=== PATIENT | female | born 1945 | race Caucasian/White ===

== ENCOUNTER 2020-08-30 12:27 | Emergency (ER) | payer MEDICARE, OTHER, SELFPAY ==
[2020-08-30] VITALS (41 sets, daily range): BP systolic 180–226; BP diastolic 71–179; PULSE 58–74; RESP 12–26; TEMP 36.3; O2SAT 93–100
--- NOTE | ~2020-08-30 | XR_ITS ---
EXAMINATION: XR shoulder RT min 2V DATE: 08/30/2020 13:04 INDICATION: Right shoulder pain. Fall. TECHNIQUE: 3 views of right shoulder were obtained. COMPARISON: Right shoulder radiographs 10/22/2018 FINDINGS: There is anterior dislocation of humeral head with suspected glenoid. There is a fracture o f anteroinferior glenoid (Bankart fracture). There are osteophytes at the glenohumeral joint. There i s moderate acromioclavicular joint osteoarthritis. IMPRESSION: 1. Recurrent anterior right shoulder dislocation. 2. Bankart fracture, which may be acute or chronic. Reviewed, dictated and finalized at location A.
--- NOTE | ~2020-08-30 | XR_ITS ---
EXAMINATION: XR shoulder RT min 2V DATE: 08/30/2020 16:55 INDICATION: Postreduction right glenohumeral dislocation TECHNIQUE: AP internally rotated, AP oblique externally rotated and transscapular Y views of the righ t shoulder were obtained. COMPARISON: 08/30/2020 at 12:53 PM FINDINGS: Successful reduction of dislocated right glenohumeral joint is now in normal alignment. No fracture. Mild acromioclavicular osteoarthritis. IMPRESSION: Successful reduction of previously dislocated right glenohumeral joint now in normal alignment with n o fracture. Reviewed, dictated and finalized at location B. IMPRESSION: Successful reduction of previously dislocated right glenohumeral joint now in n ormal alignment with no fracture.
--- NOTE | ~2020-08-30 | XR_ITS ---
EXAMINATION: XR humerus RT DATE: 08/30/2020 13:04 INDICATION: Right upper arm pain post fall TECHNIQUE: Internal and axillary rotated views of the right humerus were obtained. COMPARISON: 10/22/2018 FINDINGS: Recurrent anterior right glenoid humeral dislocation. Normal alignment and mild osteoarthritis at the right acromioclavicular and elbow joints. No fracture. Chronic lobular dystrophic soft tissue calcif ication at the proximal right forearm also seen on CT dated 05/17/2018. Visualized portion of the righ t lung is clear. IMPRESSION: 1. Anterior right glenohumeral dislocation. No fracture. Reviewed, dictated and finalized at location B.
--- NOTE | 2020-08-30 12:47 | ED.UPPEXIN ---
HPI - Extremity Injury (Upper) General Chief Complaint: Fall Stated Complaint: fall - right arm deformity Time Seen by Provider: 08/30/20 12:34 Source: patient Mode of arrival: EMS Limitations: no limitations History of Present Illness HPI narrative: Patient is a 74-year-old female complaining of right shoulder right arm pain, 10, aching type pain, after she fell at home. Patient states that she tripped and fell over a stool and landed on her right side. Patient denies any head, neck, chest, back, abdomen, pelvis or any other extremity pain/injury. Related Data Home Medications Medication Instructions Recorded Confirmed Lactobacillus acidophilus 10 cell PO DAILY cap 04/07/20 04/29/20 billion cell capsule carvedilol 6.25 mg tablet 6.25 mg PO Q12H 04/07/20 04/29/20 cyanocobalamin (vitamin B-12) 5,000 mcg PO DAILY 04/07/20 04/29/20 5,000 mcg capsule ketoconazole 2 % topical cream 1 applic TOPICAL DAILY 04/07/20 04/29/20 mirabegron 50 mg tablet,extended 50 mg PO DAILY 04/07/20 04/29/20 release 24 hr Allergies Allergy/AdvReac Type Severity Reaction Status Date / Time No Known Allergies Allergy Verified 08/30/20 12:47 Review of Systems Review of Systems: All systems reviewed & are unremarkable except as noted in HPI and below Constitutional: Constitutional: Denies body ache(s), Denies chills, Denies excessive sweating, Denies fatigue, Denies fever(s), Denies headache(s), Denies lethargy, Denies malaise, Denies weakness and Denies weight loss Eyes: Eyes: Denies blurry vision, Denies change in vision and Denies loss of vision ENT: Denies dizziness, Denies ear discharge, Denies headache(s), Denies lip swelling, Denies epistaxis, Denies nasal congestion, Denies neck pain, Denies throat swelling and Denies tongue swelling Cardiovascular: Cardiovascular: Denies chest pain, Denies chest pain at rest, Denies chest pain with activity, Denies diaphoresis, Denies rapid heart rate, Denies edema, Denies irregular heart rhythm, Denies lightheadedness, Denies palpitations, Denies dyspnea and Denies dyspnea on exertion Respiratory: Respiratory: Denies chest congestion, Denies cough, Denies hemoptysis, Denies dyspnea and Denies dyspnea on exertion Gastrointestinal: Gastrointestinal: Denies abdominal pain, Denies melena, Denies hematochezia, Denies diarrhea, Denies nausea, Denies vomiting and Denies hematemesis Musculoskeletal: Musculoskeletal: Denies abnormal gait, Denies limited range of motion, Denies neck pain and Denies numbness Neurologic: Denies Abnormal speech present, Denies abnormal gait, Denies confusion, Denies dizziness, Denies headache(s), Denies focal weakness, Denies loss of vision, Denies numbness, Denies Other visual disturbances, Denies Sensory deficit (Neuro) and Denies weakness Psychiatric: Psychiatric: Denies confusion, Denies depression, Denies auditory hallucinations, Denies homicidal ideation and Denies suicidal ideation Endocrine: Endocrine: Denies cold intolerance, Denies excessive sweating, Denies fatigue, Denies heat intolerance and Denies palpitations Hematologic/Lymphatic: Hematologic/Lymphatic: Denies easy bleeding and Denies easy bruising Allergic/Immunologic: Allergic/Immunologic: Denies lip swelling, Denies throat swelling and Denies tongue swelling [facility] Past Medical History Medical History (Updated 08/20/20 @ 15:01 by Lucille Negron NP) Abdominal hernia with gangrene and obstruction Anemia CKD (chronic kidney disease) stage 3, GFR 30-59 ml/min Dyslipidemia Elevated lipids Essential (primary) hypertension GERD without esophagitis History of kidney stones Idiopathic pericarditis Iron deficiency Mass of right forearm OAB (overactive bladder) Pulmonary nodule Right radial head fracture 04/2008 Rosacea Type 2 diabetes mellitus without complication, without long-term current use of insulin Vitamin B12 deficiency Surgical History Surgical History (Reviewed 04/29/20 @ 09:04 by Yani Faria
[2020-08-30] MEDS: diazePAM INJ (*CRX) 10 MG/2 ML SYRINGE 2.5 MG IV PUSH (14:26)
[2020-08-30] MEDS: HYDROmorphone HCL INJ (*CRX) 1 MG/ML SYR IV PUSH (14:27)
--- NOTE | 2020-08-30 14:58 | PC.NURSE ---
Pt now sitting up in bed, states pain is somewhat better. Note with position change pt has obvious deformity to right shoulder area. Right radial pulse remains strong. Consent obtained for moderate sedation to reduce right shoulder.
--- NOTE | 2020-08-30 16:10 | PC.NURSE ---
Dr. Coffey at bedside to reduce dislocation.
[2020-08-30] MEDS: SODIUM CHLORIDE 0.9% IV 1,000 ML 30 ML (16:23)
--- NOTE | 2020-08-30 16:24 | PC.NURSE ---
Addendum entered by Pradeep Sue RN 08/30/20 16:30: Pt actually had desired decrease in responsiveness with 20mg proprofol IVP per Dr. Coffey. Original Note: Dr. Coffey at bedside and administers 100mg proprofol IVP.
--- NOTE | 2020-08-30 16:32 | PC.NURSE ---
Additional 20mg propofol IVP per Dr. Coffey.
--- NOTE | 2020-08-30 16:33 | PC.NURSE ---
Additional 30mg propofol given IVP per Dr. Coffey.
--- NOTE | 2020-08-30 16:37 | PC.NURSE ---
Audible click and ease of movement to pt's right shoulder when reduced per Dr. Coffey. Arm sling placed to right arm immediately. Pt not arousable to voice at present time. Will continue to monitor.
--- NOTE | 2020-08-30 17:00 | PC.NURSE ---
Pt now awakens to name. States her arm feels better at present.
--- NOTE | 2020-08-30 18:00 | PC.NURSE ---
Pt up to bedside commode to urinate. Denies dizziness, lightheadedness with standing. States continues to feel better.
== END 2020-08-30 19:20 | disposition home or self-care (01) ==
PROVIDERS: Emergency Provider Emergency Medicine; PCP Family Medicine
DX: S43.014A Anterior dislocation of right humerus, initial encounter (principal); I12.9 Hypertensive chronic kidney disease with stage 1 through stage 4 chronic kidney disease, or unspecified chronic kidney disease; E11.22 Type 2 diabetes mellitus with diabetic chronic kidney disease; N18.30 Chronic kidney disease, stage 3 unspecified; Z86.2 Personal history of diseases of the blood and blood-forming organs and certain disorders involving the immune mechanism; E78.5 Hyperlipidemia, unspecified; K21.9 Gastro-esophageal reflux disease without esophagitis; I30.0 Acute nonspecific idiopathic pericarditis; N32.81 Overactive bladder; E53.8 Deficiency of other specified B group vitamins; W18.09XA Striking against other object with subsequent fall, initial encounter
CPT/HCPCS: 23650; 73030; 73060; 96374; 96375; 99285; A4565; J1170; J2704; J3360; J7030

== ENCOUNTER 2020-09-07 00:54 | Outpatient (CLI) | payer MEDICARE, OTHER, SELFPAY ==
[2020-09-07 20:51] LABS: SARS-CoV-2 RNA PCR Negative
== END 2020-09-07 00:55 | disposition home or self-care (01) ==
LOC: ANHCOVIDDT 00:54
PROVIDERS: PCP Family Medicine; Visit Provider Internal Medicine Cardiovascular Disease
DX: Z01.812 Encounter for preprocedural laboratory examination (principal); Z20.828 Contact with and (suspected) exposure to other viral communicable diseases
CPT/HCPCS: 87635; C9803; U0003

== ENCOUNTER 2020-09-14 01:10 | Outpatient (CLI) | payer MEDICARE, OTHER, SELFPAY ==
[2020-09-14 19:47] LABS: SARS-CoV-2 RNA PCR Negative
== END 2020-09-14 01:11 | disposition home or self-care (01) ==
LOC: ANHCOVIDDT 01:10
PROVIDERS: PCP Family Medicine; Visit Provider Specialist
DX: Z01.818 Encounter for other preprocedural examination (principal); Z20.828 Contact with and (suspected) exposure to other viral communicable diseases
CPT/HCPCS: 87635; C9803; U0003

== ENCOUNTER 2020-09-17 08:53 | Day surgery (SDC) | payer MEDICARE, OTHER, SELFPAY ==
[2020-09-16 10:41] VITALS: BMI 37.5
[2020-09-17] VITALS (22 sets, daily range): BP systolic 82–207; BP diastolic 48–93; PULSE 68–96; RESP 14–25; TEMP 36.2–36.5; O2SAT 95–99
[2020-09-17 09:28] LABS: Basophils Absolute Auto 0.1 K/mm3 (0.0-0.1); Basophils Percent Auto 0.5 % (0.2-1.2); Eosinophils Absolute Auto 0.2 K/mm3 (0-0.3); Eosinophils Percent Auto 1.6 % (0-4.4); Hematocrit 40.5 % (37.0-47.0); Hemoglobin 12.6 g/dL (12.0-15.0); Immature Granulocyte Absolute 0.05 K/mm3 (0.00-0.031); Immature Granulocyte Percent A 0.4 % (0-0.5); Lymphocytes Absolute Auto 1.78 K/mm3 (0.9-3.2); Lymphocytes Percent Auto 14.6 % (18.3-44.2); Mean Corpuscular HGB Conc 31.1 g/dl (32-36); Mean Corpuscular Hemoglobin 26.6 pg (26-34); Mean Corpuscular Volume 85.6 fl (80-100); Mean Platelet Volume 12.5 fl (7.4-10.4); Monocytes Percent Auto 7.8 % (2.6-8.5); Neutrophils Absolute Auto 9.1 K/mm3 (1.3-6.7); Neutrophils Percent Auto 75.1 % (45.5-73.1); Platelet Count Result 191 k/mm3 (150-375); Red Blood Count 4.73 M/mm3 (4.2-5.4); Red Cell Distribution Width 15.5 % (11.5-14.5); White Blood Count 12.2 K/mm3 (4.5-10.0)
[2020-09-17 09:40] LABS: Prothrombin Time 13.9 Seconds (11.1-14.7)
[2020-09-17 09:49] LABS: Anion Gap 8 mmol/L (8-16); Blood Urea Nitrogen 45 mg/dL (7-17); Calcium 9.7 mg/dL (8.4-10.2); Carbon Dioxide 26 mmol/L (22-30); Chloride 109 mmol/L (98-107); Estimated CRCL calculation 30 ml/min; Estimated Glomerular Filt Rate 32; Glucose 123 mg/dL (65-105); Potassium 4.6 mmol/L (3.4-5.0); Sodium 143 mmol/L (137-145)
--- NOTE | 2020-09-17 09:59 | WPDMODSED ---
Moderate Sedation Note-Pt Data Patient Data Diagnosis: Idiopathic pericardial effusion exertional dyspnea aortic stenosis mitral stenosis Present Complaint: 74-year-old lady reporting symptoms of some exertional shortness of breath and fatigue. She is been found to have a large pericardial effusion which is recurrent despite pericardiocentesis and despite creating a pericardial window. She also has echocardiographic and physical exam evidence of aortic and mitral valve disease. Right and left heart catheterization has been recommended by my partner saw this patient in the office. Procedure to be performed/Plan: Right and left heart catheterization Allergies Allergy/AdvReac Type Severity Reaction Status Date / Time No Known Allergies Allergy Verified 09/01/20 15:03 Home Medications Medication Instructions Recorded Confirmed Type blood sugar diagnostic #100 each 09/10/19 09/03/20 Rx lancets 28 gauge #100 each 09/10/19 09/03/20 Rx lisinopril 40 mg tablet 40 mg PO DAILY #90 tablet 01/26/20 09/16/20 Rx Lactobacillus acidophilus 10 cell PO DAILY cap 04/07/20 09/03/20 History billion cell capsule carvedilol 6.25 mg tablet 6.25 mg PO Q12H 04/07/20 09/16/20 History cyanocobalamin (vitamin B-12) 5,000 mcg PO DAILY 04/07/20 09/16/20 History 5,000 mcg capsule ketoconazole 2 % topical cream 1 applic TOPICAL DAILY 04/07/20 09/16/20 History mirabegron 50 mg tablet,extended 50 mg PO DAILY 04/07/20 09/16/20 History release 24 hr atorvastatin 10 mg PO DAILY 09/16/20 09/16/20 History fenofibrate 160 mg PO DAILY 09/16/20 09/16/20 History Current Medications: Active Medications Sodium Chloride (Normal Saline Iv) 500 mls @ 100 mls/hr IV CONT .Q5H SHAKA Sedation/Anesthesia: No previous sedation/anesthesia problems (including family history). [facility] Past Medical History Medical History Abdominal hernia with gangrene and obstruction Anemia CKD (chronic kidney disease) stage 3, GFR 30-59 ml/min Diabetes Dizziness Dyslipidemia Elevated lipids Essential (primary) hypertension GERD without esophagitis High cholesterol History of kidney stones Idiopathic pericarditis Iron deficiency Mass of right forearm OAB (overactive bladder) Osteoporosis Pulmonary nodule Right radial head fracture 04/2008 Rosacea Seasonal allergies Shoulder dislocation (~08/30/20) Skin cancer Sleep disorder Type 2 diabetes mellitus without complication, without long-term current use of insulin Vertigo Vision changes Vitamin B12 deficiency Surgical History Surgical History History of cardiac catheterization History of cholecystectomy 01/24/2010 History of tonsillectomy History of total abdominal hysterectomy and bilateral salpingo-oophorectomy 01/24/2010 History of tubal ligation Family History Family History Mother Hypertension Diabetes mellitus Cerebrovascular accident Heart disease Social History Social History Smoking status: Never smoker Second hand tobacco smoke exposure: No Alcohol intake: never Substance use: never Substance use type: does not use Gender identity (if verbalized by the patient): Female Mod Sed Physical Exam Physical Exam Pre Procedural Exam: Normal: Throat, Airway, Lungs, Heart Rate, Heart Rhythm, Neuro Exam and Extremities and Variation: Appearance ( obese white female no distress) and Heart Size ( PMI difficult to palpate) Hours since solid foods: 12 Hours since liquid intake: 12 Internal Medicine - PN: Obj Da Vital Signs Vital Signs: Vital Signs - 24 hr 09/17/20 09:36 Temperature 36.2 C L Pulse Rate 76 Respiratory Rate 15 Blood Pressure 178/93 H Pulse Oximetry 98 Meds/Results Medications: Active Medications Generic Name Dose Route Start Last Admin Trade Name
--- NOTE | 2020-09-17 10:57 | WPDCARDPROC ---
Cardiac Cath Procedure Note Date of procedure:: 09/17/20 Performing physician:: Andi Silva MD Indication:: idiopathic pericardial effusion aortic valve stenosis exertional shortness of breath Brief clinical history:: this is a 74-year-old woman who is been followed in our practice because of the recurrent idiopathic pericardial effusion. Despite creation of a pericardial window she continues to have a significant effusion by echo. Patient also by echo appears to have aortic valve stenosis. For further evaluation of this right and left heart catheterization was recommended and scheduled for today. Procedure Procedure performed:: Right and left heart catheterization Sedation/Medication given:: fentanyl 50 mg Versed 2 mg case start time 10 20 a.m. case end time 10:53 a.m. sedation provided by Sarah Melendez RN, trained observer Access site:: right femoral artery, right femoral vein Estimated blood loss:: 15-20 cc Procedure note:: patient brought to the cardiac catheterization lab in the postabsorptive state where the right femoral triangle was prepared in the usual fashion. Tape was used to retain the pannus cephalad. The patient received 1% lidocaine infiltrated locally following this I used the modified Seldinger technique to puncture the right femoral vein and artery. A 7 [place] sheath was placed into the vein and a 6 [place] long 45 cm sheath was placed into the artery. Following this a balloon tip Sheridan-Kaiser catheter was used to document right-sided hemodynamics and thermodilution cardiac outputs were measured as well as AV O2 difference. Following this the Sheridan-Kaiser catheter was removed. I then used a 5 [place] angled pigtail catheter to measure pressure in the aortic root. A straight wire was used to probe the calcified aortic valve and enter the left ventricle. Simultaneous pressures were measured in the left ventricle and from the side arm of the 45 cm sheath to measure aortic valve gradient. Aortic valve area was then calculated. A left ventriculogram was then done in the 30 degree WHIPPLE projection. The pigtail catheter was then removed. A 5 [place] FL4 catheter was used to engage inject the left coronary artery in multiple projections a 5 [place] JR4 catheter was used to engage inject the right coronary artery. Following this the procedure was terminated the patient was taken to the holding area for manual sheath removal. I did change the 45 cm sheath for a standard sheath over long guidewire at the end of the case. Procedure was well tolerated there were no apparent complications and there were no signs of any groin hematoma upon leaving the clinical laboratory assistant. Findings:: Hemodynamics: Right atrial pressure 3. Right ventricle 33/5. Pulmonary artery 45/13. Pulmonary capillary wedge pressure 14. Central aorta was 184 over 74 left ventricle 200 over 3 end-diastolic 18. Thermodilution cardiac output is 4.83 liters/minute giving an index of 2.51. Beth cardiac output is 4.59 giving an index of 2.38. Aortic valve mean gradient is 17.3 mmHg aortic valve area calculates to be 1.3 cm2. Left ventricle is of normal size there is impressive concentric left ventricular hypertrophy present. Contractility is hyperdynamic the ejection fraction is in the vicinity of 80% with the near obliteration of the LV cavity in end systole. Left main coronary artery is widely patent the left anterior descending is a medium caliber artery extending down to the apex the LAD and its branches are angiographically normal the circumflex is a moderate caliber artery giving rise to the marginal branches the circumflex and its branches are angiographically normal the right coronary artery is to posterior circulation and large in caliber. It is angiographically normal. Conclusion:: 1. Right coronary dominant circulation with no evidence of coronary disease 2. left ventricular hypertrophy with hyperdynamic systolic function 3. very mild
== END 2020-09-17 20:00 | disposition home or self-care (01) ==
PROVIDERS: Specialist; PCP Family Medicine; Visit Provider Internal Medicine Cardiovascular Disease
PROC: 4A023N8 Measurement of Cardiac Sampling and Pressure, Bilateral, Percutaneous Approach (ICD-10-PCS; CPT 93453; principal; 2020-09-17 10:00)
DX: Z01.810 Encounter for preprocedural cardiovascular examination (principal); I31.3 Pericardial effusion (noninflammatory); I35.0 Nonrheumatic aortic (valve) stenosis; R06.02 Shortness of breath; I12.9 Hypertensive chronic kidney disease with stage 1 through stage 4 chronic kidney disease, or unspecified chronic kidney disease; E11.22 Type 2 diabetes mellitus with diabetic chronic kidney disease; N18.30 Chronic kidney disease, stage 3 unspecified; D64.9 Anemia, unspecified; E78.5 Hyperlipidemia, unspecified; K21.9 Gastro-esophageal reflux disease without esophagitis; M81.0 Age-related osteoporosis without current pathological fracture; N32.81 Overactive bladder; E53.8 Deficiency of other specified B group vitamins
CPT/HCPCS: 36415; 80048; 85025; 85610; 93460; A9270; C1887; C1894; J0360; J0461; J1644; J2250; J3010; J7040

== ENCOUNTER 2020-09-20 13:24 | Outpatient (CLI) | payer MEDICARE, OTHER, SELFPAY ==
--- NOTE | ~2020-09-20 | MR_ITS ---
EXAMINATION: MR shoulder RT wo con DATE: 09/20/2020 14:51 INDICATION: Right shoulder pain with persistent numbness and tingling to the fingers post fall 3 week s prior with right shoulder dislocation TECHNIQUE: Magnetic resonance imaging (MRI) of the right shoulder was performed without intravenous c ontrast. Sequences included axial PD-weighted FS FSE, coronal oblique PD-weighted FS FSE, coronal obl ique T2-weighted FS FSE, sagittal PD-weighted FS FSE, and sagittal T1-weighted SE. COMPARISON: Radiographs dated 08/30/2020 FINDINGS: There is motion artifact or blurring to some extent on all sequences which mildly limits evaluation p articularly if the articular cartilage. Coracoacromial arch: The acromion undersurface is minimally curved in morphology (type I-II). Thickening of the acromial s gopal of the coracoacromial ligament. Moderate acromioclavicular osteoarthritis. Rotator cuff: Moderate supraspinatus and infraspinatus tendinopathy. There is partial thickness bursal sided tearin g along the distal insertion of the supraspinatus and conjoined portion of the supraspinatus and infr aspinatus tendons. There is significant attenuation of the medial supraspinatus tendon with full-thic kness supraspinatus tendon tear located 2 cm from the greater tuberosity footplate. The tear measures 8 mm medial collateral and 1.2 cm anteroposteriorly. The teres minor tendon is normal. Moderate subs capularis tendinopathy without discrete tear. There is medial retraction and mild fatty atrophy of th e supraspinatus muscle belly. There is a small amount of fluid surrounding the supraspinatus myotendi nous junction. Biceps tendon, glenoid labrum and glenohumeral cartilage: The long head biceps tendon is torn with the tear margin retracted below the level of the intertuberc ular groove. Deep chondral ulceration along the anterior glenoid with mild subarticular along the cep halad aspect of the humeral head. There is a tear of the anterior to anteroinferior glenoid labrum. T here is associated partial tear at the right side of the anterior labral ligamentous complex includin g stripping of the periosteum extending a short distance medially along the anterior neck of the elder oid. There are couple very small ossicles within the small recess formed by the periosteal stripping which could represent either degenerative loose bodies, heterotopic ossicles related to the injury or small avulsion fracture fragments. Fluid: Small to moderate-sized glenohumeral joint effusion which extends to the full-thickness rotator cuff tear defect to communicate with a small amount of fluid in the subacromial/subdeltoid and deep subcor tical bursae. Mild synovitis at the axillary and posterior recesses. Bones: There is bone marrow edema consistent with either bone contusion or very shallow Hill-Sachs fracture trough along the posterolateral aspect of the right femoral head. No pathologic marrow replacing proc ess. IMPRESSION: 1. Bone marrow edema at the posterolateral aspect of the humeral head consistent with bone contusion or shallow Hill-Sachs fracture trough. 2. Likely tear at the anterior to anteroinferior glenoid labrum with periosteal stripping and partial tear of the associated anteroinferior labroligamentous complex consistent with a Bankart lesion. A c ouple small ossicles along the anterior rim of the glenoid without significant marrow edema at the gl enoid to suggest acute Bankart fracture. These could represent either degenerative loose bodies, hete rotopic ossification related to chronic soft tissue injury or chronic small avulsion fracture fragmen t. 3. Moderate acromioclavicular and mild glenohumeral osteoarthritis. 4. Complete tear and distal retraction of the long head biceps tendon. 5. Moderate rotator cuff tendinopathy involving the subscapularis, supraspinatus and infraspinatus te ndons with partial-thickne
== END 2020-09-20 13:25 | disposition home or self-care (01) ==
PROVIDERS: PCP Family Medicine; Visit Provider Orthopaedic Surgery
DX: S46.011A Strain of muscle(s) and tendon(s) of the rotator cuff of right shoulder, initial encounter (principal); S46.111A Strain of muscle, fascia and tendon of long head of biceps, right arm, initial encounter; M19.011 Primary osteoarthritis, right shoulder; M25.411 Effusion, right shoulder
CPT/HCPCS: 73221

== ENCOUNTER 2020-09-23 14:36 | Outpatient (CLI) | payer MEDICARE, OTHER, SELFPAY ==
[2020-09-23 15:23] LABS: Anion Gap 7 mmol/L (8-16); Blood Urea Nitrogen 36 mg/dL (7-17); Calcium 9.3 mg/dL (8.4-10.2); Carbon Dioxide 28 mmol/L (22-30); Chloride 108 mmol/L (98-107); Estimated Glomerular Filt Rate 32; Glucose 89 mg/dL (65-105); Potassium 4.2 mmol/L (3.4-5.0); Sodium 143 mmol/L (137-145)
== END 2020-09-23 14:37 | disposition home or self-care (01) ==
LOC: ANHLAB 14:39
PROVIDERS: PCP Family Medicine; Visit Provider Nurse Practitioner Adult Health
DX: N18.30 Chronic kidney disease, stage 3 unspecified (principal)
CPT/HCPCS: 36415; 80048

== ENCOUNTER 2020-11-03 13:43 | Outpatient (CLI) | payer MEDICARE, OTHER, SELFPAY ==
--- NOTE | 2020-11-03 13:46 | ECG_ITS ---
Measurements Intervals [place] Rate: 79 P: 47 MO: 168 QRS: -30 QRSD: 90 T: 102 QT: 370 QTc: 425 Interpretive Statements SINUS RHYTHM ANTEROSEPTAL INFARCT, AGE INDETERMINATE BORDERLINE ST-T WAVE ABNORMALITY- HIGH LATERAL LEADS ABNORMAL ECG Electronically Signed On 11-03-2020 14:34:42 [employer] by Jaiden Diamond D.O.
[2020-11-03 14:16] LABS: Partial Thromboplastin Time 24.6 SECONDS (22.3-36.8)
== END 2020-11-03 13:44 | disposition home or self-care (01) ==
LOC: ANHSURGERY 13:46
PROVIDERS: Anesthesiology; PCP Family Medicine; Visit Provider Orthopaedic Surgery
DX: Z01.818 Encounter for other preprocedural examination (principal); I10 Essential (primary) hypertension; N18.30 Chronic kidney disease, stage 3 unspecified; R94.31 Abnormal electrocardiogram [ECG] [EKG]
CPT/HCPCS: 36415; 85730; 93005

== ENCOUNTER 2020-11-06 01:14 | Outpatient (CLI) | payer MEDICARE, OTHER, SELFPAY ==
[2020-11-06 20:08] LABS: SARS-CoV-2 RNA PCR Negative
== END 2020-11-06 01:15 | disposition home or self-care (01) ==
LOC: ANHCOVIDDT 01:15
PROVIDERS: PCP Family Medicine; Visit Provider Orthopaedic Surgery
DX: Z01.812 Encounter for preprocedural laboratory examination (principal); Z20.822 Contact with and (suspected) exposure to COVID-19
CPT/HCPCS: C9803; U0003

== ENCOUNTER 2020-11-10 01:31 | Day surgery (SDC) | payer MEDICARE, OTHER, SELFPAY ==
[2020-10-27 12:25] VITALS: BMI 36.6
--- NOTE | 2020-11-09 10:10 | WPDANESEPPF ---
Anes - Initial Pre Proc Eval Procedure: Operation Date: 11/10/20 07:30 Proposed Procedures p Right Rotator Cuff Repair - Jerry Correa MD Date/Time: 11/09/20 10:10 Surgeon: Jerry Correa MD Pre Op Diagnosis: right rotator cuff tear Patient Data Age: 74 Gender: F Height: 1.57 m Weight: 90.9 kg Allergies Allergy/AdvReac Type Severity Reaction Status Date / Time No Known Allergies Allergy Verified 11/10/20 06:44 Home Medications Medication Instructions Recorded Confirmed Type blood sugar diagnostic #100 each 09/10/19 10/17/20 Rx lancets 28 gauge #100 each 09/10/19 10/17/20 Rx lisinopril 40 mg tablet 40 mg PO DAILY #90 tablet 01/26/20 11/10/20 Rx Lactobacillus acidophilus 10 10 cell PO DAILY cap 04/07/20 11/10/20 History billion cell capsule carvedilol 6.25 mg tablet 6.25 mg PO Q12H 04/07/20 11/10/20 History cyanocobalamin (vitamin B-12) 5,000 mcg PO DAILY 04/07/20 11/10/20 History 5,000 mcg capsule ketoconazole 2 % topical cream 1 applic TOPICAL DAILY 04/07/20 11/10/20 History mirabegron 50 mg tablet,extended 50 mg PO DAILY 04/07/20 11/10/20 History release 24 hr atorvastatin 10 mg PO DAILY 09/16/20 11/10/20 History fenofibrate 160 mg PO DAILY 09/16/20 11/10/20 History chlorhexidine gluconate 4 % 1 applic TOPICAL ONCE #237 ml 10/04/20 10/27/20 Rx topical liquid cetirizine 10 mg tablet 10 mg PO DAILY PRN tablet 10/13/20 11/10/20 History Patient hx anesthesia problems: none Family hx anesthesia problems: none PMFSH Past Medical History Medical History (Updated 10/17/20 @ 19:07 by Lucille Negron NP) Abdominal hernia with gangrene and obstruction Anemia CKD (chronic kidney disease) stage 3, GFR 30-59 ml/min Diabetes Dizziness Dyslipidemia Elevated lipids Essential (primary) hypertension GERD without esophagitis High cholesterol History of kidney stones Idiopathic pericarditis Iron deficiency Mass of right forearm OAB (overactive bladder) Osteoporosis Pulmonary nodule Right radial head fracture 04/2008 Rosacea Seasonal allergies Shoulder dislocation (~08/30/20) Skin cancer Sleep disorder Type 2 diabetes mellitus without complication, without long-term current use of insulin Vertigo Vision changes Vitamin B12 deficiency Surgical History Surgical History History of cardiac catheterization History of cholecystectomy 01/24/2010 History of tonsillectomy History of total abdominal hysterectomy and bilateral salpingo-oophorectomy 01/24/2010 History of tubal ligation Family History Family History Mother Hypertension Diabetes mellitus Cerebrovascular accident Heart disease Social History Social History Smoking status: Never smoker Second hand tobacco smoke exposure: No Alcohol intake: never Substance use: never Substance use type: does not use Living arrangements: with family Gender identity (if verbalized by the patient): Female Spiritual care concerns: No Anes - Eval Final PreProcedure Day of Procedure 11/09/20 10:10 Patient weight: obese Heart: regular rate and rhythm Lungs: clear to auscultation and normal air movement Airway: Mallampati scale class III Neurological: alert and oriented Last oral intake: >/= 8 hours ASA classification: III Emergent: no Anesthetic plan: proceed Anesthesia type and monitoring: general ETT and standard monitoring Informed Consent: The patient's anesthetic plan and its attendant risks and benefits were discussed with the patient/family/POA. Questions were solicited and answers provided to the satisfaction of the patient/family/POA.
--- NOTE | 2020-11-09 10:11 | WPDANESPNB ---
Anes - Peripheral Nerve Block Date/Time: 11/09/20 10:11 I have discussed with the patient/family/POA the placement of a peripheral nerve block for post-operative pain management, including associated risks, benefits, complications, and side effects. Alternative methods of post-operative analgesia were detailed. Questions were solicited and answers provided to the satisfaction of the patient/family/POA. Time-Out: A pre-procedural Time-Out was completed immediately before starting the procedure and confirmed: Patient Identification, Site, Procedure, Patient Position and the Availability of Requisite Equipment. Clinical Indications: Acute post-operative pain management requested by the operative surgeon. Nerve Block Insertion Note Anes-nerve block: interscalene right Patient position: supine Skin prep: chlorhexidine Needle: 22 gauge, stimulating, insulated echogenic needle. Needle length: 50 mm Technique: ultrasound Injectate: bupivacaine 0.5% with epi 5 mcg/ml (30cc) Observations: tolerated well Complications: none Procedure start time:: 729 Procedure end time:: 732
[2020-11-10] VITALS (17 sets, daily range): BP systolic 130–200; BP diastolic 64–87; PULSE 73–87; RESP 14–22; TEMP 36.1–36.6; O2SAT 89–100
[2020-11-10] MEDS: ACETAMINOPHEN 500 MG TABLET 1000 MG PO (06:52)
[2020-11-10] MEDS: CELECOXIB 200 MG CAPSULE PO (06:52)
[2020-11-10] MEDS: LACTATED RINGERS 1,000 ML 30 ML IV CONT ×2 (07:01→10:25)
[2020-11-10 07:11] LABS: Glucose Point of Care 108 (65-105)
--- NOTE | 2020-11-10 07:22 | WPDHPUPDATE1 ---
History and Physical Update Update Date/Time: 11/10/20 07:22 History and Physical has been reviewed, including an updated exam of the patient. There are NO changes in the patient's condition. Risks, benefits, and alternatives have been discussed and questions answered. Patient agrees to proceed with procedure.
[2020-11-10] MEDS: ceFAZolin 2 GM/D5W 50 ML 2 GM/50 ML BAG IVPB (07:35)
--- NOTE | 2020-11-10 10:11 | PM.PROC ---
Procedure Note - Detailed Date of procedure: 11/10/20 Pre-op diagnosis: right rotator cuff tear Post-op diagnosis: same Procedure performed: RIGHT ROTATOR CUFF REPAIR Description of procedure: THE PATIENT WAS TAKEN TO THE OPERATING ROOM AND THEN INTUBATED AND PLACED IN THE BEACH CHAIR POSITION. THE RIGHT UPPER EXTREMITY WAS PREPPED AND DRAPED IN THE NORMAL STERILE FASHION. AN INCISION WAS MADE IN BETWEEN THE NOMAN-LATERAL ACROMION AND THE AC JOINT. THE FASCIA WAS IDENTIFIED. NEXT A MINI OPEN INCISION WAS MADE THROUGH THE DELTOID MUSCLE EXPOSING THE SUBACROMIAL SPACE. A LIMITED ACROMIOPLASTY WAS PREFORMED. THE ROTATOR CUFF WAS IDENTIFIED. THERE WAS A LARGE TEAR TO THE ENTIRE CUFF. THERE WAS ALSO A VERTICAL TEAR THROUGH THE SUPRASPINATUS TENDON. THE GREATER TUBEROSITY WAS DEBRIDED TO BLEEDING BONE. A #2 ETHIBOND WAS USED TO APPROXIMATE THE VERTICAL RENT THROUGH THE CUFF. ONCE THAT WAS PREFORMED 3 ATHREX 5.5 SUTURE ANCHORS WERE PLACED IN TO GOOD BONE AND HAD VERY GOOD BITES. EMILEE-RAJINDER TYPE REPAIRS WERE DONE TO THE ROTATOR CUFF AND THERE WAS GOOD APPROXIMATION TO THE GREATER TUBEROSITY. THE VERTICAL COMPONENT WAS ALSO REINFORCED WITH #2 FIBER WIRE. THE REPAIR WAS EXCELLENT. THERE WAS NO IMPINGEMENT ON THE REPAIR FROM THE ACROMION WITH RANGE OF MOTION. THE WOUND WAS IRRIGATED WITH COPIOUS AMOUNTS OF ANTIBIOTIC SOLUTION. THE DELTOID MUSCLE WAS REPAIRED WITH #2 FIBER WIRE AND 0 VICRYL SUTURE. THE SUBCUTANEOUS LAYER WAS APPROXIMATED WITH 2-0 VICRYL. THE SKIN WAS APPROXIMATED WITH 3-0 QUIL AND DERMABOND. STERILE DRESSING WAS APPLIED. PATIENT WAS EXTUBATED. Anesthesia: GLMA and GETA Surgeon: Jerry Correa MD Estimated blood loss (mL): 20 Complications: No immediate complications Condition: stable Disposition: PACU
[2020-11-10 10:36] LABS: Glucose Point of Care 174 (65-105)
[2020-11-10] MEDS: ONDANSETRON INJ 4 MG/2 ML VIAL IV PUSH (10:48)
--- NOTE | 2020-11-10 12:08 | SUR.PHASEI ---
[id number] REMOVED, ROOM AIR TRIAL-WITHIN 2-3 MINUTES SATURATION DECREASED TO 88%-NC REAPPLIED AT 1L/MIN.
--- NOTE | 2020-11-10 14:23 | SUR.PHASEII ---
1345 - pt to bathroom with assistance. pt urinated without difficulty 1415 - Dr. Correa in OP Recovery. Dr. Correa updated on pt's status. Pt's o2 sats drop to 73% on RA. maintains o2 at 88%-91% on 1l/ nc. pt encouraged to use incentive spirometer. poor effort with performance. Dr. Correa in room talking with pt.
--- NOTE | 2020-11-10 15:55 | SUR.PHASEII ---
1555 - pt has been maintaining o2 sat at 93% on RA for [address] Correa and Dr. Arnold called and okayed for patient to go home
== END 2020-11-10 16:40 | disposition home or self-care (01) ==
PROVIDERS: PCP Family Medicine; Visit Provider Orthopaedic Surgery
PROC: (CPT 23420; principal; 2020-11-10 07:30)
DX: S46.011A Strain of muscle(s) and tendon(s) of the rotator cuff of right shoulder, initial encounter (principal); W19.XXXA Unspecified fall, initial encounter; G89.18 Other acute postprocedural pain; I12.9 Hypertensive chronic kidney disease with stage 1 through stage 4 chronic kidney disease, or unspecified chronic kidney disease; N18.30 Chronic kidney disease, stage 3 unspecified; E11.22 Type 2 diabetes mellitus with diabetic chronic kidney disease; E78.5 Hyperlipidemia, unspecified; K21.9 Gastro-esophageal reflux disease without esophagitis; I30.0 Acute nonspecific idiopathic pericarditis; D50.9 Iron deficiency anemia, unspecified; N32.81 Overactive bladder; M81.0 Age-related osteoporosis without current pathological fracture; E53.8 Deficiency of other specified B group vitamins; E66.9 Obesity, unspecified; Z68.36 Body mass index [BMI] 36.0-36.9, adult
CPT/HCPCS: 23410; 64415; A9270; C1713; J0690; J1100; J2370; J2405; J2704; J2710; J3010; J7120

== ENCOUNTER 2021-07-26 13:23 | Outpatient (CLI) | payer MEDICARE, OTHER, SELFPAY ==
--- NOTE | ~2021-07-26 | US_ITS ---
US renal BI 07/26/2021 14:16 Procedure: Realtime transabdominal ultrasound of the kidneys and bladder. Indication: Chronic kidney disease Comparison: Ultrasound dated 12/11/2013 Findings: There is diffuse right renal atrophy with increased echogenicity. There are multiple left r enal cysts, largest measuring 1.5 cm. There is increased left renal cortical echogenicity. The right kidney measures 7.2 cm and left kidney measures 9.7 cm. Bladder is not distended for evaluation. Impression: 1: Diffuse renal atrophy bilaterally with increased echogenicity. 2: Left renal cysts. Reviewed, dictated and finalized at location A. Impression: 1: Diffuse renal atrophy bilaterally with increased echogenicity. 2: Left renal cysts.
== END 2021-07-26 13:24 | disposition home or self-care (01) ==
LOC: ANHIMG 13:28
PROVIDERS: PCP Family Medicine; Visit Provider Internal Medicine Nephrology
DX: N18.31 Chronic kidney disease, stage 3a (principal); N28.1 Cyst of kidney, acquired
CPT/HCPCS: 76775

== ENCOUNTER 2021-08-11 07:26 | Outpatient (CLI) | payer MEDICARE, OTHER, SELFPAY ==
[2021-08-05 12:45] VITALS: BMI 36.6
[2021-08-11] VITALS (12 sets, daily range): BP systolic 140–192; BP diastolic 63–86; PULSE 62–77; RESP 18–24; O2SAT 96–98
--- NOTE | ~2021-08-11 | US_ITS ---
EXAMINATION: US biopsy renal DATE: 08/11/2021 10:46 INDICATION: Chronic kidney disease. TECHNIQUE: The procedure including the risks, benefits, and alternatives was discussed with the patie nt. Risks discussed included bleeding and infection. The patient understood the risks and agreed to p roceed. A timeout was performed to verify the patient's name, date of , and procedure to be p erformed. The skin overlying the left kidney was prepped and draped in usual sterile fashion. Anest hetic was administered with 1% lidocaine subcutaneously. An 18 gauge core biopsy needle was then use d to obtain 11 core biopsy specimens under continuous sonographic guidance. The entry site was cleane d and dressed. There were no immediate complications. FINDINGS: Ultrasound images demonstrate the needle in the kidney. IMPRESSION: 1. Ultrasound-guided random left kidney core needle biopsy. Reviewed, dictated and finalized at location A.
[2021-08-11 07:56] LABS: Immature Platelet Fraction Pct 11.7 % (0.9-11.2); Mean Platelet Volume 11.8 fl (7.4-10.4); Platelet Count Result 150 k/mm3 (150-375)
[2021-08-11 08:10] LABS: INR 1.1; Prothrombin Time 13.8 Seconds (11.1-14.7)
--- NOTE | 2021-08-11 11:01 | SUR.PHASEII ---
Patient said she doesn't take any oral meds or insulin for Diabetes so RN didn't check blood sugar upon arrival. Patient came from Radiology to Outpatient without IV access.
--- NOTE | 2021-08-11 14:58 | SUR.PHASEII ---
1438: RN called Dr. Alexandra and made him aware of patient's BP rising again. He said it was okay for patient to discharge home and take her oral BP medications when she got home.
== END 2021-08-11 14:49 | disposition home or self-care (01) ==
PROVIDERS: Radiology Diagnostic Radiology; PCP Family Medicine; Visit Provider Internal Medicine Nephrology
DX: D47.2 Monoclonal gammopathy (principal); I10 Essential (primary) hypertension
CPT/HCPCS: 36415; 50200; 76942; 85049; 85055; 85610; 88300; 88305; 88313; 88329; 88346; 88348; 88350

== ENCOUNTER 2021-09-08 13:47 | Outpatient (CLI) | payer MEDICARE, OTHER, SELFPAY ==
[2021-09-08 14:04] LABS: Basophils Percent Auto 0.4 % (0.2-1.2); Eosinophils Absolute Auto 0.1 K/mm3 (0-0.3); Hematocrit 30.4 % (37.0-47.0); Hemoglobin 9.1 g/dL (12.0-15.0); Immature Granulocyte Absolute 0.06 K/mm3 (0.00-0.031); Immature Granulocyte Percent A 0.6 % (0-0.5); Lymphocytes Absolute Auto 1.14 K/mm3 (0.9-3.2); Lymphocytes Percent Auto 11.9 % (18.3-44.2); Mean Corpuscular HGB Conc 29.9 g/dl (32-36); Mean Corpuscular Hemoglobin 25.6 pg (26-34); Mean Corpuscular Volume 85.4 fl (80-100); Mean Platelet Volume 11.3 fl (7.4-10.4); Monocytes Absolute Auto 0.6 K/mm3 (0.1-0.6); Monocytes Percent Auto 6.2 % (2.6-8.5); Neutrophils Absolute Auto 7.6 K/mm3 (1.3-6.7); Neutrophils Percent Auto 79.9 % (45.5-73.1); Platelet Count Result 145 k/mm3 (150-375); Red Blood Count 3.56 M/mm3 (4.2-5.4); Red Cell Distribution Width 16.6 % (11.5-14.5); White Blood Count 9.6 K/mm3 (4.5-10.0)
[2021-09-08 14:12] LABS: Hypochromasia 1+ (NORMAL)
[2021-09-08 16:54] LABS: Alanine Aminotransferase 13 U/L (4-35); Albumin Level 4.1 g/dL (3.5-5.1); Alkaline Phosphatase 39 U/L (38-126); Anion Gap 10 mmol/L (8-16); Aspartate Amino Transferase 27 U/L (14-36); Bilirubin,Total 0.6 mg/dL (0.2-1.3); Blood Urea Nitrogen 61 mg/dL (7-17); Calcium 9.4 mg/dL (8.4-10.2); Carbon Dioxide 23 mmol/L (22-30); Chloride 109 mmol/L (98-107); Estimated Glomerular Filt Rate 26; Glucose 111 mg/dL (65-110); Immunoglobulin A 235 mg/dL (70-400); Immunoglobulin G 721 mg/dL (700-1600); Immunoglobulin M 87 mg/dL (40-230); Potassium 4.6 mmol/L (3.4-5.0); Sodium 142 mmol/L (137-145)
[2021-09-11 19:36] LABS: Albumin 3.9 g/dL (3.8-4.8); Alpha 1 Globulin 0.4 g/dL (0.2-0.3); Alpha 2 Globulin 0.7 g/dL (0.5-0.9); Beta 1 Globulin 0.4 g/dL (0.4-0.6); Gamma Globulin 0.8 g/dL (0.8-1.7); Protein, Total 6.5 g/dL (6.1-8.1)
[2021-09-13 09:13] LABS: Kappa\\Lambda Light Chains 1.72 (0.26-1.65); Lambda Light Chain 33.1 mg/L (5.7-26.3)
== END 2021-09-08 13:48 | disposition home or self-care (01) ==
PROVIDERS: PCP Family Medicine; Visit Provider Internal Medicine Hematology & Oncology
DX: D72.9 Disorder of white blood cells, unspecified (principal)
CPT/HCPCS: 36415; 80053; 82784; 83883; 84155; 84165; 85025

== ENCOUNTER 2021-09-22 15:37 | Outpatient (RCR) | payer MEDICARE, OTHER, SELFPAY ==
[2021-09-22 16:02] LABS: Basophils Percent Auto 0.3 % (0.2-1.2); Eosinophils Absolute Auto 0.1 K/mm3 (0-0.3); Hematocrit 29.8 % (37.0-47.0); Hemoglobin 8.8 g/dL (12.0-15.0); Immature Granulocyte Absolute 0.06 K/mm3 (0.00-0.031); Immature Granulocyte Percent A 0.6 % (0-0.5); Lymphocytes Absolute Auto 0.98 K/mm3 (0.9-3.2); Lymphocytes Percent Auto 9.5 % (18.3-44.2); Mean Corpuscular HGB Conc 29.5 g/dl (32-36); Mean Corpuscular Hemoglobin 25.6 pg (26-34); Mean Corpuscular Volume 86.6 fl (80-100); Mean Platelet Volume 12.2 fl (7.4-10.4); Monocytes Absolute Auto 0.7 K/mm3 (0.1-0.6); Monocytes Percent Auto 6.7 % (2.6-8.5); Neutrophils Absolute Auto 8.5 K/mm3 (1.3-6.7); Neutrophils Percent Auto 81.9 % (45.5-73.1); Platelet Count Result 170 k/mm3 (150-375); Red Blood Count 3.44 M/mm3 (4.2-5.4); Red Cell Distribution Width 16.8 % (11.5-14.5); White Blood Count 10.4 K/mm3 (4.5-10.0)
[2021-09-22 16:08] LABS: Atypical Lymphocytes Present; Hypochromasia 1+ (NORMAL); Platelet Estimate Adequate (Adequate)
[2021-09-22 16:41] LABS: Alanine Aminotransferase 12 U/L (4-35); Albumin Level 4.1 g/dL (3.5-5.1); Alkaline Phosphatase 49 U/L (38-126); Anion Gap 9 mmol/L (8-16); Aspartate Amino Transferase 23 U/L (14-36); Bilirubin,Total 0.5 mg/dL (0.2-1.3); Blood Urea Nitrogen 43 mg/dL (7-17); Calcium 8.9 mg/dL (8.4-10.2); Carbon Dioxide 24 mmol/L (22-30); Chloride 104 mmol/L (98-107); Estimated Glomerular Filt Rate 26; Glucose 134 mg/dL (65-110); Potassium 4.4 mmol/L (3.4-5.0); Sodium 137 mmol/L (137-145)
[2021-09-22 17:33] LABS: Vitamin B12 > 1000.0 pg/mL (239-931)
[2021-09-22 17:57] LABS: Iron 46 ug/dL (37-170)
[2021-09-22 18:07] LABS: Percent Iron Saturation 12 % (20-50)
== END 2021-12-21 23:59 | disposition home or self-care (01) ==
LOC: ANHLAB 15:37
PROVIDERS: PCP Family Medicine; Visit Provider Internal Medicine Hematology & Oncology
DX: D64.9 Anemia, unspecified (principal); D72.9 Disorder of white blood cells, unspecified
CPT/HCPCS: 36415; 80053; 82607; 82728; 83540; 83550; 85025

== ENCOUNTER → 2021-11-01 08:36 | Outpatient (CLI) | payer MEDICARE, OTHER, SELFPAY ==
[2021-11-02 03:58] LABS: SARS-CoV-2 RNA PCR Positive
== END ==
PROVIDERS: PCP Family Medicine; Visit Provider Family Medicine
DX: U07.1 COVID-19 (principal)
CPT/HCPCS: C9803; U0003; U0005

== ENCOUNTER 2022-05-02 11:32 | Outpatient (CLI) | payer MEDICARE, OTHER, SELFPAY ==
[2022-05-02 14:18] LABS: Alanine Aminotransferase 12 U/L (6-35); Alkaline Phosphatase 39 U/L (38-126); Anion Gap 9 mmol/L (8-16); Aspartate Amino Transferase 23 U/L (14-36); Bilirubin,Total 0.5 mg/dL (0.2-1.3); Blood Urea Nitrogen 49 mg/dL (7-17); Calcium 8.6 mg/dL (8.4-10.2); Carbon Dioxide 24 mmol/L (22-30); Chloride 108 mmol/L (98-107); Estimated Glomerular Filt Rate 24; Glucose 98 mg/dL (65-110); Potassium 4.3 mmol/L (3.4-5.0); Sodium 141 mmol/L (137-145)
[2022-05-02 14:52] LABS: Vitamin D 25 Hydroxy 61.8 ng/mL
== END 2022-05-02 11:33 | disposition home or self-care (01) ==
LOC: ANHLAB 11:51
PROVIDERS: PCP Family Medicine; Visit Provider Family Medicine
DX: E55.9 Vitamin D deficiency, unspecified (principal); I10 Essential (primary) hypertension
CPT/HCPCS: 36415; 80053; 82306

== ENCOUNTER 2023-09-14 11:22 | Outpatient (CLI) | payer MEDICARE, OTHER, SELFPAY ==
[2023-09-14 12:19] LABS: Anion Gap 10 mmol/L (8-16); Blood Urea Nitrogen 46 mg/dL (7-17); Calcium 10.2 mg/dL (8.4-10.2); Carbon Dioxide 25 mmol/L (22-30); Chloride 108 mmol/L (98-107); Estimated Glomerular Filt Rate 26; Glucose 92 mg/dL (65-110); Potassium 4.7 mmol/L (3.4-5.0); Sodium 143 mmol/L (137-145)
== END 2023-09-14 11:23 | disposition home or self-care (01) ==
LOC: ANHLAB 11:25
PROVIDERS: PCP Family Medicine; Visit Provider Internal Medicine Cardiovascular Disease
DX: I10 Essential (primary) hypertension (principal); R79.89 Other specified abnormal findings of blood chemistry
CPT/HCPCS: 36415; 80048

== ENCOUNTER 2023-10-10 10:38 | Outpatient (CLI) | payer MEDICARE, OTHER, SELFPAY ==
[2023-10-10 16:51] LABS: Albumin Level 3.1 g/dL (3.5-5.1); Anion Gap 9 mmol/L (8-16); Blood Urea Nitrogen 46 mg/dL (7-17); Calcium 9.2 mg/dL (8.4-10.2); Carbon Dioxide 23 mmol/L (22-30); Chloride 106 mmol/L (98-107); Estimated Glomerular Filt Rate 24; Glucose 87 mg/dL (65-110); Phosphorus 3.6 mg/dL (2.5-4.5); Potassium 3.7 mmol/L (3.4-5.0); Sodium 138 mmol/L (137-145)
[2023-10-10 17:04] LABS: Parathyroid Intact 98.2 pg/mL (7.5-53.5)
[2023-10-10 17:19] LABS: Creatinine Urine 113.8 mg/dL; Total Protein Urine Random 51 mg/dL; Ur Ttl Prot Creatinine Ratio 0.45 mg/mg (0-0.20)
== END 2023-10-10 10:39 | disposition home or self-care (01) ==
PROVIDERS: Internal Medicine Nephrology; PCP Family Medicine; Visit Provider Internal Medicine Hematology & Oncology
DX: E21.1 Secondary hyperparathyroidism, not elsewhere classified (principal); N18.32 Chronic kidney disease, stage 3b
CPT/HCPCS: 36415; 80069; 82570; 83970; 84156

== ENCOUNTER 2023-11-08 09:09 | Outpatient (CLI) | payer MEDICARE, OTHER, SELFPAY ==
--- NOTE | ~2023-11-08 | PE_ITS ---
EXAMINATION: PET skull to mid thigh DATE: 11/08/2023 11:57 INDICATION: Right kidney cancer except renal pelvis. TECHNIQUE: Blood glucose level was 80 mg/dL. 10.330 mCi of 18-fluorodeoxyglucose (18-FDG) was adminis tered i.v. Low dose computed tomography (CT) images were acquired from the base of the brain to the p roximal thighs for attenuation correction and anatomic localization. Automated exposure control was e mployed. Dose-length product (DLP) was 1033 mGy-cm. Positron emission tomography (PET) images were ac quired in the same distribution. COMPARISON: CT abdomen and pelvis 06/01/2019 FINDINGS: Head/neck: There are likely changes of ocular lens replacement surgeries. There are no pathologically enlarged lymph nodes. Chest: There is a stable 6 mm nodule in right middle lobe, likely benign. There are small pleural eff usions. Cardiomegaly is noted. There are changes of aortic valve replacement. There are coronary pedro pablo ry calcifications. There is a large pericardial effusion. Abdomen/pelvis/proximal thighs: The liver is normal. There is a dropped gallstone posterior to the li carol ann. There are changes of cholecystectomy. The spleen, pancreas, and adrenal glands are normal. There are cysts in the kidneys measuring up to 2.0 cm on the right. There are multiple stones in left kidn ey measuring up to 8 mm. There is a large ventral hernia containing small and large bowel and ascites . The appendix is not visualized. There is calcified atherosclerosis of the aorta and many of the oth er arteries. There are no pathologically enlarged lymph nodes. There is mild thoracic spondylosis. IMPRESSION: 1. No evidence of malignancy. 2. Small pleural effusions. 3. Chronic large pericardial effusion. 4. Large ventral hernia containing small bowel and large bowel and small volume of ascites. Reviewed, dictated and finalized at location E. IN TUTOR
[2023-11-08 09:31] LABS: Glucose Point of Care 80 mg/dl (65-105)
== END 2023-11-08 09:10 | disposition home or self-care (01) ==
LOC: ANHIMG 09:11
PROVIDERS: PCP Family Medicine; Visit Provider Internal Medicine Hematology & Oncology
DX: C64.1 Malignant neoplasm of right kidney, except renal pelvis (principal); J90 Pleural effusion, not elsewhere classified; I31.39 Other pericardial effusion (noninflammatory); K43.9 Ventral hernia without obstruction or gangrene
CPT/HCPCS: 78815; A9552

== ENCOUNTER 2023-12-11 10:45 | Outpatient (CLI) | payer MEDICARE, OTHER, SELFPAY ==
[2023-12-11 11:37] LABS: Cholesterol 85 mg/dL (0-200); HDL Direct 44 mg/dL; Triglycerides 90 mg/dL (<150)
[2023-12-11 11:48] LABS: LDL Cholesterol Direct 40 mg/dL
[2023-12-11 11:51] LABS: Hemoglobin A1C 4.2 % (<5.7)
[2023-12-11 15:00] LABS: Free T4 Free Thyroxine Reflex 1.42 ng/dL (0.78-2.19)
[2023-12-11 17:32] LABS: Total Triiodothyronine (T3) 0.65 NG/ML (0.97-1.69)
== END 2023-12-11 10:46 | disposition home or self-care (01) ==
LOC: ANHLAB 10:47
PROVIDERS: PCP Family Medicine; Visit Provider Internal Medicine Hematology & Oncology
DX: E78.5 Hyperlipidemia, unspecified (principal); E11.9 Type 2 diabetes mellitus without complications; I10 Essential (primary) hypertension
CPT/HCPCS: 36415; 80061; 83036; 84439; 84443; 84480

== ENCOUNTER 2023-12-29 10:06 | Emergency (ER) | payer MEDICARE, OTHER, SELFPAY ==
[2023-12-29] VITALS (14 sets, daily range): BP systolic 92–208; BP diastolic 44–92; PULSE 68–85; RESP 16–20; TEMP 36.4–36.6; O2SAT 94–100
--- NOTE | ~2023-12-29 | CT_ITS ---
EXAMINATION: CT brain wo con DATE: 12/29/2023 11:12 INDICATION: Syncope. Head injury. TECHNIQUE: Computed tomography (CT) of the head was performed without intravenous contrast. The dose- length product was 605.33 mGy-cm. Automated exposure control and iterative reconstruction technique w ere employed. COMPARISON: None FINDINGS: Generalized atrophy. There are scattered mild periventricular and subcortical white matter changes, most likely related to small vessel ischemic disease (microangiopathy). There is intracrania l atherosclerosis. No acute infarction, hemorrhage, mass or mass effect. IMPRESSION: 1. No acute intracranial abnormality. Reviewed, dictated and finalized at location A. TRICAL ASSISTANT
--- NOTE | ~2023-12-29 | XR_ITS ---
XR chest 2V 12/29/2023 11:17 Indication: Syncope. Dark stools. Procedure: 2 view chest Comparison: 03/06/2019 Findings: Moderate cardiomegaly. There is a vascular stent overlying the heart. Small left effusion. Left basilar atelectasis. Right lung clear. There is atherosclerosis. Impression: 1: Left basilar atelectasis. 2: Small left pleural effusion. 3: Cardiomegaly. Reviewed, dictated and finalized at location A. NURSE Impression: 1: Left basilar atelectasis. 2: Small left pleural effusion. 3: Cardiomegaly.
--- NOTE | 2023-12-29 10:55 | ED.GIBLEED ---
HPI - GI Bleed General Chief complaint: GI Bleed <Lynn Lorenzo PA-C - Last Filed: 12/30/23 09:16> Stated complaint: weakness after using br, black stools <LEFTY Petty Last Filed: 12/30/23 09:16> Time Seen by Provider: 12/29/23 10:38 <Lynn Lorenzo PA-C - Last Filed: 12/30/23 09:16> Source: patient <LEFTY Petty Last Filed: 12/30/23 09:16> Mode of arrival: wheelchair <LEFTY Petty Last Filed: 12/30/23 09:16> Limitations: no limitations <Lynn Lorenzo PA-C - Last Filed: 12/30/23 09:16> History of Present Illness HPI Narrative: This is a 78-year-old female that presents to the emergency department for GI bleed. Reports she has had dark stools over the last 3 days. She takes Plavix and a baby aspirin daily. Today she was feeling very weak and had a presyncopal episode. Reports she had to lower herself to the floor. She is unsure if she hit her head. She did not lose consciousness. She does have history of anemia and follows with Dr. Schaffer for this. Has been receiving iron infusions. No previous history of GI bleeding. Denies fever, chest pain, shortness of breath, vomiting. <Lynn Lorenzo PA-C - Last Filed: 12/30/23 09:16> Related Data Home medications: Home Medications Medication Instructions Recorded Confirmed Lactobacillus acidophilus 10 10 cell PO DAILY 04/07/20 12/25/23 billion cell capsule cetirizine 10 mg tablet 10 mg PO DAILY PRN SEASONAL 10/13/20 12/25/23 ALLERGIES ferrous sulfate 325 mg (65 mg 325 mg PO DAILY 10/11/21 12/25/23 iron) tablet (Feosol) mecobalamin (vitamin B12) 5,000 5,000 mcg PO 3XW 04/19/23 12/25/23 mcg disintegrating tablet aspirin 81 mg tablet,delayed 81 mg PO DAILY 11/07/23 12/25/23 release (Adult Aspirin Regimen) clindamycin HCl 75 mg capsule 60 mg PO BID 11/07/23 12/25/23 clopidogrel 75 mg tablet 75 mg PO DAILY 11/07/23 12/25/23 <Lynn Lorenzo PA-C - Last Filed: 12/30/23 09:16> Allergies/Adverse reactions: Allergies Allergy/AdvReac Type Severity Reaction Status Date / Time No Known Allergies Allergy Verified 12/29/23 10:29 <Lynn Lorenzo PA-C - Last Filed: 12/30/23 09:16> Review of Systems Review of Systems: CONSTITUTIONAL: Denies fever CARDIOVASCULAR: Denies chest pain RESPIRATORY: Denies dyspnea. GASTROINTESTINAL: Reports diarrhea. Denies nausea and vomiting. <LEFTY Petty Last Filed: 12/30/23 09:16> All systems reviewed & are unremarkable except as noted in HPI and below <LEFTY Petty Last Filed: 12/30/23 09:16> [facility] Past Medical History Medical History: Medical History Abdominal hernia without obstruction and without gangrene Anemia Chronic low back pain CKD (chronic kidney disease) stage 3, GFR 30-59 ml/min Dizziness Dyslipidemia Essential (primary) hypertension GERD without esophagitis History of kidney stones Idiopathic pericarditis Iron deficiency Mass of right forearm MGUS (monoclonal gammopathy of unknown significance) OAB (overactive bladder) Osteoporosis Pulmonary nodule Right radial head fracture 04/2008 Rosacea Rotator cuff tear, right Seasonal allergies Shoulder dislocation (~08/30/20) Skin cancer Tinnitus of both ears Type 2 diabetes mellitus without complication, without long-term current use of insulin hemoglobin A1c: 5.4(10/26) << 5.2(10/25) << 5.7(05/25) << 5.7(10/24) << 5.9(04/24) << 6.3(08/23) << 6.0(02/21) << 6.2(05/22) << 6.6(10/21) << 6.8(11/21) << 7.9(04/20). Vertigo Vision changes Vitamin B12 deficiency Vitamin D deficiency <LEFTY Petty Last Filed: 12/30/23 09:16> Surgical History Surgical History: Surgical History H/O repair of rotator cuff (~11/2020) Right History of cardiac catheterization History of cataract surgery (~2020) History of cholecyst
--- NOTE | 2023-12-29 10:56 | ECG_ITS ---
Measurements Intervals [place] Rate: 65 P: 32 ID: [id number] QRS: -35 QRSD: 95 T: 34 QT: 371 QTc: 386 Interpretive Statements SINUS RHYTHM WITH SINUS ARRHYTHMIA LEFT AXIS DEVIATION [QRS AXIS < -30] POSSIBLE ANTERIOR MYOCARDIAL INFARCTION , OF INDETERMINATE AGE [30 ms Q WAVE IN V3/V4, OR R < 0.2 mV IN V4] ABNORMAL ECG COMPARED TO ECG 11/03/2020 14:21:30 SINUS ARRHYTHMIA NOW PRESENT LEFT-AXIS DEVIATION NOW PRESENT Electronically Signed On 12-29-2023 14:45:29 BOOM MAN by Morro Ramos M.D.
[2023-12-29 11:00] LABS: Basophils Percent Auto 0.4 % (0.2-1.2); Eosinophils Percent Auto 0.4 % (0-4.4); Hematocrit 22.8 % (37.0-47.0); Immature Granulocyte Absolute 0.07 K/mm3 (0.00-0.031); Immature Granulocyte Percent A 0.8 % (0-0.5); Lymphocytes Absolute Auto 1.03 K/mm3 (0.9-3.2); Lymphocytes Percent Auto 11.2 % (18.3-44.2); Mean Corpuscular HGB Conc 29.4 g/dl (32-36); Mean Corpuscular Hemoglobin 29.1 pg (26-34); Mean Corpuscular Volume 99.1 fl (80-100); Mean Platelet Volume 12.7 fl (7.4-10.4); Monocytes Absolute Auto 0.7 K/mm3 (0.1-0.6); Monocytes Percent Auto 7.3 % (2.6-8.5); Neutrophils Absolute Auto 7.3 K/mm3 (1.3-6.7); Neutrophils Percent Auto 79.9 % (45.5-73.1); Platelet Count Result 147 k/mm3 (150-375); Red Cell Distribution Width 19.5 % (11.5-14.5); White Blood Count 9.2 K/mm3 (4.5-10.0)
[2023-12-29 11:10] LABS: Hemoglobin 6.7 g/dL (12.0-15.0)
[2023-12-29 11:14] LABS: Alanine Aminotransferase 12 U/L (6-35); Albumin Level 2.3 g/dL (3.5-5.1); Alkaline Phosphatase 34 U/L (38-126); Anion Gap 3 mmol/L (8-16); Aspartate Amino Transferase 26 U/L (14-36); Bilirubin,Total 0.8 mg/dL (0.2-1.3); Blood Urea Nitrogen 50 mg/dL (7-17); Calcium 8.9 mg/dL (8.4-10.2); Carbon Dioxide 24 mmol/L (22-30); Chloride 111 mmol/L (98-107); Estimated CRCL calculation 24 ml/min; Estimated Glomerular Filt Rate 29; Glucose 114 mg/dL (65-110); Hypochromasia 1+ (NORMAL); Potassium 4.7 mmol/L (3.4-5.0); Schistocytes None Seen (NORMAL); Sodium 138 mmol/L (137-145)
[2023-12-29 11:41] LABS: Troponin I 0.055 ng/mL (0.000-0.034)
[2023-12-29 12:12] LABS: INR 1.3; Prothrombin Time 17.2 Seconds (11.1-14.7)
[2023-12-29 12:13] LABS: Partial Thromboplastin Time 24.8 SECONDS (22.3-36.8)
[2023-12-29] MEDS: SODIUM CHLORIDE 0.9% IV 250 ML 30 ML IV CONT (12:15)
[2023-12-29] MEDS: PANTOPRAZOLE SODIUM IV 40 MG VIAL 80 MG IV PUSH (12:15)
--- NOTE | 2023-12-29 12:19 | PC.NURSE ---
Signed blood transfusion consent on pts chart.
--- NOTE | 2023-12-29 14:02 | ECG_ITS ---
Measurements Intervals [place] Rate: 64 P: 65 WA: 156 QRS: -43 QRSD: 94 T: 89 QT: 378 QTc: 392 Interpretive Statements SINUS RHYTHM WITH MARKED SINUS ARRHYTHMIA BASELINE ARTIFACT LOW-VOLTAGE QRS IN LIMB LEADS MARKED LEFT AXIS DEVIATION [QRS AXIS < -30] ANTEROSEPTAL MYOCARDIAL INFARCTION , OF INDETERMINATE AGE [40+ ms Q WAVE IN V1-V4] ABNORMAL ECG COMPARED TO ECG 12/29/2023 11:35:11 NO SIGNIFICANT CHANGES Electronically Signed On 12-29-2023 14:48:31 [employer]ACHER [employer] by Morro Ramos M.D.
--- NOTE | 2023-12-29 14:12 | PC.NURSE ---
Fili Spoke with Ariana from the transfer center for transfer triage.
[2023-12-29] MEDS: carvediloL 6.25 MG TABLET PO (15:52)
--- NOTE | 2023-12-29 16:22 | PC.NURSE ---
Manual bp taken by this RN in pt R arm supine position at 204/92. Provider made aware.
[2023-12-29] MEDS: lisinopriL 20 MG TABLET 40 MG PO (16:26)
--- NOTE | 2023-12-29 17:58 | PC.NURSE ---
Michelle with [facility] transfer center called to update on bed status. Pt received bed #627-2 at 1756. Nurse report to be called at [phone]
--- NOTE | 2023-12-29 18:09 | PC.NURSE ---
Report given to HERNÁN Vu at [facility]
[2023-12-29 18:33] LABS: Troponin I 0.055 ng/mL (0.000-0.034)
[2023-12-29 19:02] LABS: Hematocrit 29.2 % (37.0-47.0); Hemoglobin 9.2 g/dL (12.0-15.0)
== END 2023-12-29 19:05 | disposition short-term general hospital (02) ==
PROVIDERS: Emergency Provider Physician Assistant; PCP Family Medicine
DX: K92.1 Melena (principal); D64.9 Anemia, unspecified; I12.9 Hypertensive chronic kidney disease with stage 1 through stage 4 chronic kidney disease, or unspecified chronic kidney disease; R79.89 Other specified abnormal findings of blood chemistry; E11.22 Type 2 diabetes mellitus with diabetic chronic kidney disease; E78.5 Hyperlipidemia, unspecified; N18.30 Chronic kidney disease, stage 3 unspecified; I30.0 Acute nonspecific idiopathic pericarditis; E53.8 Deficiency of other specified B group vitamins; E55.9 Vitamin D deficiency, unspecified; N32.81 Overactive bladder; K21.9 Gastro-esophageal reflux disease without esophagitis; M81.0 Age-related osteoporosis without current pathological fracture; Z85.828 Personal history of other malignant neoplasm of skin; Z87.442 Personal history of urinary calculi; Z98.49 Cataract extraction status, unspecified eye; Z90.49 Acquired absence of other specified parts of digestive tract; Z90.710 Acquired absence of both cervix and uterus; Z90.722 Acquired absence of ovaries, bilateral; Z90.79 Acquired absence of other genital organ(s); Z79.02 Long term (current) use of antithrombotics/antiplatelets; Z79.82 Long term (current) use of aspirin; Z79.84 Long term (current) use of oral hypoglycemic drugs; I51.7 Cardiomegaly; R94.31 Abnormal electrocardiogram [ECG] [EKG]
CPT/HCPCS: 36415; 36430; 70450; 71046; 80053; 84484; 85014; 85018; 85025; 85610; 85730; 86850; 86900; 86901; 86920; 93005; 96361; 96374; 99285; A9270; C9113; J7050; P9016

== ENCOUNTER 2024-04-29 00:16 | Day surgery (SDC) | payer MEDICARE, OTHER, SELFPAY ==
[2024-04-28 13:41] VITALS: BMI 29.2
--- NOTE | ~2024-04-29 | BM_ITS ---
EXAMINATION: CCL bone marrow asp w bx diag DATE: 04/29/2024 10:00 INDICATION: Monoclonal gammopathy of undetermined significance. TECHNIQUE: A time-out was performed to verify the patient's name, date of , and procedure to b e performed. The procedure including the risks, benefits, and alternatives was discussed with the pat ient. Risks discussed included bleeding and infection. The patient understood the risks and agreed to proceed. The skin overlying the left ilium was prepped and draped in usual sterile fashion. Anesth etic was administered with 1% lidocaine subcutaneously. 50 mcg fentanyl IV was given for pain control . An 11 gauge needle was inserted into the ilium with fluoroscopic guidance. Bone marrow was aspirat ed. An 8 gauge needle was then inserted into the ilium with fluoroscopic guidance. A core bone marrow biopsy was obtained. There were no immediate complications. Fluoroscopy exposure time was 0.0 minute s. The total number of images was 8. FINDINGS: Real-time fluoroscopy demonstrates a marker overlying the left posterior superior iliac spi ne. IMPRESSION: 1. Fluoro-guided bone marrow aspiration. 2. Fluoro-guided bone marrow core biopsy. Reviewed, dictated and finalized at location A.
--- NOTE | 2024-04-29 08:02 | SUR.PREOP ---
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 Registration states to patient we don't want to end up back on the floor when getting patient to wheelchair. RN asked patient what happened in registration and patient stated that she slid from the chair to the floor when trying to get up. Patient denies hitting head or any other injuries and refuses to be seen in the emergency department. welding production supervisor made aware. Will speak with Dr. Alexandra before moving forward with procedure.
--- NOTE | 2024-04-29 08:20 | SUR.PREOP ---
Spoke w/ Dr. Alexandra regarding pt incident in the lobby this morning with details. MD stated ok to proceed with labs and IV and MD will come to see pt prior to procedure to evaluate.
[2024-04-29 08:27] VITALS: BP 160/77; PULSE 68; RESP 23; TEMP 36.3; O2SAT 90
[2024-04-29 08:28] LABS: Basophils Percent Auto 0.6 % (0.2-1.2); Eosinophils Absolute Auto 0.1 K/mm3 (0-0.3); Eosinophils Percent Auto 1.1 % (0-4.4); Hematocrit 26.8 % (37.0-47.0); Hemoglobin 8.1 g/dL (12.0-15.0); Immature Granulocyte Absolute 0.02 K/mm3 (0.00-0.031); Immature Granulocyte Percent A 0.4 % (0-0.5); Lymphocytes Absolute Auto 0.83 K/mm3 (0.9-3.2); Lymphocytes Percent Auto 15.9 % (18.3-44.2); Mean Corpuscular HGB Conc 30.2 g/dl (32-36); Mean Corpuscular Hemoglobin 29.7 pg (26-34); Mean Corpuscular Volume 98.2 fl (80-100); Mean Platelet Volume 11.9 fl (7.4-10.4); Monocytes Absolute Auto 0.6 K/mm3 (0.1-0.6); Monocytes Percent Auto 10.7 % (2.6-8.5); Neutrophils Absolute Auto 3.7 K/mm3 (1.3-6.7); Neutrophils Percent Auto 71.3 % (45.5-73.1); Platelet Count Result 119 k/mm3 (150-375); Red Blood Count 2.73 M/mm3 (4.2-5.4); Red Cell Distribution Width 18.6 % (11.5-14.5); White Blood Count 5.2 K/mm3 (4.5-10.0)
[2024-04-29 08:31] VITALS: BMI 29.2
[2024-04-29 08:38] LABS: INR 1.4
--- NOTE | 2024-04-29 08:57 | WPDMODSED ---
Moderate Sedation Note-Pt Data Patient Data Diagnosis: MGUS. Present Complaint: MGUS. Procedure to be performed/Plan: Fluoro-guided bone marrow biopsy of ilium. Allergies Allergy/AdvReac Type Severity Reaction Status Date / Time No Known Allergies Allergy Verified 04/29/24 08:20 Home Medications Medication Instructions Recorded Confirmed Type Lactobacillus acidophilus 10 10 cell PO DAILY 04/07/20 04/28/24 History billion cell capsule cetirizine 10 mg tablet 10 mg PO DAILY PRN SEASONAL 10/13/20 04/28/24 History ALLERGIES ferrous sulfate 325 mg (65 mg 325 mg PO DAILY 10/11/21 04/28/24 History iron) tablet (Feosol) cholecalciferol (vitamin D3) 50 50 mcg PO DAILY #90 tabs 05/02/22 04/28/24 Rx mcg (2,000 unit) tablet carvedilol 6.25 mg tablet 6.25 mg PO Q12H #60 tabs 10/31/22 04/28/24 Rx mecobalamin (vitamin B12) 5,000 5,000 mcg PO 3XW 04/19/23 04/28/24 History mcg disintegrating tablet fenofibrate 160 mg tablet 160 mg PO DAILY #90 tabs 11/01/23 04/28/24 Rx aspirin 81 mg tablet,delayed 81 mg PO DAILY 11/07/23 04/28/24 History release (Adult Aspirin Regimen) lisinopril 40 mg tablet 40 mg PO DAILY #90 tabs 11/07/23 04/28/24 Rx atorvastatin 10 mg tablet 10 mg PO QHS #90 tabs 01/15/24 04/28/24 Rx famotidine 40 mg tablet (Pepcid) 40 mg PO DAILY #90 tabs 02/21/24 04/28/24 Rx calcitriol 0.25 mcg capsule 0.25 mcg PO 3XW #45 caps 04/10/24 04/28/24 Rx empagliflozin 10 mg tablet 10 mg PO DAILY #30 tabs 04/10/24 04/28/24 Rx (Jardiance) Sedation/Anesthesia: No previous sedation/anesthesia problems (including family history). [facility] Past Medical History Medical History Abdominal hernia without obstruction and without gangrene Anemia Chronic low back pain CKD (chronic kidney disease) stage 3, GFR 30-59 ml/min Dizziness Dyslipidemia Essential (primary) hypertension GERD without esophagitis History of kidney stones Idiopathic pericarditis Iron deficiency Mass of right forearm MGUS (monoclonal gammopathy of unknown significance) OAB (overactive bladder) Osteoporosis Pulmonary nodule Right radial head fracture 04/2008 Rosacea Rotator cuff tear, right Seasonal allergies Shoulder dislocation (~08/30/20) Skin cancer Tinnitus of both ears Type 2 diabetes mellitus without complication, without long-term current use of insulin hemoglobin A1c: 5.4(10/26) << 5.2(10/25) << 5.7(05/25) << 5.7(10/24) << 5.9(04/24) << 6.3(08/23) << 6.0(02/21) << 6.2(05/22) << 6.6(10/21) << 6.8(11/21) << 7.9(04/20). Vertigo Vision changes Vitamin B12 deficiency Vitamin D deficiency Surgical History Surgical History H/O repair of rotator cuff (~11/2020) Right History of cardiac catheterization History of cataract surgery (~2020) History of cholecystectomy 01/24/2010 History of tonsillectomy History of total abdominal hysterectomy and bilateral salpingo-oophorectomy 01/24/2010 History of tubal ligation S/P TAVR (transcatheter aortic valve replacement) (~10/2023) Status post creation of pericardial window 04/2019 Family History Family History Mother Hypertension Diabetes mellitus Cerebrovascular accident Heart disease Social History Social History Smoking status: Never smoker Second hand tobacco smoke exposure: No Alcohol intake: never Substance use: never Substance use type: does not use Lack of Transportation: No Lack of Food: Never True Current Housing: I Have Housing Concerned About Future Housing: No Difficulty Paying Gas/Electric Bills: No Difficulty Paying for Meds: No Currently Unemployed: No Education: High School Diploma/GED Difficulty w/ Childcare or Family Care: No Living arrangements: with family Additional living arrangements comments: Occup
[2024-04-29 09:45] VITALS: BP 173/63; PULSE 66; RESP 16; O2SAT 95
[2024-04-29 10:00] VITALS: BP 160/61; PULSE 67; RESP 14; O2SAT 91
[2024-04-29 10:15] VITALS: BP 166/64; PULSE 65; RESP 14; O2SAT 99
[2024-04-29 10:30] VITALS: BP 157/63; PULSE 63; RESP 12; O2SAT 99
[2024-04-29 10:45] VITALS: BP 171/59; PULSE 67; RESP 20; O2SAT 94
== END 2024-04-29 11:10 | disposition home or self-care (01) ==
PROVIDERS: PCP Family Medicine; Referring Provider Internal Medicine Hematology & Oncology; Visit Provider Radiology Diagnostic Radiology
DX: D47.2 Monoclonal gammopathy (principal); M81.0 Age-related osteoporosis without current pathological fracture; N18.30 Chronic kidney disease, stage 3 unspecified; E78.49 Other hyperlipidemia; K21.9 Gastro-esophageal reflux disease without esophagitis; E11.9 Type 2 diabetes mellitus without complications; E53.8 Deficiency of other specified B group vitamins; E55.9 Vitamin D deficiency, unspecified
CPT/HCPCS: 36415; 38222; 85025; 85610; 88305; 88311; 88313; 88342; 88364; 88365; J1642; J3010; J7040

== ENCOUNTER 2024-06-07 04:55 | Emergency (ER) | payer MEDICARE, OTHER, SELFPAY ==
[2024-06-07] VITALS (106 sets, daily range): BP systolic 102–151; BP diastolic 31–64; PULSE 60–82; RESP 12–25; TEMP 36.2–36.7; O2SAT 89–100
--- NOTE | ~2024-06-07 | CT_ITS ---
EXAMINATION: CT abdomen pelvis wo con DATE: 06/07/2024 06:07 INDICATION: Blood in stool. Nausea. TECHNIQUE: Computed tomography (CT) of the abdomen and pelvis was performed without intravenous contr ast. Automated exposure control and iterative reconstruction technique were employed. The dose-length product was 1681.40 mGy-cm. COMPARISON: CT abdomen and pelvis 06/01/2019 FINDINGS: The visualized portions of the lung bases demonstrate mild atelectasis. There are a few sta ble nodules in the lungs measuring up to 10 mm in right lower lobe, likely benign. There are small bi lateral pleural effusions. Cardiomegaly is noted. There are changes of aortic valve replacement. Ther e are coronary artery calcifications. There is a large pericardial effusion. The liver is normal. The re are changes of cholecystectomy. There are dropped gallstones posterior to the liver. The spleen, p ancreas, and adrenal glands are normal. There is cortical thinning of the kidneys. There is a 2.0 cm cyst in right kidney. There are cysts in left kidney measuring up to 14 mm. There are 4 stones in lef t kidney measuring up to 10 mm. There is a large ventral hernia containing nonobstructed small and la rge bowel and the stomach. There is a small volume of ascites. Body wall edema is noted. There are no pathologically enlarged lymph nodes. There is an old healed left rib fracture. There is moderate tho racic spondylosis and mild lumbar spondylosis. IMPRESSION: 1. Large ventral hernia containing nonobstructed small bowel and large bowel and stomach. 2. Small volume of ascites. 3. Small pleural effusions. 4. Large pericardial effusion again seen. Reviewed, dictated and finalized at location A. IMPRESSION: 1. Large ventral hernia containing nonobstructed small bowel and large bowel an d stomach. 2. Small volume of ascites. 3. Small pleural effusions. 4. Large pericardial effusion again seen.
[2024-06-07 05:17] LABS: Basophils Percent Auto 0.4 % (0.2-1.2); Eosinophils Percent Auto 0.5 % (0-4.4); Immature Granulocyte Absolute 0.03 K/mm3 (0.00-0.031); Immature Granulocyte Percent A 0.5 % (0-0.5); Lymphocytes Absolute Auto 0.75 K/mm3 (0.9-3.2); Lymphocytes Percent Auto 13.2 % (18.3-44.2); Mean Corpuscular HGB Conc 29.1 g/dl (32-36); Mean Corpuscular Hemoglobin 29.3 pg (26-34); Mean Corpuscular Volume 100.7 fl (80-100); Mean Platelet Volume 12.5 fl (7.4-10.4); Monocytes Absolute Auto 0.5 K/mm3 (0.1-0.6); Neutrophils Absolute Auto 4.4 K/mm3 (1.3-6.7); Neutrophils Percent Auto 76.4 % (45.5-73.1); Platelet Count Result 119 k/mm3 (150-375); Red Cell Distribution Width 20.2 % (11.5-14.5); White Blood Count 5.7 K/mm3 (4.5-10.0)
[2024-06-07 05:30] LABS: Alanine Aminotransferase 11 U/L (6-35); Albumin Level 2.4 g/dL (3.5-5.1); Alkaline Phosphatase 30 U/L (38-126); Anion Gap 5 mmol/L (4-12); Aspartate Amino Transferase 24 U/L (14-36); Bilirubin,Total 0.9 mg/dL (0.2-1.3); Blood Urea Nitrogen 70 mg/dL (7-17); Calcium 8.8 mg/dL (8.4-10.2); Carbon Dioxide 27 mmol/L (22-30); Chloride 107 mmol/L (98-107); Estimated CRCL calculation 23 ml/min; Estimated Glomerular Filt Rate 29; Glucose 127 mg/dL (65-110); Hematocrit 15.1 % (37.0-47.0); Hemoglobin 4.4 g/dL (12.0-15.0); INR 1.5; Potassium 4.7 mmol/L (3.4-5.0); Sodium 139 mmol/L (137-145)
[2024-06-07 05:31] LABS: Partial Thromboplastin Time 31.3 Seconds (22.3-36.8)
[2024-06-07 05:39] LABS: Anisocytosis 1+; Hypochromasia 2+; Platelet Estimate Adequate (Adequate); Schistocytes None Seen; Stomatocytes 1+
--- NOTE | 2024-06-07 05:44 | ED.GENADULT ---
HPI - General Adult General Chief complaint: GI Bleed <Rush Mendieta MD - Last Filed: 06/07/24 06:37> Stated complaint: rectal bleeding <Rush Mendieta MD - Last Filed: 06/07/24 06:37> Time Seen by Provider: 06/07/24 05:44 <Rush Mendieta MD - Last Filed: 06/07/24 06:37> History of Present Illness HPI narrative: the patient is a 78-year-old female who presents emergency department with chief complaint of dizziness and weakness. The patient reports she had 3 dark bloody stools at home reports she has had a prior GI bleed before in the past and previously required transfer to [facility] for admission. Patient reports she has had endoscopies done before reports she is not on any blood thinners but does take a baby aspirin. <Rush Mendieta MD - Last Filed: 06/07/24 06:37> Related Data Home medications: Home Medications Medication Instructions Recorded Confirmed Lactobacillus acidophilus 10 10 cell PO DAILY 04/07/20 05/28/24 billion cell capsule cetirizine 10 mg tablet 10 mg PO DAILY PRN SEASONAL 10/13/20 05/28/24 ALLERGIES ferrous sulfate 325 mg (65 mg 325 mg PO DAILY 10/11/21 05/28/24 iron) tablet (Feosol) mecobalamin (vitamin B12) 5,000 5,000 mcg PO 3XW 04/19/23 05/28/24 mcg disintegrating tablet aspirin 81 mg tablet,delayed 81 mg PO DAILY 11/07/23 05/28/24 release (Adult Aspirin Regimen) <Rush Mendieta MD - Last Filed: 06/07/24 06:37> Allergies/adverse reactions: Allergies Allergy/AdvReac Type Severity Reaction Status Date / Time No Known Allergies Allergy Verified 06/07/24 05:06 <Rush Mendieta MD - Last Filed: 06/07/24 06:37> Review of Systems Review of Systems: A 10 system review of systems was completed on the patient and is negative except for what is stated in the HPI. Nursing and ancillary documentation was reviewed. <Rush Mendieta MD - Last Filed: 06/07/24 06:37> PMFSH Past Medical History Medical History: Medical History Abdominal hernia without obstruction and without gangrene Anemia Chronic low back pain CKD (chronic kidney disease) stage 3, GFR 30-59 ml/min Dizziness Dyslipidemia Essential (primary) hypertension GERD without esophagitis History of kidney stones Idiopathic pericarditis Iron deficiency Mass of right forearm MGUS (monoclonal gammopathy of unknown significance) OAB (overactive bladder) Osteoporosis Pulmonary nodule Right radial head fracture 04/2008 Rosacea Rotator cuff tear, right Seasonal allergies Shoulder dislocation (~08/30/20) Skin cancer Tinnitus of both ears Type 2 diabetes mellitus without complication, without long-term current use of insulin hemoglobin A1c: 5.4(10/26) << 5.2(10/25) << 5.7(05/25) << 5.7(10/24) << 5.9(04/24) << 6.3(08/23) << 6.0(02/21) << 6.2(05/22) << 6.6(10/21) << 6.8(11/21) << 7.9(04/20). Vertigo Vision changes Vitamin B12 deficiency Vitamin D deficiency <Rush Mendieta MD - Last Filed: 06/07/24 06:37> Surgical History Surgical History: Surgical History H/O repair of rotator cuff (~11/2020) Right History of cardiac catheterization History of cataract surgery (~2020) History of cholecystectomy 01/24/2010 History of tonsillectomy History of total abdominal hysterectomy and bilateral salpingo-oophorectomy 01/24/2010 History of tubal ligation S/P TAVR (transcatheter aortic valve replacement) (~10/2023) Status post creation of pericardial window 04/2019 <Rush Mendieta MD - Last Filed: 06/07/24 06:37> Family History Family History: Family History Mother Hypertension Diabetes mellitus Cerebrovascular accident Heart disease <Rush Mendieta MD - Last Filed: 06/07/
[2024-06-07] MEDS: ONDANSETRON INJ 4 MG/2 ML VIAL IV PUSH (05:50)
[2024-06-07 05:59] LABS: Hematocrit 14.9 % (37.0-47.0); Hemoglobin 4.4 g/dL (12.0-15.0)
[2024-06-07] MEDS: PANTOPRAZOLE SODIUM IV 40 MG VIAL IV PUSH ×2 (06:30→11:01)
[2024-06-07] MEDS: TUBING, BLOOD SET 1 EACH XX (06:57)
[2024-06-07] MEDS: SODIUM CHLORIDE 0.9% IV 250 ML 30 ML IV CONT (06:57)
--- NOTE | 2024-06-07 10:49 | PC.NURSE ---
Received a call from [facility] transfer center, pt is being accepted at [facility] and is on the waiting list.
[2024-06-07 12:45] LABS: Hematocrit 26.2 % (37.0-47.0); Hemoglobin 8.4 g/dL (12.0-15.0)
--- NOTE | 2024-06-07 16:22 | PC.NURSE ---
Pt assisted to the bedside commode, has a small black tarry stool. Pt assisted back in bed, laying on her left side.
[2024-06-07 18:08] LABS: Hematocrit 26.8 % (37.0-47.0); Hemoglobin 8.4 g/dL (12.0-15.0)
== END 2024-06-07 18:24 | disposition short-term general hospital (02) ==
PROVIDERS: Emergency Medicine; Emergency Provider Emergency Medicine; PCP Family Medicine
DX: K92.2 Gastrointestinal hemorrhage, unspecified (principal); D64.9 Anemia, unspecified; E11.22 Type 2 diabetes mellitus with diabetic chronic kidney disease; I12.9 Hypertensive chronic kidney disease with stage 1 through stage 4 chronic kidney disease, or unspecified chronic kidney disease; N18.30 Chronic kidney disease, stage 3 unspecified; E78.5 Hyperlipidemia, unspecified; E61.1 Iron deficiency; E53.8 Deficiency of other specified B group vitamins; E55.9 Vitamin D deficiency, unspecified; N32.81 Overactive bladder; K21.9 Gastro-esophageal reflux disease without esophagitis; M81.0 Age-related osteoporosis without current pathological fracture; Z95.2 Presence of prosthetic heart valve; Z85.828 Personal history of other malignant neoplasm of skin; Z87.442 Personal history of urinary calculi; Z98.49 Cataract extraction status, unspecified eye; Z90.49 Acquired absence of other specified parts of digestive tract; Z90.710 Acquired absence of both cervix and uterus; Z90.722 Acquired absence of ovaries, bilateral; Z90.79 Acquired absence of other genital organ(s); Z79.82 Long term (current) use of aspirin; Z79.84 Long term (current) use of oral hypoglycemic drugs; Z79.899 Other long term (current) drug therapy; K43.9 Ventral hernia without obstruction or gangrene; I31.39 Other pericardial effusion (noninflammatory)
CPT/HCPCS: 36415; 36430; 74176; 80053; 85014; 85018; 85025; 85610; 85730; 86850; 86900; 86901; 86923; 96361; 96374; 96375; 96376; 99285; J2405; J2470; J7050; P9016

== ENCOUNTER 2024-08-13 16:53 | Inpatient (IN) | payer MEDICARE, OTHER, SELFPAY ==
[2024-08-13] VITALS (46 sets, daily range): BP systolic 93–132; BP diastolic 54–93; PULSE 79–144; RESP 15–25; TEMP 36.3–37.1; O2SAT 89–98; BMI 28.1; BMI 27.8
--- NOTE | ~2024-08-13 | XR_ITS ---
CHEST RADIOGRAPH, PA AND LATERAL CLINICAL HISTORY: ARRYTHMIA . COMPARISON: 12/29/2023 TECHNIQUE: PA and lateral views of the chest. FINDINGS The cardiomediastinal silhouette is enlarged, unchanged. Prosthetic aortic valve is redemonstrated. A moderate left-sided pleural effusion persists. Persistent elevation of the left hemidiaphragm. The right hemithorax is clear. IMPRESSION: Persistent cardiomegaly with a moderate left-sided pleural effusion, as detailed above. Reviewed, dictated and finalized at location A. IMPRESSION: Persistent cardiomegaly with a moderate left-sided pleural effusion, as detaile d above.
--- NOTE | 2024-08-13 17:07 | ECG_ITS ---
Test Date: 2024-08-13 17:08:18 Measurements Intervals [place] Rate: 117 P: 0 TN: 0 QRS: -52 QRSD: 100 T: 142 QT: 317 QTc: 443 Interpretive Statements ATRIAL FIBRILLATION WITH RAPID VENTRICULAR RESPONSE LOW QRS VOLTAGE IN EXTREMITY LEADS [QRS DEFLECTION < 0.5 mV IN LIMB LEADS] INFERIOR MYOCARDIAL INFARCTION , PROBABLY OLD [40+ ms Q WAVE AND/OR ST/T ABNORMALITY IN II/aVF] PREVIOUS ANTERIOR INFARCTION ABNORMAL ECG No previous ECG available for comparison Electronically Signed On 08-14-2024 07:52:55 CDT by Andi Silva M.D.
--- NOTE | 2024-08-13 17:37 | ED.ARRPALP ---
HPI - Arrhythmia/Palpitations General Chief Complaint: Arrhythmia/Palpitations <Tanner Blount PA-C - Last Filed: 08/14/24 00:55> Stated Complaint: dehydrated <LEFTY Tsang Last Filed: 08/14/24 00:55> Time Seen by Provider: 08/13/24 17:23 <LEFTY Tsang Last Filed: 08/14/24 00:55> Source: patient <LEFTY Tsang Last Filed: 08/14/24 00:55> Mode of arrival: ambulatory <LEFTY Tsang Last Filed: 08/14/24 00:55> Limitations: no limitations <LEFTY Tsang Last Filed: 08/14/24 00:55> History of Present Illness HPI narrative: This is a 78-year-old female with PMH of DM type 2, MGUS, CKD, HTN, GI bleed with blood transfusion, s/p TAVR who presents to the ED after being evaluated PCP office with AFib RVR an EKG. Patient states that since she was admitted to the hospital couple months ago for GI bleed requiring transfusion that she has not felt back to her normal self ever since. States that she has felt very weak. She reports having a daily diarrheal episodes since the hospital admission. She states that before going to the outside hospital she had black tarry stools but has not had any dark stools or GI bleeding since admission 2 months ago. Patient also reports that she has had increasing lower leg swelling and shortness of breath over the past month. Denies nausea, vomiting, chest pain, back pain, abdominal pain, cough, fevers, chills. According to chart review, patient is due for repeat myeloma testing in October 28 due to an MGUS, had bone marrow aspiration biopsy done April 29, 2024 that showed 9% with plasma cell neoplasm. <LEFTY Tsang Last Filed: 08/14/24 00:55> Related Data Home Medications: Home Medications Medication Instructions Recorded Confirmed Lactobacillus acidophilus 10 10 cell PO DAILY 04/07/20 08/13/24 billion cell capsule cetirizine 10 mg tablet 10 mg PO DAILY PRN SEASONAL 10/13/20 08/13/24 ALLERGIES ferrous sulfate 325 mg (65 mg 325 mg PO BID 10/11/21 08/13/24 iron) tablet (Feosol) mecobalamin (vitamin B12) 5,000 5,000 mcg PO 3XW 04/19/23 08/13/24 mcg disintegrating tablet amlodipine 5 mg tablet 10 mg PO DAILY 08/06/24 08/13/24 cholecalciferol (vitamin D3) 50 50 mcg PO DAILY 08/06/24 08/13/24 mcg (2,000 unit) capsule potassium chloride 20 mEq 20 meq PO DAILY 08/13/24 08/13/24 tablet,extended release(part/cryst) <Tanner Blount PA-C - Last Filed: 08/14/24 00:55> Allergies/Adverse Reactions: Allergies Allergy/AdvReac Type Severity Reaction Status Date / Time No Known Allergies Allergy Verified 08/13/24 15:51 <Tanner Blount PA-C - Last Filed: 08/14/24 00:55> Review of Systems Review of Systems: All systems as dictated in HPI <Tanner Blount PA-C - Last Filed: 08/14/24 00:55> [facility] Past Medical History Medical History: Medical History Abdominal hernia without obstruction and without gangrene Anemia Chronic low back pain CKD (chronic kidney disease) stage 3, GFR 30-59 ml/min Dizziness Dyslipidemia Essential (primary) hypertension GERD without esophagitis History of kidney stones Idiopathic pericarditis Iron deficiency Mass of right forearm MGUS (monoclonal gammopathy of unknown significance) OAB (overactive bladder) Osteoporosis Pulmonary nodule Right radial head fracture 04/2008 Rosacea Rotator cuff tear, right Seasonal allergies Shoulder dislocation (~08/30/20) Skin cancer Tinnitus of both ears Type 2 diabetes mellitus without complication, without long-term current use of insulin hemoglobin A1c: 5.4(10/26) << 5.2(10/25) << 5.7(05/25) << 5.7(10/24) << 5.9(04/24) << 6.3(08/23) << 6.0(02/21) << 6.2(05/22) << 6.6(10/21) << 6.8(11/21) << 7.9(04/20). Vertigo Vision changes Vitamin B12 deficiency Vitamin D deficiency <Tanner Blount PA-C - Last Filed: 08/14/24 00:55> Surgical History Surgical History:
[2024-08-13] MEDS: dilTIAZem HCl INJ 25 MG/5 ML VIAL 10 MG IV PUSH (18:20)
[2024-08-13 18:28] LABS: Basophils Percent Auto 0.5 % (0.2-1.2); Eosinophils Absolute Auto 0.1 K/mm3 (0-0.3); Eosinophils Percent Auto 0.6 % (0-4.4); Hematocrit 31.6 % (37.0-47.0); Hemoglobin 9.8 g/dL (12.0-15.0); Immature Granulocyte Absolute 0.05 K/mm3 (0.00-0.031); Immature Granulocyte Percent A 0.6 % (0-0.5); Lymphocytes Absolute Auto 0.77 K/mm3 (0.9-3.2); Lymphocytes Percent Auto 9.3 % (18.3-44.2); Mean Platelet Volume 12.4 fl (7.4-10.4); Monocytes Absolute Auto 0.5 K/mm3 (0.1-0.6); Monocytes Percent Auto 5.4 % (2.6-8.5); Neutrophils Absolute Auto 6.9 K/mm3 (1.3-6.7); Neutrophils Percent Auto 83.6 % (45.5-73.1); Nucleated Red Blood Cells Perc 0.5 % (0.0-0.2); Platelet Count Result 140 k/mm3 (150-375); Red Blood Count 3.16 M/mm3 (4.2-5.4); White Blood Count 8.3 K/mm3 (4.5-10.0)
[2024-08-13 18:39] LABS: INR 1.3; Prothrombin Time 17.2 Seconds (11.1-14.7)
[2024-08-13 18:40] LABS: Alanine Aminotransferase 13 U/L (6-35); Albumin Level 3.5 g/dL (3.5-5.1); Alkaline Phosphatase 44 U/L (38-126); Anion Gap 10 mmol/L (4-12); Aspartate Amino Transferase 31 U/L (14-36); Bilirubin,Total 1.2 mg/dL (0.2-1.3); Blood Urea Nitrogen 32 mg/dL (7-17); Calcium 8.1 mg/dL (8.4-10.2); Carbon Dioxide 17 mmol/L (22-30); Chloride 114 mmol/L (98-107); Estimated CRCL calculation 16 ml/min; Estimated Glomerular Filt Rate 20; Glucose 91 mg/dL (65-110); Lipase 464 U/L (23-300); Partial Thromboplastin Time 28.3 Seconds (22.3-36.8); Potassium 4.6 mmol/L (3.4-5.0); Sodium 141 mmol/L (137-145)
[2024-08-13 18:54] LABS: NT Pro B Type Natriuretic Pept 21400 pg/mL (19.9-100); Troponin I 0.064 ng/mL (0.000-0.034)
[2024-08-13] MEDS: FUROSEMIDE INJ 40 MG/4 ML VIAL IV PUSH (19:39)
--- NOTE | 2024-08-13 20:19 | PM.IMHP ---
H&P: HPI History of Present Illness Date/Time: 08/13/24 20:19 Chief Complaint: palpitations Narrative: This is a 78-year-old female with past medical history significant for MGUS, hypertension, atrial fibrillation, chronic kidney disease, GERD, recent GI bleed, type 2 diabetes mellitus. patient presents to the emergency room due to palpitations, shortness of breath, leg swelling. Preliminary workup was significant for atrial fibrillation with RVR patient received diltiazem IV push initially 10 mg which controlled the heart rate patient initially wanting to go home but patient is debilitated. Has been admitted for further evaluation management and treatment. CHEST RADIOGRAPH, PA AND LATERAL CLINICAL HISTORY: ARRYTHMIA . COMPARISON: 12/29/2023 TECHNIQUE: PA and lateral views of the chest. FINDINGS The cardiomediastinal silhouette is enlarged, unchanged. Prosthetic aortic valve is redemonstrated. A moderate left-sided pleural effusion persists. Persistent elevation of the left hemidiaphragm. The right hemithorax is clear. IMPRESSION: Persistent cardiomegaly with a moderate left-sided pleural effusion, as detailed above. Review of Systems Review of Systems: Palpitations, leg swelling, shortness of breath, generalized weakness. [facility] Past Medical History Medical History Abdominal hernia without obstruction and without gangrene Anemia Chronic low back pain CKD (chronic kidney disease) stage 3, GFR 30-59 ml/min Dizziness Dyslipidemia Essential (primary) hypertension GERD without esophagitis History of kidney stones Idiopathic pericarditis Iron deficiency Mass of right forearm MGUS (monoclonal gammopathy of unknown significance) OAB (overactive bladder) Osteoporosis Pulmonary nodule Right radial head fracture 04/2008 Rosacea Rotator cuff tear, right Seasonal allergies Shoulder dislocation (~08/30/20) Skin cancer Tinnitus of both ears Type 2 diabetes mellitus without complication, without long-term current use of insulin hemoglobin A1c: 5.4(10/26) << 5.2(10/25) << 5.7(05/25) << 5.7(10/24) << 5.9(04/24) << 6.3(08/23) << 6.0(02/21) << 6.2(05/22) << 6.6(10/21) << 6.8(11/21) << 7.9(04/20). Vertigo Vision changes Vitamin B12 deficiency Vitamin D deficiency Surgical History Surgical History H/O repair of rotator cuff (~11/2020) Right History of cardiac catheterization History of cataract surgery (~2020) History of cholecystectomy 01/24/2010 History of tonsillectomy History of total abdominal hysterectomy and bilateral salpingo-oophorectomy 01/24/2010 History of tubal ligation S/P TAVR (transcatheter aortic valve replacement) (~10/2023) Status post creation of pericardial window 04/2019 Family History Family History Mother Hypertension Diabetes mellitus Cerebrovascular accident Heart disease Social History Social History Smoking status: Never smoker Second hand tobacco smoke exposure: No Alcohol intake: never Substance use: never Substance use type: does not use Do You Feel Safe in your Home?: Yes Lack of Transportation: No Lack of Food: Never True Current Housing: I Have Housing Concerned About Future Housing: No Difficulty Paying Gas/Electric Bills: No Difficulty Paying for Meds: No Currently Unemployed: No Education: Decline to Answer Difficulty w/ Childcare or Family Care: No Living arrangements: with family Additional living arrangements comments: Occupation/Education: retired Gender identity (if verbalized by the patient): Female Sexual Orientation (if Verbalized by the Patient): Straight or Heterosexual Spiritual care concerns: No Agree to blood products: Yes Meds Home Medications a
--- NOTE | 2024-08-13 20:28 | ECG_ITS ---
Test Date: 2024-08-13 20:49:53 Measurements Intervals [place] Rate: 97 P: 0 UT: 0 QRS: -67 QRSD: 100 T: 112 QT: 340 QTc: 433 Interpretive Statements ATRIAL FIBRILLATION LEFT AXIS DEVIATION [QRS AXIS < -30] PREVIOUS ANTERIOR AND PREVIOUS INFERIOR INFARCTIONS ABNORMAL ECG Compared to ECG 08/13/2024 17:08:18 NO SIGNIFICANT CHANGE Electronically Signed On 08-14-2024 07:55:27 CDT by Andi Silva M.D.
--- NOTE | 2024-08-13 21:01 | PC.NURSE ---
Tanner ALEXANDER, verbally ordered to holding the cardizem drip unless patient has sustained hr in the 130s.
[2024-08-13 21:02] LABS: Troponin I 0.062 ng/mL (0.000-0.034)
--- NOTE | 2024-08-13 22:17 | PC.NURSE ---
received report from HERNÁN Herrera in ED at approximately [id number]. Rockm not started per RN in ED & stated that the doctor has not discontinued the order.
--- NOTE | 2024-08-13 22:19 | ADMGEN ---
This patient, Shannan Seals, was admitted to IMU Room 214-01 at 2220. Patient/family oriented to hospital policies and general routines including ID bracelet, bed and alarms, visiting hours, pain management, procedures, bathroom and other care routines, personal items, smoking policy, room service/diet, and visiting hours. Information on how to activate the Rapid Response Team has been discussed. Patient/Family are encouraged to report perceived risks to care and to ask questions if they do not understand what they are told or what they should do.
[2024-08-13 23:37] LABS: Troponin I 0.063 ng/mL (0.000-0.034)
[2024-08-14] VITALS (20 sets, daily range): BP systolic 94–116; BP diastolic 48–73; PULSE 62–115; RESP 16–20; TEMP 36.5–36.8; O2SAT 91–98
--- NOTE | 2024-08-14 | ECHO_ITS ---
Patient Info Name: Shannan Seals Age: 78 years : 1945 Gender: Female Ht: 62 in Wt: 152 lbs BSA: 1.76 m2 HR: 115 bpm BP: 116 / 61 mmHg Heart Rhythm: Atrial Fibrillation Technical Quality: Fair Exam Date: 08/14/2024 11:27 AM Exam Location: Echo Lab Patient Status: Outpatient Admit Date: 08/13/2024 Staff Ordering Physician: Carlos Robert MD Rn Gyn: Elly Villafuerte [facility] Attending Provider: Carlos Robert MD Referring Physician: Jakob SALAZAR; Exam Type: CA echo doppler color flow Study Info Indications I50.20 - Unspecified systolic (congestive) heart failure Complete two-dimensional, color flow and Doppler transthoracic echocardiogram is performed. Summary 1. Complete two-dimensional, color flow and Doppler transthoracic echocardiogram is performed. 2. Marked concentric left ventricular hypertrophy with normal chamber size and vigorous, hyperdynamic appearing systolic function. 3. Severe biatrial dilation. 4. Normally functioning prosthetic TAVR valve. 5. Atrial fibrillation. Left Ventricle Left ventricular chamber dimension is normal. Left ventricular systolic function is hyperdynamic, estimated at >70%. There is severe concentric increased left ventricular wall thickness. The left ventricular diastolic function is indeterminate. Right Ventricle Right ventricular chamber dimension is normal. Left Atria Left atrial chamber dimension is severely enlarged. Right Atria Right atrial chamber dimension is severely enlarged. Pulmonic Valve The pulmonic valve is not well visualized. Mitral Valve The mitral valve has normal leaflets. The mitral valve annulus is moderately calcified. Tricuspid Valve The tricuspid valve leaflets are normal. There is mild tricuspid valve regurgitation. Pericardium/Pleural There is moderate circumferential pericardial effusion. Aorta The aortic root size at the sinus of Valsalva is normal. Left Ventricular Outflow Tract Name Value Normal LVOT 2D LVOT Diameter 1.9 cm LVOT Doppler LVOT Peak Gradient 8 mmHg LVOT Mean Gradient 3 mmHg LVOT VTI 23 cm LVOT VTI/AV VTI Ratio 0.6 LVOT Stroke Volume 64 ml LVOT CO 5.8 l/min LVOT CI 3.3 l/min/m2 Pulmonic Valve Name Value Normal PV Doppler PV Peak Gradient 3 mmHg PV Regurgitation Doppler [place] Peak End Diastolic Velocity 95 cm/s Mitral Valve Name Value Normal MV Doppler
[2024-08-14] MEDS: FERROUS SULFATE 325 MG TABLET DR PO ×2 (08:45→17:11)
[2024-08-14] MEDS: FUROSEMIDE INJ 40 MG/4 ML VIAL IV PUSH ×2 (08:45→20:26)
[2024-08-14] MEDS: FENOFIBRATE 160 MG TABLET PO (08:45)
[2024-08-14] MEDS: amLODIPine BESYLATE 10 MG TABLET PO (08:45)
--- NOTE | 2024-08-14 10:37 | PM.IMPN ---
Progress Note: A&P Assessment and Plan (1) Atrial fibrillation with rapid ventricular response: Code(s): I48.91 - Unspecified atrial fibrillation Status: Acute Assessment and Plan: admit to IMU DC diltiazem drip Started Metoprolol 100mg PO QD echocardiogram in a.m. (2) Acute exacerbation of CHF (congestive heart failure): Code(s): I50.9 - Heart failure, unspecified Status: Acute Assessment and Plan: monitor I's and O's gentle diuresis (3) CKD (chronic kidney disease) stage 3, GFR 30-59 ml/min: Qualifiers: Chronic kidney disease stage 3 subtype: stage 3b (GFR 30-44) Qualified Code(s): N18.32 - Chronic kidney disease, stage 3b Code(s): N18.3 - Chronic kidney disease, stage 3 (moderate) Status: Acute Assessment and Plan: continue to monitor BUN and creatinine (4) GERD without esophagitis: Code(s): K21.9 - Gastro-esophageal reflux disease without esophagitis Status: Acute Assessment and Plan: PPI (5) MGUS (monoclonal gammopathy of unknown significance): Code(s): D47.2 - Monoclonal gammopathy Status: Acute Assessment and Plan: follow-up in outpatient setting (6) Chronic low back pain: Qualifiers: Back pain laterality: unspecified Sciatica presence: without sciatica Qualified Code(s): M54.50 - Low back pain, unspecified; G89.29 - Other chronic pain Code(s): M54.50 - Low back pain, unspecified; G89.29 - Other chronic pain Status: Acute Assessment and Plan: Tylenol as needed Subjective Date/time seen: 08/14/24 10:37 Interval history: Patient was evaluated at the bedside. Patient has a past medical history of MGUS, GI bleed, S/P TAVR done on October 2023. Patient reports December 2023 patient reports having GI issues and was admitted at [facility] and later transferred to [facility] for EGD. No significant findings were found during that time. February 2024 she reports of having OP colonoscopy and reports of no significant finding. Unfortunately she had GI sx in June 2024 and was admitted to [facility] and later transferred to [facility] where she underwent endoscopy and had cauterization of ulcer/bleed?. Recently she went to her PCP due to diarrhea and mucus in her stool and found to be A.fib and her PCP advised to go to ED. Patient confirms she never been diagnosed with A.Fib. In ED she received Diltiazem 10 mg IV. Currently her HR in 130-140s Cardizem drip is restarted.Cardiology is consulted and following recs.Cardiology stopped Cardizem drip and amlodipine and start metoprolol for rate control. Review of Systems Review of Systems: Palpitations, leg swelling, shortness of breath, generalized weakness. Exam Narrative: lying in stretcher Const: General: cooperative, comfortable, no acute distress, well developed, alert, awake, ill appearing chronically, average body habitus and other ( debilitated) Nutritional Appearance: average body habitus Orientation/consciousness: patient oriented x3 Other: Chronically ill a female appearing older than her stated age supine in bed in good spirits despite all of the above-mentioned problems HENMT: Head: normal to inspection, normocephalic and atraumatic Ears: hearing grossly normal bilaterally Face/Nose/Sinus: normal facial exam Face and sinus: normal facial exam Mouth: Yes moist mucous membranes Eyes: General: appearance normal, both eyes and all related structures Sclera: sclerae normal Pupils: Equal, round and reactive pupils present EOM: EOMs intact bilaterally Neck: Neck: full ROM, no lymphadenopathy and no JVD Thyroid: thyroid normal Lymphatic: no lymphadenopathy noted Resp: Effort & Inspection: normal respiratory effort and able to speak in complete sentences Auscultation: clear to auscultation bilaterally Cardio: Jugular venous distension: no JVD Rate: regular rate and tachycardic Rhythm: regular
[2024-08-14] MEDS: dilTIAZem 100 MG/100 ML 100 MG/100 ML BAG IV CONT (12:58)
--- NOTE | 2024-08-14 13:37 | PM.CNCAR ---
Assessment and Plan Assessment and plan (1) Atrial fibrillation with RVR: Code(s): I48.91 - Unspecified atrial fibrillation Status: Acute Plan This is a 78-year-old lady with aortic valve disease who underwent transcatheter aortic valve replacement in October of last year at [facility]. 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 Unfortunately she now has developed atrial fibrillation and with respect to the arrhythmia she was asymptomatic the date of onset of the arrhythmia is therefore unknown. I have not reviewed the records from [facility] as I dictate this note but a suffice it to say that if AFib was going on we would of identified that problem while she was in the hospital. At this point we need to devise a rate control strategy since conversion to sinus rhythm is not going to be an option since she cannot be safely anticoagulated. I am going to stop the amlodipine as well as the diltiazem and start metoprolol for rate control. We will observe her heart rate and telemetry with you while she is in the hospital. Given her multitude of comorbidities it is unlikely that she will be a acceptable candidate for cardioversion. Thank you for consulting us to see this pleasant lady and participate in this challenging situation Andi Silva MD [facility] History of Present Illness History of Present Illness Consult date/time: 08/14/24 13:37 Reason For Visit: New Onset A Fib/CHF Exacerbation Narrative: This is a very pleasant but unfortunate and complex 78-year-old lady with history of valvular heart disease and a chronic pericardial effusion who is seeing me today at the request of the hospitalist because of atrial fibrillation. The patient normally follows in our practice with Dr. Villareal. She was initially referred back in 2019 because of a pleural effusion of unknown etiology. Because the effusion was relatively large she underwent diagnostic pericardiocentesis back in 2018 removing 1500 cc of fluid which was sent for cytology which was ultimately found to be negative for malignancy. Despite treating this the effusion has recurred and become chronic and is not been hemodynamically embarrassing. She was followed in our office and then was found to have significant/severe aortic valve stenosis back in 2019. She underwent catheterization which demonstrated no evidence of coronary disease and then she underwent transcatheter aortic valve replacement October of 2023 at [facility] receiving a 23 Jenny Marie valve with a good result. In addition to all of this the patient has chronic anemia and has followed by oncology with monoclonal can opt gammopathy of unknown significance and is chronically anemic because of this. She states she was hospitalized in June of this year at [facility] with significant anemia and was GI bleeding she underwent fulguration/cauterization of a bleeding vessel and was seen in follow-up after this. She did have to receive several units of packed red cells at that time. She went to see her primary care provider at the time of this admission and was found in the office to be in atrial fibrillation with moderately rapid ventricular response with respect to the she was unaware of her arrhythmia and asymptomatic. She has no previous history of atrial fibrillation that she can recall nor that I see in reviewing her record. She has been placed on intravenous diltiazem for heart rate control she is also taking him amlodipine for hypertension that has also been continued. In this setting I am seeing her in consultation. Review of Systems Constitutional: Constitutional: Reports lethargy and Reports weakness Eyes: Eyes: Reports no additional eye complaints ENT: Reports system reviewed and no additional complaints, except as documented Cardiovascular: Cardiovascular: Reports as per HPI Respiratory: Respiratory: Reports dyspnea on e
[2024-08-14] MEDS: METOPROLOL SUCCINATE EXT REL 100 MG TABCR PO (14:50)
[2024-08-14] MEDS: ATORVASTATIN 10 MG TABLET PO (20:26)
[2024-08-15] VITALS (12 sets, daily range): BP systolic 103–122; BP diastolic 56–73; PULSE 66–88; RESP 16–22; TEMP 36.4–36.6; O2SAT 91–100
[2024-08-15 07:11] LABS: Hematocrit 31.9 % (37.0-47.0); Hemoglobin 9.7 g/dL (12.0-15.0); Mean Corpuscular HGB Conc 30.4 g/dl (32-36); Mean Corpuscular Hemoglobin 30.7 pg (26-34); Mean Corpuscular Volume 100.9 fl (80-100); Mean Platelet Volume 12.7 fl (7.4-10.4); Platelet Count Result 102 k/mm3 (150-375); Red Blood Count 3.16 M/mm3 (4.2-5.4); Red Cell Distribution Width 19.3 % (11.5-14.5); White Blood Count 6.6 K/mm3 (4.5-10.0)
[2024-08-15 08:10] LABS: Alanine Aminotransferase 11 U/L (6-35); Alkaline Phosphatase 41 U/L (38-126); Anion Gap 14 mmol/L (4-12); Aspartate Amino Transferase 33 U/L (14-36); Bilirubin,Total 1.2 mg/dL (0.2-1.3); Blood Urea Nitrogen 37 mg/dL (7-17); Calcium 8.1 mg/dL (8.4-10.2); Carbon Dioxide 16 mmol/L (22-30); Chloride 112 mmol/L (98-107); Estimated CRCL calculation 17 ml/min; Estimated Glomerular Filt Rate 20; Glucose 60 mg/dL (65-110); Sodium 142 mmol/L (137-145)
[2024-08-15 08:17] LABS: Glucose Point of Care 95 mg/dl (65-105)
[2024-08-15] MEDS: METOPROLOL SUCCINATE EXT REL 100 MG TABCR PO (08:24)
[2024-08-15] MEDS: FUROSEMIDE INJ 40 MG/4 ML VIAL IV PUSH (08:24)
[2024-08-15] MEDS: FERROUS SULFATE 325 MG TABLET DR PO (08:25)
[2024-08-15] MEDS: FENOFIBRATE 160 MG TABLET PO (08:25)
--- NOTE | 2024-08-15 08:28 | PM.IMPN ---
Subjective Date/time seen: 08/15/24 08:28 Interval history: Patient was evaluated at the bedside. Patient has a past medical history of MGUS, GI bleed, S/P TAVR done on October 2023. Patient reports December 2023 patient reports having GI issues and was admitted at [facility] and later transferred to [facility] E[facility]. No significant findings were found during that time. February 2024 she reports of having OP colonoscopy and reports of no significant finding. Unfortunately she had GI sx in June 2024 and was admitted to [facility] and later transferred to [facility] where she underwent endoscopy and had cauterization of ulcer/bleed?. Recently she went to her PCP due to diarrhea and mucus in her stool and found to be A.fib and her PCP advised to go to ED. Patient confirms she never been diagnosed with A.Fib. In ED she received Diltiazem 10 mg IV. Currently her HR in 130-140s Cardizem drip is restarted.Cardiology is consulted and following recs.Cardiology stopped Cardizem drip and amlodipine and start metoprolol for rate control. 08/15: Patient had episode of hypoglycemia but after eating the sugar was normalized. Patient is not on any hypoglycemic agents. Patient is currently on metoprolol 100 mg p.o. q.d. her heart rate has been in 70s. Patient has a recurrent issues of GI and not a candidate for anticoagulation. Objective Data Vital Signs Vital Signs: Vital Signs - 24 hr 08/14/24 08:30 08/14/24 12:00 08/14/24 12:58 Temperature 97.9 F Pulse Rate 96 112 H 112 H Respiratory Rate 16 Blood Pressure 116/68 114/56 L Pulse Oximetry 91 Oxygen Delivery 08/14/24 14:04 08/14/24 14:45 08/14/24 14:50 Temperature 97.8 F Pulse Rate 96 87 88 Respiratory Rate 20 Blood Pressure 94/50 L 109/50 L Pulse Oximetry 92 Oxygen Delivery 08/14/24 16:00 08/14/24 10:00 08/14/24 14:00 Temperature 98.2 F Pulse Rate 85 108 H 87 Respiratory Rate 16 Blood Pressure 101/48 L Pulse Oximetry 94 Oxygen Delivery 08/14/24 18:13 08/14/24 20:17 08/14/24 20:00 Temperature 98.1 F Pulse Rate 79 72 71 Respiratory Rate 16 Blood Pressure 107/53 L Pulse Oximetry 94 Oxygen Delivery 08/14/24 20:00 08/14/24 22:00 08/14/24 23:26 Temperature 97.7 F Pulse Rate 71 78 77 Respiratory Rate 16 16 Blood Pressure 108/59 L Pulse Oximetry 94 98 Oxygen Delivery Room Air 08/15/24 00:00 08/15/24 00:00 08/15/24 01:45 Temperature Pulse Rate 67 67 82 Respiratory Rate 16 Blood Pressure Pulse Oximetry 98 Oxygen Delivery Room Air 08/15/24 03:20 08/15/24 03:24 08/15/24 03:24 Temperature 97.7 F Pulse Rate 70 88 88 Respiratory Rate 16 16 Blood Pressure 108/62 Pulse Oximetry 91 91 Oxygen Delivery Room Air 08/15/24 05:36 08/15/24 08:24 Temperature Pulse Rate 84 76 Respiratory Rate Blood Pressure Pulse Oximetry Oxygen Delivery Intake/Output Intake/Output: Intake & Output 08/12/24 08/13/24 08/14/24 08/15/24 23:59 23:59 23:59 23:59 Intake Total 858.5 350 Output Total 2100 1400 Balance -1241.5 -1050 Meds/Results Medications: Active Medications Generic Name Dose Route Start Last Admin Trade Name Freq PRN Reason Stop Dose Admin Al Hydrox/Mg Hydrox/Simethicone 30 ml 08/14/24 00:36 Mag Hydrox/Al Hydrox/Simeth 30 Ml Udc PO Q6H PRN Indigestion Atorvastatin Calcium 10 mg 08/14/24 21:00 08/14/24 20:26 Atorvastatin 10 Mg Tablet PO 10 mg QHS SHAKA Administration Fenofibrate 160 mg 08/14/24 09:00 08/15/24 08:25 Fenofibrate 160 Mg Tablet PO 160 mg DAILY SHAKA Administration Ferrous Sulfate 325 mg 08/14/24 09:00 08/15/24 08:25 Ferrous Sulfate [address] PO 09/13/24 08:59 325 mg BID SHAKA Administration Furosemide 40 mg 08/14/24 09:00 08/15/24 08:24 Furosemide Inj 40 Mg/4 Ml Vial IV PUSH 40 mg Q12HR SHAKA Administration Loratadine 10 mg 08/14/24 00:34 Loratadine 10 Mg Tablet PO DAILY OH
--- NOTE | 2024-08-15 11:48 | PM.PNCARD ---
Progress Note: A&P Assessment and Plan (1) Atrial fibrillation with RVR: Code(s): I48.91 - Unspecified atrial fibrillation Status: Acute Plan This is a 78-year-old lady with aortic valve disease who underwent transcatheter aortic valve replacement in October of last year at [facility]. 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 Unfortunately she now has developed atrial fibrillation and with respect to the arrhythmia she was asymptomatic the date of onset of the arrhythmia is therefore unknown. We will continue with a rate control strategy since conversion to sinus rhythm is not going to be an option since she cannot be safely anticoagulated. Continue metoprolol for rate control. As above, she is not a candidate for anticoagulation Can consider outpatient referral for LAAO OK for discharge from a cardiac standpoint Subjective Date/time seen: 08/15/24 11:48 Interval history: Cardiology follow up for atrial fibrillation She is feeling well this morning and has no active complaints. Telemetry is stable. Review of Systems Constitutional: Constitutional: Reports lethargy and Reports weakness Eyes: Eyes: Reports no additional eye complaints ENT: Reports system reviewed and no additional complaints, except as documented Cardiovascular: Cardiovascular: Reports as per HPI and Reports dyspnea on exertion Respiratory: Respiratory: Reports dyspnea on exertion Gastrointestinal: Gastrointestinal: Reports no additional gastrointestinal complaints Genitourinary: Genitourinary: Reports no additional female genitourinary complaints Musculoskeletal: Musculoskeletal: Reports no additional musculoskeletal complaints Integumentary/Breasts: Skin/Breast: Reports system reviewed and no additional complaints, except as docu Neurologic: Reports system reviewed and no additional complaints, except as documented and Reports weakness Endocrine: Endocrine: Reports no additional endocrine complaints Hematologic/Lymphatic: Hematologic/Lymphatic: Reports no additional hematologic/lymphatic complaints Allergic/Immunologic: Allergic/Immunologic: Reports no additional allergic/immunologic complaints Exam Const: General: comfortable and no acute distress Other: Chronically ill a female appearing older than her stated age lying comfortably in bed HENMT: Mouth: Yes moist mucous membranes Eyes: Sclera: sclerae normal Neck: Neck: supple and no JVD Resp: Effort & Inspection: normal respiratory effort Auscultation: clear to auscultation bilaterally Cardio: Rate: regular rate Rhythm: abnormal rhythm irregularly irregular GI: Auscultation: normal bowel sounds Skin: General skin exam: normal color Neuro: Other: Alert and oriented x3 Extrem: Other: Adequate perfusion, no edema Objective Data Vital Signs Vital Signs: Vital Signs - 24 hr 08/14/24 12:00 08/14/24 12:58 08/14/24 14:04 Temperature 36.6 C 36.6 C Pulse Rate 112 H 112 H 96 Respiratory Rate 16 20 Blood Pressure 116/68 114/56 L 94/50 L Pulse Oximetry 91 92 Oxygen Delivery 08/14/24 14:45 08/14/24 14:50 08/14/24 16:00 Temperature 36.8 C Pulse Rate 87 88 85 Respiratory Rate 16 Blood Pressure 109/50 L 101/48 L Pulse Oximetry 94 Oxygen Delivery 08/14/24 14:00 08/14/24 18:13 08/14/24 20:17 Temperature 36.7 C Pulse Rate 87 79 72 Respiratory Rate 16 Blood Pressure 107/53 L Pulse Oximetry 94 Oxygen Delivery 08/14/24 20:00 08/14/24 20:00 08/14/24 22:00 Temperature Pulse Rate 71 71 78 Respiratory Rate 16 Blood Pressure Pulse Oximetry 94 Oxygen Delivery Room Air 08/14/24 23:26 08/15/24 00:00 08/15/24 00:00 Temperature 36.5 C Pulse Rate 77 67 67 Respiratory Rate 16 16 Blood Pressure 108/59 L Pulse Oximetry 98 98 Oxygen Delivery Room Air 08/15/24 01:45 08/15/24 03:20 08/15/24 03:24 [facility]
--- NOTE | 2024-08-15 16:18 | PM.DS ---
DS: Admitting Diagnosis Discharge Date 08/15/2024 Admitting Diagnosis New onset A.Fibrillation DS: Discharge Diagnosis Discharge Diagnosis (1) Atrial fibrillation with rapid ventricular response: Code(s): I48.91 - Unspecified atrial fibrillation Status: Acute Assessment and Plan: admit to IMU DC diltiazem drip Started Metoprolol 100mg PO QD echocardiogram in a.m. (2) Acute exacerbation of CHF (congestive heart failure): Code(s): I50.9 - Heart failure, unspecified Status: Acute Assessment and Plan: monitor I's and O's gentle diuresis (3) CKD (chronic kidney disease) stage 3, GFR 30-59 ml/min: Qualifiers: Chronic kidney disease stage 3 subtype: stage 3b (GFR 30-44) Qualified Code(s): N18.32 - Chronic kidney disease, stage 3b Code(s): N18.3 - Chronic kidney disease, stage 3 (moderate) Status: Acute Assessment and Plan: continue to monitor BUN and creatinine (4) GERD without esophagitis: Code(s): K21.9 - Gastro-esophageal reflux disease without esophagitis Status: Acute Assessment and Plan: PPI (5) MGUS (monoclonal gammopathy of unknown significance): Code(s): D47.2 - Monoclonal gammopathy Status: Acute Assessment and Plan: follow-up in outpatient setting (6) Chronic low back pain: Qualifiers: Back pain laterality: unspecified Sciatica presence: without sciatica Qualified Code(s): M54.50 - Low back pain, unspecified; G89.29 - Other chronic pain Code(s): M54.50 - Low back pain, unspecified; G89.29 - Other chronic pain Status: Acute Assessment and Plan: Tylenol as needed DS: Summary Hospital Course Hospital Course: Patient was evaluated at the bedside. Patient has a past medical history of MGUS, GI bleed, S/P TAVR done on October 2023. Patient reports December 2023 patient reports having GI issues and was admitted at [place] [facility] and later transferred to [facility] for E[facility]. No significant findings were found during that time. February 2024 she reports of having OP colonoscopy and reports of no significant finding. Unfortunately she had GI sx in June 2024 and was admitted to [place] and later transferred to [facility] where she underwent endoscopy and had cauterization of ulcer/bleed?. Recently she went to her PCP due to diarrhea and mucus in her stool and found to be A.fib and her PCP advised to go to ED. Patient confirms she never been diagnosed with A.Fib. In ED she received Diltiazem 10 mg IV. Currently her HR in 130-140s Cardizem drip is restarted.Cardiology is consulted and following recs.Cardiology stopped Cardizem drip and amlodipine and start metoprolol for rate control. Due to her ongoing GI issues patient is not a candidate for anticoagulation. We explained the risk versus benefits of not doing the anticoagulants. Patient agrees with no anticoagulants.Can consider outpatient referral for [facility]AAO Status at Discharge Cognitive/behavioral status at discharge: Stable Time Spent with Patient Time attestation: Total time spent providing and/or coordinating discharge services: 45 minute Exam Narrative: lying in stretcher Const: General: cooperative, comfortable, no acute distress, well developed, alert, awake, ill appearing chronically, average body habitus and other ( debilitated) Nutritional Appearance: average body habitus Orientation/consciousness: patient oriented x3 Other: Chronically ill a female appearing older than her stated age supine in bed in good spirits despite all of the above-mentioned problems HENMT: Head: normal to inspection, normocephalic and atraumatic Ears: hearing grossly normal bilaterally Face/Nose/Sinus: normal facial exam Face and sinus: normal facial exam Mouth: Yes moist mucous membranes Eyes: General: appearance normal, both eyes and all related structures Sclera: sclerae normal Pupils: Equal, round and reactive pupils
== END 2024-08-15 16:56 | disposition home or self-care (01) | DRG 308 ==
LOC: ANHED 20:17 → ANHIMU 20:37
PROVIDERS: Emergency Medicine; Admitting Provider Internal Medicine; Emergency Provider Physician Assistant; PCP Family Medicine; Visit Provider General Practice
DX: I48.91 Unspecified atrial fibrillation (principal); I50.23 Acute on chronic systolic (congestive) heart failure; I31.39 Other pericardial effusion (noninflammatory); I12.9 Hypertensive chronic kidney disease with stage 1 through stage 4 chronic kidney disease, or unspecified chronic kidney disease; D47.2 Monoclonal gammopathy; N18.30 Chronic kidney disease, stage 3 unspecified; E11.22 Type 2 diabetes mellitus with diabetic chronic kidney disease; E78.5 Hyperlipidemia, unspecified; E53.8 Deficiency of other specified B group vitamins; E55.9 Vitamin D deficiency, unspecified; R91.1 Solitary pulmonary nodule; L71.9 Rosacea, unspecified; K21.9 Gastro-esophageal reflux disease without esophagitis; N32.81 Overactive bladder; M81.0 Age-related osteoporosis without current pathological fracture; M54.50 Low back pain, unspecified; G89.29 Other chronic pain; H93.13 Tinnitus, bilateral; Z95.2 Presence of prosthetic heart valve; Z87.442 Personal history of urinary calculi
CPT/HCPCS: 36415; 71046; 80053; 82948; 83690; 83880; 84484; 85025; 85027; 85610; 85730; 93005; 93306; 96365; 96366; 96374; 96375; 96376; 99285; A9270; G0378; J1940

== ENCOUNTER 2024-10-28 15:07 | Inpatient (IN) | payer MEDICARE, OTHER, SELFPAY ==
--- NOTE | ~2024-10-28 | MR_ITS ---
EXAMINATION: MR abdomen wo con DATE: 11/04/2024 15:03 INDICATION: Renal mass. Ventral hernia. TECHNIQUE: Magnetic resonance imaging (MRI) of the abdomen was performed without intravenous contrast . Sequences included coronal T2-weighted SS-FSE, coronal and axial FS 2D-FIESTA, axial STIR FSE, axi al T2-weighted SS-FSE, axial T2-weighted FS SS-FSE, axial diffusion-weighted SE, axial dual-echo T1-w eighted FSPGR, and axial and coronal T1-weighted LAVA. COMPARISON: CT dated 10/28/2024 and ultrasound dated 11/03/2024 FINDINGS: Cardiomegaly. Large pericardial effusion. Ectatic artifact associated with a prior aortic valve repai r.. Low signal intensity dense mitral annular calcification. Small bilateral pleural effusions. Statu s post cholecystectomy. Liver, spleen, pancreas and bilateral adrenal glands are normal. There are a few T2 hyperintense bilateral renal cysts, the largest an exophytic cyst at at the anterolateral uppe r pole of the left kidney which appears to correspond to the lesion of concern on the prior ultrasoun d. There is mild left hydroureteronephrosis. Large left-sided ventral hernia containing ascites and m ultiple loops of bowel. No dilated bowel identified to suggest obstruction. There is extensive mesent rodolfo, retroperitoneal and body wall edema. S-shaped thoracolumbar scoliosis with thoracic dextrocurva ture with moderate spondylosis and lumbar levoscoliosis with mild spondylosis. Indeterminate 1.4 cm T 2 hyperintense lesion at the right iliac crest with subtle corresponding sclerotic bone lesion on CT which is not evident on CT dated 06/01/2019 which raises concern for metastatic disease. IMPRESSION: 1. Multiple bilateral renal cysts the largest 1.5 cm hepatic cyst at the upper pole the left kidney w hich appears to correspond to the lesion of concern on prior CT. 2. New mild left hydroureteronephrosis which could be related to obstruction from one of the stones p reviously seen at the left kidney. 3. Anasarca with large pericardial effusion, small bilateral pleural effusions, small amount of ascit es and diffuse body wall, mesenteric and retroperitoneal edema. 4. Cardiomegaly. 5. Large left ventral hernia containing ascites and nonobstructed small bowel. 6. Indeterminate 1.4 cm T2 hyperintense and sclerotic lesion at the medial right iliac crest which ra ises concern for metastatic disease. Reviewed, dictated and finalized at location A. PARK ATTENDANT IMPRESSION: 1. Multiple bilateral renal cysts the largest 1.5 cm hepatic cyst at the upper pole the left kidney which appears to correspond to the lesion of concern on pr ior CT. 2. New mild left hydroureteronephrosis which could be related to obstruction fr om one of the stones previously seen at the left kidney. 3. Anasarca with large pericardial effusion, small bilateral pleural effusions, small amount of ascites and diffuse body wall, mesenteric and retroperitoneal edema. 4. Cardiomegaly. 5. Large left ventral hernia containing ascites and nonobstructed small bowel. 6. Indeterminate 1.4 cm T2 hyperintense and sclerotic lesion at the medial righ t iliac crest which raises concern for metastatic disease.
--- NOTE | ~2024-10-28 | US_ITS ---
ULTRASOUND ANKLE BRACHIAL INDEX Ordering provider: Bibiana Cobb PA-C History: . poor BLE perfusions with non healing wounds . Comparison: None. FINDINGS: Right brachial systolic blood pressure: 115 mmHg Left brachial systolic blood pressure: 132 mmHg Right ankle systolic blood pressure: CNO. Left ankle systolic blood pressure: CNO. Note regarding MATTHEW: --Normal= 1.0 or slightly greater. --Claudication (moderate stenosis or occlusive state)= 0.6 to 0.9. --Rest pain (severe occlusive states)= 0.5 or less. IMPRESSION: Highly suggestive severe occlusive disease. Clinical correlation and further evaluation advised. Reviewed, dictated and finalized at location A. TER HELP IMPRESSION: Highly suggestive severe occlusive disease. Clinical correlation and further ev aluation advised.
--- NOTE | ~2024-10-28 | CT_ITS ---
CLINICAL INDICATION: GI hemorrhage COMPARISON: 06/07/2024. TECHNIQUE: Multiple contiguous axial images of the abdomen and pelvis were performed without the admi nistration of intravenous contrast The dose-length product (DLP) was 1413.96 mGy-cm. Automated exposure control and iterative reconstruction technique were employed. FINDINGS/OBSERVATIONS: Visualized lower thorax: Bilateral pleural effusions, left greater than right. The heart is enlarged with a small pericardial effusion. Prosthetic aortic valve is evident. Liver: The liver demonstrates homogeneous attenuation and is not enlarged. Bulky calcification persists exophytic from segment 6. Gallbladder and biliary system: The gallbladder is surgically absent. Pancreas: Limited evaluation of the pancreas secondary to the lack of intravenous contrast. Spleen: The spleen demonstrates homogeneous attenuation and is not enlarged. Kidneys: The bilateral kidneys are atrophic with dense calcifications. Adrenal glands: Unremarkable. Gastrointestinal tract: Colonic diverticulosis without surrounding inflammatory change. Detection of active GI hemorrhage is limited without intravenous contrast. Trace fecal stasis within the colon. Appendix: The appendix is not definitively visualized. However, no pericecal inflammatory change is identified suggest the presence of acute appendicitis. Vasculature: Densely calcified atherosclerotic disease. Lymph nodes: Limited evaluation without intravenous contrast. Pelvic structures: The bladder is only minimally distended, and otherwise unremarkable. The uterus is either surgically absent or significantly atrophic. Body wall and musculoskeletal: Significant anasarca is present. Large ventral hernia extending to the left of midline containing the majority of patient's large and small bowel. Levoscoliotic curvature of the lower lumbar spine is identified. Diffuse bony demineralization is noted. IMPRESSION: Diffuse anasarca. Detection of active GI hemorrhage is limited without intravenous contrast. Large nonobstructing ventral hernia Large left-sided pleural effusion. Small right-sided pleural effusion. Reviewed, dictated and finalized at location A. USEL OPERATOR
--- NOTE | ~2024-10-28 | US_ITS ---
EXAMINATION: US renal BI DATE: 11/03/2024 14:45 INDICATION: Acute on chronic kidney disease. TECHNIQUE: Multiple ultrasound grayscale images of the kidneys were obtained. COMPARISON: CT 10/28/2024 FINDINGS: There is a right pleural effusion. The right kidney is not visualized. The left kidney measures 10.1 x 3.6 x 5.2 cm. The left kidney demonstrates normal parenchymal echogenicity. There is a 1.7 cm isoec hoic mass in the left kidney. There is no hydronephrosis. The bladder is normal. IMPRESSION: 1. Right kidney not visualized due to the patient's body habitus. Note that the right kidney demonst rated normal size without hydronephrosis on the recent CT. 2. 1.7 cm mass in the left kidney. The differential diagnosis includes normal renal parenchyma, renal cell carcinoma, and hemorrhagic cyst. Abdomen MRI without and with contrast is recommended. 3. Right pleural effusion. Reviewed, dictated and finalized at location A. NO FLOOR PERSON IMPRESSION: 1. Right kidney not visualized due to the patient's body habitus. Note that th e right kidney demonstrated normal size without hydronephrosis on the recent CT . 2. 1.7 cm mass in the left kidney. The differential diagnosis includes normal r enal parenchyma, renal cell carcinoma, and hemorrhagic cyst. Abdomen MRI withou t and with contrast is recommended. 3. Right pleural effusion.
--- NOTE | ~2024-10-28 | XR_ITS ---
EXAMINATION: XR chest 1V portable Exam Date/Time: 11/05/2024 19:32 SAMPLE DRILLER HISTORY: DECLINE IN STATUS Comparison: 10/31/2024. RESULT: Lines, tubes, and devices: Cardiac valve replacement. Cholecystectomy clips. Lungs and pleura: Study limited by leftward rotation. Chronic segmental left basilar airspace diseas e. Moderate left costophrenic angle blunting. Cardiomediastinal silhouette: Stable. Mitral annulus calcification Other: No acute osseous or upper abdominal finding. IMPRESSION: Segmental left basilar atelectasis/consolidation. Possible moderate left pleural effusion. Reviewed, dictated and finalized at location K. LE DRILLER IMPRESSION: Segmental left basilar atelectasis/consolidation. Possible moderate left pleura l effusion.
--- NOTE | ~2024-10-28 | XR_ITS ---
CHEST RADIOGRAPH CLINICAL HISTORY: post thora . COMPARISON: 08/13/2024 TECHNIQUE: Single portable view of the chest. FINDINGS Decreased left-sided pleural effusion when compared with previous examination. The left lung is fully inflated. The right hemithorax is clear. Prosthetic valve in the aortic position. Calcifications of the mitral annulus. The cardiomediastinal silhouette is enlarged, unchanged. IMPRESSION: No pneumothorax following left-sided thoracentesis, as detailed above. Reviewed, dictated and finalized at location A. PACKER
--- NOTE | ~2024-10-28 | US_ITS ---
EXAMINATION: US thoracentesis DATE: 10/31/2024 14:28 INDICATION: pleural effusion TECHNIQUE: The procedure and its risks, benefits, and alternatives were discussed with the patient. P otential risks discussed included bleeding, infection, and pneumothorax. The patient understood the r isks and agreed to proceed. The skin was prepped and draped in sterile fashion. 1% lidocaine was used for local anesthesia. Under ultrasound guidance, a 5 Fr catheter with trochar was advanced into the left pleural effusion. Fluid was aspirated. The catheter was removed, and a dressing was applied. The re were no immediate complications. FINDINGS: Ultrasound images demonstrate a left pleural effusion and the catheter within the fluid. IMPRESSION: 1. Successful ultrasound-guided thoracentesis yielding 450 mL of yellow fluid. Reviewed, dictated and finalized at location A. GHT SORTER
--- NOTE | ~2024-10-28 | XR_ITS ---
EXAMINATION: XR bone survey comp/metastic DATE: 11/05/2024 16:45 INDICATION: Bone lesion of right ilium. TECHNIQUE: 32 views of a skeletal survey were obtained. COMPARISON: Abdomen MRI 11/04/2024, PET/CT 11/08/2023, abdomen and pelvis 06/01/19 FINDINGS: There is small right and moderate-sized left pleural effusions. There are airspace opacitie s of the lung bases. Cardiomegaly is noted. There are changes of aortic valve replacement. Surgical c lips in the right upper quadrant are likely from cholecystectomy. There are old healed left rib fract ures. There are surgical clips in the abdomen. There is a 9 mm nonaggressive lytic lesion in the clay ex of left tibial diaphysis. There is soft tissue gas in left forearm. There are dystrophic calcifica tions versus foreign bodies in right forearm. IMPRESSION: 1. Bone lesion of right ilium not visualized. 2. 9 mm nonaggressive lytic lesion in the cortex of left tibial diaphysis, probably benign. 3. Soft tissue gas in left forearm. 4. Dystrophic calcifications versus foreign bodies in right forearm. 5. Small right and moderate-sized left pleural effusions. 6. Airspace opacities at the lung bases, consistent with atelectasis versus pneumonia. Reviewed, dictated and finalized at location [] RIALS HANDLING COORDINATOR IMPRESSION: 1. Bone lesion of right ilium not visualized. 2. 9 mm nonaggressive lytic lesion in the cortex of left tibial diaphysis, prob ably benign. 3. Soft tissue gas in left forearm. 4. Dystrophic calcifications versus foreign bodies in right forearm. 5. Small right and moderate-sized left pleural effusions. 6. Airspace opacities at the lung bases, consistent with atelectasis versus pne umonia.
--- NOTE | ~2024-10-28 | XR_ITS ---
EXAMINATION: XR chest port-a-cath/central Exam Date/Time: 11/05/2024 20:40 COMMERCIAL ESCROW OFFICER HISTORY: Central line placement Comparison: Same date at 11/05/2024. FINDINGS/IMPRESSION: New right IJ central line terminating in the right atrium. Stable segmental left basilar atelectasis/consolidation and moderate left pleural effusion. Likely small right pleural effusion. Reviewed, dictated and finalized at location K. ERCIAL ESCROW OFFICER
--- NOTE | ~2024-10-28 | XR_ITS ---
EXAMINATION: XR abdomen/kub 1V DATE: 11/02/2024 11:53 INDICATION: Loss of appetite TECHNIQUE: A supine view of the abdomen on 3 radiographs was obtained. COMPARISON: CT dated 10/28/2024 FINDINGS: There are multiple gas-filled but not frankly dilated loops of small bowel project over the left side of the abdomen further lateral than typical which corresponds to a large left-sided ventral hernia s een on prior CT. Dense mitral annular calcification and partially visualized aortic valve repair. [place] in the visualized left lower lung zone suggesting a persistent left pleural effusion with associ ated atelectasis or pneumonia. Cholecystectomy clips and rim calcified likely dropped gallstones at t he right upper quadrant. Multiple surgical clips in the pelvis. Mild lumbar levorotoscoliosis with mo derate spondylosis and severe facet osteoarthritis. IMPRESSION: 1. Multiple loops of gas-filled but not frankly dilated small bowel likely within the large left-side d ventral hernia similar as seen on prior CT. 2. Opacities at the left lower lung zone consistent with persistent small left pleural effusion and a ssociated atelectasis or pneumonia. Reviewed, dictated and finalized at location A. S ENABLEMENT LEAD IMPRESSION: 1. Multiple loops of gas-filled but not frankly dilated small bowel likely with in the large left-sided ventral hernia similar as seen on prior CT. 2. Opacities at the left lower lung zone consistent with persistent small left pleural effusion and associated atelectasis or pneumonia.
--- NOTE | ~2024-10-28 | XR_ITS ---
XR abdomen/kub 1V Ordering provider: Yulisa Pretty APRN History: . Nausea and vomiting . Comparison: None. FINDINGS: BOWEL: Slightly dilated small bowel loops. Early or partial obstruction cannot be excluded. Follow-up advised. ORGANOMEGALY: None. SIGNIFICANT PATHOLOGIC CALCIFICATIONS: None. OTHER: No free air is seen under the diaphragm. Levoscoliosis with degenerative changes. IMPRESSION: Slightly dilated small bowel loops. Follow-up advised. Reviewed, dictated and finalized at location A. FRAME TENDER
[2024-10-28 15:07] VITALS: BP 114/73; PULSE 97; RESP 17; O2SAT 100
[2024-10-28 15:15] VITALS: BP 113/62; PULSE 84; RESP 17; O2SAT 100
[2024-10-28 15:50] LABS: Basophils Percent Auto 0.2 % (0.2-1.2); Eosinophils Percent Auto 0.3 % (0-4.4); Hemoglobin 8.3 g/dL (12.0-15.0); Immature Granulocyte Absolute 0.05 K/mm3 (0.00-0.031); Immature Granulocyte Percent A 0.4 % (0-0.5); Lymphocytes Absolute Auto 0.85 K/mm3 (0.9-3.2); Lymphocytes Percent Auto 7.2 % (18.3-44.2); Mean Corpuscular HGB Conc 30.7 g/dl (32-36); Mean Corpuscular Hemoglobin 31.9 pg (26-34); Mean Corpuscular Volume 103.8 fl (80-100); Mean Platelet Volume 12.2 fl (7.4-10.4); Monocytes Absolute Auto 0.6 K/mm3 (0.1-0.6); Monocytes Percent Auto 5.2 % (2.6-8.5); Neutrophils Absolute Auto 10.3 K/mm3 (1.3-6.7); Neutrophils Percent Auto 86.7 % (45.5-73.1); Nucleated Red Blood Cells Perc 0.6 % (0.0-0.2); Platelet Count Result 77 k/mm3 (150-375); White Blood Count 11.9 K/mm3 (4.5-10.0)
[2024-10-28 15:58] LABS: Alanine Aminotransferase 14 U/L (6-35); Albumin Level 2.5 g/dL (3.5-5.1); Alkaline Phosphatase 57 U/L (38-126); Anion Gap 6 mmol/L (4-12); Aspartate Amino Transferase 27 U/L (14-36); Bilirubin,Total 1.7 mg/dL (0.2-1.3); Blood Urea Nitrogen 55 mg/dL (7-17); Calcium 8.2 mg/dL (8.4-10.2); Carbon Dioxide 17 mmol/L (22-30); Chloride 115 mmol/L (98-107); Estimated CRCL calculation 15 ml/min; Estimated Glomerular Filt Rate 18; Glucose 80 mg/dL (65-110); Magnesium 1.1 mg/dL (1.6-2.3); Potassium 3.2 mmol/L (3.4-5.0); Sodium 138 mmol/L (137-145)
[2024-10-28 15:59] LABS: Lactic Acid Reflex 0.9 mmol/L (0.7-2.0)
[2024-10-28] MEDS: PANTOPRAZOLE SODIUM IV 40 MG VIAL IV PUSH (16:00)
[2024-10-28] MEDS: SODIUM CHLORIDE 0.9% IV 1,000 ML 999 ML IV CONT (16:00)
[2024-10-28 16:02] LABS: INR 1.4; Partial Thromboplastin Time 37.1 Seconds (22.3-36.8); Prothrombin Time 17.1 Seconds (11.1-14.7)
[2024-10-28 16:03] LABS: Anisocytosis 1+; Hypochromasia 1+; Macrocytosis 1+ (NORMAL); Platelet Estimate Decreased (Adequate); Target Cells 1+
[2024-10-28 16:04] LABS: Schistocytes None Seen
--- NOTE | 2024-10-28 16:29 | ED.GIBLEED ---
HPI - GI Bleed General Chief complaint: GI Bleed Stated complaint: weakness, dark stools Time Seen by Provider: 10/28/24 15:18 History of Present Illness HPI Narrative: 78-year-old female with a past medical history including atrial fibrillation, previous GI bleeding, CHF, CKD. She presents to the emergency room for chief complaint of dark tarry stools for last 3 days and generalized weakness. She thinks she has a low hemoglobin. She gets transfusions every so often is scheduled for blood transfusion 2 days time. Patient tells me she has had previous endoscopies and capsule endoscopies but not able to have a with a found. She denies any chest pain, abdominal pain, nausea vomiting. No back pain or fever/chills. She states she was otherwise in her normal state of health but had chronic fatigue that is worsening over last 3 days as well as the developing of new dark tarry stools. She is on iron supplements but not new. Related Data Home Medications ?Medication ?Instructions ?Recorded ?Confirmed ?Last Taken ?Type Lactobacillus acidophilus 10 10 cell PO DAILY 04/07/20 10/01/24 04/28/24 History billion cell capsule cetirizine 10 mg tablet 10 mg PO DAILY PRN SEASONAL 10/13/20 10/01/24 04/29/24 History ALLERGIES ferrous sulfate 325 mg (65 mg 325 mg PO BID 10/11/21 10/01/24 04/28/24 History iron) tablet (Feosol) mecobalamin (vitamin B12) 5,000 5,000 mcg PO 3XW 04/19/23 10/01/24 04/28/24 History mcg disintegrating tablet cholecalciferol (vitamin D3) 50 50 mcg PO DAILY 08/06/24 10/01/24 Unknown History mcg (2,000 unit) capsule potassium chloride 20 mEq 20 meq PO DAILY 08/13/24 10/01/24 Unknown History tablet,extended release(part/cryst) Allergies Allergy/AdvReac Type Severity Reaction Status Date / Time No Known Allergies Allergy Verified 10/16/24 12:11 Review of Systems Review of Systems: As reviewed above in HPI ON LICENSE OF [facility] Past Medical History Medical History (Updated 10/28/24 @ 17:47 by Stuart Cao MD) Overactive bladder Kidney stone Chronic kidney disease, stage 3 Chronic anemia Monoclonal gammopathy of unknown significance Chronic low back pain Seasonal allergies Vitamin D deficiency Osteoporosis Skin cancer Idiopathic pericarditis GERD without esophagitis Type 2 diabetes mellitus without complication, without long-term current use of insulin hemoglobin A1c: 5.4(10/26) << 5.2(10/25) << 5.7(05/25) << 5.7(10/24) << 5.9(04/24) << 6.3(08/23) << 6.0(02/21) << 6.2(05/22) << 6.6(10/21) << 6.8(11/21) << 7.9(04/20). 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) History of transcatheter aortic valve replacement (TAVR) (10/2023) History of repair of right rotator cuff (11/2020) History of cataract surgery (2020) History of cardiac catheterization History of tubal ligation History of tonsillectomy History of cholecystectomy (01/2010) History of total abdominal hysterectomy and bilateral salpingo-oophorectomy (01/2010) Family History Family History Mother Hypertension Diabetes mellitus Cerebrovascular accident Heart disease Social History Social History Smoking status: Never smoker Second hand tobacco smoke exposure: No Alcohol intake: never Substance use: never Substance use type: does not use Do You Feel Safe in your Home?: Yes Lack of Transportation: No Lack of Food: Never True Current Housing: I Have Housing Concerned About Future Housing: No Difficulty Paying Gas/Electric Bills: No Difficulty Paying for Meds: No Currently Unemployed: No Education: Decline to Answer Difficulty w/ Childcare or Family Care: No Living arrangements: with family Additional living arrangements comments: Occupation/Education: retired Gender identity (if verbalized by the patient): Female Sexual Orientation (if Verbalized by the Patient): Straight or Heterosexual Spiritual care concerns: No Agree to blood products: Yes Exam Narrative: GENERAL: Chronically ill-appearing, not in any acute distress HEAD: [Normocephalic, atraumatic.] EYES: [PERRLA and EOMI.] ENT: Nares clear, no rhinorrhea or epistaxis. Mucous membranes moist. NECK: Supple. CHEST: [Clear to auscultation. No respiratory distress.] HEART: [Regular rate and rhythm]. No murmur heard. [Normal peripheral pulses.] ABDOMEN: [Soft, nondistended], [nontender], [No rigidity or guarding] EXTREMITIES: Normal range of motion. [No edema.] SKIN: Warm, dry, no rash. NEURO: [No focal deficits]. Alert and oriented [x3.] PSYCH: [Normal mood and affect.] Course Vital Signs Vital signs: Vital Signs Pulse Rate 97 10/28/24 15:07 Respiratory Rate 17 10/28/24 15:07 Blood Pressure 114/73 10/28/24 15:07 Pulse Oximetry 100 10/28/24 15:07 Oxygen Delivery Room Air 10/28/24 15:07 Pulse Rate 97 10/28/24 15:07 Respiratory Rate 17 10/28/24 15:07 Blood Pressure 114/73 10/28/24 15:07 Pulse Oximetry 100 10/28/24 15:07 Oxygen Delivery Room Air 10/28/24 15:07 MDM - GI Bleed MDM Narrative Medical decision making narrative: 78-year-old female with a past medical history including atrial fibrillation, previous GI bleed, CKD. She is not on any anticoagulation. Patient presents to the emergency room today with complaints of dark tarry stools for last 3 days and concerns of a GI bleed. She states she has been having increased weakness. Is scheduled to go through a transfusion that she gets on a biweekly basis on outpatient basis in 2 days time. She states that today she felt so weak she could not get out of bed in want to get help. Denies any abdominal pain, nausea, vomiting, chest pain, shortness a breath. She has a soft nontender nondistended abdomen. No tachycardia, fever, hypoxia. Concern presently with her reported history is that she is having a GI bleed from unknown source. Could be a slow venous bleed verses active extravasation. Will obtain CT scan imaging however we have to use no contrast given her CKD. CBC, CMP, lactic acid, Protonix administered. CBC came back with a slight leukocytosis of 11.9, hemoglobin is 8.3 which is lower than her previous levels. She has had stable hemoglobins around 10 chronically. Most recently 2 weeks prior. Coagulation studies with a slightly prolonged APTT is 37. Normal INR 1.4. Electrolytes with largely unremarkable electrolytes, BUN of 55 and creatinine 2.60 which is around her baseline kidney function for her previous levels. Magnesium 1.1 which is repleted with IV magnesium. CT scan without contrast shows fluid overload anasarca and left-sided pleural effusion, limited detection of any active GI bleed secondary to lack of contrast. Patient remains hemodynamically stable and on re-evaluation still had no pain or tenderness. I contacted Dr. Olguin from GI informed of patient's presentation, hemoglobin dropped my concern for a occult or slow GI bleed. He recommended making the patient NPO for potential endoscopy during admission and patient will be admitted to Medicine at this time. I spoke to the hospitalist currently being, by the midlevel provider history. Patient was accepted to a telemetry monitored bed at this time with serial H&H, Protonix and as needed medications. Patient was agreeable to hospital admission at this time. Medical Records Attestation: I reviewed the patient's medical records. Lab Data Attestation: I reviewed the patient's lab results. 10/28/24 15:42 10/28/24 15:42 Labs: Lab Results 10/28/24 Range/Units 15:42 WBC 11.9 H (4.5-10.0) K/mm3 RBC 2.60 L (4.2-5.4) M/mm3 Hgb 8.3 L (12.0-15.0) g/dL Hct 27.0 L (37.0-47.0) % MCV 103.8 H (80-100) fl MCH 31.9 (26-34) pg MCHC 30.7 L (32-36) g/dl RDW 22.0 H (11.5-14.5) % Plt Count 77 L (150-375) k/mm3 MPV 12.2 H (7.4-10.4) fl Immature Gran % (Auto) 0.4 (0-0.5) % Neut % (Auto) 86.7 H (45.5-73.1) % Lymph % (Auto) 7.2 L (18.3-44.2) % [place] % (Auto) 5.2 (2.6-8.5) % Eos % (Auto) 0.3 (0-4.4) % Baso % (Auto) 0.2 (0.2-1.2) % Lymph # (Auto) 0.85 L (0.9-3.2) K/mm3 [place] # (Auto) 0.6 (0.1-0.6) K/mm3 Eos # (Auto) 0.0 (0-0.3) K/mm3 Baso # (Auto) 0.0 (0.0-0.1) K/mm3 Abs Immat Gran (auto) 0.05 H (0.00-0.031) K/mm3 Absolute Neuts (auto) 10.3 H (1.3-6.7) K/mm3 Absolute Nucleated RBC 0.070 H (0.0-0.012) K/mm3 Nucleated RBC % 0.6 H (0.0-0.2) % Platelet Estimate Decreased (Adequate) % Immature Plt Fraction 10.0 (0.9-11.2) % Hypochromasia 1+ Anisocytosis 1+ Macrocytosis 1+ (NORMAL) Target Cells 1+ Schistocytes None seen PT 17.1 H (11.1-14.7) Seconds INR 1.4 APTT 37.1 H (22.3-36.8) Seconds Sodium 138 (137-145) mmol/L Potassium 3.2 L (3.4-5.0) mmol/L Chloride 115 H (98-107) mmol/L Carbon Dioxide 17 L (22-30) mmol/L Anion Gap 6 (4-12) mmol/L BUN 55 H D (7-17) mg/dL Creatinine 2.60 H (0.7-1.0) mg/dL Estim Creat Clear Calc 15 ml/min Estimated GFR 18 L (59 - ) Glucose 80 (65-110) mg/dL Lactic Acid 0.9 (0.7-2.0) mmol/L Calcium 8.2 L (8.4-10.2) mg/dL Magnesium 1.1 L (1.6-2.3) mg/dL Total Bilirubin 1.7 H (0.2-1.3) mg/dL AST 27 (14-36) U/L ALT 14 (6-35) U/L Alkaline Phosphatase 57 (38-126) U/L Total Protein 5.0 L (6.3-8.2) g/dL Albumin 2.5 L (3.5-5.1) g/dL Blood Type B Positive Antibody Screen Negative Imaging Data Attestation: I personally reviewed and interpreted this imaging study as follows: My impression: Impressions Abdomen/Pelvis CT 10/28/24 16:58 IMPRESSION: Diffuse anasarca. Detection of active GI hemorrhage is limited without intravenous contrast. Large nonobstructing ventral hernia Large left-sided pleural effusion. Small right-sided pleural effusion. Critical Care Time Critical Care Time Critical Care Time: Yes Total Critical Care Time: 35 Discharge Plan Discharge Clinical Impression: GIB (gastrointestinal bleeding), Hypomagnesemia, Melena Patient Disposition: Still a Patient Condition: Guarded Prognosis Patient Language: Thai Prescriptions: No Action cholecalciferol (vitamin D3) 50 mcg (2,000 unit) Capsule 50 mcg PO DAILY mecobalamin (vitamin B12) 5,000 mcg tablet,disintegrating 5,000 mcg PO 3XW Rx Instructions: m,w,f sodium bicarbonate 650 mg tablet 650 mg PO BID Qty: 60 8RF Rx Instructions: take on full stomach, on meals different from iron Lactobacillus acidophilus 10 billion cell capsule 10 cell PO DAILY cetirizine 10 mg tablet 10 mg PO DAILY PRN (Reason: SEASONAL ALLERGIES) ferrous sulfate [Feosol] 325 mg (65 mg iron) tablet 325 mg PO BID potassium chloride 20 mEq tablet,ER particles/crystals 20 meq PO DAILY metoprolol succinate [Toprol XL] 100 mg Tablet Extended Release 24 Hr 100 mg PO QAM Qty: 30 0RF calcitriol 0.25 mcg capsule 0.25 mcg PO 3XW Qty: 45 3RF Rx Instructions: administer after dialysis on dialysis days atorvastatin 10 mg tablet 10 mg PO QHS Qty: 90 1RF fenofibrate 160 mg tablet 160 mg PO DAILY Qty: 90 1RF Follow-up/Referrals: Joceline Vega MD [Primary Care Provider] - Time of Disposition: 17:47
[2024-10-28 17:00] VITALS: BP 120/66; PULSE 75; RESP 17; O2SAT 100
--- NOTE | 2024-10-28 17:30 | PM.IMHP ---
H&P: HPI History of Present Illness Date/Time: 10/28/24 17:30 Chief Complaint: Weakness. Narrative: This is a 78-year-old female with history of atrial fibrillation, congestive heart failure, chronic kidney disease, occult GI bleeding, anemia, hypertension, and other comorbidities who presented to the emergency department via EMS from [facility] for evaluation of weakness. The patient provides the following history. She has felt increasingly weak over the past 3 days and reports that she has no energy similar to when her hemoglobin was low in the past. She goes on to say that she receives blood transfusions every few weeks and is set to have a transfusion in 2 days time. She endorses dark stools but goes on to say that she is on iron supplementation and reports that they are always dark. She also reports an unintentional weight loss, early satiety, and frequent diarrhea which improves with antimotility agents.She has had an extensive outpatient evaluation for occult GI bleeding including upper and lower endoscopies and capsule endoscopy which she reports did not show any source of bleeding. She denies fever, chills, sweats, cold and flu symptoms, chest pain, shortness a breath, abdominal pain, vomiting, hematemesis, hematochezia, and dysuria. In the ED: Vital signs were stable on arrival. Labs are significant for WBC count of 11.9, hemoglobin 8.3, hematocrit 27.0%, MCV 103.8, platelets 77, potassium 3.2, chloride 115, carbon dioxide 17, anion gap 6, BUN 55, creatinine 2.60, magnesium 1.1, total bilirubin 1.7, total protein 5.0, albumin 2.5. CT of the abdomen and pelvis showed diffuse anasarca, large nonobstructing ventral hernia, large left-sided pleural effusion, small right-sided pleural effusion. She was given magnesium sulfate 2 g, pantoprazole 40 mg IV, and normal saline 1 L and she is being admitted in this setting. Review of Systems Review of Systems: 12 systems were reviewed and are negative except for as per HPI. [facility] Past Medical History Medical History (Updated 10/28/24 @ 21:48 by Princess Kay PA-C) Chronic kidney disease, stage 4 (severe) Overactive bladder Kidney stone Chronic anemia Monoclonal gammopathy of unknown significance Chronic low back pain Seasonal allergies Vitamin D deficiency Osteoporosis Skin cancer Idiopathic pericarditis GERD without esophagitis Type 2 diabetes mellitus without complication, without long-term current use of insulin hemoglobin A1c: 5.4(10/26) << 5.2(10/25) << 5.7(05/25) << 5.7(10/24) << 5.9(04/24) << 6.3(08/23) << 6.0(02/21) << 6.2(05/22) << 6.6(10/21) << 6.8(11/21) << 7.9(04/20). Essential (primary) hypertension Dyslipidemia Rosacea Pulmonary nodule Vitamin B12 deficiency Surgical History Surgical History Status post creation of pericardial window (04/2019) History of transcatheter aortic valve replacement (TAVR) (10/2023) History of repair of right rotator cuff (11/2020) History of cataract surgery (2020) History of cardiac catheterization History of tubal ligation History of tonsillectomy History of cholecystectomy (01/2010) History of total abdominal hysterectomy and bilateral salpingo-oophorectomy (01/2010) Family History Family History Mother Hypertension Diabetes mellitus Cerebrovascular accident Heart disease Social History Social History (Updated 10/28/24 @ 21:42 by Princess Kay PA-C) Social History: Surrogate medical decision maker: Samuel Seals, spouse. Code status: Full code. Smoking status: Never smoker Second hand tobacco smoke exposure: No Alcohol intake: never Substance use: never Substance use type: does not use Do You Feel Safe in your Home?: Yes Lack of Transportation: No Lack of Food: Never True Current Housing: I Have Housing Concerned About Future Housing: No Difficulty Paying Gas/Electric Bills: No Difficulty Paying for Meds: No Currently Unemployed: No Education: High School Diploma/GED Difficulty w/ Childcare or Family Care: No Living arrangements: with family Occupation/Education: retired Spiritual care concerns: No Agree to blood products: Yes Meds Home Medications and Allergies Home Medications ?Medication ?Instructions ?Recorded ?Confirmed ?Type Lactobacillus acidophilus 10 10 cell PO DAILY 04/07/20 10/28/24 History billion cell capsule cetirizine 10 mg tablet 10 mg PO DAILY PRN SEASONAL 10/13/20 10/28/24 History ALLERGIES ferrous sulfate 325 mg (65 mg 325 mg PO BID 10/11/21 10/28/24 History iron) tablet (Feosol) mecobalamin (vitamin B12) 5,000 5,000 mcg PO 3XW 04/19/23 10/28/24 History mcg disintegrating tablet calcitriol 0.25 mcg capsule 0.25 mcg PO 3XW #45 caps 04/10/24 10/28/24 Rx atorvastatin 10 mg tablet 10 mg PO QHS #90 tabs 08/04/24 10/28/24 Rx cholecalciferol (vitamin D3) 50 50 mcg PO DAILY 08/06/24 10/28/24 History mcg (2,000 unit) capsule potassium chloride 20 mEq 20 meq PO DAILY 08/13/24 10/28/24 History tablet,extended release(part/cryst) metoprolol succinate 100 mg 100 mg PO QAM #30 tabs 08/15/24 10/28/24 Rx tablet,extended release 24 hr (Toprol XL) sodium bicarbonate 650 mg tablet 650 mg PO BID #60 tabs 09/02/24 10/28/24 Rx fenofibrate 160 mg tablet 160 mg PO DAILY #90 tabs 10/20/24 10/28/24 Rx Allergies Allergy/AdvReac Type Severity Reaction Status Date / Time No Known Allergies Allergy Verified 10/16/24 12:11 Vital Signs Vital Signs - 24 hr 10/28/24 15:07 Pulse Rate 97 Respiratory Rate 17 Blood Pressure 114/73 Pulse Oximetry 100 Oxygen Delivery Room Air Exam Narrative: General: Chronically ill-appearing female lying on her left side in bed in no distress. Weight: 64.8 kg. BMI: 26.1. HEENT: PERRL, EOMI. Sclera anicteric. Tacky mucous membranes. Neck: Supple. No JVD. Respiratory: Respirations are nonlabored. Lung sounds are diminished at the bases, left greater than right. Cardiovascular: Regular rate and rhythm with S1-S2. Gastrointestinal: Abdomen is soft, obese, nontender, and nondistended with positive bowel sounds. Large ventral hernia without tenderness to palpation. Skin: Warm and dry. Generalized pallor. Feet are dry and scaly. Extremities: No cyanosis, clubbing, or edema. Normal capillary refill. Pedal pulses diminished but palpable. Neurological: Alert. Cranial nerves 2-12 are grossly intact. No gross focal deficits to casual conversation. Psychiatric: Cooperative with appropriate mood and affect. H&P: Results Labs Labs: Short CBC 10/28/24 Range/Units 15:42 WBC 11.9 H (4.5-10.0) K/mm3 Hgb 8.3 L (12.0-15.0) g/dL Hct 27.0 L (37.0-47.0) % Plt Count 77 L (150-375) k/mm3 BMP 10/28/24 15:42 Sodium 138 Potassium 3.2 L Chloride 115 H Carbon Dioxide 17 L BUN 55 H D Creatinine 2.60 H Glucose 80 Calcium 8.2 L Liver Function 10/28/24 Range/Units 15:42 Total Bilirubin 1.7 H (0.2-1.3) mg/dL AST 27 (14-36) U/L ALT 14 (6-35) U/L Alkaline Phosphatase 57 (38-126) U/L Albumin 2.5 L (3.5-5.1) g/dL Imaging Abdomen/Pelvis CT 10/28/24 16:58 IMPRESSION: Diffuse anasarca. Detection of active GI hemorrhage is limited without intravenous contrast. Large nonobstructing ventral hernia Large left-sided pleural effusion. Small right-sided pleural effusion. Assessment and Plan Assessment and plan (1) Heme positive stool: Code(s): R19.5 - Other fecal abnormalities Status: Acute (2) Chronic anemia: Code(s): D64.9 - Anemia, unspecified Status: Inactive (3) Hypomagnesemia: Code(s): E83.42 - Hypomagnesemia Status: Acute (4) Pleural effusion: Code(s): J90 - Pleural effusion, not elsewhere classified Status: Acute (5) Ventral hernia: Code(s): K43.9 - Ventral hernia without obstruction or gangrene Status: Acute (6) Chronic kidney disease, stage 4 (severe): Code(s): N18.4 - Chronic kidney disease, stage 4 (severe) Status: Acute (7) Hypokalemia: Code(s): E87.6 - Hypokalemia Status: Acute (8) Protein calorie malnutrition: Code(s): E46 - Unspecified protein-calorie malnutrition Status: Acute Plan The patient presented to the emergency department for evaluation of weakness as detailed in HPI. Labs, imaging, EKG, and all reports were personally reviewed. Her hemoglobin has once again drifted downwards which may be causing her weakness. WBC count is elevated however she does not give a history to suggest underlying infection however will obtain urinalysis for completeness sake. Stool was Hemoccult positive and her hemoglobin will be trended. Check iron studies, B12, and folate; it is possible that she may benefit from iron infusion. Thrombocytopenia is stable. She has had significant workup for ongoing occult GI blood loss though will consult GI again for their input. Renal function is relatively stable and will be monitored. Potassium and magnesium are a bit low and will be replaced and monitored. She has lost quite a bit of weight due to early satiety and has low total protein and albumin for which we will consult the dietitian. Her large ventral hernia could be playing a role in her generalized abdominal discomfort and early satiety though her exam is benign and CT scan shows nonobstructive bowel in the hernia. Left pleural effusion has been present for quite some time and she seems asymptomatic with that. Echocardiogram ordered as she has not had 1 done for at least 4 years. Vital signs were reviewed and they are stable. Her home medications will be reviewed and resumed as appropriate. Findings and treatment plan were discussed with the patient. Questions were solicited and answered to satisfaction. The patient's medical management will be taken over by the hospitalist team in a.m. Quality VTE Prophylaxis VTE prophylaxis: mechanical ordered If No VTE Prophylaxis Answer both mechanical and pharmacologic: Reason no pharmacologic proph: medical contraindication (heme positive stool) Hospitalist [facility] Advance Care Plan I have confirmed that the patient's Advanced Care Plan is present, code status is documented, or surrogate decision maker is listed in patient medical record.: Yes Medication Reconciliation I have utilized all available resources to obtain, update and review the patients current medications (includes all prescriptions, OTC, herbals, cannabis, and nutritional supplements).: Yes
[2024-10-28] MEDS: MAGNESIUM SULF 2 GM/WATER 50ML 2 GM/50 ML BAG IVPB (17:40)
[2024-10-28 19:14] VITALS: BMI 26.1
[2024-10-28 19:50] VITALS: BP 117/67; PULSE 78; RESP 18; TEMP 36.3; O2SAT 100
--- NOTE | 2024-10-28 19:51 | ADMGEN ---
This patient, Shannan Seals, was admitted to 2 Medical Room 244-. Patient/family oriented to hospital policies and general routines including ID bracelet, bed and alarms, visiting hours, pain management, procedures, bathroom and other care routines, personal items, smoking policy, room service/diet, and visiting hours. Information on how to activate the Rapid Response Team has been discussed. Patient/Family are encouraged to report perceived risks to care and to ask questions if they do not understand what they are told or what they should do.
[2024-10-28] MEDS: ACETAMINOPHEN 325 MG TABLET 650 MG PO (21:49)
[2024-10-28 22:20] LABS: Hematocrit 29.2 % (37.0-47.0); Hemoglobin 8.6 g/dL (12.0-15.0)
[2024-10-28 22:21] LABS: Immature Reticulocyte Fraction 17.1 % (3.0-15.9); Reticulocyte Hemoglobin Conten 30.9 pg (28.2-36.6); Reticulocyte Percent 2.99 % (0.7-4.3); Reticulocytes Absolute 0.08 10^6/uL (0.02-0.10)
[2024-10-28 22:37] LABS: Prealbumin 9.3 mg/dL (17.6-36.0)
[2024-10-28 22:59] LABS: Influenza A QL RT-PCR Negative (Negative); Influenza B QL RT-PCR Negative (Negative); SARS-CoV-2 RNA PCR Negative (Negative)
[2024-10-28 23:23] LABS: Iron 88 ug/dL (37-170)
[2024-10-28 23:26] LABS: Percent Iron Saturation 43 % (20-50); TOTAL IRON BINDING CAPACITY 203 ug/dL (261-462)
[2024-10-28 23:37] LABS: Folic Acid 7.2 ng/mL (2.76->20); Vitamin B12 > 1000.0 pg/mL (239-931)
[2024-10-28] MEDS: POTASSIUM CHLORIDE 20 MEQ ER TABLET PO (23:44)
[2024-10-29] VITALS (12 sets, daily range): BP systolic 92–124; BP diastolic 45–93; PULSE 48–78; RESP 13–20; TEMP 35.9–36.9; O2SAT 92–100
[2024-10-29 00:38] LABS: Add Urine Microscopic? YES; Appearance Urine Cloudy (Clear); Bacteria Urine None Seen /hpf; Bilirubin Urine Negative (Negative); Blood Urine Non-Hemolyzed Trace (Negative); Color Urine Yellow (Yellow); Glucose Urine UA Negative (Negative); Ketones Urine Negative (Negative); Leukocyte Esterase Ur Trace LEU/UL (Negative); Nitrate Urine Negative (Negative); Protein Urine 1+ mg/dL (Negative); Specific Grav Ur 1.015 (1.001-1.035); Squamous Epithelial Cell Urine Occasional /hpf (Few); WBC Urine 0-5 /hpf (0-3)
[2024-10-29 01:31] LABS: Free T4 Free Thyroxine Reflex 1.26 ng/dL (0.78-2.19)
[2024-10-29 03:36] LABS: Total Triiodothyronine (T3) 0.58 NG/ML (0.97-1.69)
[2024-10-29 05:23] LABS: Hematocrit 28.1 % (37.0-47.0); Hemoglobin 8.5 g/dL (12.0-15.0); Immature Platelet Fraction Pct 12.1 % (0.9-11.2); Mean Corpuscular HGB Conc 30.2 g/dl (32-36); Mean Corpuscular Hemoglobin 31.6 pg (26-34); Mean Corpuscular Volume 104.5 fl (80-100); Mean Platelet Volume 12.5 fl (7.4-10.4); Platelet Count Result 76 k/mm3 (150-375); Red Blood Count 2.69 M/mm3 (4.2-5.4); Red Cell Distribution Width 21.6 % (11.5-14.5); White Blood Count 10.6 K/mm3 (4.5-10.0)
[2024-10-29 05:32] LABS: Alanine Aminotransferase 15 U/L (6-35); Albumin Level 2.5 g/dL (3.5-5.1); Alkaline Phosphatase 58 U/L (38-126); Anion Gap 6 mmol/L (4-12); Aspartate Amino Transferase 29 U/L (14-36); Bilirubin,Total 2.1 mg/dL (0.2-1.3); Blood Urea Nitrogen 52 mg/dL (7-17); Carbon Dioxide 16 mmol/L (22-30); Chloride 118 mmol/L (98-107); Estimated CRCL calculation 14 ml/min; Estimated Glomerular Filt Rate 19; Glucose 62 mg/dL (65-110); Potassium 4.1 mmol/L (3.4-5.0); Sodium 140 mmol/L (137-145)
--- NOTE | 2024-10-29 07:24 | PM.IMPN ---
Progress Note: A&P Assessment and Plan (1) Weakness: Code(s): R53.1 - Weakness Status: Acute Assessment and Plan: [place] increasingly weak over the past few days and reports that she has no energy similar to when her hemoglobin was low in the past. Per chart review, patient receives blood transfusions every few weeks and has a transfusion in Oct 30. - WBC count is elevated however she does not give a history to suggest underlying infection - UA unremarkable - CT abdomen/pelvis: Diffuse anasarca. Detection of active GI hemorrhage is limited without intravenous contrast. Large nonobstructing ventral hernia Large left-sided pleural effusion. Small right-sided pleural effusion. - patient will need PT/OT evals following further workup of possibel GI bleed (2) Heme positive stool: Code(s): R19.5 - Other fecal abnormalities Status: Acute Assessment and Plan: [place] increasingly weak over the past few days and reports that she has no energy similar to when her hemoglobin was low in the past. Per chart review, patient receives blood transfusions every few weeks and has a transfusion in Oct 30. Endorses dark stools but is on iron supplementation. Extensive outpatient evaluation for occult GI bleeding including upper and lower endoscopies and capsule endoscopy which she reports did not show any source of bleeding. - H/H 8.5/28.1 on am labs, continue to trend - Heme occult positive - CT abdomen/pelvis: Diffuse anasarca. Detection of active GI hemorrhage is limited without intravenous contrast. Large nonobstructing ventral hernia Large left-sided pleural effusion. Small right-sided pleural effusion. - GI consulted Protonix BID EGD performed on 10/[address] Olguin No esophagitis or varices. Mod erosive gastrictis with erythematous, edematous, erosive, and petechiae changes, No mucosal bleeding. No duodenal ulcers or masses, no signs of recent bleeding. (3) Chronic anemia: Code(s): D64.9 - Anemia, unspecified Status: Inactive Assessment and Plan: Follows heme/onc at [facility], last seen 10/01/24. - H/H 8.5/28.1 on am labs, continue to trend - Iron panel: iron 88, TIBC 203, % sat 43, ferritin 239 - B12 >1000 and folate 7.2 - Heme occult positive - CT abdomen/pelvis: Diffuse anasarca. Detection of active GI hemorrhage is limited without intravenous contrast. Large nonobstructing ventral hernia Large left-sided pleural effusion. Small right-sided pleural effusion. - GI consulted see above (4) Ventral hernia: Code(s): K43.9 - Ventral hernia without obstruction or gangrene Status: Acute Assessment and Plan: Potentially playing a role in patients early satiety and abdominal discomfort. - CT abdomen/pelvis: Large nonobstructing ventral hernia - GI consulted (5) Pleural effusion: Code(s): J90 - Pleural effusion, not elsewhere classified Status: Acute Assessment and Plan: Left pleural effusion has been present for quite some time and she seems asymptomatic with that. 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 - Asymptomatic, remains on room air - CT abdomen/pelvis: Large left-sided pleural effusion. Small right-sided pleural effusion. - Echo 08/14/24: LVEF > 70% with severe concentric LV hypertrophy and bilateral dilation (6) Hypoglycemia: Code(s): E16.2 - Hypoglycemia, unspecified Status: Acute Assessment and Plan: Patient was noted to have asymptomatic hypoglycemia into the 30s. She was given D5 push and this resolved. Hypoglycemia likely secondary to patient being NPO since admission and had not had anything to eat since Sunday. - Hypoglycemia protocol - Monitor (7) Chronic kidney disease, stage 4 (severe): Code(s): N18.4 - Chronic kidney disease, stage 4 (severe) Status: Acute Assessment and Plan: BUN/Cr 55/2.6 on admission, appears to be around baseline. Last seen nephrology, Dr. Garay on 09/02/24. Etiology of CKD likely DM and HTN. - BUN/Cr 52/2.5 on am labs - Avoid nephrotoxic medications - Renally dose medications - Monitor I/O (8) Hypertension: Qualifiers: Hypertension type: unspecified Qualified Code(s): I10 - Essential (primary) hypertension Code(s): I10 - Essential (primary) hypertension Status: Inactive Assessment and Plan: Chronic, continue home medication - metoprolol 100 mg daily - monitor (9) Protein calorie malnutrition: Code(s): E46 - Unspecified protein-calorie malnutrition Status: Acute Assessment and Plan: Supplements per nutrition recommendations Time Spent With Patient Time with patient: 25 - 35 minutes Subjective Date/time seen: 10/29/24 07:24 Interval history: 78-year-old female with history of atrial fibrillation, congestive heart failure, chronic kidney disease, occult GI bleeding, anemia, hypertension, and other comorbidities who presented to the emergency department via EMS from [facility] for evaluation of weakness. Patient is pleasant lying in bed. She states that she has not had a bowel movement today, but was originally having dark muddy stools that looked very similar to her prior GI bleeds. She denies increased NSAID use. She underwent an EGD today that was negative for recent bleeding. Prior to EGD patient was noted to have asymptomatic hypoglycemia into the 30s. She was given D5 push and this resolved. Hypoglycemia likely secondary to patient being NPO since admission and had not had anything to eat since Sunday. Patient has no complaints denying chest pain, shortness of breath, palpitations, nausea/vomiting, abdominal pain, dizziness and lightheadedness. Review of Systems Review of Systems: All systems reviewed & are unremarkable except as noted in HPI and below Exam Narrative: AF HR 78 RR 14 SpO2 100 BP 123/70 General: female in no acute respiratory distress who is nontoxic appearing, lying semi recumbent in bed. HEENT: Normocephalic. Atraumatic. Extraocular movement intact. Sclera clear and anicteric. No facial asymmetry. Chest: Lungs are clear to auscultation bilaterally. No wheezes or crackles. CV: Heart was regular rate and rhythm. S1-S2. No murmurs, gallops, or rubs. Abd: Abdomen was soft. Nontender. Nondistended. Postive bowel sounds. No organomegaly or masses. Ext: No clubbing, cyanosis, or edema. 2+ DP pulses bilaterally. Neuro: Patient is alert. Cranial nerves 2-12 are intact. Speech is clear. Objective Data Vital Signs Vital Signs: Vital Signs - 24 hr 10/28/24 15:07 10/28/24 15:15 10/28/24 17:00 Temperature Pulse Rate 97 84 75 Respiratory Rate 17 17 17 Blood Pressure 114/73 113/62 120/66 Pulse Oximetry 100 100 100 Oxygen Delivery Room Air 10/28/24 19:50 10/28/24 20:00 10/29/24 05:39 Temperature 97.4 F L 98.4 F Pulse Rate 78 72 Respiratory Rate 18 20 Blood Pressure 117/67 115/57 L Pulse Oximetry 100 92 Oxygen Delivery Room Air Intake/Output Intake/Output: Intake & Output 10/26/24 10/27/24 10/28/24 10/29/24 23:59 23:59 23:59 23:59 Intake Total 1050 Balance 1050 Meds/Results Medications: Active Medications Generic Name Dose Route Start Last Admin Trade Name Freq PRN Reason Stop Dose Admin Acetaminophen 650 mg 10/28/24 17:41 10/28/24 21:49 Acetaminophen 325 Mg Tablet PO 650 mg Q4H PRN Administration Mild Pain (1-3) or Fever Atorvastatin Calcium 10 mg 10/29/24 21:00 Atorvastatin 10 Mg Tablet PO QHS [facility] Calcitriol 0.25 mcg 10/28/24 21:55 Calcitriol 0.25 Mcg Capsule PO MoWeFr PRN AFTER DIALYSIS Cyanocobalamin 5,000 mcg 10/29/24 09:00 Cyanocobalamin 1,000 Mcg Tablet PO MoWeFr [facility] Ferrous Sulfate 325 mg 10/29/24 09:00 Ferrous Sulfate [address] PO BID [facility] Lactobacillus Acidophilus 1 tablet 10/29/24 09:00 Acidophilus/Bulgaricus Chewable Tablet BY MOUTH DAILY [facility] Loratadine 10 mg 10/28/24 21:56 Loratadine 10 Mg Tablet PO DAILY PRN SEASONAL ALLERGIES Metoprolol Succinate 100 mg 10/29/24 09:00 Metoprolol Succinate Ext Rel 100 Mg Tabcr PO QAM [facility] Ondansetron HCl 4 mg 10/28/24 17:41 Ondansetron Inj 4 Mg/2 Ml Vial IV PUSH Q4H PRN Nausea Pantoprazole Sodium 40 mg 10/29/24 09:00 Pantoprazole Sodium Iv 40 Mg Vial IV PUSH QAM [facility] Perflutren Lipid Microsphere 0 ml 10/28/24 21:52 Perflutren Lipid Microspheres 1.5 Ml Vial Diluted To 10 Ml Total Volume IV PUSH 10/31/24 21:52 ONCE PRN adequate visualization Protocol Potassium Chloride 20 meq 10/29/24 09:00 Potassium Chloride 20 Meq Er Tablet PO DAILY [facility] Sodium Bicarbonate 650 mg 10/29/24 09:00 Sodium Bicarbonate Tab 650 Mg Tablet PO BID [facility] Vitamin D 2,000 units 10/29/24 09:00 Cholecalciferol 1,000 Units Tablet PO DAILY [facility] Radiology Results: ITS Impressions Abdomen/Pelvis CT 10/28/24 16:58 IMPRESSION: Diffuse anasarca. Detection of active GI hemorrhage is limited without intravenous contrast. Large nonobstructing ventral hernia Large left-sided pleural effusion. Small right-sided pleural effusion. Labs Labs: Laboratory Results - last 24 hr 10/28/24 10/28/24 10/28/24 15:42 22:16 22:19 WBC 11.9 H RBC 2.60 L Hgb 8.3 L 8.6 L Hct 27.0 L 29.2 L MCV 103.8 H MCH 31.9 MCHC 30.7 L RDW 22.0 H Plt Count 77 L MPV 12.2 H Immature Gran % (Auto) 0.4 Neut % (Auto) 86.7 H Lymph % (Auto) 7.2 L Cook % (Auto) 5.2 Eos % (Auto) 0.3 Baso % (Auto) 0.2 Lymph # (Auto) 0.85 L [place] # (Auto) 0.6 Eos # (Auto) 0.0 Baso # (Auto) 0.0 Abs Immat Gran (auto) 0.05 H Absolute Neuts (auto) 10.3 H Absolute Nucleated RBC 0.070 H Nucleated RBC % 0.6 H Platelet Estimate Decreased % Immature Plt Fraction 10.0 Hypochromasia 1+ Anisocytosis 1+ Macrocytosis 1+ Target Cells 1+ Schistocytes None seen Absolute Retic 0.08 Percent Retic 2.99 Immature Retic Fraction 17.1 H Retic Hgb Content 30.9 PT 17.1 H INR 1.4 APTT 37.1 H Sodium 138 Potassium 3.2 L Chloride 115 H Carbon Dioxide 17 L Anion Gap 6 BUN 55 H D Creatinine 2.60 H Estim Creat Clear Calc 15 Estimated GFR 18 L Glucose 80 Lactic Acid 0.9 Calcium 8.2 L Magnesium 1.1 L Iron 88 TIBC 203 L % Saturation 43 Ferritin 239.00 Total Bilirubin 1.7 H AST 27 ALT 14 Alkaline Phosphatase 57 Total Protein 5.0 L Albumin 2.5 L Prealbumin 9.3 L Vitamin B12 > 1000.0 H Folate 7.2 TSH (Reflex) 8.430 H Free T4 1.26 Total T3 0.58 L Urine Color Urine Appearance Urine pH Ur Specific [place] Urine Protein Urine Glucose (UA) Urine Ketones Ur Blood (Man) Urine Nitrate Urine Bilirubin Urine Urobilinogen Leukocyte Esterase Rfl Urine RBC Urine WBC Ur Squamous Epith Cells Urine Bacteria Urine Casts Influenza A (RT-PCR) Negative Influenza B (RT-PCR) Negative SARS-CoV-2 RNA (RT-PCR) Negative Blood Type B Positive Antibody Screen Negative 10/29/24 10/29/24 10/29/24 00:24 04:26 04:26 WBC 10.6 H RBC 2.69 L Hgb Cancelled 8.5 L Hct Cancelled MCV MCH MCHC RDW Plt Count MPV Immature Gran % (Auto) Neut % (Auto) Lymph % (Auto) [place] % (Auto) Eos % (Auto) Baso % (Auto) Lymph # (Auto) [place] # (Auto) Eos # (Auto) Baso # (Auto) Abs Immat Gran (auto) Absolute Neuts (auto) Absolute Nucleated RBC Nucleated RBC % Platelet Estimate % Immature Plt Fraction Hypochromasia Anisocytosis Macrocytosis Target Cells Schistocytes Absolute Retic Percent Retic Immature Retic Fraction Retic Hgb Content PT INR APTT Sodium Potassium Chloride Carbon Dioxide Anion Gap BUN Creatinine Estim Creat Clear Calc Estimated GFR Glucose Lactic Acid Calcium Magnesium Iron TIBC % Saturation Ferritin Total Bilirubin AST ALT Alkaline Phosphatase Total Protein Albumin Prealbumin Vitamin B12 Folate TSH (Reflex) Free T4 Total T3 Urine Color Yellow Urine Appearance Cloudy H Urine pH 5.0 Ur Specific [place] 1.015 Urine Protein 1+ H Urine Glucose (UA) Negative Urine Ketones Negative Ur Blood (Man) Non-hemolyzed trace H Urine Nitrate Negative Urine Bilirubin Negative Urine Urobilinogen 1.0 Leukocyte Esterase Rfl Trace H Urine RBC 3-5 H Urine WBC 0-5 Ur Squamous Epith Cells Occasional Urine Bacteria None seen Urine Casts 3-5 Influenza A (RT-PCR) Influenza B (RT-PCR) SARS-CoV-2 RNA (RT-PCR) Blood Type Antibody Screen 10/29/24 04:26 WBC RBC Hgb Hct 28.1 L MCV 104.5 H MCH 31.6 MCHC 30.2 L RDW 21.6 H Plt Count 76 L MPV 12.5 H Immature Gran % (Auto) Neut % (Auto) Lymph % (Auto) [place] % (Auto) Eos % (Auto) Baso % (Auto) Lymph # (Auto) [place] # (Auto) Eos # (Auto) Baso # (Auto) Abs Immat Gran (auto) Absolute Neuts (auto) Absolute Nucleated RBC Nucleated RBC % Platelet Estimate % Immature Plt Fraction 12.1 H Hypochromasia Anisocytosis Macrocytosis Target Cells Schistocytes Absolute Retic Percent Retic Immature Retic Fraction Retic Hgb Content PT INR APTT Sodium 140 Potassium 4.1 Chloride 118 H Carbon Dioxide 16 L Anion Gap 6 BUN 52 H Creatinine 2.50 H Estim Creat Clear Calc 14 Estimated GFR 19 L Glucose 62 L Lactic Acid Calcium 8.0 L Magnesium Iron TIBC % Saturation Ferritin Total Bilirubin 2.1 H AST 29 ALT 15 Alkaline Phosphatase 58 Total Protein 5.0 L Albumin 2.5 L Prealbumin Vitamin B12 Folate TSH (Reflex) Free T4 Total T3 Urine Color Urine Appearance Urine pH Ur Specific [place] Urine Protein Urine Glucose (UA) Urine Ketones Ur Blood (Man) Urine Nitrate Urine Bilirubin Urine Urobilinogen Leukocyte Esterase Rfl Urine RBC Urine WBC Ur Squamous Epith Cells Urine Bacteria Urine Casts Influenza A (RT-PCR) Influenza B (RT-PCR) SARS-CoV-2 RNA (RT-PCR) Blood Type Antibody Screen Quality VTE Prophylaxis VTE prophylaxis: mechanical ordered
[2024-10-29 10:21] LABS: Glucose Point of Care 31 mg/dl (65-105)
[2024-10-29] MEDS: DEXTROSE 50% 25 GM/50 ML SYRINGE IV PUSH (10:31)
--- NOTE | 2024-10-29 10:54 | P.PNAN_ITS ---
Anes - Initial Pre Proc Eval Procedure: Operation Date: 10/29/24 11:00 Proposed Procedures p Esophagogastroduodenoscopy - Lul Metz MD Date/Time: 10/29/24 10:54 Surgeon: Bibiana Cobb PA-C Pre Op Diagnosis: weakness, dark stools Patient Data Age: 78 Gender: F Height: 1.57 m Weight: 65 kg Last Vital Signs Temp 36.2 C L 10/29/24 10:28 Pulse 48 L 10/29/24 10:28 Resp 17 10/29/24 10:28 BP 111/67 10/29/24 10:28 Pulse Ox 96 10/29/24 10:28 O2 Del Method Room Air 10/28/24 20:00 Allergies Allergy/AdvReac Type Severity Reaction Status Date / Time No Known Allergies Allergy Verified 10/16/24 12:11 Home Medications ?Medication ?Instructions ?Recorded ?Confirmed ?Type Lactobacillus acidophilus 10 10 cell PO DAILY 04/07/20 10/28/24 History billion cell capsule cetirizine 10 mg tablet 10 mg PO DAILY PRN SEASONAL 10/13/20 10/28/24 History ALLERGIES ferrous sulfate 325 mg (65 mg 325 mg PO BID 10/11/21 10/28/24 History iron) tablet (Feosol) mecobalamin (vitamin B12) 5,000 5,000 mcg PO 3XW 04/19/23 10/28/24 History mcg disintegrating tablet calcitriol 0.25 mcg capsule 0.25 mcg PO 3XW #45 caps 04/10/24 10/28/24 Rx atorvastatin 10 mg tablet 10 mg PO QHS #90 tabs 08/04/24 10/28/24 Rx cholecalciferol (vitamin D3) 50 50 mcg PO DAILY 08/06/24 10/28/24 History mcg (2,000 unit) capsule potassium chloride 20 mEq 20 meq PO DAILY 08/13/24 10/28/24 History tablet,extended release(part/cryst) metoprolol succinate 100 mg 100 mg PO QAM #30 tabs 08/15/24 10/28/24 Rx tablet,extended release 24 hr (Toprol XL) sodium bicarbonate 650 mg tablet 650 mg PO BID #60 tabs 09/02/24 10/28/24 Rx fenofibrate 160 mg tablet 160 mg PO DAILY #90 tabs 10/20/24 10/28/24 Rx Laboratory Tests 10/28/24 10/28/24 10/28/24 15:42 22:16 22:19 WBC 11.9 H K/mm3 (4.5-10.0) RBC 2.60 L M/mm3 (4.2-5.4) Hgb 8.3 L g/dL 8.6 L g/dL (12.0-15.0) (12.0-15.0) Hct 27.0 L % 29.2 L % (37.0-47.0) (37.0-47.0) MCV 103.8 H fl (80-100) MCH 31.9 pg (26-34) MCHC 30.7 L g/dl (32-36) RDW 22.0 H % (11.5-14.5) Plt Count 77 L k/mm3 (150-375) MPV 12.2 H fl (7.4-10.4) Immature Gran % (Auto) 0.4 % (0-0.5) Neut % (Auto) 86.7 H % (45.5-73.1) Lymph % (Auto) 7.2 L % (18.3-44.2) [place] % (Auto) 5.2 % (2.6-8.5) Eos % (Auto) 0.3 % (0-4.4) Baso % (Auto) 0.2 % (0.2-1.2) Lymph # (Auto) 0.85 L K/mm3 (0.9-3.2) [place] # (Auto) 0.6 K/mm3 (0.1-0.6) Eos # (Auto) 0.0 K/mm3 (0-0.3) Baso # (Auto) 0.0 K/mm3 (0.0-0.1) Abs Immat Gran (auto) 0.05 H K/mm3 (0.00-0.031) Absolute Neuts (auto) 10.3 H K/mm3 (1.3-6.7) Absolute Nucleated RBC 0.070 H K/mm3 (0.0-0.012) Nucleated RBC % 0.6 H % (0.0-0.2) Platelet Estimate Decreased (Adequate) % Immature Plt Fraction 10.0 % (0.9-11.2) Hypochromasia 1+ Anisocytosis 1+ Macrocytosis 1+ (NORMAL) Target Cells 1+ Schistocytes None seen Absolute Retic 0.08 10^6/uL (0.02-0.10) Percent Retic 2.99 % (0.7-4.3) Immature Retic Fraction 17.1 H % (3.0-15.9) Retic Hgb Content 30.9 pg (28.2-36.6) PT 17.1 H Seconds (11.1-14.7) INR 1.4 APTT 37.1 H Seconds (22.3-36.8) Sodium 138 mmol/L (137-145) Potassium 3.2 L mmol/L (3.4-5.0) Chloride 115 H mmol/L (98-107) Carbon Dioxide 17 L mmol/L (22-30) Anion Gap 6 mmol/L (4-12) BUN 55 H D mg/dL (7-17) Creatinine 2.60 H mg/dL (0.7-1.0) Estim Creat Clear Calc 15 ml/min Estimated GFR 18 L (59 - ) Glucose 80 mg/dL (65-110) POC Capillary Glucose Lactic Acid 0.9 mmol/L (0.7-2.0) Calcium 8.2 L mg/dL (8.4-10.2) Magnesium 1.1 L mg/dL (1.6-2.3) Iron 88 ug/dL (37-170) TIBC 203 L ug/dL (261-462) % Saturation 43 % (20-50) Ferritin 239.00 ng/mL (11.1-264) Total Bilirubin 1.7 H mg/dL (0.2-1.3) AST 27 U/L (14-36) ALT 14 U/L (6-35) Alkaline Phosphatase 57 U/L (38-126) Total Protein 5.0 L g/dL (6.3-8.2) Albumin 2.5 L g/dL (3.5-5.1) Prealbumin 9.3 L mg/dL (17.6-36.0) Vitamin B12 > 1000.0 H pg/mL (239-931) Folate 7.2 ng/mL (2.76->20) TSH (Reflex) 8.430 H uIU/mL (0.465-4.68) Free T4 1.26 ng/dL (0.78-2.19) Total T3 0.58 L NG/ML (0.97-1.69) Urine Color Urine Appearance Urine pH Ur Specific [place] Urine Protein Urine Glucose (UA) Urine Ketones Ur Blood (Man) Urine Nitrate Urine Bilirubin Urine Urobilinogen Leukocyte Esterase Rfl Urine RBC Urine WBC Ur Squamous Epith Cells Urine Bacteria Urine Casts Influenza A (RT-PCR) Negative (Negative) Influenza B (RT-PCR) Negative (Negative) SARS-CoV-2 RNA (RT-PCR) Negative (Negative) Blood Type B Positive Antibody Screen Negative 10/29/24 10/29/24 10/29/24 00:24 04:26 04:26 WBC 10.6 H K/mm3 (4.5-10.0) RBC 2.69 L M/mm3 (4.2-5.4) Hgb Cancelled 8.5 L g/dL (12.0-15.0) Hct Cancelled MCV MCH MCHC RDW Plt Count MPV Immature Gran % (Auto) Neut % (Auto) Lymph % (Auto) [place] % (Auto) Eos % (Auto) Baso % (Auto) Lymph # (Auto) [place] # (Auto) Eos # (Auto) Baso # (Auto) Abs Immat Gran (auto) Absolute Neuts (auto) Absolute Nucleated RBC Nucleated RBC % Platelet Estimate % Immature Plt Fraction Hypochromasia Anisocytosis Macrocytosis Target Cells Schistocytes Absolute Retic Percent Retic Immature Retic Fraction Retic Hgb Content PT INR APTT Sodium Potassium Chloride Carbon Dioxide Anion Gap BUN Creatinine Estim Creat Clear Calc Estimated GFR Glucose POC Capillary Glucose Lactic Acid Calcium Magnesium Iron TIBC % Saturation Ferritin Total Bilirubin AST ALT Alkaline Phosphatase Total Protein Albumin Prealbumin Vitamin B12 Folate TSH (Reflex) Free T4 Total T3 Urine Color Yellow (Yellow) Urine Appearance Cloudy H (Clear) Urine pH 5.0 (5.0-9.0) Ur Specific [place] 1.015 (1.001-1.035) Urine Protein 1+ H mg/dL (Negative) Urine Glucose (UA) Negative mg/dL (Negative) Urine Ketones Negative mg/dL (Negative) Ur Blood (Man) Non-hemolyzed trace H (Negative) Urine Nitrate Negative (Negative) Urine Bilirubin Negative (Negative) Urine Urobilinogen 1.0 mg/dL (<2.0) Leukocyte Esterase Rfl Trace H DOC/UL (Negative) Urine RBC 3-5 H /hpf (0-2) Urine WBC 0-5 /hpf (0-3) Ur Squamous Epith Cells Occasional /hpf (Few) Urine Bacteria None seen /hpf Urine Casts 3-5 Influenza A (RT-PCR) Influenza B (RT-PCR) SARS-CoV-2 RNA (RT-PCR) Blood Type Antibody Screen 10/29/24 10/29/24 04:26 10:19 WBC RBC Hgb Hct 28.1 L % (37.0-47.0) MCV 104.5 H fl (80-100) MCH 31.6 pg (26-34) MCHC 30.2 L g/dl (32-36) RDW 21.6 H % (11.5-14.5) Plt Count 76 L k/mm3 (150-375) MPV 12.5 H fl (7.4-10.4) Immature Gran % (Auto) Neut % (Auto) Lymph % (Auto) [place] % (Auto) Eos % (Auto) Baso % (Auto) Lymph # (Auto) [place] # (Auto) Eos # (Auto) Baso # (Auto) Abs Immat Gran (auto) Absolute Neuts (auto) Absolute Nucleated RBC Nucleated RBC % Platelet Estimate % Immature Plt Fraction 12.1 H % (0.9-11.2) Hypochromasia Anisocytosis Macrocytosis Target Cells Schistocytes Absolute Retic Percent Retic Immature Retic Fraction Retic Hgb Content PT INR APTT Sodium 140 mmol/L (137-145) Potassium 4.1 mmol/L (3.4-5.0) Chloride 118 H mmol/L (98-107) Carbon Dioxide 16 L mmol/L (22-30) Anion Gap 6 mmol/L (4-12) BUN 52 H mg/dL (7-17) Creatinine 2.50 H mg/dL (0.7-1.0) Estim Creat Clear Calc 14 ml/min Estimated GFR 19 L (59 - ) Glucose 62 L mg/dL (65-110) POC Capillary Glucose 31 L* mg/dl (65-105) Lactic Acid Calcium 8.0 L mg/dL (8.4-10.2) Magnesium Iron TIBC % Saturation Ferritin Total Bilirubin 2.1 H mg/dL (0.2-1.3) AST 29 U/L (14-36) ALT 15 U/L (6-35) Alkaline Phosphatase 58 U/L (38-126) Total Protein 5.0 L g/dL (6.3-8.2) Albumin 2.5 L g/dL (3.5-5.1) Prealbumin Vitamin B12 Folate TSH (Reflex) Free T4 Total T3 Urine Color Urine Appearance Urine pH Ur Specific [place] Urine Protein Urine Glucose (UA) Urine Ketones Ur Blood (Man) Urine Nitrate Urine Bilirubin Urine Urobilinogen Leukocyte Esterase Rfl Urine RBC Urine WBC Ur Squamous Epith Cells Urine Bacteria Urine Casts Influenza A (RT-PCR) Influenza B (RT-PCR) SARS-CoV-2 RNA (RT-PCR) Blood Type Antibody Screen Patient hx anesthesia problems: none Family hx anesthesia problems: none Results Review: All pre-operative results and documents have been reviewed as part of the pre- operative evaluation. [facility] Past Medical History Medical History Chronic kidney disease, stage 4 (severe) Overactive bladder Kidney stone Chronic anemia Monoclonal gammopathy of unknown significance Chronic low back pain Seasonal allergies Vitamin D deficiency Osteoporosis Skin cancer Idiopathic pericarditis GERD without esophagitis Type 2 diabetes mellitus without complication, without long-term current use of insulin hemoglobin A1c: 5.4(10/26) << 5.2(10/25) << 5.7(05/25) << 5.7(10/24) << 5.9(04/24) << 6.3(08/23) << 6.0(02/21) << 6.2(05/22) << 6.6(10/21) << 6.8(11/21) << 7.9(04/20). 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 Code status: Full code. Smoking status: Never smoker Second hand tobacco smoke exposure: No Alcohol intake: never Substance use: never Substance use type: does not use Do You Feel Safe in your Home?: Yes Lack of Transportation: No Lack of Food: Never True Current Housing: I Have Housing Concerned About Future Housing: No Difficulty Paying Gas/Electric Bills: No Difficulty Paying for Meds: No Currently Unemployed: No Education: High School Diploma/GED Difficulty w/ Childcare or Family Care: No Living arrangements: with family Occupation/Education: retired Spiritual care concerns: No Agree to blood products: Yes Anes - Eval Final PreProcedure Day of Procedure 10/29/24 10:54 Patient weight: overweight Heart: irregular rhythm Lungs: decreased breath sounds Airway: Mallampati scale class II Neurological: alert and oriented Last oral intake: >/= 8 hours ASA classification: IV Emergent: no Anesthetic plan: proceed Anesthesia type and monitoring: general GIVS and standard monitoring Results Review: All pre-operative results and documents have been reviewed as part of the pre- operative evaluation. Informed Consent: The patient's anesthetic plan and its attendant risks and benefits were discussed with the patient/family/POA. Questions were solicited and answers provided to the satisfaction of the patient/family/POA.
--- NOTE | 2024-10-29 11:03 | WPDGICN ---
Assessment and Plan Assessment and plan (1) Melena: Code(s): K92.1 - Melena Status: Acute Assessment and Plan: patient described stools as dark as previous UGIB she normally takes iron, also known chronic anemia mostly from advanced renal disease will do EGD today to assess if amv, ulcer, etc then more recommendations after egd she already completed colonoscopy and even capsule endoscopy as outpatient will need to continue with iron and epogen by bail bonding agent (2) GIB (gastrointestinal bleeding): Code(s): K92.2 - Gastrointestinal hemorrhage, unspecified Status: Acute Assessment and Plan: egd now (3) Acute on chronic anemia: Code(s): D64.9 - Anemia, unspecified Status: Acute Assessment and Plan: chronic anemia egd to assess if upper source (4) Chronic kidney disease, stage 4 (severe): Code(s): N18.4 - Chronic kidney disease, stage 4 (severe) Status: Acute (5) Anasarca: Code(s): R60.1 - Generalized edema Status: Acute (6) Hypoglycemia: Code(s): E16.2 - Hypoglycemia, unspecified Status: Acute Assessment and Plan: glucose bedside 40's, treated now, she was asymptomatic otherwise GI Consult Note Consult date/time: 10/29/24 11:03 Reason for consult: Melena, acute on chronic anemia HPI: Shannan Seals is a 78 year old female with history of chronic anemia (hgb normally 8.5-9.5), h/o UGI 06/2024 when had hgb 4.5 for which underwent EGD at [facility] that noted bleeding AVM treated with cautery, CKD stage IV, she is seeing Dr Schaffer because of anemia, underwent BM biopsy without evidence of myeloma or leukemia. She is here with progressive weakness over the past 3 days with darker stool than usual (she takes iron though) and described as similar to previous presentation of GIB. She had an extensive outpatient evaluation for occult blood in stool (EGD with AVM), also had colonoscopy and capsule endoscopy at another facility which she reports did not show any source of bleeding. Labs reviewed- WBC count of 11.9, hemoglobin 8.3, hematocrit 27.0%, MCV 103.8, platelets 77, potassium 3.2, BUN 55, creatinine 2.60, magnesium 1.1, total bilirubin 1.7, total protein 5.0, albumin 2.5. CT of the abdomen and pelvis showed diffuse anasarca, large nonobstructing ventral hernia, large left-sided pleural effusion, small right-sided pleural effusion. Review of Systems Constitutional: Constitutional: Reports weakness Eyes: Eyes: Denies blurry vision ENT: Reports Normal hearing present Cardiovascular: Cardiovascular: Denies chest pain Respiratory: Respiratory: Reports dyspnea on exertion Gastrointestinal: Gastrointestinal: Reports melena Genitourinary: Genitourinary: Denies flank pain Musculoskeletal: Musculoskeletal: Denies neck pain Integumentary/Breasts: Skin/Breast: Denies rash Neurologic: Denies Abnormal speech present Psychiatric: Psychiatric: Denies behavioral changes [facility] Past Medical History Medical History (Updated 10/29/24 @ 11:12 by Lul Metz MD) Hypoglycemia Anasarca Acute on chronic anemia Chronic kidney disease, stage 4 (severe) Overactive bladder Kidney stone Chronic anemia Monoclonal gammopathy of unknown significance Chronic low back pain Seasonal allergies Vitamin D deficiency Osteoporosis Skin cancer Idiopathic pericarditis GERD without esophagitis Type 2 diabetes mellitus without complication, without long-term current use of insulin hemoglobin A1c: 5.4(10/26) << 5.2(10/25) << 5.7(05/25) << 5.7(10/24) << 5.9(04/24) << 6.3(08/23) << 6.0(02/21) << 6.2(05/22) << 6.6(10/21) << 6.8(11/21) << 7.9(04/20). 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 Code status: Full code. Smoking status: Never smoker Second hand tobacco smoke exposure: No Alcohol intake: never Substance use: never Substance use type: does not use Do You Feel Safe in your Home?: Yes Lack of Transportation: No Lack of Food: Never True Current Housing: I Have Housing Concerned About Future Housing: No Difficulty Paying Gas/Electric Bills: No Difficulty Paying for Meds: No Currently Unemployed: No Education: High School Diploma/GED Difficulty w/ Childcare or Family Care: No Living arrangements: with family Occupation/Education: retired Spiritual care concerns: No Agree to blood products: Yes Meds Home Medications and Allergies Home Medications ?Medication ?Instructions ?Recorded ?Confirmed ?Type Lactobacillus acidophilus 10 10 cell PO DAILY 04/07/20 10/28/24 History billion cell capsule cetirizine 10 mg tablet 10 mg PO DAILY PRN SEASONAL 10/13/20 10/28/24 History ALLERGIES ferrous sulfate 325 mg (65 mg 325 mg PO BID 10/11/21 10/28/24 History iron) tablet (Feosol) mecobalamin (vitamin B12) 5,000 5,000 mcg PO 3XW 04/19/23 10/28/24 History mcg disintegrating tablet calcitriol 0.25 mcg capsule 0.25 mcg PO 3XW #45 caps 04/10/24 10/28/24 Rx atorvastatin 10 mg tablet 10 mg PO QHS #90 tabs 08/04/24 10/28/24 Rx cholecalciferol (vitamin D3) 50 50 mcg PO DAILY 08/06/24 10/28/24 History mcg (2,000 unit) capsule potassium chloride 20 mEq 20 meq PO DAILY 08/13/24 10/28/24 History tablet,extended release(part/cryst) metoprolol succinate 100 mg 100 mg PO QAM #30 tabs 08/15/24 10/28/24 Rx tablet,extended release 24 hr (Toprol XL) sodium bicarbonate 650 mg tablet 650 mg PO BID #60 tabs 09/02/24 10/28/24 Rx fenofibrate 160 mg tablet 160 mg PO DAILY #90 tabs 10/20/24 10/28/24 Rx Allergies Allergy/AdvReac Type Severity Reaction Status Date / Time No Known Allergies Allergy Verified 10/16/24 12:11 Vital Signs Vital Signs - 24 hr 10/28/24 15:07 10/28/24 15:15 10/28/24 17:00 Temperature Pulse Rate 97 84 75 Respiratory Rate 17 17 17 Blood Pressure 114/73 113/62 120/66 Pulse Oximetry 100 100 100 Oxygen Delivery Room Air 10/28/24 19:50 10/28/24 20:00 10/29/24 05:39 Temperature 97.4 F L 98.4 F Pulse Rate 78 72 Respiratory Rate 18 20 Blood Pressure 117/67 115/57 L Pulse Oximetry 100 92 Oxygen Delivery Room Air 10/29/24 10:28 Temperature 97.2 F L Pulse Rate 48 L Respiratory Rate 17 Blood Pressure 111/67 Pulse Oximetry 96 Oxygen Delivery Exam Const: General: comfortable HENMT: Face/Nose/Sinus: Normal nares present Eyes: Sclera: sclerae normal Neck: Neck: supple Resp: Effort & Inspection: normal respiratory effort Cardio: Rate: regular rate GI: GI Palp: Yes Soft to palpation and No Tenderness to palpation present (GI) Auscultation: normal bowel sounds Other: ventral hernia Skin: General skin exam: normal color Neuro: Speech: normal speech Motor exam (neuro): 5/5 motor strength present throughout Extrem: General: pedal edema Psych: Mental Status: mental status grossly normal Results Labs 10/29/24 04:26 10/29/24 04:26 Labs: Short CBC 10/28/24 10/28/24 10/29/24 Range/Units 15:42 22:16 04:26 WBC 11.9 H 10.6 H (4.5-10.0) K/mm3 Hgb 8.3 L 8.6 L Cancelled (12.0-15.0) g/dL Hct 27.0 L 29.2 L (37.0-47.0) % Plt Count 77 L (150-375) k/mm3 10/29/24 10/29/24 Range/Units 04:26 04:26 WBC (4.5-10.0) K/mm3 Hgb 8.5 L (12.0-15.0) g/dL Hct Cancelled 28.1 L (37.0-47.0) % Plt Count 76 L (150-375) k/mm3 BMP 10/28/24 10/29/24 15:42 04:26 Sodium 138 140 Potassium 3.2 L 4.1 Chloride 115 H 118 H Carbon Dioxide 17 L 16 L BUN 55 H D 52 H Creatinine 2.60 H 2.50 H Glucose 80 62 L Calcium 8.2 L 8.0 L Liver Function 10/28/24 10/29/24 Range/Units 15:42 04:26 Total Bilirubin 1.7 H 2.1 H (0.2-1.3) mg/dL AST 27 29 (14-36) U/L ALT 14 15 (6-35) U/L Alkaline Phosphatase 57 58 (38-126) U/L Albumin 2.5 L 2.5 L (3.5-5.1) g/dL Urine 10/29/24 Range/Units 00:24 Urine Color Yellow (Yellow) Urine Appearance Cloudy H (Clear) Urine pH 5.0 (5.0-9.0) Ur Specific [place] 1.015 (1.001-1.035) Urine Protein 1+ H (Negative) mg/dL Urine Glucose (UA) Negative (Negative) mg/dL
[2024-10-29 11:06] LABS: Glucose Point of Care 27 mg/dl (65-105)
[2024-10-29 11:06] LABS: Glucose Point of Care 83 mg/dl (65-105)
[2024-10-29] MEDS: DEXTROSE 5%/0.45% SOD CHL 500 ML 30 ML IV CONT (11:29)
--- NOTE | 2024-10-29 11:52 | SUR.PHASEII ---
called for report and BG 62 at 0400. i asked for a recheck with bedside RN and BG 31. Bedside RN to give pt dextrose IV. At 1130 amilcar TAARNGO informed pt BG 31. orders given for D51/2NS at 30ml/hr.
[2024-10-29 12:10] LABS: Glucose Point of Care 154 mg/dl (65-105)
[2024-10-29] MEDS: METOPROLOL SUCCINATE EXT REL 100 MG TABCR PO (13:30)
[2024-10-29] MEDS: CHOLECALCIFEROL 1,000 UNITS TABLET 2000 UNITS PO (13:30)
[2024-10-29] MEDS: CYANOCOBALAMIN 1,000 MCG TABLET 5000 MCG PO (13:30)
[2024-10-29] MEDS: POTASSIUM CHLORIDE 20 MEQ ER TABLET PO (13:30)
[2024-10-29] MEDS: ACIDOPHILUS/BULGARICUS CHEWABLE TABLET 1 TABLET BY MOUTH (13:31)
[2024-10-29] MEDS: ACETAMINOPHEN 325 MG TABLET 650 MG PO (13:31)
[2024-10-29] MEDS: SODIUM BICARBONATE TAB 650 MG TABLET PO (17:44)
[2024-10-29 21:18] LABS: IFOB Positive Control Positive; Immunochemical Fecal Occult Bl Negative (N)
[2024-10-29] MEDS: ONDANSETRON INJ 4 MG/2 ML VIAL IV PUSH (21:40)
[2024-10-29 21:46] LABS: Glucose Point of Care 95 mg/dl (65-105)
[2024-10-29] MEDS: PANTOPRAZOLE 40 MG TABLET PO (22:32)
[2024-10-29] MEDS: ATORVASTATIN 10 MG TABLET PO (23:15)
[2024-10-29] MEDS: FERROUS SULFATE 325 MG TABLET DR PO (23:15)
[2024-10-30] VITALS (11 sets, daily range): BP systolic 90–112; BP diastolic 40–67; PULSE 70–84; RESP 16–18; TEMP 36.3–36.6; O2SAT 90–100; BMI 26.2
[2024-10-30 06:22] LABS: Basophils Percent Auto 0.2 % (0.2-1.2); Eosinophils Absolute Auto 0.1 K/mm3 (0-0.3); Eosinophils Percent Auto 0.6 % (0-4.4); Immature Granulocyte Absolute 0.03 K/mm3 (0.00-0.031); Immature Granulocyte Percent A 0.3 % (0-0.5); Lymphocytes Absolute Auto 0.84 K/mm3 (0.9-3.2); Lymphocytes Percent Auto 9.6 % (18.3-44.2); Mean Corpuscular HGB Conc 28.6 g/dl (32-36); Mean Corpuscular Hemoglobin 31.5 pg (26-34); Mean Corpuscular Volume 110.2 fl (80-100); Mean Platelet Volume 13.1 fl (7.4-10.4); Monocytes Absolute Auto 0.6 K/mm3 (0.1-0.6); Monocytes Percent Auto 7.2 % (2.6-8.5); Neutrophils Absolute Auto 7.2 K/mm3 (1.3-6.7); Neutrophils Percent Auto 82.1 % (45.5-73.1); Nucleated Red Blood Cells Perc 0.8 % (0.0-0.2); Platelet Count Result 76 k/mm3 (150-375); Red Blood Count 2.54 M/mm3 (4.2-5.4); Red Cell Distribution Width 22.2 % (11.5-14.5); White Blood Count 8.8 K/mm3 (4.5-10.0)
[2024-10-30 06:30] LABS: Alanine Aminotransferase 14 U/L (6-35); Albumin Level 2.2 g/dL (3.5-5.1); Alkaline Phosphatase 55 U/L (38-126); Anion Gap 6 mmol/L (4-12); Aspartate Amino Transferase 30 U/L (14-36); Bilirubin,Total 1.7 mg/dL (0.2-1.3); Blood Urea Nitrogen 53 mg/dL (7-17); Calcium 7.6 mg/dL (8.4-10.2); Carbon Dioxide 13 mmol/L (22-30); Chloride 118 mmol/L (98-107); Estimated CRCL calculation 14 ml/min; Estimated Glomerular Filt Rate 19; Glucose 69 mg/dL (65-110); Potassium 3.9 mmol/L (3.4-5.0); Sodium 137 mmol/L (137-145)
[2024-10-30 06:42] LABS: Anisocytosis 1+; Macrocytosis 1+ (NORMAL); Platelet Estimate Decreased (Adequate)
[2024-10-30 06:43] LABS: Hypochromasia 1+; Schistocytes None Seen; Target Cells 1+
[2024-10-30] MEDS: ACETAMINOPHEN 325 MG TABLET 650 MG PO ×2 (06:51→22:35)
[2024-10-30] MEDS: FERROUS SULFATE 325 MG TABLET DR PO ×2 (06:52→20:44)
--- NOTE | 2024-10-30 07:23 | P.PNAN_ITS ---
Anes - Prog Note Post-Op Date/Time: 10/30/24 07:23 Cardiovascular status: normal Respiratory status: normal Airway patency: baseline Mental status: baseline Post-Op hydration status: normal Vital Signs: Last Vital Signs Temp 36.5 C 10/30/24 05:05 Pulse 82 10/30/24 05:05 Resp 16 10/30/24 05:05 BP 109/61 10/30/24 05:05 Pulse Ox 100 10/30/24 05:05 O2 Del Method Room Air 10/29/24 11:53 Pain Score (VAS): Patient asleep, no nonverbal signs of pain present at this time. I/O: Intake & Output 10/29/24 10/29/24 10/30/24 15:59 23:59 07:59 Intake Total 640.0 120 50 Output Total 200 Balance 640.0 -80 50 Laboratory Tests 10/30/24 06:11 10/30/24 06:11 10/29/24 10/29/24 10/29/24 10:19 10:57 11:02 WBC RBC Hgb Hct MCV MCH MCHC RDW Plt Count MPV Immature Gran % (Auto) Neut % (Auto) Lymph % (Auto) [place] % (Auto) Eos % (Auto) Baso % (Auto) Lymph # (Auto) [place] # (Auto) Eos # (Auto) Baso # (Auto) Abs Immat Gran (auto) Absolute Neuts (auto) Absolute Nucleated RBC Nucleated RBC % Platelet Estimate Hypochromasia Anisocytosis Macrocytosis Target Cells Schistocytes Sodium Potassium Chloride Carbon Dioxide Anion Gap BUN Creatinine Estim Creat Clear Calc Estimated GFR Glucose POC Capillary Glucose 31 L* 27 L* 83 Calcium Total Bilirubin AST ALT Alkaline Phosphatase Total Protein Albumin Stl Occult Blood (IFOB) 10/29/24 10/29/24 10/29/24 12:09 21:01 21:04 WBC RBC Hgb Hct MCV MCH MCHC RDW Plt Count MPV Immature Gran % (Auto) Neut % (Auto) Lymph % (Auto) [place] % (Auto) Eos % (Auto) Baso % (Auto) Lymph # (Auto) [place] # (Auto) Eos # (Auto) Baso # (Auto) Abs Immat Gran (auto) Absolute Neuts (auto) Absolute Nucleated RBC Nucleated RBC % Platelet Estimate Hypochromasia Anisocytosis Macrocytosis Target Cells Schistocytes Sodium Potassium Chloride Carbon Dioxide Anion Gap BUN Creatinine Estim Creat Clear Calc Estimated GFR Glucose POC Capillary Glucose 154 H 95 Calcium Total Bilirubin AST ALT Alkaline Phosphatase Total Protein Albumin Stl Occult Blood (IFOB) Negative 10/30/24 06:11 WBC 8.8 RBC 2.54 L Hgb 8.0 L Hct 28.0 L MCV 110.2 H D MCH 31.5 MCHC 28.6 L RDW 22.2 H Plt Count 76 L MPV 13.1 H Immature Gran % (Auto) 0.3 Neut % (Auto) 82.1 H Lymph % (Auto) 9.6 L [place] % (Auto) 7.2 Eos % (Auto) 0.6 Baso % (Auto) 0.2 Lymph # (Auto) 0.84 L [place] # (Auto) 0.6 Eos # (Auto) 0.1 Baso # (Auto) 0.0 Abs Immat Gran (auto) 0.03 Absolute Neuts (auto) 7.2 H Absolute Nucleated RBC 0.070 H Nucleated RBC % 0.8 H Platelet Estimate Decreased Hypochromasia 1+ Anisocytosis 1+ Macrocytosis 1+ Target Cells 1+ Schistocytes None seen Sodium 137 Potassium 3.9 Chloride 118 H Carbon Dioxide 13 L Anion Gap 6 BUN 53 H Creatinine 2.50 H Estim Creat Clear Calc 14 Estimated GFR 19 L Glucose 69 POC Capillary Glucose Calcium 7.6 L Total Bilirubin 1.7 H AST 30 ALT 14 Alkaline Phosphatase 55 Total Protein 4.0 L Albumin 2.2 L Stl Occult Blood (IFOB) Post-procedural complaints: none Patient Feedback: Patient satisfied with anesthetic care.
--- NOTE | 2024-10-30 07:52 | P.PNIM_ITS ---
Progress Note: A&P Assessment and Plan (1) Weakness: Code(s): R53.1 - Weakness Status: Acute Assessment and Plan: [employer] increasingly weak over the past few days and reports that she has no energy similar to when her hemoglobin was low in the past. Per chart review, patient receives blood transfusions every few weeks and has a transfusion in Oct 30. - WBC count is elevated however she does not give a history to suggest underlying infection - UA unremarkable - CT abdomen/pelvis: Diffuse anasarca. Detection of active GI hemorrhage is limited without intravenous contrast. Large nonobstructing ventral hernia Large left-sided pleural effusion. Small right-sided pleural effusion. - patient will need PT/OT evals (2) Heme positive stool: Code(s): R19.5 - Other fecal abnormalities Status: Acute Assessment and Plan: [employer] increasingly weak over the past few days and reports that she has no energy similar to when her hemoglobin was low in the past. Per chart review, patient receives blood transfusions every few weeks and has a transfusion in Oct 30. Endorses dark stools but is on iron supplementation. Extensive outpatient evaluation for occult GI bleeding including upper and lower endoscopies and capsule endoscopy which she reports did not show any source of bleeding. - H/H 8.5/28.1 on am labs, continue to trend - Heme occult positive - CT abdomen/pelvis: Diffuse anasarca. Detection of active GI hemorrhage is limited without intravenous contrast. Large nonobstructing ventral hernia Large left-sided pleural effusion. Small right-sided pleural effusion. - GI consulted Protonix BID EGD performed on 10/[address] Olguin No esophagitis or varices. Mod erosive gastrictis with erythematous, edematous, erosive, and petechiae changes, No mucosal bleeding. No duodenal ulcers or masses, no signs of recent bleeding. (3) Chronic anemia: Code(s): D64.9 - Anemia, unspecified Status: Inactive Assessment and Plan: Follows heme/onc at [facility], last seen 10/01/24. - H/H 8.0/28.0 on am labs, continue to trend - Iron panel: iron 88, TIBC 203, % sat 43, ferritin 239 - B12 >1000 and folate 7.2 - Heme occult positive - CT abdomen/pelvis: Diffuse anasarca. Detection of active GI hemorrhage is limited without intravenous contrast. Large nonobstructing ventral hernia Large left-sided pleural effusion. Small right-sided pleural effusion. - GI consulted see above (4) Ventral hernia: Code(s): K43.9 - Ventral hernia without obstruction or gangrene Status: Acute Assessment and Plan: Potentially playing a role in patients early satiety and abdominal discomfort. - CT abdomen/pelvis: Large nonobstructing ventral hernia extending to the left of midline containing the majority of patient's large and small bowel. - GI consulted (5) Pleural effusion: Code(s): J90 - Pleural effusion, not elsewhere classified Status: Acute Assessment and Plan: Left pleural effusion has been present since at least December as seen on CXR 12/29/23 and she seems asymptomatic with that. 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 - Asymptomatic, remains on room air - CT abdomen/pelvis: Large left-sided pleural effusion. Small right-sided pleural effusion. - Echo 08/14/24: LVEF > 70% with severe concentric LV hypertrophy and bilateral dilation (6) Hypoglycemia: Code(s): E16.2 - Hypoglycemia, unspecified Status: Acute Assessment and Plan: Patient was noted to have asymptomatic hypoglycemia into the 30s. She was given D5 push and this resolved. Hypoglycemia likely secondary to patient being NPO since admission and had not had anything to eat since Sunday. - Hypoglycemia protocol - Monitor (7) Chronic kidney disease, stage 4 (severe): Code(s): N18.4 - Chronic kidney disease, stage 4 (severe) Status: Acute Assessment and Plan: BUN/Cr 55/2.6 on admission, appears to be around baseline. Last seen nephrology, Dr. Garay on 09/02/24. Etiology of CKD likely DM and HTN. - BUN/Cr 52/2.5 on am labs - Decreased urine output, bladder scan ordered - Avoid nephrotoxic medications - Renally dose medications - Monitor I/O (8) Hypertension: Qualifiers: Hypertension type: unspecified Qualified Code(s): I10 - Essential (primary) hypertension Code(s): I10 - Essential (primary) hypertension Status: Inactive Assessment and Plan: Chronic, continue home medication - metoprolol 100 mg daily - monitor (9) Protein calorie malnutrition: Qualifiers: Protein-calorie malnutrition severity: moderate Qualified Code(s): E44.0 - Moderate protein-calorie malnutrition Code(s): E46 - Unspecified protein-calorie malnutrition Status: Acute Assessment and Plan: Supplements per nutrition recommendations Time Spent With Patient Time with patient: 25 - 35 minutes Subjective Date/time seen: 10/30/24 07:52 Interval history: 78-year-old female with history of atrial fibrillation, congestive heart failure, chronic kidney disease, occult GI bleeding, anemia, hypertension, and other comorbidities who presented to the emergency department via EMS from [facility] for evaluation of weakness. Patient is pleasant lying in bed. She has a large ventral hernia but denies any related issues of pain or bowel problems. She saw a surgeon in [place] and said he was unable to perform surgery due to the extent of the hernia. She has not had this reevaluated. She continues to have decreased urine output. She states that this is around her baseline. Will obtain a bladder scan. She has no other complaints denying chest pain, shortness of breath, nausea/vomiting and abdominal pain. Review of Systems Review of Systems: All systems reviewed & are unremarkable except as noted in HPI and below Exam Narrative: AF HR 82 RR 16 SPO2 100 BP 109/61 General: female in no acute respiratory distress who is nontoxic appearing, lying semi recumbent in bed. HEENT: Normocephalic. Atraumatic. Extraocular movement intact. Sclera clear and anicteric. No facial asymmetry. Chest: Lungs are clear to auscultation bilaterally. No wheezes or crackles. CV: Heart was regular rate and rhythm. S1-S2. No murmurs, gallops, or rubs. Abd: Abdomen was soft. Nontender. Nondistended. Positive bowel sounds. Large ventral hernia hanging to the left. Ext: No clubbing, cyanosis, or edema. 2+ DP pulses bilaterally. Neuro: Patient is alert. Cranial nerves 2-12 are intact. Speech is clear. Objective Data Vital Signs Vital Signs: Vital Signs - 24 hr 10/29/24 09:30 10/29/24 10:28 10/29/24 11:10 Temperature 97.2 F L 97.0 F L Pulse Rate 48 L 77 Respiratory Rate 17 Blood Pressure 111/67 120/93 H Pulse Oximetry 96 100 Oxygen Delivery Room Air Room Air 10/29/24 11:33 10/29/24 11:43 10/29/24 11:53 Temperature Pulse Rate 71 73 68 Respiratory Rate 14 17 13 Blood Pressure 93/45 L 124/74 123/70 Pulse Oximetry 98 100 100 Oxygen Delivery Room Air Room Air Room Air 10/29/24 12:00 10/29/24 13:30 10/29/24 14:59 Temperature 96.6 F L Pulse Rate 67 78 64 Respiratory Rate 18 Blood Pressure 113/72 Pulse Oximetry 92 Oxygen Delivery 10/29/24 16:00 10/29/24 20:00 10/29/24 21:51 Temperature 98.1 F Pulse Rate 67 74 50 L Respiratory Rate 17 Blood Pressure 92/58 L Pulse Oximetry 95 Oxygen Delivery 10/30/24 00:00 10/30/24 04:00 10/30/24 05:05 Temperature 97.7 F Pulse Rate 70 79 82 Respiratory Rate 16 Blood Pressure 109/61 Pulse Oximetry 100 Oxygen Delivery Intake/Output Intake/Output: Intake & Output 10/27/24 10/28/24 10/29/24 10/30/24 23:59 23:59 23:59 23:59 Intake Total 1050 760.0 50 Output Total 200 Balance 1050 560.0 50 Meds/Results Medications: Active Medications Generic Name Dose Route Start Last Admin Trade Name Freq PRN Reason Stop Dose Admin Acetaminophen 650 mg 10/28/24 17:41 10/30/24 06:51 Acetaminophen 325 Mg Tablet PO 650 mg Q4H PRN Administration Mild Pain (1-3) or Fever Atorvastatin Calcium 10 mg 10/29/24 21:00 10/29/24 23:15 Atorvastatin 10 Mg Tablet PO 10 mg QHS SHAKA Administration Calcitriol 0.25 mcg 10/28/24 21:55 Calcitriol 0.25 Mcg Capsule PO MoWeFr PRN AFTER DIALYSIS Cyanocobalamin 5,000 mcg 10/29/24 09:00 10/29/24 13:30 Cyanocobalamin 1,000 Mcg Tablet PO 5,000 mcg MoWeFr SHAKA Administration Dextrose 12.5 gm 10/29/24 10:22 10/29/24 10:31 Dextrose 50% 25 Gm/50 Ml Syringe IV PUSH 12.5 gm PRN PRN Administration Hypoglycemia Protocol Ferrous Sulfate 325 mg 10/29/24 21:00 10/30/24 06:52 Ferrous Sulfate [address] PO 325 mg BID@0600,2100 SHAKA Administration Glucagon 1 mg 10/29/24 10:22 Glucagon For Inj 1 Mg Vial IM PRN PRN Hypoglycemia Protocol Glucose 15 gm 10/29/24 10:22 Glucose Oral Gel 15 Gm Of Glucse In 37.5 Gm Tube PO PRN PRN Hypoglycemia Protocol Dextrose 1,000 mls @ 100 mls/hr 10/29/24 10:22 Dextrose 5% 1,000 Ml IVPB PRN PRN Hypoglycemia Protocol Lactobacillus Acidophilus 1 tablet 10/29/24 09:00 10/29/24 13:31 Acidophilus/Bulgaricus Chewable Tablet BY MOUTH 1 tablet DAILY SHAKA Administration Loratadine 10 mg 10/28/24 21:56 Loratadine 10 Mg Tablet PO DAILY PRN SEASONAL ALLERGIES Metoprolol Succinate 100 mg 10/29/24 09:00 10/29/24 13:30 Metoprolol Succinate Ext Rel 100 Mg Tabcr PO 100 mg QAM SHAKA Administration Ondansetron HCl 4 mg 10/28/24 17:41 10/29/24 21:40 Ondansetron Inj 4 Mg/2 Ml Vial IV PUSH 4 mg Q4H PRN Administration Nausea Pantoprazole Sodium 40 mg 10/29/24 21:00 10/29/24 22:32 Pantoprazole 40 Mg Tablet PO 40 mg Q12HR SHAKA Administration Perflutren Lipid Microsphere 0 ml 10/28/24 21:52 Perflutren Lipid Microspheres 1.5 Ml Vial Diluted To 10 Ml Total Volume IV PUSH 10/31/24 21:52 ONCE PRN adequate visualization Protocol Potassium Chloride 20 meq 10/29/24 09:00 10/29/24 13:30 Potassium Chloride 20 Meq Er Tablet PO 20 meq DAILY SHAKA Administration Sodium Bicarbonate 650 mg 10/29/24 09:00 10/29/24 17:44 Sodium Bicarbonate Tab 650 Mg Tablet PO 650 mg BID SHAKA Administration Vitamin D 2,000 units 10/29/24 09:00 10/29/24 13:30 Cholecalciferol 1,000 Units Tablet PO 2,000 units DAILY SHAKA Administration Radiology Results: ITS Impressions Abdomen/Pelvis CT 10/28/24 16:58 IMPRESSION: Diffuse anasarca. Detection of active GI hemorrhage is limited without intravenous contrast. Large nonobstructing ventral hernia Large left-sided pleural effusion. Small right-sided pleural effusion. Labs Labs: Laboratory Results - last 24 hr 10/29/24 10/29/24 10/29/24 10:19 10:57 11:02 WBC RBC Hgb Hct MCV MCH MCHC RDW Plt Count MPV Immature Gran % (Auto) Neut % (Auto) Lymph % (Auto) [place] % (Auto) Eos % (Auto) Baso % (Auto) Lymph # (Auto) [place] # (Auto) Eos # (Auto) Baso # (Auto) Abs Immat Gran (auto) Absolute Neuts (auto) Absolute Nucleated RBC Nucleated RBC % Platelet Estimate Hypochromasia Anisocytosis Macrocytosis Target Cells Schistocytes Sodium Potassium Chloride Carbon Dioxide Anion Gap BUN Creatinine Estim Creat Clear Calc Estimated GFR Glucose POC Capillary Glucose 31 L* 27 L* 83 Calcium Total Bilirubin AST ALT Alkaline Phosphatase Total Protein Albumin Stl Occult Blood (IFOB) 10/29/24 10/29/24 10/29/24 12:09 21:01 21:04 WBC RBC Hgb Hct MCV MCH MCHC RDW Plt Count MPV Immature Gran % (Auto) Neut % (Auto) Lymph % (Auto) [place] % (Auto) Eos % (Auto) Baso % (Auto) Lymph # (Auto) [place] # (Auto) Eos # (Auto) Baso # (Auto) Abs Immat Gran (auto) Absolute Neuts (auto) Absolute Nucleated RBC Nucleated RBC % Platelet Estimate Hypochromasia Anisocytosis Macrocytosis Target Cells Schistocytes Sodium Potassium Chloride Carbon Dioxide Anion Gap BUN Creatinine Estim Creat Clear Calc Estimated GFR Glucose POC Capillary Glucose 154 H 95 Calcium Total Bilirubin AST ALT Alkaline Phosphatase Total Protein Albumin Stl Occult Blood (IFOB) Negative 10/30/24 06:11 WBC 8.8 RBC 2.54 L Hgb 8.0 L Hct 28.0 L MCV 110.2 H D MCH 31.5 MCHC 28.6 L RDW 22.2 H Plt Count 76 L MPV 13.1 H Immature Gran % (Auto) 0.3 Neut % (Auto) 82.1 H Lymph % (Auto) 9.6 L [place] % (Auto) 7.2 Eos % (Auto) 0.6 Baso % (Auto) 0.2 Lymph # (Auto) 0.84 L [place] # (Auto) 0.6 Eos # (Auto) 0.1 Baso # (Auto) 0.0 Abs Immat Gran (auto) 0.03 Absolute Neuts (auto) 7.2 H Absolute Nucleated RBC 0.070 H Nucleated RBC % 0.8 H Platelet Estimate Decreased Hypochromasia 1+ Anisocytosis 1+ Macrocytosis 1+ Target Cells 1+ Schistocytes None seen Sodium 137 Potassium 3.9 Chloride 118 H Carbon Dioxide 13 L Anion Gap 6 BUN 53 H Creatinine 2.50 H Estim Creat Clear Calc 14 Estimated GFR 19 L Glucose 69 POC Capillary Glucose Calcium 7.6 L Total Bilirubin 1.7 H AST 30 ALT 14 Alkaline Phosphatase 55 Total Protein 4.0 L Albumin 2.2 L Stl Occult Blood (IFOB) Quality VTE Prophylaxis VTE prophylaxis: mechanical ordered
[2024-10-30] MEDS: ACIDOPHILUS/BULGARICUS CHEWABLE TABLET 1 TABLET BY MOUTH (09:17)
[2024-10-30] MEDS: CHOLECALCIFEROL 1,000 UNITS TABLET 2000 UNITS PO (09:18)
[2024-10-30] MEDS: PANTOPRAZOLE 40 MG TABLET PO ×2 (09:18→20:44)
[2024-10-30] MEDS: POTASSIUM CHLORIDE 20 MEQ ER TABLET PO (09:18)
[2024-10-30] MEDS: METOPROLOL SUCCINATE EXT REL 100 MG TABCR PO (09:18)
--- NOTE | 2024-10-30 11:38 | PCOTNOTE ---
Attempted to see pt. for occupational therapy evaluation. Pt. declined to participated at this time stating that she was too exhausted from getting up to use the commode with her healthcare advisory services manager prior to attempt. Pt. educated on benefits of mobilization and OOB activity, encouraged to continue to get up with nursing despite refusal of OT services
[2024-10-30] MEDS: ATORVASTATIN 10 MG TABLET PO (20:44)
[2024-10-30] MEDS: ONDANSETRON INJ 4 MG/2 ML VIAL IV PUSH (23:40)
[2024-10-31] VITALS (11 sets, daily range): BP systolic 88–146; BP diastolic 44–87; PULSE 67–100; RESP 12–18; TEMP 36.2–36.5; O2SAT 90–97
[2024-10-31] MEDS: METOCLOPRAMIDE HCL INJ 10 MG/2 ML VIAL IV PUSH (02:20)
[2024-10-31] MEDS: FERROUS SULFATE 325 MG TABLET DR PO ×2 (05:58→20:40)
[2024-10-31 06:02] LABS: Basophils Percent Auto 0.1 % (0.2-1.2); Eosinophils Percent Auto 0.5 % (0-4.4); Hematocrit 29.3 % (37.0-47.0); Hemoglobin 8.4 g/dL (12.0-15.0); Immature Granulocyte Absolute 0.04 K/mm3 (0.00-0.031); Immature Granulocyte Percent A 0.5 % (0-0.5); Immature Platelet Fraction Pct 11.2 % (0.9-11.2); Lymphocytes Percent Auto 11.9 % (18.3-44.2); Mean Corpuscular HGB Conc 28.7 g/dl (32-36); Mean Corpuscular Hemoglobin 31.2 pg (26-34); Mean Corpuscular Volume 108.9 fl (80-100); Mean Platelet Volume 12.1 fl (7.4-10.4); Monocytes Absolute Auto 0.8 K/mm3 (0.1-0.6); Monocytes Percent Auto 8.9 % (2.6-8.5); Neutrophils Absolute Auto 6.6 K/mm3 (1.3-6.7); Neutrophils Percent Auto 78.1 % (45.5-73.1); Nucleated Red Blood Cells Perc 1.2 % (0.0-0.2); Platelet Count Result 68 k/mm3 (150-375); Red Blood Count 2.69 M/mm3 (4.2-5.4); Red Cell Distribution Width 22.2 % (11.5-14.5); White Blood Count 8.4 K/mm3 (4.5-10.0)
[2024-10-31 06:21] LABS: Alanine Aminotransferase 14 U/L (6-35); Albumin Level 2.2 g/dL (3.5-5.1); Alkaline Phosphatase 59 U/L (38-126); Anion Gap 6 mmol/L (4-12); Aspartate Amino Transferase 40 U/L (14-36); Bilirubin,Total 2.1 mg/dL (0.2-1.3); Blood Urea Nitrogen 54 mg/dL (7-17); Calcium 7.5 mg/dL (8.4-10.2); Carbon Dioxide 11 mmol/L (22-30); Chloride 120 mmol/L (98-107); Estimated CRCL calculation 16 ml/min; Estimated Glomerular Filt Rate 18; Glucose 55 mg/dL (65-110); Potassium 4.7 mmol/L (3.4-5.0); Sodium 137 mmol/L (137-145)
[2024-10-31] MEDS: DEXTROSE 50% 25 GM/50 ML SYRINGE IV PUSH (06:50)
[2024-10-31 06:59] LABS: Glucose Point of Care 95 mg/dl (65-105)
[2024-10-31 06:59] LABS: Glucose Point of Care 62 mg/dl (65-105)
[2024-10-31 07:06] LABS: Anisocytosis 2+; Hypochromasia 1+; Platelet Estimate Decreased (Adequate); Schistocytes None Seen; Target Cells 1+
--- NOTE | 2024-10-31 09:02 | PM.IMPN ---
Progress Note: A&P Assessment and Plan (1) Weakness: Code(s): R53.1 - Weakness Status: Acute (2) Heme positive stool: Code(s): R19.5 - Other fecal abnormalities Status: Acute (3) Acute exacerbation of CHF (congestive heart failure): Code(s): I50.9 - Heart failure, unspecified Status: Acute Plan This is a 78-year-old female with history of atrial fibrillation, congestive heart failure, chronic kidney disease, occult GI bleeding, anemia, hypertension, and other comorbidities who presented to the emergency department via EMS from [facility] for evaluation of weakness. The patient provides the following history. She has felt increasingly weak over the past 3 days and reports that she has no energy similar to when her hemoglobin was low in the past. She goes on to say that she receives blood transfusions every few weeks and is set to have a transfusion in 2 days time. Weakness: Code(s): R53.1 - Weakness Status: Acute Assessment and Plan: [place] increasingly weak over the past few days and reports that she has no energy similar to when her hemoglobin was low in the past. Per chart review, patient receives blood transfusions every few weeks and has a transfusion in Oct 30. - WBC count is elevated however she does not give a history to suggest underlying infection - UA unremarkable - CT abdomen/pelvis: Diffuse anasarca. Detection of active GI hemorrhage is limited without intravenous contrast. Large nonobstructing ventral hernia Large left-sided pleural effusion. Small right-sided pleural effusion. - patient will need PT/OT evals Heme positive stool: Code(s): R19.5 - Other fecal abnormalities Status: Acute Assessment and Plan: [place] increasingly weak over the past few days and reports that she has no energy similar to when her hemoglobin was low in the past. Per chart review, patient receives blood transfusions every few weeks and has a transfusion in Oct 30. Endorses dark stools but is on iron supplementation. Extensive outpatient evaluation for occult GI bleeding including upper and lower endoscopies and capsule endoscopy which she reports did not show any source of bleeding. - H/H 8.5/28.1 on am labs, continue to trend - Heme occult positive - CT abdomen/pelvis: Diffuse anasarca. Detection of active GI hemorrhage is limited without intravenous contrast. Large nonobstructing ventral hernia Large left-sided pleural effusion. Small right-sided pleural effusion. - GI consulted Protonix BID EGD performed on 10/[address] Olguin No esophagitis or varices. Mod erosive gastrictis with erythematous, edematous, erosive, and petechiae changes, No mucosal bleeding. No duodenal ulcers or masses, no signs of recent bleeding. Chronic anemia: Code(s): D64.9 - Anemia, unspecified Status: Inactive Assessment and Plan: Follows heme/onc at [facility], last seen 10/01/24. - H/H 8.0/28.0 on am labs, continue to trend - Iron panel: iron 88, TIBC 203, % sat 43, ferritin 239 - B12 >1000 and folate 7.2 - Heme occult positive - CT abdomen/pelvis: Diffuse anasarca. Detection of active GI hemorrhage is limited without intravenous contrast. Large nonobstructing ventral hernia Large left-sided pleural effusion. Small right-sided pleural effusion. - GI consulted see above Left-sided Pleural effusion: Code(s): J90 - Pleural effusion, not elsewhere classified Status: Acute Assessment and Plan: Left pleural effusion has been present since at least December as seen on CXR 12/29/23 and she seems asymptomatic with that. 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 - Asymptomatic, remains on room air - CT abdomen/pelvis: Large left-sided pleural effusion. Small right-sided pleural effusion. - Echo 08/14/24: LVEF > 70% with severe concentric LV hypertrophy and bilateral dilation Unclear etiology, order thoracentesis of the right chest, cytology, Gram the culture stay Consult applications analyst for evaluation Ventral hernia: Code(s): K43.9 - Ventral hernia without obstruction or gangrene Status: Acute Assessment and Plan: Potentially playing a role in patients early satiety and abdominal discomfort. - CT abdomen/pelvis: Large nonobstructing ventral hernia extending to the left of midline containing the majority of patient's large and small bowel. - GI consulted Hypoglycemia: Code(s): E16.2 - Hypoglycemia, unspecified Status: Acute Assessment and Plan: Patient was noted to have asymptomatic hypoglycemia into the 30s. She was given D5 push and this resolved. Hypoglycemia likely secondary to patient being NPO since admission and had not had anything to eat since Sunday. - Hypoglycemia protocol - Monitor (7) Chronic kidney disease, stage 4 (severe): Code(s): N18.4 - Chronic kidney disease, stage 4 (severe) Status: Acute Assessment and Plan: BUN/Cr 55/2.6 on admission, appears to be around baseline. Last seen nephrology, Dr. Garay on 09/02/24. Etiology of CKD likely DM and HTN. - BUN/Cr 52/2.5 on am labs - Decreased urine output, bladder scan ordered - Avoid nephrotoxic medications - Renally dose medications - Monitor I/O (8) Hypertension: Qualifiers: Hypertension type: unspecified Qualified Code(s): I10 - Essential (primary) hypertension Code(s): I10 - Essential (primary) hypertension Status: Inactive Assessment and Plan: Chronic, continue home medication - metoprolol 100 mg daily - monitor (9) Protein calorie malnutrition: Qualifiers: Protein-calorie malnutrition severity: moderate Qualified Code(s): E44.0 - Moderate protein-calorie malnutrition Code(s): E46 - Unspecified protein-calorie malnutrition Status: Acute Assessment and Plan: Supplements per nutrition recommendations Subjective Date/time seen: 10/31/24 09:02 Interval history: I saw examined patient today. Patient still has general weakness, poor intake, no obvious shortness breath and rest. Patient is afebrile, blood pressure soft 97/72, pulse ox 90% room air, labs reviewed, hemoglobin stable 8.4. Elevated BUN creatinine ratio creatinine 2.6 Exam Narrative: GENERAL: Ill-appearing, in no acute distress. Well-nourished. - EYES: EOMI. Anicteric. - HENT: Moist mucous membranes. - LUNGS: Left side dullness by precaution, no wheezing, rhonchi, or rales. - CARDIOVASCULAR: Regular rate and rhythm. No murmur. No JVD. - ABDOMEN: Soft, non-tender and non-distended. No palpable masses. Ventral hernia - EXTREMITIES: No edema. Peripheral pulses 2+. Non-tender. - NEUROLOGIC: No focal neurological deficits. CN II-XII grossly intact. General weakness - PSYCHIATRIC: Awake, Alert and oriented x 3. Appropriate mood and affect. - SKIN: No rashes or lesions. Warm. - LYMPH: No cervical lymphadenopathy. Objective Data Vital Signs Vital Signs: Vital Signs - 24 hr 10/30/24 09:15 10/30/24 09:18 10/30/24 12:00 Temperature Pulse Rate 84 82 Respiratory Rate Blood Pressure Pulse Oximetry Oxygen Delivery Room Air 10/30/24 14:47 10/30/24 16:00 10/30/24 20:00 Temperature 97.4 F L Pulse Rate 78 83 80 Respiratory Rate 16 Blood Pressure 112/59 L Pulse Oximetry 100 Oxygen Delivery 10/30/24 20:26 10/30/24 23:51 10/31/24 00:00 Temperature 97.8 F Pulse Rate 79 85 Respiratory Rate 18 Blood Pressure 90/40 L 106/67 Pulse Oximetry 90 Oxygen Delivery 10/31/24 04:00 10/31/24 04:48 Temperature 97.7 F Pulse Rate 84 71 Respiratory Rate 18 Blood Pressure 97/72 L Pulse Oximetry 90 Oxygen Delivery Intake/Output Intake/Output: Intake & Output 10/28/24 10/29/24 10/30/24 10/31/24 23:59 23:59 23:59 23:59 Intake Total 1050 760.0 410 390 Output Total 200 301 Balance 1050 560.0 109 390 Meds/Results Medications: Active Medications Generic Name Dose Route Start Last Admin Trade Name Freq PRN Reason Stop Dose Admin Acetaminophen 650 mg 10/28/24 17:41 10/30/24 22:35 Acetaminophen 325 Mg Tablet PO 650 mg Q4H PRN Administration Mild Pain (1-3) or Fever Atorvastatin Calcium 10 mg 10/29/24 21:00 10/30/24 20:44 Atorvastatin 10 Mg Tablet PO 10 mg QHS SHAKA Administration Calcitriol 0.25 mcg 10/28/24 21:55 Calcitriol 0.25 Mcg Capsule PO MoWeFr PRN AFTER DIALYSIS Cyanocobalamin 5,000 mcg 10/29/24 09:00 10/29/24 13:30 Cyanocobalamin 1,000 Mcg Tablet PO 5,000 mcg MoWeFr SHAKA Administration Dextrose 12.5 gm 10/29/24 10:22 10/29/24 10:31 Dextrose 50% 25 Gm/50 Ml Syringe IV PUSH 12.5 gm PRN PRN Administration Hypoglycemia Protocol Ferrous Sulfate 325 mg 10/29/24 21:00 10/31/24 05:58 Ferrous Sulfate [address] PO 325 mg BID@0600,2100 SHAKA Administration Glucagon 1 mg 10/29/24 10:22 Glucagon For Inj 1 Mg Vial IM PRN PRN Hypoglycemia Protocol Glucose 15 gm 10/29/24 10:22 Glucose Oral Gel 15 Gm Of Glucse In 37.5 Gm Tube PO PRN PRN Hypoglycemia Protocol Dextrose 1,000 mls @ 100 mls/hr 10/29/24 10:22 Dextrose 5% 1,000 Ml IVPB PRN PRN Hypoglycemia Protocol Lactobacillus Acidophilus 1 tablet 10/29/24 09:00 10/30/24 09:17 Acidophilus/Bulgaricus Chewable Tablet BY MOUTH 1 tablet DAILY SHAKA Administration Loratadine 10 mg 10/28/24 21:56 Loratadine 10 Mg Tablet PO DAILY PRN SEASONAL ALLERGIES Metoprolol Succinate 100 mg 10/29/24 09:00 10/30/24 09:18 Metoprolol Succinate Ext Rel 100 Mg Tabcr PO 100 mg QAM SHAKA Administration Ondansetron HCl 4 mg 10/28/24 17:41 10/30/24 23:40 Ondansetron Inj 4 Mg/2 Ml Vial IV PUSH 4 mg Q4H PRN Administration Nausea Pantoprazole Sodium 40 mg 10/29/24 21:00 10/30/24 20:44 Pantoprazole 40 Mg Tablet PO 40 mg Q12HR SHAKA Administration Perflutren Lipid Microsphere 0 ml 10/28/24 21:52 Perflutren Lipid Microspheres 1.5 Ml Vial Diluted To 10 Ml Total Volume IV PUSH 10/31/24 21:52 ONCE PRN adequate visualization Protocol Potassium Chloride 20 meq 10/29/24 09:00 10/30/24 09:18 Potassium Chloride 20 Meq Er Tablet PO 20 meq DAILY SHAKA Administration Sodium Bicarbonate 650 mg 10/29/24 09:00 10/30/24 17:29 Sodium Bicarbonate Tab 650 Mg Tablet PO Not Given BID SHAKA Vitamin D 2,000 units 10/29/24 09:00 10/30/24 09:18 Cholecalciferol 1,000 Units Tablet PO 2,000 units DAILY SHAKA Administration Radiology Results: ITS Impressions Abdomen/Pelvis CT 10/28/24 16:58 IMPRESSION: Diffuse anasarca. Detection of active GI hemorrhage is limited without intravenous contrast. Large nonobstructing ventral hernia Large left-sided pleural effusion. Small right-sided pleural effusion. Labs Labs: Laboratory Results - last 24 hr 10/31/24 10/31/24 10/31/24 05:30 06:34 06:57 WBC 8.4 RBC 2.69 L Hgb 8.4 L Hct 29.3 L MCV 108.9 H MCH 31.2 MCHC 28.7 L RDW 22.2 H Plt Count 68 L MPV 12.1 H Immature Gran % (Auto) 0.5 Neut % (Auto) 78.1 H Lymph % (Auto) 11.9 L Placer % (Auto) 8.9 H Eos % (Auto) 0.5 Baso % (Auto) 0.1 L Lymph # (Auto) 1.00 Placer # (Auto) 0.8 H Eos # (Auto) 0.0 Baso # (Auto) 0.0 Abs Immat Gran (auto) 0.04 H Absolute Neuts (auto) 6.6 Absolute Nucleated RBC 0.100 H Nucleated RBC % 1.2 H Platelet Estimate Decreased % Immature Plt Fraction 11.2 Hypochromasia 1+ Anisocytosis 2+ Target Cells 1+ Schistocytes None seen Sodium 137 Potassium 4.7 Chloride 120 H Carbon Dioxide 11 L Anion Gap 6 BUN 54 H Creatinine 2.60 H Estim Creat Clear Calc 16 Estimated GFR 18 L Glucose 55 L* POC Capillary Glucose 62 L 95 Calcium 7.5 L Total Bilirubin 2.1 H AST 40 H ALT 14 Alkaline Phosphatase 59 Total Protein 5.0 L Albumin 2.2 L
[2024-10-31] MEDS: ONDANSETRON INJ 4 MG/2 ML VIAL IV PUSH ×2 (09:08→20:03)
[2024-10-31] MEDS: SODIUM CHLORIDE 0.9% IV 500 ML 75 ML IV CONT (09:36)
--- NOTE | 2024-10-31 11:05 | PCOTNOTE ---
Attempted OT evaluation x2. Per RN hold for today due to low blood pressure. Will attempt again as able.
[2024-10-31 12:19] LABS: Glucose Point of Care 69 mg/dl (65-105)
--- NOTE | 2024-10-31 12:53 | PCPTNOTE ---
Attempted PT evaluation, Per RN pt having low blood pressure. Pt not safe to participate in skilled therapy today.
--- NOTE | 2024-10-31 12:56 | PM.CNPUL ---
Assessment and Plan Assessment and plan (1) Pleural effusion: Code(s): J90 - Pleural effusion, not elsewhere classified Status: Acute Assessment and Plan: She had more than 400 ml of yellow fluid removed by thoracentesis from left pleural space today, low wbc 167and non-specific differential. The additional labs are pending. I ordered a pH, but it appears that this was not completed. The report of the fluid being yellow and low number WBC is a benign finding. This does not appear to represent a pleural space infection. This appears to be a transudative pleural effusion. She tells me she is not short of breath, has not had any acute changes in her breathing, and definitely nothing that seemed to be pneumonia. She has no history of lung infections. She has a large heart, has had a transcutaneous aortic valve replacement a year ago, echo shows hyperdynamic LV and biatrial enlargement. Differential diagnosis of a transudative effusion includes 3 common conditions including CHF, cirrhosis and nephrosis, and some less common conditions, cancer, pneumonia and PE. The cytology is pending on the pleural fluid. She is not clinically had pneumonia, she has normal white count and no fever. She does not have any oxygen requirement and did not have any pleuritic chest discomfort so I think that is unlikely she had a pulmonary embolus leading to the pleural effusion. She may have diastolic dysfunction with acute worsening. CHF is a diagnosis in her list, although she says she has not been told that she has this. She is closely followed by her zinc plating machine operator, her blood pressure is controlled and her atrial fib rate is controlled. She is not on anticoagulation due to her chronic anemia and problems with GI bleeding. She does not have cirrhosis clinically, she does not have nephrosis. I believe this transudative left pleural effusion may be due to diastolic dysfunction. Her TSH was 8.43, elevated, Oct 28. This suggests that hypothyroidism may be a factor as this can cause transudative pleural effusion. (2) Skin ulcers of both feet: Code(s): L97.519 - Non-pressure chronic ulcer of other part of right foot with unspecified severity; L97.529 - Non-pressure chronic ulcer of other part of left foot with unspecified severity Status: Acute Assessment and Plan: She has small vasculitic appearing ulcers on some fingertips and both feet, the left much worse than the right. These are dry dark purple, and her fingers and toes are extremely cold. She has Raynaud syndrome clinically, and she said yes when I mentioned this term. She may have vasculitis, had a low (+) KIM in 2020. History of Present Illness History of Present Illness Consult date: 10/31/24 Requesting physician: Glenn Philippe MD Chief complaint: pleural effusion, left side Narrative: pt was seen Oct 21, 2024 at 17:00 Room 244, arrived during my visit NEW: Shannan Seals is a 78 year old female admitted by ambulance from [facility] Oct 26 due to progressive weakness for 3 days, black stools and she takes oral iron. She felt like her anemia was worse. 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 She is managed by Dr Schaffer, gets Procrit every few weeks if hemoglobin is < 10 g/dL. She had GI bleeding with angiodysplasia cauterized Jun 2024. Her H/H on admission was 8.3/27%, no transfusion this admission. She has a moderate sized left pleural effusion. Today Oct 31 she had a thoracentesis with 400 + ml yellow fluid removed, WBC on the pleural fluid was 167, normal is < 1000. Differential showed 34% neutrophils, 39% lymphocytes, normal. Gram stain showed WBC however no microorganisms. There is no pH; the chemistries are pending, and micro is pending. She has a history of a bloody pericardial effusion that was tapped 03/06/2019. Dr. Garay's nephrology note shows that she had a positive KIM 1:80, negative double-stranded DNA. I do not see any additional collagen vascular studies. 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 She does not have known lung disease. She says taht she did not have any pneumonia symptoms prior to this admission, no cough, sputum, wheezing, sinus congestion, diarrhea, and hse had no sick contacts. Swabs for viral pathogens were negative, influenza A/B, RSV and SARS-CoV2. PMH : atrial fibrillation diagnosed after she had TAVR October 2023 for severe aortic stenosis; Chart indicates CHF, patient does not tell me she has this. CKD stage IV, MGUS and anemia requiring transfusions and Procrit, DM, HTN. DATA * 10/31/24 WBC 8.4, hemoglobin 8.4, hematocrit 29.3%, platelets [id number] differential shows 78% neutrophils. Sodium 137, potassium 4.7, chloride 120, HC03 is 11, BUN 54, creatinine 2.6. * 10/31/24; CXR FINDINGS Decreased left-sided pleural effusion when compared with previous examination. The left lung is fully inflated. The right hemithorax is clear. Prosthetic valve in the aortic position. Calcifications of the mitral annulus. The cardiomediastinal silhouette is enlarged, unchanged. IMPRESSION: No pneumothorax following left-sided thoracentesis, as detailed above. * 11/08/23 PET Scan: No evidence of malignancy. 2. Small pleural effusions. 3. Chronic large pericardial effusion. 4. Large ventral hernia containing small bowel and large bowel and small volume of ascites. * 10/29/24 UA: pH 5.5, 1+ protein, non hemolyzed sample, 3-5 RBCs, trace leukocyte Esterace, * 04/09/24; bone marrow biopsy - * 07/25/2021 KIM (+), 1:80, negative double-stranded DNA, ESR 14, C3-1 35, C4 25, CH 50 greater than 6 Review of Systems Review of Systems: All systems reviewed & are unremarkable except as noted in HPI and below PMFSH Past Medical History Medical History (Updated 10/31/24 @ 21:58 by Muriel Tabor MD) Hypoglycemia Anasarca Acute on chronic anemia Chronic kidney disease, stage 4 (severe) Overactive bladder Kidney stone Chronic anemia Monoclonal gammopathy of unknown significance Chronic low back pain Seasonal allergies Vitamin D deficiency Osteoporosis Skin cancer Idiopathic pericarditis GERD without esophagitis Type 2 diabetes mellitus without complication, without long-term current use of insulin hemoglobin A1c: 5.4(10/26) << 5.2(10/25) << 5.7(05/25) << 5.7(10/24) << 5.9(04/24) << 6.3(08/23) << 6.0(02/21) << 6.2(05/22) << 6.6(10/21) << 6.8(11/21) << 7.9(04/20). 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 Code status: Full code. Smoking status: Never smoker Second hand tobacco smoke exposure: No Alcohol intake: never Substance use: never Substance use type: does not use Do You Feel Safe in your Home?: Yes Lack of Transportation: No Lack of Food: Never True Current Housing: I Have Housing Concerned About Future Housing: No Difficulty Paying Gas/Electric Bills: No Difficulty Paying for Meds: No Currently Unemployed: No Education: High School Diploma/GED Difficulty w/ Childcare or Family Care: No Living arrangements: with family Occupation/Education: retired Spiritual care concerns: No Agree to blood products: Yes Meds Home Medications and Allergies Home Medications ?Medication ?Instructions ?Recorded ?Confirmed ?Type Lactobacillus acidophilus 10 10 cell PO DAILY 04/07/20 10/28/24 History billion cell capsule cetirizine 10 mg tablet 10 mg PO DAILY PRN SEASONAL 10/13/20 10/28/24 History ALLERGIES ferrous sulfate 325 mg (65 mg 325 mg PO BID 10/11/21 10/28/24 History iron) tablet (Feosol) mecobalamin (vitamin B12) 5,000 5,000 mcg PO 3XW 04/19/23 10/28/24 History mcg disintegrating tablet calcitriol 0.25 mcg capsule 0.25 mcg PO 3XW #45 caps 04/10/24 10/28/24 Rx atorvastatin 10 mg tablet 10 mg PO QHS #90 tabs 08/04/24 10/28/24 Rx cholecalciferol (vitamin D3) 50 50 mcg PO DAILY 08/06/24 10/28/24 History mcg (2,000 unit) capsule potassium chloride 20 mEq 20 meq PO DAILY 08/13/24 10/28/24 History tablet,extended release(part/cryst) metoprolol succinate 100 mg 100 mg PO QAM #30 tabs 08/15/24 10/28/24 Rx tablet,extended release 24 hr (Toprol XL) sodium bicarbonate 650 mg tablet 650 mg PO BID #60 tabs 09/02/24 10/28/24 Rx fenofibrate 160 mg tablet 160 mg PO DAILY #90 tabs 10/20/24 10/28/24 Rx Allergies Allergy/AdvReac Type Severity Reaction Status Date / Time No Known Allergies Allergy Verified 10/16/24 12:11 Vital Signs Vital Signs - 24 hr 10/30/24 14:47 10/30/24 16:00 10/30/24 20:00 Temperature 36.3 C L Pulse Rate 78 83 80 Respiratory Rate 16 Blood Pressure 112/59 L Pulse Oximetry 100 Oxygen Delivery 10/30/24 20:26 10/30/24 23:51 10/31/24 00:00 Temperature 36.6 C Pulse Rate 79 85 Respiratory Rate 18 Blood Pressure 90/40 L 106/67 Pulse Oximetry 90 Oxygen Delivery 10/31/24 04:00 10/31/24 04:48 10/31/24 08:00 Temperature 36.5 C Pulse Rate 84 71 67 Respiratory Rate 18 Blood Pressure 97/72 L Pulse Oximetry 90 Oxygen Delivery 10/31/24 09:20 10/31/24 09:30 Temperature Pulse Rate 72 Respiratory Rate 12 Blood Pressure 88/44 L Pulse Oximetry 94 Oxygen Delivery Room Air Exam Narrative: GEN: Alert, oriented, not in distress. Pleasant, good historian. She is on room air, saturation is 97%. HEENT: pupils are equal, EOMI, symmetrical face; oral membranes moist, no redness or exudate NECK: Trachea is midline CHEST: Equal air entry, symmetric excursion, decreased breath sounds in left base, right side is clear CV: irregular S1S2 no m/g/r ABD : (+) bowel sounds Extremities : no clubbing, cyanosis, or edema. She has cool extremities. Fingers and toes have small scattered dried ulcers. All toes on the let foot are mottled, and the 5th toes on the right foot is cool and mottled.She tells me that her right foot has been tender and sore for about 5-6 weeks, and she was planning to see Dr. Ennis, correctional officer sergeant, about it. He did foot surgery on left foot to release curled toes in the last year. Left foot is better, but still toes are cold and mottled L>R. PSYCH: normal thought and speech, gait is not tested. Results Laboratory Findings 10/31/24 05:30 10/31/24 05:30 ABG, PT/INR, D-dimer: PT/INR, D-dimer PT 17.1 Seconds (11.1-14.7) H 10/28/24 15:42 INR 1.4 10/28/24 15:42 Abnormal lab findings: Abnormal Labs 10/28/24 10/28/24 10/29/24 15:42 22:16 00:24 WBC 11.9 H RBC 2.60 L Hgb 8.3 L 8.6 L Hct 27.0 L 29.2 L MCV 103.8 H MCHC 30.7 L RDW 22.0 H Plt Count 77 L MPV 12.2 H Neut % (Auto) 86.7 H Lymph % (Auto) 7.2 L [place] % (Auto) Baso % (Auto) Lymph # (Auto) 0.85 L [place] # (Auto) Abs Immat Gran (auto) 0.05 H Absolute Neuts (auto) 10.3 H Absolute Nucleated RBC 0.070 H Nucleated RBC % 0.6 H % Immature Plt Fraction Immature Retic Fraction 17.1 H PT 17.1 H APTT 37.1 H Potassium 3.2 L Chloride 115 H Carbon Dioxide 17 L BUN 55 H D Creatinine 2.60 H Estimated GFR 18 L Glucose POC Capillary Glucose Calcium 8.2 L Magnesium 1.1 L TIBC 203 L Total Bilirubin 1.7 H AST Total Protein 5.0 L Albumin 2.5 L Prealbumin 9.3 L Vitamin B12 > 1000.0 H TSH (Reflex) 8.430 H Total T3 0.58 L Urine Appearance Cloudy H Urine Protein 1+ H Ur Blood (Man) Non-hemolyzed trace H Leukocyte Esterase Rfl Trace H Urine RBC 3-5 H 10/29/24 10/29/24 10/29/24 04:26 10:19 10:57 WBC 10.6 H RBC 2.69 L Hgb 8.5 L Hct 28.1 L MCV 104.5 H MCHC 30.2 L RDW 21.6 H Plt Count 76 L MPV 12.5 H Neut % (Auto) Lymph % (Auto) [place] % (Auto) Baso % (Auto) Lymph # (Auto) [place] # (Auto) Abs Immat Gran (auto) Absolute Neuts (auto) Absolute Nucleated RBC Nucleated RBC % % Immature Plt Fraction 12.1 H Immature Retic Fraction PT APTT Potassium Chloride 118 H Carbon Dioxide 16 L BUN 52 H Creatinine 2.50 H Estimated GFR 19 L Glucose 62 L POC Capillary Glucose 31 L* 27 L* Calcium 8.0 L Magnesium TIBC Total Bilirubin 2.1 H AST Total Protein 5.0 L Albumin 2.5 L Prealbumin Vitamin B12 TSH (Reflex) Total T3 Urine Appearance Urine Protein Ur Blood (Man) Leukocyte Esterase Rfl Urine RBC 10/29/24 10/30/24 10/31/24 12:09 06:11 05:30 WBC RBC 2.54 L 2.69 L Hgb 8.0 L 8.4 L Hct 28.0 L 29.3 L MCV 110.2 H D 108.9 H MCHC 28.6 L 28.7 L RDW 22.2 H 22.2 H Plt Count 76 L 68 L MPV 13.1 H 12.1 H Neut % (Auto) 82.1 H 78.1 H Lymph % (Auto) 9.6 L 11.9 L [place] % (Auto) 8.9 H Baso % (Auto) 0.1 L Lymph # (Auto) 0.84 L [place] # (Auto) 0.8 H Abs Immat Gran (auto) 0.04 H Absolute Neuts (auto) 7.2 H Absolute Nucleated RBC 0.070 H 0.100 H Nucleated RBC % 0.8 H 1.2 H % Immature Plt Fraction Immature Retic Fraction PT APTT Potassium Chloride 118 H 120 H Carbon Dioxide 13 L 11 L BUN 53 H 54 H Creatinine 2.50 H 2.60 H Estimated GFR 19 L 18 L Glucose 55 L* POC Capillary Glucose 154 H Calcium 7.6 L 7.5 L Magnesium TIBC Total Bilirubin 1.7 H 2.1 H AST 40 H Total Protein 4.0 L 5.0 L Albumin 2.2 L 2.2 L Prealbumin Vitamin B12 TSH (Reflex) Total T3 Urine Appearance Urine Protein Ur Blood (Man) Leukocyte Esterase Rfl Urine RBC 10/31/24 06:34 WBC RBC Hgb Hct MCV MCHC RDW Plt Count MPV Neut % (Auto) Lymph % (Auto) [place] % (Auto) Baso % (Auto) Lymph # (Auto) [place] # (Auto) Abs Immat Gran (auto) Absolute Neuts (auto) Absolute Nucleated RBC Nucleated RBC % % Immature Plt Fraction Immature Retic Fraction PT APTT Potassium Chloride Carbon Dioxide BUN Creatinine Estimated GFR Glucose POC Capillary Glucose 62 L Calcium Magnesium TIBC Total Bilirubin AST Total Protein Albumin Prealbumin Vitamin B12 TSH (Reflex) Total T3 Urine Appearance Urine Protein Ur Blood (Man) Leukocyte Esterase Rfl Urine RBC
[2024-10-31 16:00] LABS: Lactate Dehydrogenase 317 U/L (120-246)
[2024-10-31 16:24] LABS: Pleural fluid source Pleural fluid
[2024-10-31 16:25] LABS: Appearance Pleural Fluid Clear (Clear); Color Pleural Fluid Yellow (Colorless); Neutrophils Pleural Fluid 34 % (0-25); Nucleated Cell Pleural Fluid 167 /uL (0-1000)
[2024-10-31 16:26] LABS: Lymphocytes Pleural Fluid 39 %; Macrophages Pleural Fluid 16 %; Mesothelial Cells Pleural Flui 4 %; Monocytes Pleural Fluid 7 %
[2024-10-31 18:16] LABS: Glucose Point of Care 96 mg/dl (65-105)
[2024-10-31] MEDS: PANTOPRAZOLE 40 MG TABLET PO (20:40)
[2024-10-31] MEDS: ATORVASTATIN 10 MG TABLET PO (20:40)
[2024-11-01] VITALS (11 sets, daily range): BP systolic 97–109; BP diastolic 45–61; PULSE 76–97; RESP 14–16; TEMP 36.4–36.6; O2SAT 91–99
[2024-11-01 00:27] LABS: Glucose Point of Care 91 mg/dl (65-105)
[2024-11-01 05:17] LABS: Basophils Percent Auto 0.1 % (0.2-1.2); Eosinophils Percent Auto 0.4 % (0-4.4); Hematocrit 26.6 % (37.0-47.0); Immature Granulocyte Absolute 0.05 K/mm3 (0.00-0.031); Immature Granulocyte Percent A 0.7 % (0-0.5); Immature Platelet Fraction Pct 11.9 % (0.9-11.2); Lymphocytes Absolute Auto 0.83 K/mm3 (0.9-3.2); Lymphocytes Percent Auto 12.2 % (18.3-44.2); Mean Corpuscular HGB Conc 30.1 g/dl (32-36); Mean Corpuscular Hemoglobin 31.1 pg (26-34); Mean Corpuscular Volume 103.5 fl (80-100); Mean Platelet Volume 13.3 fl (7.4-10.4); Monocytes Absolute Auto 0.6 K/mm3 (0.1-0.6); Monocytes Percent Auto 8.8 % (2.6-8.5); Neutrophils Absolute Auto 5.3 K/mm3 (1.3-6.7); Neutrophils Percent Auto 77.8 % (45.5-73.1); Nucleated Red Blood Cells Perc 0.9 % (0.0-0.2); Platelet Count Result 61 k/mm3 (150-375); Red Blood Count 2.57 M/mm3 (4.2-5.4); Red Cell Distribution Width 21.6 % (11.5-14.5); White Blood Count 6.8 K/mm3 (4.5-10.0)
[2024-11-01 05:36] LABS: Alanine Aminotransferase 17 U/L (6-35); Albumin Level 2.2 g/dL (3.5-5.1); Alkaline Phosphatase 61 U/L (38-126); Anion Gap 8 mmol/L (4-12); Aspartate Amino Transferase 38 U/L (14-36); Bilirubin,Total 1.8 mg/dL (0.2-1.3); Blood Urea Nitrogen 53 mg/dL (7-17); Calcium 7.6 mg/dL (8.4-10.2); Carbon Dioxide 14 mmol/L (22-30); Chloride 118 mmol/L (98-107); Estimated CRCL calculation 16 ml/min; Estimated Glomerular Filt Rate 18; Glucose 74 mg/dL (65-110); Potassium 4.1 mmol/L (3.4-5.0); Sodium 140 mmol/L (137-145)
[2024-11-01 05:39] LABS: Anisocytosis 1+; Burr Cells 1+; Hypochromasia 1+; Platelet Estimate Decreased (Adequate); Schistocytes None Seen
[2024-11-01] MEDS: FERROUS SULFATE 325 MG TABLET DR PO ×2 (06:37→21:08)
--- NOTE | 2024-11-01 08:24 | PM.IMPN ---
Progress Note: A&P Assessment and Plan (1) Weakness: Code(s): R53.1 - Weakness Status: Acute (2) Heme positive stool: Code(s): R19.5 - Other fecal abnormalities Status: Acute (3) Acute exacerbation of CHF (congestive heart failure): Code(s): I50.9 - Heart failure, unspecified Status: Acute Plan This is a 78-year-old female with history of atrial fibrillation, congestive heart failure, chronic kidney disease, occult GI bleeding, anemia, hypertension, and other comorbidities who presented to the emergency department via EMS from [facility] for evaluation of weakness. The patient provides the following history. She has felt increasingly weak over the past 3 days and reports that she has no energy similar to when her hemoglobin was low in the past. She goes on to say that she receives blood transfusions every few weeks and is set to have a transfusion in 2 days time. Weakness: Code(s): R53.1 - Weakness Status: Acute Assessment and Plan: Neche increasingly weak over the past few days and reports that she has no energy similar to when her hemoglobin was low in the past. Per chart review, patient receives blood transfusions every few weeks and has a transfusion in Oct 30. Upon arrival, WBC count is elevated 11.9 K No obvious sign of infection, UA unremarkable, CT abdomen/pelvis: Diffuse anasarca. Detection of active GI hemorrhage is limited without intravenous contrast. Large nonobstructing ventral hernia Large left-sided pleural effusion. Small right-sided pleural effusion. - patient will need PT/OT evals Heme positive stool: Code(s): R19.5 - Other fecal abnormalities Status: Acute Assessment and Plan: Neche increasingly weak over the past few days and reports that she has no energy similar to when her hemoglobin was low in the past. Per chart review, patient receives blood transfusions every few weeks and has a transfusion in Oct 30. Endorses dark stools but is on iron supplementation. Extensive outpatient evaluation for occult GI bleeding including upper and lower endoscopies and capsule endoscopy which she reports did not show any source of bleeding. - H/H 8.5/28.1 on am labs, continue to trend - Heme occult positive - CT abdomen/pelvis: Diffuse anasarca. Detection of active GI hemorrhage is limited without intravenous contrast. Large nonobstructing ventral hernia Large left-sided pleural effusion. Small right-sided pleural effusion. - GI consulted Protonix BID EGD performed on 10/[address] Olguin No esophagitis or varices. Mod erosive gastrictis with erythematous, edematous, erosive, and petechiae changes, No mucosal bleeding. No duodenal ulcers or masses, no signs of recent bleeding. Chronic anemia: Code(s): D64.9 - Anemia, unspecified Status: Inactive Assessment and Plan: Follows heme[facility]onc at [facility], last seen 10/01/24. - H/H 8.0/28.0 on am labs, continue to trend - Iron panel: iron 88, TIBC 203, % sat 43, ferritin 239 - B12 >1000 and folate 7.2 - Heme occult positive - CT abdomen/pelvis: Diffuse anasarca. Detection of active GI hemorrhage is limited without intravenous contrast. Large nonobstructing ventral hernia Appreciate GI consultation Left-sided Pleural effusion: Code(s): J90 - Pleural effusion, not elsewhere classified Status: Acute Assessment and Plan: Left pleural effusion has been present since at least December as seen on CXR 12/29/23 and she seems asymptomatic with that. 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 - Asymptomatic, remains on room air - CT abdomen/pelvis: Large left-sided pleural effusion. Small right-sided pleural effusion. - Echo 08/14/24: LVEF > 70% with severe concentric LV hypertrophy and bilateral dilation Unclear etiology, order thoracentesis of the right chest, cytology, Gram the culture 10/31 Consult focuser for evaluation. Appreciate Dr. Tabor consultation 400 mL yellow fluid were removed yesterday by thoracentesis,, white blood cell 167, suggesting transudative pleural effusion. Possible resulting from diastolic heart failure, liver cirrhosis, CKD Hypoalbuminemia Possible due to malnutrition, chronic liver disease GI is on board, Albumin 50mg once TSH 8.43 f/u free T4 Ventral hernia: Code(s): K43.9 - Ventral hernia without obstruction or gangrene Status: Acute Assessment and Plan: Potentially playing a role in patients early satiety and abdominal discomfort. CT abdomen/pelvis: Large nonobstructing ventral hernia extending to the left of midline containing the majority of patient's large and small bowel. Patient is not a candidate of surgical procedure Hypoglycemia: Code(s): E16.2 - Hypoglycemia, unspecified Status: Acute Assessment and Plan: Patient was noted to have asymptomatic hypoglycemia into the 30s. She was given D5 push and this resolved. Hypoglycemia likely secondary to patient being NPO since admission and had not had anything to eat since Sunday. - Hypoglycemia protocol - Monitor Chronic kidney disease, stage 4 (severe): Code(s): N18.4 - Chronic kidney disease, stage 4 (severe) Status: Acute Assessment and Plan: BUN/Cr 55/2.6 on admission, appears to be around baseline. Last seen nephrology, Dr. Garay on 09/02/24. Etiology of CKD likely DM and HTN. Avoid nephrotoxic medications Renally dose medications Urine creatinine stable Hypertension: Qualifiers: Hypertension type: unspecified Qualified Code(s): I10 - Essential (primary) hypertension Code(s): I10 - Essential (primary) hypertension Status: Inactive Assessment and Plan: Chronic, continue home medication -discontinue metoprolol 100 mg daily Blood pressure low Protein calorie malnutrition: Qualifiers: Protein-calorie malnutrition severity: moderate Qualified Code(s): E44.0 - Moderate protein-calorie malnutrition Code(s): E46 - Unspecified protein-calorie malnutrition Status: Acute Assessment and Plan: Supplements per nutrition recommendations Waiting for placement to snf Subjective Date/time seen: 11/01/24 08:24 Interval history: I saw examined patient today. Patient underwent a thoracentesis yesterday. Patient does not feel any change after thoracentesis. Patient still has general weakness, poor intake, no obvious shortness breath and rest. Patient is afebrile, blood pressure stable.. Labs reviewed, hemoglobin stable, renal function stable Exam Narrative: GENERAL: Ill-appearing, in no acute distress. Well-nourished. - EYES: EOMI. Anicteric. - HENT: Moist mucous membranes. - LUNGS: Left side dullness by precaution, no wheezing, rhonchi, or rales. - CARDIOVASCULAR: Regular rate and rhythm. No murmur. No JVD. - ABDOMEN: Soft, non-tender and non-distended. No palpable masses. Ventral hernia - EXTREMITIES: No edema. Peripheral pulses 2+. Non-tender. - NEUROLOGIC: No focal neurological deficits. CN II-XII grossly intact. General weakness - PSYCHIATRIC: Awake, Alert and oriented x 3. Appropriate mood and affect. - SKIN: No rashes or lesions. Warm. - LYMPH: No cervical lymphadenopathy. Objective Data Vital Signs Vital Signs: Vital Signs - 24 hr 10/31/24 09:20 10/31/24 09:30 10/31/24 12:00 Temperature Pulse Rate 72 79 Respiratory Rate 12 Blood Pressure 88/44 L Pulse Oximetry 94 Oxygen Delivery Room Air 10/31/24 13:29 10/31/24 14:31 10/31/24 16:00 Temperature 97.7 F Pulse Rate 72 100 Respiratory Rate 12 Blood Pressure 109/63 106/47 L Pulse Oximetry 97 Oxygen Delivery 10/31/24 20:00 10/31/24 20:53 11/01/24 00:00 Temperature 97.1 F L Pulse Rate 84 71 84 Respiratory Rate 16 Blood Pressure 146/87 H Pulse Oximetry 96 Oxygen Delivery 11/01/24 00:15 11/01/24 04:00 11/01/24 06:39 Temperature 97.5 F L Pulse Rate 76 97 Respiratory Rate 14 Blood Pressure 107/45 L 109/60 Pulse Oximetry 99 97 Oxygen Delivery 11/01/24 07:22 Temperature Pulse Rate Respiratory Rate Blood Pressure Pulse Oximetry 91 Oxygen Delivery Room Air Intake/Output Intake/Output: Intake & Output 10/29/24 10/30/24 10/31/24 11/01/24 23:59 23:59 23:59 23:59 Intake Total 760.0 410 630 550 Output Total 200 301 450 Balance 560.0 109 180 550 Meds/Results Medications: Active Medications Generic Name Dose Route Start Last Admin Trade Name Freq PRN Reason Stop Dose Admin Acetaminophen 650 mg 10/28/24 17:41 10/30/24 22:35 Acetaminophen 325 Mg Tablet PO 650 mg Q4H PRN Administration Mild Pain (1-3) or Fever Atorvastatin Calcium 10 mg 10/29/24 21:00 10/31/24 20:40 Atorvastatin 10 Mg Tablet PO 10 mg QHS SHAKA Administration Calcitriol 0.25 mcg 10/28/24 21:55 Calcitriol 0.25 Mcg Capsule PO MoWeFr PRN AFTER DIALYSIS Cyanocobalamin 5,000 mcg 10/29/24 09:00 10/31/24 10:00 Cyanocobalamin 1,000 Mcg Tablet PO Not Given MoWeFr SHAKA Dextrose 12.5 gm 10/29/24 10:22 10/29/24 10:31 Dextrose 50% 25 Gm/50 Ml Syringe IV PUSH 12.5 gm PRN PRN Administration Hypoglycemia Protocol Ferrous Sulfate 325 mg 10/29/24 21:00 11/01/24 06:37 Ferrous Sulfate [address] PO 325 mg BID@0600,2100 SHAKA Administration Glucagon 1 mg 10/29/24 10:22 Glucagon For Inj 1 Mg Vial IM PRN PRN Hypoglycemia Protocol Glucose 15 gm 10/29/24 10:22 Glucose Oral Gel 15 Gm Of Glucse In 37.5 Gm Tube PO PRN PRN Hypoglycemia Protocol Dextrose 1,000 mls @ 100 mls/hr 10/29/24 10:22 Dextrose 5% 1,000 Ml IVPB PRN PRN Hypoglycemia Protocol Lactobacillus Acidophilus 1 tablet 10/29/24 09:00 10/31/24 09:59 Acidophilus/Bulgaricus Chewable Tablet BY MOUTH Not Given DAILY [facility] Loratadine 10 mg 10/28/24 21:56 Loratadine 10 Mg Tablet PO DAILY PRN SEASONAL ALLERGIES Metoprolol Succinate 100 mg 10/29/24 09:00 10/31/24 10:00 Metoprolol Succinate Ext Rel 100 Mg Tabcr PO Not Given QAM [facility] Ondansetron HCl 4 mg 10/28/24 17:41 10/31/24 20:03 Ondansetron Inj 4 Mg/2 Ml Vial IV PUSH 4 mg Q4H PRN Administration Nausea Pantoprazole Sodium 40 mg 10/29/24 21:00 10/31/24 20:40 Pantoprazole 40 Mg Tablet PO 40 mg Q12HR SHAKA Administration Potassium Chloride 20 meq 10/29/24 09:00 10/31/24 10:00 Potassium Chloride 20 Meq Er Tablet PO Not Given DAILY [facility] Sodium Bicarbonate 650 mg 10/29/24 09:00 10/31/24 17:35 Sodium Bicarbonate Tab 650 Mg Tablet PO Not Given BID [facility] Vitamin D 2,000 units 10/29/24 09:00 10/31/24 10:00 Cholecalciferol 1,000 Units Tablet PO Not Given DAILY [facility] Radiology Results: ITS Impressions Abdomen/Pelvis CT 10/28/24 16:58 IMPRESSION: Diffuse anasarca. Detection of active GI hemorrhage is limited without intravenous contrast. Large nonobstructing ventral hernia Large left-sided pleural effusion. Small right-sided pleural effusion. Chest X-Ray 10/31/24 14:28 IMPRESSION: No pneumothorax following left-sided thoracentesis, as detailed above. Thoracentesis Ultrasound 10/31/24 14:31 IMPRESSION: 1. Successful ultrasound-guided thoracentesis yielding 450 mL of yellow fluid. Labs Labs: Laboratory Results - last 24 hr 10/31/24 10/31/24 10/31/24 05:21 12:17 14:20 WBC RBC Hgb Hct MCV MCH MCHC RDW Plt Count MPV Immature Gran % (Auto) Neut % (Auto) Lymph % (Auto) [place] % (Auto) Eos % (Auto) Baso % (Auto) Lymph # (Auto) [place] # (Auto) Eos # (Auto) Baso # (Auto) Abs Immat Gran (auto) Absolute Neuts (auto) Absolute Nucleated RBC Nucleated RBC % Platelet Estimate % Immature Plt Fraction Hypochromasia Anisocytosis [place] Cells Schistocytes Sodium Potassium Chloride Carbon Dioxide Anion Gap BUN Creatinine Estim Creat Clear Calc Estimated GFR Glucose POC Capillary Glucose 69 Calcium Total Bilirubin AST ALT Alkaline Phosphatase Lactate Dehydrogenase 317 H Total Protein Albumin Pleural Fluid Source Pleural fluid Pleural Color Yellow Pleural Appearance Clear Pleural RBC 0 Pleural Nuc Cells 167 Pleural Neutrophils 34 H Pleural Lymphocytes 39 Pleural Monocytes 7 Pleural Macrophages 16 Pleural Mesothelial 4 10/31/24 10/31/24 11/01/24 15:12 18:12 00:20 WBC RBC Hgb Hct MCV MCH MCHC RDW Plt Count MPV Immature Gran % (Auto) Neut % (Auto) Lymph % (Auto) [place] % (Auto) Eos % (Auto) Baso % (Auto) Lymph # (Auto) [place] # (Auto) Eos # (Auto) Baso # (Auto) Abs Immat Gran (auto) Absolute Neuts (auto) Absolute Nucleated RBC Nucleated RBC % Platelet Estimate % Immature Plt Fraction Hypochromasia Anisocytosis [place] Cells Schistocytes Sodium Potassium Chloride Carbon Dioxide Anion Gap BUN Creatinine Estim Creat Clear Calc Estimated GFR Glucose Cancelled POC Capillary Glucose 96 91 Calcium Total Bilirubin AST ALT Alkaline Phosphatase Lactate Dehydrogenase Total Protein Cancelled Albumin Pleural Fluid Source Pleural Color Pleural Appearance Pleural RBC Pleural Nuc Cells Pleural Neutrophils Pleural Lymphocytes Pleural Monocytes Pleural Macrophages Pleural Mesothelial 11/01/24 04:24 WBC 6.8 RBC 2.57 L Hgb 8.0 L Hct 26.6 L MCV 103.5 H MCH 31.1 MCHC 30.1 L RDW 21.6 H Plt Count 61 L MPV 13.3 H Immature Gran % (Auto) 0.7 H Neut % (Auto) 77.8 H Lymph % (Auto) 12.2 L [place] % (Auto) 8.8 H Eos % (Auto) 0.4 Baso % (Auto) 0.1 L Lymph # (Auto) 0.83 L [place] # (Auto) 0.6 Eos # (Auto) 0.0 Baso # (Auto) 0.0 Abs Immat Gran (auto) 0.05 H Absolute Neuts (auto) 5.3 Absolute Nucleated RBC 0.060 H Nucleated RBC % 0.9 H Platelet Estimate Decreased % Immature Plt Fraction 11.9 H Hypochromasia 1+ Anisocytosis 1+ [place] Cells 1+ Schistocytes None seen Sodium 140 Potassium 4.1 Chloride 118 H Carbon Dioxide 14 L Anion Gap 8 BUN 53 H Creatinine 2.60 H Estim Creat Clear Calc 16 Estimated GFR 18 L Glucose 74 POC Capillary Glucose Calcium 7.6 L Total Bilirubin 1.8 H AST 38 H ALT 17 Alkaline Phosphatase 61 Lactate Dehydrogenase Total Protein 4.0 L Albumin 2.2 L Pleural Fluid Source Pleural Color Pleural Appearance Pleural RBC Pleural Nuc Cells Pleural Neutrophils Pleural Lymphocytes Pleural Monocytes Pleural Macrophages Pleural Mesothelial
[2024-11-01] MEDS: ONDANSETRON INJ 4 MG/2 ML VIAL IV PUSH (08:52)
[2024-11-01 09:25] LABS: Free T4 Free Thyroxine 1.22 ng/dL (0.78-2.19)
[2024-11-01] MEDS: ACIDOPHILUS/BULGARICUS CHEWABLE TABLET 1 TABLET BY MOUTH (09:57)
[2024-11-01] MEDS: ALBUMIN HUMAN 25% 25 GM/100 ML 200 ML IVPB (09:57)
[2024-11-01] MEDS: CHOLECALCIFEROL 1,000 UNITS TABLET 2000 UNITS PO (09:57)
[2024-11-01] MEDS: POTASSIUM CHLORIDE 20 MEQ ER TABLET PO (09:58)
[2024-11-01] MEDS: SODIUM BICARBONATE TAB 650 MG TABLET PO ×2 (09:58→16:55)
[2024-11-01] MEDS: PANTOPRAZOLE 40 MG TABLET PO ×2 (10:03→21:08)
[2024-11-01 11:47] LABS: Glucose Point of Care 76 mg/dl (65-105)
--- NOTE | 2024-11-01 13:43 | PCPTNOTE ---
1335 Patient asleep, does not wake up with with calling of name or gently shaking shoulder. Physical therapy will attempt to see again as time allows.
[2024-11-01 18:04] LABS: Glucose Point of Care 91 mg/dl (65-105)
[2024-11-01] MEDS: ACETAMINOPHEN 325 MG TABLET 650 MG PO (18:44)
[2024-11-01] MEDS: ATORVASTATIN 10 MG TABLET PO (21:07)
[2024-11-01 23:45] LABS: Glucose Point of Care 75 mg/dl (65-105)
[2024-11-02] VITALS (13 sets, daily range): BP systolic 112–122; BP diastolic 62–84; PULSE 65–142; RESP 16–17; TEMP 36.2–36.7; O2SAT 91–94
[2024-11-02 05:06] LABS: Basophils Percent Auto 0.1 % (0.2-1.2); Eosinophils Percent Auto 0.4 % (0-4.4); Hematocrit 24.6 % (37.0-47.0); Hemoglobin 7.5 g/dL (12.0-15.0); Immature Granulocyte Absolute 0.06 K/mm3 (0.00-0.031); Immature Granulocyte Percent A 0.7 % (0-0.5); Immature Platelet Fraction Pct 12.8 % (0.9-11.2); Lymphocytes Absolute Auto 0.95 K/mm3 (0.9-3.2); Lymphocytes Percent Auto 11.7 % (18.3-44.2); Mean Corpuscular HGB Conc 30.5 g/dl (32-36); Mean Corpuscular Hemoglobin 32.1 pg (26-34); Mean Corpuscular Volume 105.1 fl (80-100); Mean Platelet Volume 13.5 fl (7.4-10.4); Monocytes Absolute Auto 0.6 K/mm3 (0.1-0.6); Monocytes Percent Auto 7.8 % (2.6-8.5); Neutrophils Absolute Auto 6.4 K/mm3 (1.3-6.7); Neutrophils Percent Auto 79.3 % (45.5-73.1); Nucleated Red Blood Cells Perc 0.7 % (0.0-0.2); Platelet Count Result 61 k/mm3 (150-375); Red Blood Count 2.34 M/mm3 (4.2-5.4); Red Cell Distribution Width 21.9 % (11.5-14.5); White Blood Count 8.1 K/mm3 (4.5-10.0)
[2024-11-02 05:15] LABS: Alanine Aminotransferase 16 U/L (6-35); Albumin Level 2.8 g/dL (3.5-5.1); Alkaline Phosphatase 63 U/L (38-126); Anion Gap 10 mmol/L (4-12); Aspartate Amino Transferase 35 U/L (14-36); Bilirubin,Total 2.2 mg/dL (0.2-1.3); Blood Urea Nitrogen 52 mg/dL (7-17); Calcium 7.7 mg/dL (8.4-10.2); Carbon Dioxide 12 mmol/L (22-30); Chloride 118 mmol/L (98-107); Estimated CRCL calculation 15 ml/min; Estimated Glomerular Filt Rate 17; Glucose 70 mg/dL (65-110); Potassium 4.4 mmol/L (3.4-5.0); Sodium 140 mmol/L (137-145)
[2024-11-02] MEDS: FERROUS SULFATE 325 MG TABLET DR PO ×2 (05:54→21:25)
[2024-11-02 06:45] LABS: Glucose Point of Care 67 mg/dl (65-105)
[2024-11-02] MEDS: DEXTROSE 50% 25 GM/50 ML SYRINGE IV PUSH (07:01)
[2024-11-02 07:39] LABS: Glucose Point of Care 106 mg/dl (65-105)
[2024-11-02] MEDS: PANTOPRAZOLE 40 MG TABLET PO ×2 (09:44→21:25)
[2024-11-02] MEDS: ACIDOPHILUS/BULGARICUS CHEWABLE TABLET 1 TABLET BY MOUTH (09:44)
[2024-11-02] MEDS: POTASSIUM CHLORIDE 20 MEQ ER TABLET PO (09:44)
[2024-11-02] MEDS: SODIUM BICARBONATE TAB 650 MG TABLET PO ×2 (09:44→17:44)
[2024-11-02] MEDS: CHOLECALCIFEROL 1,000 UNITS TABLET 2000 UNITS PO (09:45)
--- NOTE | 2024-11-02 11:14 | PM.IMPN ---
Progress Note: A&P Assessment and Plan (1) Weakness: Code(s): R53.1 - Weakness Status: Acute (2) Heme positive stool: Code(s): R19.5 - Other fecal abnormalities Status: Acute (3) Acute exacerbation of CHF (congestive heart failure): Code(s): I50.9 - Heart failure, unspecified Status: Acute Plan Weakness: Code(s): R53.1 - Weakness Status: Acute Assessment and Plan: Emery increasingly weak over the past few days and reports that she has no energy similar to when her hemoglobin was low in the past. Per chart review, patient receives blood transfusions every few weeks and has a transfusion in Oct 30. Upon arrival, WBC count is elevated 11.9 K No obvious sign of infection, UA unremarkable, CT abdomen/pelvis: Diffuse anasarca. Detection of active GI hemorrhage is limited without intravenous contrast. Large nonobstructing ventral hernia Large left-sided pleural effusion. Small right-sided pleural effusion. - sp thoracentesis pulmology on board likely secondary to chf excerbation - continue to diuresis in hospital - order echo and cardiology consult Heme positive stool: Code(s): R19.5 - Other fecal abnormalities Status: Acute Assessment and Plan: Emery increasingly weak over the past few days and reports that she has no energy similar to when her hemoglobin was low in the past. Per chart review, patient receives blood transfusions every few weeks and has a transfusion in Oct 30. Endorses dark stools but is on iron supplementation. Extensive outpatient evaluation for occult GI bleeding including upper and lower endoscopies and capsule endoscopy which she reports did not show any source of bleeding. - H/H 8.5/28.1 on am labs, continue to trend - Heme occult positive - CT abdomen/pelvis: Diffuse anasarca. Detection of active GI hemorrhage is limited without intravenous contrast. Large nonobstructing ventral hernia Large left-sided pleural effusion. Small right-sided pleural effusion. - GI consulted Protonix BID EGD performed on 10/[address] Olguin No esophagitis or varices. Mod erosive gastrictis with erythematous, edematous, erosive, and petechiae changes, No mucosal bleeding. No duodenal ulcers or masses, no signs of recent bleeding. fobt is positive again hold blood thinners consult GI watch hb in hospital if drops below transuse blood can give venofer today as hb is 7.5 Chronic anemia: Code(s): D64.9 - Anemia, unspecified Status: Inactive Assessment and Plan: Follows heme/onc at [facility], last seen 10/01/24. - H/H 8.0/28.0 on am labs, continue to trend - Iron panel: iron 88, TIBC 203, % sat 43, ferritin 239 - B12 >1000 and folate 7.2 - Heme occult positive - CT abdomen/pelvis: Diffuse anasarca. Detection of active GI hemorrhage is limited without intravenous contrast. Large nonobstructing ventral hernia Appreciate GI consultation Left-sided Pleural effusion: Code(s): J90 - Pleural effusion, not elsewhere classified Status: Acute Assessment and Plan: Left pleural effusion has been present since at least December as seen on CXR 12/29/23 and she seems asymptomatic with that. 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 - Asymptomatic, remains on room air - CT abdomen/pelvis: Large left-sided pleural effusion. Small right-sided pleural effusion. - Echo 08/14/24: LVEF > 70% with severe concentric LV hypertrophy and bilateral dilation Unclear etiology, order thoracentesis of the right chest, cytology, Gram the culture 10/31 Consult drum sander setter for evaluation. Appreciate Dr. Tabor consultation 400 mL yellow fluid were removed yesterday by thoracentesis,, white blood cell 167, suggesting transudative pleural effusion. Possible resulting from diastolic heart failure, liver cirrhosis, CKD Hypoalbuminemia Possible due to malnutrition, chronic liver disease GI is on board, Albumin 50mg once TSH 8.43 f/u free T4 Ventral hernia: Code(s): K43.9 - Ventral hernia without obstruction or gangrene Status: Acute Assessment and Plan: Potentially playing a role in patients early satiety and abdominal discomfort. CT abdomen/pelvis: Large nonobstructing ventral hernia extending to the left of midline containing the majority of patient's large and small bowel. Patient is not a candidate of surgical procedure Order KUB today to rule out ileus pt is not eating much has history of ventral hernia Hypoglycemia: Code(s): E16.2 - Hypoglycemia, unspecified Status: Acute Assessment and Plan: Patient was noted to have asymptomatic hypoglycemia into the 30s. She was given D5 push and this resolved. Hypoglycemia likely secondary to patient being NPO since admission and had not had anything to eat since Sunday. Accuchecks, SSI Chronic kidney disease, stage 4 (severe): Code(s): N18.4 - Chronic kidney disease, stage 4 (severe) Status: Acute Assessment and Plan: BUN/Cr 55/2.6 on admission, appears to be around baseline. Last seen nephrology, Dr. Garay on 09/02/24. Etiology of CKD likely DM and HTN. Avoid nephrotoxic medications watch BMP and uo Hypertension: Qualifiers: Hypertension type: unspecified Qualified Code(s): I10 - Essential (primary) hypertension Code(s): I10 - Essential (primary) hypertension Status: Inactive Assessment and Plan: Chronic, continue home medication Blood pressure low hold metoprolol Protein calorie malnutrition: Qualifiers: Protein-calorie malnutrition severity: moderate Qualified Code(s): E44.0 - Moderate protein-calorie malnutrition Code(s): E46 - Unspecified protein-calorie malnutrition Status: Acute Assessment and Plan: Supplements per nutrition recommendations Subjective Date/time seen: 11/02/24 11:14 Interval history: This is a 78-year-old female with history of atrial fibrillation, congestive heart failure, chronic kidney disease, occult GI bleeding, anemia, hypertension, and other comorbidities who presented to the emergency department via EMS from [facility] for evaluation of weakness. The patient provides the following history. She has felt increasingly weak over the past 3 days and reports that she has no energy similar to when her hemoglobin was low in the past. This time pt is admitted for weakness, sob, pleural effusion and loss of appetite. Patient underwent a thoracentesis earlier in admission. Pt seen by pulmonology as per MD pleural effusion likely secondary to CHF exacerbation I will order echo an cardiology consult, pt also known to have AVM OAC was stopped due rectal bleeding , Here fobt is positive again will consult GI MD pt and daughter states she had a recent GI scope in oct here. She goes on to say that she receives blood transfusions every few weeks and is set to have a transfusion in 2 days time. Pt had ct ando here showing - Diffuse anasarca. Detection of active GI hemorrhage is limited without intravenous contrast. Large nonobstructing ventral hernia Large left-sided pleural effusion. Small right-sided pleural effusion. Pt from [facility] can return there once medically better Review of Systems Review of Systems: Weakness loss of appetite edematous and swollen Exam Narrative: GENERAL: chronically ill appearing swollen arms and legs - LUNGS: Left side dullness sp thoracentesis, no wheezing, rhonchi, or rales. - CARDIOVASCULAR: Regular rate and rhythm. No murmur. No JVD. - ABDOMEN: Soft, non-tender and non-distended. No palpable masses. Ventral hernia - EXTREMITIES: No edema. Peripheral pulses 2+. Non-tender. - NEUROLOGIC: No focal neurological deficits. CN II-XII grossly intact. General weakness - PSYCHIATRIC: Awake, Alert and oriented x 3. Appropriate mood and affect. - SKIN: No rashes or lesions. Warm. - LYMPH: No cervical lymphadenopathy. Objective Data Vital Signs Vital Signs: Vital Signs - 24 hr 11/01/24 12:00 11/01/24 14:00 11/01/24 16:00 Temperature 36.6 C Pulse Rate 86 82 97 Respiratory Rate 14 Blood Pressure 97/55 L Pulse Oximetry 92 Oxygen Delivery 11/01/24 20:00 11/01/24 20:00 11/01/24 20:01 Temperature 36.4 C Pulse Rate 85 85 91 Respiratory Rate 16 Blood Pressure 100/61 Pulse Oximetry 94 92 Oxygen Delivery Room Air 11/02/24 00:00 11/02/24 04:00 11/02/24 05:56 Temperature 36.7 C Pulse Rate 89 122 H 65 Respiratory Rate 16 Blood Pressure 112/75 Pulse Oximetry 91 Oxygen Delivery 11/02/24 09:44 Temperature Pulse Rate Respiratory Rate Blood Pressure Pulse Oximetry Oxygen Delivery Room Air Intake/Output Intake/Output: Intake & Output 10/30/24 10/31/24 11/01/24 11/02/24 23:59 23:59 23:59 23:59 Intake Total 336 186 7316 450 Output Total 301 450 Balance 928 939 1065 450 Meds/Results Medications: Active Medications Generic Name Dose Route Start Last Admin Trade Name Freq PRN Reason Stop Dose Admin Acetaminophen 650 mg 10/28/24 17:41 11/01/24 18:44 Acetaminophen 325 Mg Tablet PO 650 mg Q4H PRN Administration Mild Pain (1-3) or Fever Atorvastatin Calcium 10 mg 10/29/24 21:00 11/01/24 21:07 Atorvastatin 10 Mg Tablet PO 10 mg QHS SHAKA Administration Calcitriol 0.25 mcg 10/28/24 21:55 Calcitriol 0.25 Mcg Capsule PO MoWeFr PRN AFTER DIALYSIS Cyanocobalamin 5,000 mcg 10/29/24 09:00 10/31/24 10:00 Cyanocobalamin 1,000 Mcg Tablet PO Not Given MoWeFr [facility] Dextrose 12.5 gm 10/29/24 10:22 11/02/24 07:01 Dextrose 50% 25 Gm/50 Ml Syringe IV PUSH 12.5 gm PRN PRN Administration Hypoglycemia Protocol Ferrous Sulfate 325 mg 10/29/24 21:00 11/02/24 05:54 Ferrous Sulfate [address] PO 325 mg BID@0600,2100 SHAKA Administration Glucagon 1 mg 10/29/24 10:22 Glucagon For Inj 1 Mg Vial IM PRN PRN Hypoglycemia Protocol Glucose 15 gm 10/29/24 10:22 Glucose Oral Gel 15 Gm Of Glucse In 37.5 Gm Tube PO PRN PRN Hypoglycemia Protocol Dextrose 1,000 mls @ 100 mls/hr 10/29/24 10:22 Dextrose 5% 1,000 Ml IVPB PRN PRN Hypoglycemia Protocol Lactobacillus Acidophilus 1 tablet 10/29/24 09:00 11/02/24 09:44 Acidophilus/Bulgaricus Chewable Tablet BY MOUTH 1 tablet DAILY SHAKA Administration Loratadine 10 mg 10/28/24 21:56 Loratadine 10 Mg Tablet PO DAILY PRN SEASONAL ALLERGIES Ondansetron HCl 4 mg 10/28/24 17:41 11/01/24 08:52 Ondansetron Inj 4 Mg/2 Ml Vial IV PUSH 4 mg Q4H PRN Administration Nausea Pantoprazole Sodium 40 mg 10/29/24 21:00 11/02/24 09:44 Pantoprazole 40 Mg Tablet PO 40 mg Q12HR SHAKA Administration Potassium Chloride 20 meq 10/29/24 09:00 11/02/24 09:44 Potassium Chloride 20 Meq Er Tablet PO 20 meq DAILY SHAKA Administration Sodium Bicarbonate 650 mg 10/29/24 09:00 11/02/24 09:44 Sodium Bicarbonate Tab 650 Mg Tablet PO 650 mg BID SHAKA Administration Vitamin D 2,000 units 10/29/24 09:00 11/02/24 09:45 Cholecalciferol 1,000 Units Tablet PO 2,000 units DAILY SHAKA Administration Radiology Results: ITS Impressions Abdomen/Pelvis CT 10/28/24 16:58 IMPRESSION: Diffuse anasarca. Detection of active GI hemorrhage is limited without intravenous contrast. Large nonobstructing ventral hernia Large left-sided pleural effusion. Small right-sided pleural effusion. Chest X-Ray 10/31/24 14:28 IMPRESSION: No pneumothorax following left-sided thoracentesis, as detailed above. Thoracentesis Ultrasound 10/31/24 14:31 IMPRESSION: 1. Successful ultrasound-guided thoracentesis yielding 450 mL of yellow fluid. Labs Labs: Laboratory Results - last 24 hr 11/01/24 11/01/24 11/01/24 11:45 18:00 23:41 WBC RBC Hgb Hct MCV MCH MCHC RDW Plt Count MPV Immature Gran % (Auto) Neut % (Auto) Lymph % (Auto) Lynn % (Auto) Eos % (Auto) Baso % (Auto) Lymph # (Auto) Lynn # (Auto) Eos # (Auto) Baso # (Auto) Abs Immat Gran (auto) Absolute Neuts (auto) Absolute Nucleated RBC Nucleated RBC % % Immature Plt Fraction Sodium Potassium Chloride Carbon Dioxide Anion Gap BUN Creatinine Estim Creat Clear Calc Estimated GFR Glucose POC Capillary Glucose 76 91 75 Calcium Total Bilirubin AST ALT Alkaline Phosphatase Total Protein Albumin 11/02/24 11/02/24 11/02/24 04:32 06:03 07:34 WBC 8.1 RBC 2.34 L Hgb 7.5 L Hct 24.6 L MCV 105.1 H MCH 32.1 MCHC 30.5 L RDW 21.9 H Plt Count 61 L MPV 13.5 H Immature Gran % (Auto) 0.7 H Neut % (Auto) 79.3 H Lymph % (Auto) 11.7 L Lynn % (Auto) 7.8 Eos % (Auto) 0.4 Baso % (Auto) 0.1 L Lymph # (Auto) 0.95 Lynn # (Auto) 0.6 Eos # (Auto) 0.0 Baso # (Auto) 0.0 Abs Immat Gran (auto) 0.06 H Absolute Neuts (auto) 6.4 Absolute Nucleated RBC 0.060 H Nucleated RBC % 0.7 H % Immature Plt Fraction 12.8 H Sodium 140 Potassium 4.4 Chloride 118 H Carbon Dioxide 12 L Anion Gap 10 BUN 52 H Creatinine 2.70 H Estim Creat Clear Calc 15 Estimated GFR 17 L Glucose 70 POC Capillary Glucose 67 106 H Calcium 7.7 L Total Bilirubin 2.2 H AST 35 ALT 16 Alkaline Phosphatase 63 Total Protein 5.0 L Albumin 2.8 L
[2024-11-02 11:59] LABS: Glucose Point of Care 80 mg/dl (65-105)
[2024-11-02] MEDS: METOPROLOL SUCCINATE EXT REL 100 MG TABCR PO (12:51)
[2024-11-02] MEDS: METOPROLOL TARTRATE INJ 5 MG/5 ML VIAL 2.5 MG IV PUSH (15:33)
[2024-11-02] MEDS: FUROSEMIDE 20 MG TABLET PO (17:44)
[2024-11-02 18:28] LABS: Glucose Point of Care 97 mg/dl (65-105)
--- NOTE | 2024-11-02 19:06 | P.PNPL_ITS ---
Progress Note: A&P Assessment and Plan (1) Pleural effusion: Code(s): J90 - Pleural effusion, not elsewhere classified Status: Acute Assessment and Plan: She had more than 400 ml of yellow fluid removed by thoracentesis from left pleural space 10/31, with a low wbc 167 and non-specific differential. The additional labs are pending. No pH to review. Fluid color is yellow, and the low number WBC is a benign finding. This does not appear to represent a pleural space infection. This appears to be a transudative pleural effusion. She tells me she is not short of breath, has not had any acute changes in her breathing, and definitely nothing that seemed to be pneumonia. She has no history of lung infections. It is possible that this is cardiac related with her atrial fib which is new in August, not on AC due to GI blood losses. She has a large heart, has had a transcutaneous aortic valve replacement a year ago, echo shows hyperdynamic LV and biatrial enlargement. Differential diagnosis of a transudative effusion includes 3 common conditions including CHF, cirrhosis and nephrosis, and some less common conditions, cancer, pneumonia and PE. The cytology is pending on the pleural fluid. She is not clinically had pneumonia, she has normal white count and no fever. She does not have any oxygen requirement and did not have any pleuritic chest discomfort so I think that is unlikely she had a pulmonary embolus leading to the pleural effusion. She may have diastolic dysfunction with acute worsening. CHF is a diagnosis in her list, although she says she has not been told that she has this. She is closely followed by her hybrid tester, her blood pressure is controlled and her atrial fib rate is controlled. She is not on anticoagulation due to her chronic anemia and problems with GI bleeding. She does not have cirrhosis clinically, she does not have nephrosis. I believe this transudative left pleural effusion may be due to diastolic dysfunction. Her TSH was 8.43, elevated, Oct 28. This suggests that hypothyroidism may be a factor as this can cause transudative pleural effusion. Echo and cardiology evaluation pending. Subjective Date/time seen: 11/02/24 19:06 Interval history: 11/02/24; She had an abdominal x-ray today showing Multiple loops of gas-filled but not frankly dilated small bowel likely within the large left-sided ventral hernia similar as seen on prior CT. Opacities at the left lower lung zone consistent with persistent small left pleural effusion and associated atelectasis or pneumonia. She has a tremendous ventral hernia which I did not appreciate until I saw her in bed leaning to the left, with the abdomen taking up a large amount of real estate. She is on room air with saturation is 91-93%, she does not have a cough, she denies shortness of breath. She has no fever. 10/31/24 new consult; Shannan Seals is a 78 year old female admitted by ambulance from [facility] Oct 26 due to progressive weakness for 3 days, black stools and she takes oral iron. She felt like her anemia was worse. 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 She is managed by Dr Schaffer, gets Procrit every few weeks if hemoglobin is < 10 g/dL. She had GI bleeding with angiodysplasia cauterized Jun 2024. Her H/H on admission was 8.3/27%, no transfusion this admission. She has a moderate sized left pleural effusion. Today Oct 31 she had a thoracentesis with 400 + ml yellow fluid removed, WBC on the pleural fluid was 167, normal is < 1000. Differential showed 34% neutrophils, 39% lymphocytes, normal. Gram stain showed WBC however no microorganisms. There is no pH; the chemistries are pending, and micro is pending. She has a history of a bloody pericardial effusion that was tapped 03/06/2019. Dr. Garay's nephrology note shows that she had a positive KIM 1:80, negative double-stranded DNA. I do not see any additional collagen vascular studies. 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 She does not have known lung disease. She says taht she did not have any pneumonia symptoms prior to this admission, no cough, sputum, wheezing, sinus congestion, diarrhea, and hse had no sick contacts. Swabs for viral pathogens were negative, influenza A/B, RSV and SARS-CoV2. PMH : atrial fibrillation diagnosed after she had TAVR October 2023 for severe aortic stenosis; Chart indicates CHF, patient does not tell me she has this. CKD stage IV, MGUS and anemia requiring transfusions and Procrit, DM, HTN. DATA * 10/31/24 WBC 8.4, hemoglobin 8.4, hematocrit 29.3%, platelets 16498 differential shows 78% neutrophils. Sodium 137, potassium 4.7, chloride 120, HC03 is 11, BUN 54, creatinine 2.6. * 10/31/24; CXR FINDINGS Decreased left-sided pleural effusion when compared with previous examination. The left lung is fully inflated. The right hemithorax is clear. Prosthetic valve in the aortic position. Calcifications of the mitral annulus. The cardiomediastinal silhouette is enlarged, unchanged. IMPRESSION: No pneumothorax following left-sided thoracentesis, as detailed above. * 11/08/23 PET Scan: No evidence of malignancy. 2. Small pleural effusions. 3. Chronic large pericardial effusion. 4. Large ventral hernia containing small bowel and large bowel and small volume of ascites. * 10/29/24 UA: pH 5.5, 1+ protein, non hemolyzed sample, 3-5 RBCs, trace leukocyte Esterace, * 04/09/24; bone marrow biopsy - * 07/25/2021 KIM (+), 1:80, negative double-stranded DNA, ESR 14, C3-1 35, C4 25, CH 50 greater than 6 Review of Systems Review of Systems: All systems reviewed & are unremarkable except as noted in HPI and below Exam Narrative: GEN: Alert, oriented, not in distress. Pleasant, good historian. She is on room air, saturation is 93%. HEENT: pupils are equal, EOMI, symmetrical face; oral membranes moist, no redness or exudate NECK: Trachea is midline CHEST: Equal air entry, symmetric excursion, decreased breath sounds in left base, right side is clear CV: irregular S1S2 no m/g/r ABD : (+) bowel sounds, large ventral hernia Extremities : no clubbing, cyanosis, or edema. She has cool extremities. Fingers and toes have small scattered dried ulcers with mottling of toes. PSYCH: normal thought and speech, gait is not tested. Objective Data Vital Signs Vital Signs: Vital Signs - 24 hr 11/01/24 20:00 11/01/24 20:00 11/01/24 20:01 Temperature 36.4 C Pulse Rate 85 85 91 Respiratory Rate 16 Blood Pressure 100/61 Pulse Oximetry 94 92 Oxygen Delivery Room Air 11/02/24 00:00 11/02/24 04:00 11/02/24 05:56 Temperature 36.7 C Pulse Rate 89 122 H 65 Respiratory Rate 16 Blood Pressure 112/75 Pulse Oximetry 91 Oxygen Delivery 11/02/24 09:44 11/02/24 09:45 11/02/24 09:45 Temperature Pulse Rate 125 H 125 H Respiratory Rate Blood Pressure Pulse Oximetry Oxygen Delivery Room Air Room Air 11/02/24 12:00 11/02/24 12:51 11/02/24 14:00 Temperature 36.2 C L Pulse Rate 142 H 104 H 80 Respiratory Rate 16 Blood Pressure 115/65 Pulse Oximetry 92 Oxygen Delivery 11/02/24 15:33 11/02/24 16:00 Temperature Pulse Rate 125 H 88 Respiratory Rate Blood Pressure Pulse Oximetry Oxygen Delivery Intake/Output Intake/Output: Intake & Output 10/30/24 10/31/24 11/01/24 11/02/24 23:59 23:59 23:59 23:59 Intake Total 143 927 4723 450 Output Total 301 450 Balance 377 738 9472 450 Meds/Results Medications: Active Medications Generic Name Dose Route Start Last Admin Trade Name Freq PRN Reason Stop Dose Admin Acetaminophen 650 mg 10/28/24 17:41 11/01/24 18:44 Acetaminophen 325 Mg Tablet PO 650 mg Q4H PRN Administration Mild Pain (1-3) or Fever Atorvastatin Calcium 10 mg 10/29/24 21:00 11/01/24 21:07 Atorvastatin 10 Mg Tablet PO 10 mg QHS SHAKA Administration Calcitriol 0.25 mcg 10/28/24 21:55 Calcitriol 0.25 Mcg Capsule PO MoWeFr PRN AFTER DIALYSIS Cyanocobalamin 5,000 mcg 10/29/24 09:00 10/31/24 10:00 Cyanocobalamin 1,000 Mcg Tablet PO Not Given MoWeFr SHAKA Dextrose 12.5 gm 10/29/24 10:22 11/02/24 07:01 Dextrose 50% 25 Gm/50 Ml Syringe IV PUSH 12.5 gm PRN PRN Administration Hypoglycemia Protocol Ferrous Sulfate 325 mg 10/29/24 21:00 11/02/24 05:54 Ferrous Sulfate [address] PO 325 mg BID@0600,2100 SHAKA Administration Furosemide 20 mg 11/02/24 17:00 11/02/24 17:44 Furosemide 20 Mg Tablet PO 20 mg BID SHAKA Administration Glucagon 1 mg 10/29/24 10:22 Glucagon For Inj 1 Mg Vial IM PRN PRN Hypoglycemia Protocol Glucose 15 gm 10/29/24 10:22 Glucose Oral Gel 15 Gm Of Glucse In 37.5 Gm Tube PO PRN PRN Hypoglycemia Protocol Dextrose 1,000 mls @ 100 mls/hr 10/29/24 10:22 Dextrose 5% 1,000 Ml IVPB PRN PRN Hypoglycemia Protocol Iron Sucrose 100 mg/ Sodium 55 mls @ 220 mls/hr 11/03/24 09:00 Chloride IVPB DAILY SHAKA Lactobacillus Acidophilus 1 tablet 10/29/24 09:00 11/02/24 09:44 Acidophilus/Bulgaricus Chewable Tablet BY MOUTH 1 tablet DAILY SHAKA Administration Loratadine 10 mg 10/28/24 21:56 Loratadine 10 Mg Tablet PO DAILY PRN SEASONAL ALLERGIES Metoprolol Succinate 100 mg 11/02/24 12:45 11/02/24 12:51 Metoprolol Succinate Ext Rel 100 Mg Tabcr PO 100 mg QAM SHAKA Administration Ondansetron HCl 4 mg 10/28/24 17:41 11/01/24 08:52 Ondansetron Inj 4 Mg/2 Ml Vial IV PUSH 4 mg Q4H PRN Administration Nausea Pantoprazole Sodium 40 mg 10/29/24 21:00 11/02/24 09:44 Pantoprazole 40 Mg Tablet PO 40 mg Q12HR SHAKA Administration Perflutren Lipid Microsphere 0 ml 11/02/24 11:27 Perflutren Lipid Microspheres 1.5 Ml Vial Diluted To 10 Ml Total Volume IV PUSH 11/05/24 11:27 ONCE PRN adequate visualization Protocol Potassium Chloride 20 meq 10/29/24 09:00 11/02/24 09:44 Potassium Chloride 20 Meq Er Tablet PO 20 meq DAILY SHAKA Administration Sodium Bicarbonate 650 mg 10/29/24 09:00 11/02/24 17:44 Sodium Bicarbonate Tab 650 Mg Tablet PO 650 mg BID SHAKA Administration Vitamin D 2,000 units 10/29/24 09:00 11/02/24 09:45 Cholecalciferol 1,000 Units Tablet PO 2,000 units DAILY SHAKA Administration Radiology Results: ITS Impressions Abdomen/Pelvis CT 10/28/24 16:58 IMPRESSION: Diffuse anasarca. Detection of active GI hemorrhage is limited without intravenous contrast. Large nonobstructing ventral hernia Large left-sided pleural effusion. Small right-sided pleural effusion. Chest X-Ray 10/31/24 14:28 IMPRESSION: No pneumothorax following left-sided thoracentesis, as detailed above. Thoracentesis Ultrasound 10/31/24 14:31 IMPRESSION: 1. Successful ultrasound-guided thoracentesis yielding 450 mL of yellow fluid. Abdomen X-Ray 11/02/24 12:23 IMPRESSION: 1. Multiple loops of gas-filled but not frankly dilated small bowel likely within the large left-sided ventral hernia similar as seen on prior CT. 2. Opacities at the left lower lung zone consistent with persistent small left pleural effusion and associated atelectasis or pneumonia. Labs Labs: Laboratory Results - last 24 hr 11/01/24 11/02/24 11/02/24 23:41 04:32 06:03 WBC 8.1 RBC 2.34 L Hgb 7.5 L Hct 24.6 L MCV 105.1 H MCH 32.1 MCHC 30.5 L RDW 21.9 H Plt Count 61 L MPV 13.5 H Immature Gran % (Auto) 0.7 H Neut % (Auto) 79.3 H Lymph % (Auto) 11.7 L [place] % (Auto) 7.8 Eos % (Auto) 0.4 Baso % (Auto) 0.1 L Lymph # (Auto) 0.95 [place] # (Auto) 0.6 Eos # (Auto) 0.0 Baso # (Auto) 0.0 Abs Immat Gran (auto) 0.06 H Absolute Neuts (auto) 6.4 Absolute Nucleated RBC 0.060 H Nucleated RBC % 0.7 H % Immature Plt Fraction 12.8 H Sodium 140 Potassium 4.4 Chloride 118 H Carbon Dioxide 12 L Anion Gap 10 BUN 52 H Creatinine 2.70 H Estim Creat Clear Calc 15 Estimated GFR 17 L Glucose 70 POC Capillary Glucose 75 67 Calcium 7.7 L Total Bilirubin 2.2 H AST 35 ALT 16 Alkaline Phosphatase 63 Total Protein 5.0 L Albumin 2.8 L 11/02/24 11/02/24 11/02/24 07:34 11:54 18:03 WBC RBC Hgb Hct MCV MCH MCHC RDW Plt Count MPV Immature Gran % (Auto) Neut % (Auto) Lymph % (Auto) [place] % (Auto) Eos % (Auto) Baso % (Auto) Lymph # (Auto) [place] # (Auto) Eos # (Auto) Baso # (Auto) Abs Immat Gran (auto) Absolute Neuts (auto) Absolute Nucleated RBC Nucleated RBC % % Immature Plt Fraction Sodium Potassium Chloride Carbon Dioxide Anion Gap BUN Creatinine Estim Creat Clear Calc Estimated GFR Glucose POC Capillary Glucose 106 H 80 97 Calcium Total Bilirubin AST ALT Alkaline Phosphatase Total Protein Albumin
[2024-11-02] MEDS: ATORVASTATIN 10 MG TABLET PO (21:25)
[2024-11-02 23:38] LABS: Glucose Point of Care 65 mg/dl (65-105)
[2024-11-03] VITALS (9 sets, daily range): BP systolic 107–121; BP diastolic 51–68; PULSE 84–109; RESP 16–18; TEMP 36.5–36.7; O2SAT 94–95
--- NOTE | 2024-11-03 | ECHO_ITS ---
Patient Info Name: Shannan Seals Age: 78 years : 1945 Gender: Female Ht: 62 in Wt: 157 lbs BSA: 1.79 m2 HR: 93 bpm BP: 107 / 51 mmHg Technical Quality: Fair Exam Date: 11/03/2024 2:31 PM Exam Location: Echo Lab Patient Status: Inpatient Admit Date: 10/28/2024 Staff Ordering Physician: Hope Mcghee MD Medicine Aide: Lynsey Davila RDCS Attending Provider: Bibiana Cobb PA-C Referring Physician: Taz ORTIZ; Exam Type: CA echo limited w contrast Study Info Indications - chf excerbation R06.02 - Shortness of breath Limited two-dimensional transthoracic echocardiogram is performed with contrast. Contrast/Agitated Saline Contrast/Ag. Saline: Definity Amount: 2.00 ml Administered By: Lynsey Davila RDCS Existing IV Access: Yes IV Access Condition: patent with no signs of infiltration Summary 1. Left ventricular systolic function is normal, estimated at 60-65%. 2. There is severely increased left ventricular wall thickness. 3. Right ventricular chamber dimension is moderately enlarged. 4. Right ventricular systolic function is reduced. 5. Left atrial chamber dimension is severely enlarged. 6. Right atrial chamber dimension is severely enlarged. 7. There is large pericardial effusion. No Tamponade. Left Ventricle Left ventricular chamber dimension is normal. Left ventricular systolic function is normal, estimated at 60-65%. There is severely increased left ventricular wall thickness. Right Ventricle Right ventricular chamber dimension is moderately enlarged. Right ventricular systolic function is reduced. Left Atria Left atrial chamber dimension is severely enlarged. Right Atria Right atrial chamber dimension is severely enlarged. Aortic Valve The aortic valve is not well visualized. Pulmonic Valve The pulmonic valve is not well visualized. Mitral Valve There is no mitral valve stenosis. There is no mitral valve regurgitation. There is moderate mitral valve calcification. Tricuspid Valve The tricuspid valve leaflets are normal. There is mild to moderate tricuspid valve regurgitation. Pericardium/Pleural There is large pericardial effusion. No Tamponade. Aorta The aortic root size at the sinus of Valsalva is normal. Tricuspid Valve Name Value Normal TV Regurgitation Doppler TR Peak Velocity 313 cm/s TR Peak Gradient 31 mmHg Estimated PAP/RSVP RA Pressure 10 mmHg <=5 PA Systolic Pressure 49 mmHg <36 RV Systolic Pressure 49 mmHg <36 Ventricles Name Value Normal LV Fractional Shortening/Ejection Fraction 2D/MM LV Diastolic Volume (4C MOD) 87 ml LV EF (4C MOD) 63 % LV Diastolic Volume (2C MOD) 93 ml LV EF (2C MOD) 57 % LV Diastolic Volume (BP MOD) 92 ml 46-106 LV Diastolic Volume Index (BP MOD) 51 ml/m2 29-61 LV Systolic Volume (BP MOD) 38 ml 14-42 LV Systolic Volume Index (BP MOD) 21 ml/m2 8-24 LV EF (BP MOD) 59 % 54-74 LV Diastolic Length (4C) 6.3 cm LV Systolic Length (4C) 5.6 cm LV Stroke Volume (4C MOD) 55 ml Report Signatures
[2024-11-03] MEDS: FERROUS SULFATE 325 MG TABLET DR PO ×2 (05:47→20:42)
[2024-11-03 05:56] LABS: Basophils Percent Auto 0.1 % (0.2-1.2); Eosinophils Percent Auto 0.4 % (0-4.4); Hematocrit 26.3 % (37.0-47.0); Hemoglobin 7.9 g/dL (12.0-15.0); Immature Granulocyte Absolute 0.06 K/mm3 (0.00-0.031); Immature Granulocyte Percent A 0.7 % (0-0.5); Immature Platelet Fraction Pct 13.2 % (0.9-11.2); Lymphocytes Absolute Auto 0.46 K/mm3 (0.9-3.2); Lymphocytes Percent Auto 5.2 % (18.3-44.2); Mean Corpuscular Hemoglobin 32.5 pg (26-34); Mean Corpuscular Volume 108.2 fl (80-100); Mean Platelet Volume 13.4 fl (7.4-10.4); Monocytes Absolute Auto 0.7 K/mm3 (0.1-0.6); Monocytes Percent Auto 8.3 % (2.6-8.5); Neutrophils Absolute Auto 7.6 K/mm3 (1.3-6.7); Neutrophils Percent Auto 85.3 % (45.5-73.1); Nucleated Red Blood Cells Perc 1.1 % (0.0-0.2); Platelet Count Result 67 k/mm3 (150-375); Red Blood Count 2.43 M/mm3 (4.2-5.4); Red Cell Distribution Width 22.3 % (11.5-14.5); White Blood Count 8.9 K/mm3 (4.5-10.0)
[2024-11-03 06:07] LABS: Glucose Point of Care 49 mg/dl (65-105)
[2024-11-03 06:08] LABS: Alanine Aminotransferase 18 U/L (6-35); Albumin Level 2.8 g/dL (3.5-5.1); Alkaline Phosphatase 69 U/L (38-126); Anion Gap 10 mmol/L (4-12); Aspartate Amino Transferase 33 U/L (14-36); Bilirubin,Total 2.3 mg/dL (0.2-1.3); Blood Urea Nitrogen 53 mg/dL (7-17); Calcium 7.7 mg/dL (8.4-10.2); Carbon Dioxide 13 mmol/L (22-30); Chloride 116 mmol/L (98-107); Estimated CRCL calculation 15 ml/min; Estimated Glomerular Filt Rate 17; Glucose 71 mg/dL (65-110); Potassium 4.4 mmol/L (3.4-5.0); Sodium 139 mmol/L (137-145)
[2024-11-03] MEDS: GLUCOSE ORAL GEL 15 GM OF GLUCSE IN 37.5 GM TUBE PO (06:11)
[2024-11-03 06:13] LABS: NT Pro B Type Natriuretic Pept > 30000 pg/mL (19.9-100)
[2024-11-03 06:41] LABS: Glucose Point of Care 67 mg/dl (65-105)
[2024-11-03 06:46] LABS: Glucose Point of Care 88 mg/dl (65-105)
[2024-11-03 06:50] LABS: Anisocytosis 1+; Hypochromasia 1+; Platelet Estimate Decreased (Adequate)
[2024-11-03 06:51] LABS: Macrocytosis 2+ (NORMAL); Schistocytes None Seen
--- NOTE | 2024-11-03 07:37 | PM.IMPN ---
Progress Note: A&P Assessment and Plan (1) Weakness: Code(s): R53.1 - Weakness Status: Acute Assessment and Plan: [place] increasingly weak over the past few days and reports that she has no energy similar to when her hemoglobin was low in the past. Per chart review, patient receives blood transfusions every few weeks and has a transfusion in Oct 30. - WBC count is elevated however she does not give a history to suggest underlying infection - UA unremarkable - CT abdomen/pelvis: Diffuse anasarca. Detection of active GI hemorrhage is limited without intravenous contrast. Large nonobstructing ventral hernia Large left-sided pleural effusion. Small right-sided pleural effusion. - patient will need PT/OT evals (2) Heme positive stool: Code(s): R19.5 - Other fecal abnormalities Status: Acute Assessment and Plan: [place] increasingly weak over the past few days and reports that she has no energy similar to when her hemoglobin was low in the past. Per chart review, patient receives blood transfusions every few weeks and has a transfusion in Oct 30. Endorses dark stools but is on iron supplementation. Extensive outpatient evaluation for occult GI bleeding including upper and lower endoscopies and capsule endoscopy which she reports did not show any source of bleeding. - H/H 8.5/28.1 on am labs, continue to trend - Heme occult positive - CT abdomen/pelvis: Diffuse anasarca. Detection of active GI hemorrhage is limited without intravenous contrast. Large nonobstructing ventral hernia Large left-sided pleural effusion. Small right-sided pleural effusion. - GI consulted Protonix BID EGD performed on 10/[address] Olguin No esophagitis or varices. Mod erosive gastrictis with erythematous, edematous, erosive, and petechiae changes, No mucosal bleeding. No duodenal ulcers or masses, no signs of recent bleeding. (3) Chronic anemia: Code(s): D64.9 - Anemia, unspecified Status: Inactive Assessment and Plan: Follows heme[facility]onc at [facility], last seen 10/01/24. - H/H 7.9/26.3 on am labs, continue to trend - Iron panel: iron 88, TIBC 203, % sat 43, ferritin 239 - B12 >1000 and folate 7.2 - Heme occult positive - CT abdomen/pelvis: Diffuse anasarca. Detection of active GI hemorrhage is limited without intravenous contrast. Large nonobstructing ventral hernia Large left-sided pleural effusion. Small right-sided pleural effusion. - GI consulted see above (4) Pleural effusion: Code(s): J90 - Pleural effusion, not elsewhere classified Status: Acute Assessment and Plan: Left pleural effusion has been present since at least December as seen on CXR 12/29/23 and she seems asymptomatic with that. 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 - Asymptomatic, remains on room air - Ddx included CHF, cirrhosis, nephrosis, hypothyroidism (t4 WNL on 11/01), and/or malignancy - CT abdomen/pelvis: Large left-sided pleural effusion. Small right-sided pleural effusion. - Echo 08/14/24: LVEF > 70% with severe concentric LV hypertrophy and bilateral dilation - Started on lasix 20 mg BID, monitor creatinine - S/p thoracentesis yielding 400 ml yellow fluid on 10/31 - pulmonology consulted, appreciate recommendation fluid appears transudative, ddx included CHF, cirrhosis, nephrosis, and/or hypothyroidism (t4 WNL on 11/01) (5) Chronic kidney disease, stage 4 (severe): Code(s): N18.4 - Chronic kidney disease, stage 4 (severe) Status: Acute Assessment and Plan: BUN/Cr 55/2.6 on admission, appears to be around baseline. Last seen nephrology, Dr. Garay on 09/02/24. Etiology of CKD likely DM and HTN. - BUN/Cr 53/2.7 on am labs - Patient started on lasix 20 mg BID for CHF - Decreased urine output, bladder scan ordered - Avoid nephrotoxic medications - Renally dose medications - Monitor I/O - Nephrology consulted, appreciate recommendations (6) Hypoglycemia: Code(s): E16.2 - Hypoglycemia, unspecified Status: Acute Assessment and Plan: Patient was noted to have asymptomatic hypoglycemia into the 30s. She was given D5 push and this resolved. Hypoglycemia likely secondary to patient being NPO since admission and had not had anything to eat since Sunday. - Hypoglycemia protocol - Monitor (7) Atrial fibrillation: Code(s): I48.91 - Unspecified atrial fibrillation Status: Acute Assessment and Plan: Chronic, continue home medications. Last seen by cardiology Sameera Becerra FIBROUS PLASTERER on 09/10/24 - metoprolol 125 mg daily - no anticoagulation due to patients history of GI bleeding and anemia (refer to cardiology note on 09/10) - monitor - Cardiology consulted, appreciate recommendations metoprolol dose increased to 125 mg daily (8) MGUS (monoclonal gammopathy of unknown significance): Code(s): D47.2 - Monoclonal gammopathy Status: Acute Assessment and Plan: MGUS with bone marrow biopsy in April [address]24. Follow[address]. Schaffer, last seen 10/01/24. - Patient endorsing increased fatigue, weakness and appetite loss concerning for possible myeloma. - Heme/onc consulted (9) Hypertension: Qualifiers: Hypertension type: unspecified Qualified Code(s): I10 - Essential (primary) hypertension Code(s): I10 - Essential (primary) hypertension Status: Inactive Assessment and Plan: Chronic, continue home medication - metoprolol 125 mg daily - monitor (10) Ventral hernia: Code(s): K43.9 - Ventral hernia without obstruction or gangrene Status: Acute Assessment and Plan: Potentially playing a role in patients early satiety and abdominal discomfort. - CT abdomen/pelvis: Large nonobstructing ventral hernia extending to the left of midline containing the majority of patient's large and small bowel. - Not a surgical candidate (11) Protein calorie malnutrition: Qualifiers: Protein-calorie malnutrition severity: moderate Qualified Code(s): E44.0 - Moderate protein-calorie malnutrition Code(s): E46 - Unspecified protein-calorie malnutrition Status: Acute Assessment and Plan: Supplements per nutrition recommendations Time Spent With Patient Time with patient: Greater than 35 minutes Subjective Date/time seen: 11/03/24 07:37 Interval history: 78-year-old female with history of atrial fibrillation, congestive heart failure, chronic kidney disease, occult GI bleeding, anemia, hypertension, and other comorbidities who presented to the emergency department via EMS from [facility] for evaluation of weakness. Patient is pleasant lying in bed with daughter at bedside. She endorses nausea without vomiting today with decreased appetite. Denies abdominal pain. Continue to have regular bowel movements. Patient was evaluated by cardiology for afib tachycardia and dose of metoprolol increased. She denies chest pain, shortness of breath, palpitations. Patient continues to have decreased appetite with early satiety. History of MGUS and follows Dr. Schaffer. Heme/onc consulted for further evaluation given that could possibly be contributing to patients pleural effusion. Patient has no other complaints. Review of Systems Review of Systems: All systems reviewed & are unremarkable except as noted in HPI and below Exam Narrative: AF HR 93 RR 17 SpO2 95 BP 107/51 General: female in no acute respiratory distress who is nontoxic appearing, lying semi recumbent in bed. HEENT: Normocephalic. Atraumatic. Extraocular movement intact. Sclera clear and anicteric. No facial asymmetry. Chest: Lungs are clear to auscultation bilaterally. No wheezes or crackles. CV: Heart was tachycardia with irregularly irregular rhythm. S1-S2. No murmurs, gallops, or rubs. Abd: Abdomen was soft. Nontender. Nondistended. Positive bowel sounds. Large ventral hernia hanging to the left. Ext: No clubbing, cyanosis, or edema. 2+ DP pulses bilaterally. Neuro: Patient is alert. Cranial nerves 2-12 are intact. Speech is clear. Objective Data Vital Signs Vital Signs: Vital Signs - 24 hr 11/02/24 09:44 11/02/24 09:45 11/02/24 09:45 Temperature Pulse Rate 125 H 125 H Respiratory Rate Blood Pressure Pulse Oximetry Oxygen Delivery Room Air Room Air 11/02/24 12:00 11/02/24 12:51 11/02/24 14:00 Temperature 97.2 F L Pulse Rate 142 H 104 H 80 Respiratory Rate 16 Blood Pressure 115/65 Pulse Oximetry 92 Oxygen Delivery 11/02/24 15:33 11/02/24 16:00 11/02/24 20:00 Temperature Pulse Rate 125 H 88 Respiratory Rate Blood Pressure Pulse Oximetry Oxygen Delivery Room Air 11/02/24 20:00 11/02/24 20:51 11/02/24 20:55 Temperature 97.7 F 97.7 F Pulse Rate 95 92 106 H Respiratory Rate 17 17 Blood Pressure 116/62 122/84 Pulse Oximetry 93 94 Oxygen Delivery 11/02/24 21:00 11/03/24 00:00 11/03/24 04:00 Temperature 97.7 F Pulse Rate 92 98 109 H Respiratory Rate 17 Blood Pressure 116/62 Pulse Oximetry 93 Oxygen Delivery 11/03/24 05:09 Temperature 98.0 F Pulse Rate 86 Respiratory Rate 17 Blood Pressure 107/51 L Pulse Oximetry 95 Oxygen Delivery Intake/Output Intake/Output: Intake & Output 10/31/24 11/01/24 11/02/24 11/03/24 23:59 23:59 23:59 23:59 Intake Total 630 1250 450 Output Total 450 200 Balance 180 1250 250 Meds/Results Medications: Active Medications Generic Name Dose Route Start Last Admin Trade Name Freq PRN Reason Stop Dose Admin Acetaminophen 650 mg 10/28/24 17:41 11/01/24 18:44 Acetaminophen 325 Mg Tablet PO 650 mg Q4H PRN Administration Mild Pain (1-3) or Fever Atorvastatin Calcium 10 mg 10/29/24 21:00 11/02/24 21:25 Atorvastatin 10 Mg Tablet PO 10 mg QHS SHAKA Administration Calcitriol 0.25 mcg 10/28/24 21:55 Calcitriol 0.25 Mcg Capsule PO MoWeFr PRN AFTER DIALYSIS Cyanocobalamin 5,000 mcg 10/29/24 09:00 10/31/24 10:00 Cyanocobalamin 1,000 Mcg Tablet PO Not Given MoWeFr SHAKA Dextrose 12.5 gm 10/29/24 10:22 11/02/24 07:01 Dextrose 50% 25 Gm/50 Ml Syringe IV PUSH 12.5 gm PRN PRN Administration Hypoglycemia Protocol Ferrous Sulfate 325 mg 10/29/24 21:00 11/03/24 05:47 Ferrous Sulfate [address] PO 325 mg BID@0600,2100 SHAKA Administration Furosemide 20 mg 11/02/24 17:00 11/02/24 17:44 Furosemide 20 Mg Tablet PO 20 mg BID SHAKA Administration Glucagon 1 mg 10/29/24 10:22 Glucagon For Inj 1 Mg Vial IM PRN PRN Hypoglycemia Protocol Glucose 15 gm 10/29/24 10:22 11/03/24 06:11 Glucose Oral Gel 15 Gm Of Glucse In 37.5 Gm Tube PO 15 gm PRN PRN Administration Hypoglycemia Protocol Dextrose 1,000 mls @ 100 mls/hr 10/29/24 10:22 Dextrose 5% 1,000 Ml IVPB PRN PRN Hypoglycemia Protocol Iron Sucrose 100 mg/ Sodium 55 mls @ 220 mls/hr 11/03/24 09:00 Chloride IVPB DAILY SHAKA Lactobacillus Acidophilus 1 tablet 10/29/24 09:00 11/02/24 09:44 Acidophilus/Bulgaricus Chewable Tablet BY MOUTH 1 tablet DAILY SHAKA Administration Loratadine 10 mg 10/28/24 21:56 Loratadine 10 Mg Tablet PO DAILY PRN SEASONAL ALLERGIES Metoprolol Succinate 100 mg 11/02/24 12:45 11/02/24 12:51 Metoprolol Succinate Ext Rel 100 Mg Tabcr PO 100 mg QAM SHAKA Administration Ondansetron HCl 4 mg 10/28/24 17:41 11/01/24 08:52 Ondansetron Inj 4 Mg/2 Ml Vial IV PUSH 4 mg Q4H PRN Administration Nausea Pantoprazole Sodium 40 mg 10/29/24 21:00 11/02/24 21:25 Pantoprazole 40 Mg Tablet PO 40 mg Q12HR SHAKA Administration Perflutren Lipid Microsphere 0 ml 11/02/24 11:27 Perflutren Lipid Microspheres 1.5 Ml Vial Diluted To 10 Ml Total Volume IV PUSH 11/05/24 11:27 ONCE PRN adequate visualization Protocol Potassium Chloride 20 meq 10/29/24 09:00 11/02/24 09:44 Potassium Chloride 20 Meq Er Tablet PO 20 meq DAILY SHAKA Administration Sodium Bicarbonate 650 mg 10/29/24 09:00 11/02/24 17:44 Sodium Bicarbonate Tab 650 Mg Tablet PO 650 mg BID SHAKA Administration Vitamin D 2,000 units 10/29/24 09:00 11/02/24 09:45 Cholecalciferol 1,000 Units Tablet PO 2,000 units DAILY SHAKA Administration Radiology Results: ITS Impressions Abdomen/Pelvis CT 10/28/24 16:58 IMPRESSION: Diffuse anasarca. Detection of active GI hemorrhage is limited without intravenous contrast. Large nonobstructing ventral hernia Large left-sided pleural effusion. Small right-sided pleural effusion. Chest X-Ray 10/31/24 14:28 IMPRESSION: No pneumothorax following left-sided thoracentesis, as detailed above. Thoracentesis Ultrasound 10/31/24 14:31 IMPRESSION: 1. Successful ultrasound-guided thoracentesis yielding 450 mL of yellow fluid. Abdomen X-Ray 11/02/24 12:23 IMPRESSION: 1. Multiple loops of gas-filled but not frankly dilated small bowel likely within the large left-sided ventral hernia similar as seen on prior CT. 2. Opacities at the left lower lung zone consistent with persistent small left pleural effusion and associated atelectasis or pneumonia. Labs Labs: Laboratory Results - last 24 hr 11/02/24 11/02/24 11/02/24 07:34 11:54 18:03 WBC RBC Hgb Hct MCV MCH MCHC RDW Plt Count MPV Immature Gran % (Auto) Neut % (Auto) Lymph % (Auto) Clark % (Auto) Eos % (Auto) Baso % (Auto) Lymph # (Auto) Clark # (Auto) Eos # (Auto) Baso # (Auto) Abs Immat Gran (auto) Absolute Neuts (auto) Absolute Nucleated RBC Nucleated RBC % Platelet Estimate % Immature Plt Fraction Hypochromasia Anisocytosis Macrocytosis Schistocytes Sodium Potassium Chloride Carbon Dioxide Anion Gap BUN Creatinine Estim Creat Clear Calc Estimated GFR Glucose POC Capillary Glucose 106 H 80 97 Calcium Total Bilirubin AST ALT Alkaline Phosphatase NT-Pro-B Natriuret Pep Total Protein Albumin 11/02/24 11/03/24 11/03/24 23:29 05:34 05:59 WBC 8.9 RBC 2.43 L Hgb 7.9 L Hct 26.3 L MCV 108.2 H MCH 32.5 MCHC 30.0 L RDW 22.3 H Plt Count 67 L MPV 13.4 H Immature Gran % (Auto) 0.7 H Neut % (Auto) 85.3 H Lymph % (Auto) 5.2 L Clark % (Auto) 8.3 Eos % (Auto) 0.4 Baso % (Auto) 0.1 L Lymph # (Auto) 0.46 L Clark # (Auto) 0.7 H Eos # (Auto) 0.0 Baso # (Auto) 0.0 Abs Immat Gran (auto) 0.06 H Absolute Neuts (auto) 7.6 H Absolute Nucleated RBC 0.100 H Nucleated RBC % 1.1 H Platelet Estimate Decreased % Immature Plt Fraction 13.2 H Hypochromasia 1+ Anisocytosis 1+ Macrocytosis 2+ Schistocytes None seen Sodium 139 Potassium 4.4 Chloride 116 H Carbon Dioxide 13 L Anion Gap 10 BUN 53 H Creatinine 2.70 H Estim Creat Clear Calc 15 Estimated GFR 17 L Glucose 71 POC Capillary Glucose 65 49 L* Calcium 7.7 L Total Bilirubin 2.3 H AST 33 ALT 18 Alkaline Phosphatase 69 NT-Pro-B Natriuret Pep > 41523 H Total Protein 5.0 L Albumin 2.8 L 11/03/24 11/03/24 06:36 06:43 WBC RBC Hgb Hct MCV MCH MCHC RDW Plt Count MPV Immature Gran % (Auto) Neut % (Auto) Lymph % (Auto) Clark % (Auto) Eos % (Auto) Baso % (Auto) Lymph # (Auto) Clark # (Auto) Eos # (Auto) Baso # (Auto) Abs Immat Gran (auto) Absolute Neuts (auto) Absolute Nucleated RBC Nucleated RBC % Platelet Estimate % Immature Plt Fraction Hypochromasia Anisocytosis Macrocytosis Schistocytes Sodium Potassium Chloride Carbon Dioxide Anion Gap BUN Creatinine Estim Creat Clear Calc Estimated GFR Glucose POC Capillary Glucose 67 88 Calcium Total Bilirubin AST ALT Alkaline Phosphatase NT-Pro-B Natriuret Pep Total Protein Albumin Quality VTE Prophylaxis VTE prophylaxis: mechanical ordered
[2024-11-03 08:33] LABS: RBC Pleural Fluid < 2000 /uL (0-10000)
[2024-11-03] MEDS: PANTOPRAZOLE 40 MG TABLET PO ×2 (09:48→20:42)
[2024-11-03] MEDS: CHOLECALCIFEROL 1,000 UNITS TABLET 2000 UNITS PO (09:48)
[2024-11-03] MEDS: ACIDOPHILUS/BULGARICUS CHEWABLE TABLET 1 TABLET BY MOUTH (09:48)
[2024-11-03] MEDS: METOPROLOL SUCCINATE EXT REL 100 MG TABCR PO (09:49)
[2024-11-03] MEDS: SODIUM BICARBONATE TAB 650 MG TABLET PO ×2 (09:49→18:17)
[2024-11-03] MEDS: POTASSIUM CHLORIDE 20 MEQ ER TABLET PO (09:50)
[2024-11-03] MEDS: FUROSEMIDE 20 MG TABLET PO ×2 (09:50→18:17)
[2024-11-03] MEDS: IRON SUCROSE COMPLEX 100 MG in SODIUM CHLORIDE 0.9% IV 50 ML 220 MG IVPB (09:51)
[2024-11-03] MEDS: CYANOCOBALAMIN 1,000 MCG TABLET 5000 MCG PO (09:55)
--- NOTE | 2024-11-03 10:02 | P.CONNP_ITS ---
History of Present Illness Reason for Consult Consult date: 11/03/24 Reason for consult: acute renal failure (on chronic kidney disease) Chief Complaint Chief complaint: pleural effusion, left side Review of Systems 2 Review of Systems: As per HPI. [facility] Past Medical History Medical History Hypoglycemia Anasarca Acute on chronic anemia Chronic kidney disease, stage 4 (severe) Overactive bladder Kidney stone Chronic anemia Monoclonal gammopathy of unknown significance Chronic low back pain Seasonal allergies Vitamin D deficiency Osteoporosis Skin cancer Idiopathic pericarditis GERD without esophagitis Type 2 diabetes mellitus without complication, without long-term current use of insulin hemoglobin A1c: 5.4(10/26) << 5.2(10/25) << 5.7(05/25) << 5.7(10/24) << 5.9(04/24) << 6.3(08/23) << 6.0(02/21) << 6.2(05/22) << 6.6(10/21) << 6.8(11/21) << 7.9(04/20). 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 Code status: Full code. Smoking status: Never smoker Second hand tobacco smoke exposure: No Alcohol intake: never Substance use: never Substance use type: does not use Do You Feel Safe in your Home?: Yes Lack of Transportation: No Lack of Food: Never True Current Housing: I Have Housing Concerned About Future Housing: No Difficulty Paying Gas/Electric Bills: No Difficulty Paying for Meds: No Currently Unemployed: No Education: High School Diploma/GED Difficulty w/ Childcare or Family Care: No Living arrangements: with family Occupation/Education: retired Spiritual care concerns: No Agree to blood products: Yes Meds Home Medications and Allergies Home Medications ?Medication ?Instructions ?Recorded ?Confirmed ?Type Lactobacillus acidophilus 10 10 cell PO DAILY 04/07/20 10/28/24 History billion cell capsule cetirizine 10 mg tablet 10 mg PO DAILY PRN SEASONAL 10/13/20 10/28/24 History ALLERGIES ferrous sulfate 325 mg (65 mg 325 mg PO BID 10/11/21 10/28/24 History iron) tablet (Feosol) mecobalamin (vitamin B12) 5,000 5,000 mcg PO 3XW 04/19/23 10/28/24 History mcg disintegrating tablet calcitriol 0.25 mcg capsule 0.25 mcg PO 3XW #45 caps 04/10/24 10/28/24 Rx atorvastatin 10 mg tablet 10 mg PO QHS #90 tabs 08/04/24 10/28/24 Rx cholecalciferol (vitamin D3) 50 50 mcg PO DAILY 08/06/24 10/28/24 History mcg (2,000 unit) capsule potassium chloride 20 mEq 20 meq PO DAILY 08/13/24 10/28/24 History tablet,extended release(part/cryst) metoprolol succinate 100 mg 100 mg PO QAM #30 tabs 08/15/24 10/28/24 Rx tablet,extended release 24 hr (Toprol XL) sodium bicarbonate 650 mg tablet 650 mg PO BID #60 tabs 09/02/24 10/28/24 Rx fenofibrate 160 mg tablet 160 mg PO DAILY #90 tabs 10/20/24 10/28/24 Rx Allergies Allergy/AdvReac Type Severity Reaction Status Date / Time No Known Allergies Allergy Verified 10/16/24 12:11 Vital Signs Vital Signs Temp Pulse Resp BP Pulse Ox O2 Del Method 11/03/24 09:49 93 11/03/24 05:09 98.0 F 86 17 107/51 L 95 11/03/24 04:00 109 H 11/03/24 00:00 98 11/02/24 21:00 97.7 F 92 17 116/62 93 11/02/24 20:55 97.7 F 106 H 17 122/84 94 11/02/24 20:51 97.7 F 92 17 116/62 93 11/02/24 20:00 95 11/02/24 20:00 Room Air 11/02/24 16:00 88 11/02/24 15:33 125 H 11/02/24 14:00 97.2 F L 80 16 115/65 92 11/02/24 12:51 104 H Results Lab Results 11/03/24 05:34 11/03/24 05:34 Lab results: Most recent lab results Calcium 7.7 mg/dL (8.4-10.2) L 11/03/24 05:34 Magnesium 1.1 mg/dL (1.6-2.3) L 10/28/24 15:42
--- NOTE | 2024-11-03 10:31 | P.CONCA_ITS ---
Assessment and Plan Assessment and plan (1) Atrial fibrillation with rapid ventricular response: Code(s): I48.91 - Unspecified atrial fibrillation Status: Acute Assessment and Plan: Rate control with metoprolol. Will increase metoprolol to 125mg daily starting tomorrow if BP permits. Will also order p.r.n. lopressor with holding parameters. Not a candidate for anticoagulation, being evaluated outpatient for LAAO (2) Acute exacerbation of CHF (congestive heart failure): Code(s): I50.9 - Heart failure, unspecified Status: Acute Assessment and Plan: She did have a thoracentesis with 400mL fluid drained. Apparently no symptomatic benefit as patient states she was not short of breath prior to thoracentesis. Does not appear volume overloaded on physical exam, therefore, I don't think she needs additional diuresis (3) Essential (primary) hypertension: Code(s): I10 - Essential (primary) hypertension Status: Acute Assessment and Plan: at goal (4) Protein calorie malnutrition: Qualifiers: Protein-calorie malnutrition severity: moderate Qualified Code(s): E 44.0 - Moderate protein-calorie malnutrition Code(s): E46 - Unspecified protein-calorie malnutrition Status: Acute Assessment and Plan: She has nausea and sometimes vomiting with any oral intake. GI is following (5) MGUS (monoclonal gammopathy of unknown significance): Code(s): D47.2 - Monoclonal gammopathy Status: Acute Assessment and Plan: Recommend heme/onc consultation. Given fatigue, weakness, appetite loss - concern for myeloma. She follows with Dr. Schaffer Plan Cardiology will follow along on an as needed basis. Please call with questions. History of Present Illness History of Present Illness Consult date/time: 11/03/24 10:31 Reason For Visit: pleural effusion, left side Narrative: Shannan Seals a 78-year-old female with aortic stenosis status post TAVR in 2022, atrial fibrillation, hypertension, CKD stage 4, history of GI bleeding, MGUS. She was found to have atrial fibrillation during a hospitalization at [facility] in August of 2024. During that hospitalization she was also found to have GI bleeding and anemia, therefore she was not initiated on anticoagulation. She saw Dr. Nance in consultation for consideration of left atrial appendage closure device. She presents to the hospital now with complaints of unintentional weight loss, significant fatigue, weakness, nausea and vomiting. Review of Systems 2 Review of Systems: All systems reviewed & are unremarkable except as noted in HPI and below PMFSH Past Medical History Medical History Hypoglycemia Anasarca Acute on chronic anemia Chronic kidney disease, stage 4 (severe) Overactive bladder Kidney stone Chronic anemia Monoclonal gammopathy of unknown significance Chronic low back pain Seasonal allergies Vitamin D deficiency Osteoporosis Skin cancer Idiopathic pericarditis GERD without esophagitis Type 2 diabetes mellitus without complication, without long-term current use of insulin hemoglobin A1c: 5.4(10/26) << 5.2(10/25) << 5.7(05/25) << 5.7(10/24) << 5.9(04/24) << 6.3(08/23) << 6.0(02/21) << 6.2(05/22) << 6.6(10/21) << 6.8(11/21) << 7.9(04/20). 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 Code status: Full code. Smoking status: Never smoker Second hand tobacco smoke exposure: No Alcohol intake: never Substance use: never Substance use type: does not use Do You Feel Safe in your Home?: Yes Lack of Transportation: No Lack of Food: Never True Current Housing: I Have Housing Concerned About Future Housing: No Difficulty Paying Gas/Electric Bills: No Difficulty Paying for Meds: No Currently Unemployed: No Education: High School Diploma/GED Difficulty w/ Childcare or Family Care: No Living arrangements: with family Occupation/Education: retired Spiritual care concerns: No Agree to blood products: Yes Meds Home Medications and Allergies Home Medications ?Medication ?Instructions ?Recorded ?Confirmed ?Type Lactobacillus acidophilus 10 10 cell PO DAILY 04/07/20 10/28/24 History billion cell capsule cetirizine 10 mg tablet 10 mg PO DAILY PRN SEASONAL 10/13/20 10/28/24 History ALLERGIES ferrous sulfate 325 mg (65 mg 325 mg PO BID 10/11/21 10/28/24 History iron) tablet (Feosol) mecobalamin (vitamin B12) 5,000 5,000 mcg PO 3XW 04/19/23 10/28/24 History mcg disintegrating tablet calcitriol 0.25 mcg capsule 0.25 mcg PO 3XW #45 caps 04/10/24 10/28/24 Rx atorvastatin 10 mg tablet 10 mg PO QHS #90 tabs 08/04/24 10/28/24 Rx cholecalciferol (vitamin D3) 50 50 mcg PO DAILY 08/06/24 10/28/24 History mcg (2,000 unit) capsule potassium chloride 20 mEq 20 meq PO DAILY 08/13/24 10/28/24 History tablet,extended release(part/cryst) metoprolol succinate 100 mg 100 mg PO QAM #30 tabs 08/15/24 10/28/24 Rx tablet,extended release 24 hr (Toprol XL) sodium bicarbonate 650 mg tablet 650 mg PO BID #60 tabs 09/02/24 10/28/24 Rx fenofibrate 160 mg tablet 160 mg PO DAILY #90 tabs 10/20/24 10/28/24 Rx Allergies Allergy/AdvReac Type Severity Reaction Status Date / Time No Known Allergies Allergy Verified 10/16/24 12:11 Vital Signs Vital Signs - 24 hr 11/02/24 12:00 11/02/24 12:51 11/02/24 14:00 Temperature 36.2 C L Pulse Rate 142 H 104 H 80 Respiratory Rate 16 Blood Pressure 115/65 Pulse Oximetry 92 Oxygen Delivery 11/02/24 15:33 11/02/24 16:00 11/02/24 20:00 Temperature Pulse Rate 125 H 88 Respiratory Rate Blood Pressure Pulse Oximetry Oxygen Delivery Room Air 11/02/24 20:00 11/02/24 20:51 11/02/24 20:55 Temperature 36.5 C 36.5 C Pulse Rate 95 92 106 H Respiratory Rate 17 17 Blood Pressure 116/62 122/84 Pulse Oximetry 93 94 Oxygen Delivery 11/02/24 21:00 11/03/24 00:00 11/03/24 04:00 Temperature 36.5 C Pulse Rate 92 98 109 H Respiratory Rate 17 Blood Pressure 116/62 Pulse Oximetry 93 Oxygen Delivery 11/03/24 05:09 11/03/24 09:49 Temperature 36.7 C Pulse Rate 86 93 Respiratory Rate 17 Blood Pressure 107/51 L Pulse Oximetry 95 Oxygen Delivery Exam 2 Const: General: comfortable, no acute distress, alert and awake O rientation/consciousness: patient oriented x3 HENMT: Head: normal to inspection Eyes: General: appearance normal, both eyes and all related structures P upils: Equal, round and reactive pupils present Neck: Neck: normal visual inspection, supple and no JVD Resp: Effort & Inspection: normal respiratory effort Auscultation: clear to auscultation bilaterally Cardio: Rate: tachycardic Rhythm: abnormal rhythm irregularly irregular Heart sounds: S1 normal heart sound present, S2 normal heart sound present and no murmurs GI: Auscultation: normal bowel sounds Skin: General skin exam: normal color Neuro: General: patient oriented x3 Cranial nerves: Yes Equal, round and reactive pupils present Extrem: General: no edema and no pedal edema Psych: Appearance: grossly normal Mental Status: mental status grossly normal Results Labs and Meds 11/03/24 05:34 11/03/24 05:34 Lab results: Cardiac Enzymes 11/03/24 Range/Units 05:34 AST 33 (14-36) U/L CBC 11/03/24 Range/Units 05:34 WBC 8.9 (4.5-10.0) K/mm3 RBC 2.43 L (4.2-5.4) M/mm3 Hgb 7.9 L (12.0-15.0) g/dL Hct 26.3 L (37.0-47.0) % Plt Count 67 L (150-375) k/mm3 Lymph # (Auto) 0.46 L (0.9-3.2) K/mm3 [place] # (Auto) 0.7 H (0.1-0.6) K/mm3 Eos # (Auto) 0.0 (0-0.3) K/mm3 Baso # (Auto) 0.0 (0.0-0.1) K/mm3 Comprehensive Metabolic Panel 11/03/24 Range/Units 05:34 Sodium 139 (137-145) mmol/L Potassium 4.4 (3.4-5.0) mmol/L Chloride 116 H (98-107) mmol/L Carbon Dioxide 13 L (22-30) mmol/L BUN 53 H (7-17) mg/dL Creatinine 2.70 H (0.7-1.0) mg/dL Glucose 71 (65-110) mg/dL Calcium 7.7 L (8.4-10.2) mg/dL AST 33 (14-36) U/L ALT 18 (6-35) U/L Alkaline Phosphatase 69 (38-126) U/L Total Protein 5.0 L (6.3-8.2) g/dL Albumin 2.8 L (3.5-5.1) g/dL Intake and Output 11/02/24 11/03/24 11/03/24 23:59 07:59 15:59 Intake Total 0 Output Total 200 Balance -200 Intake: Oral 0 Output: Urine 200 Other: # Unmeasured Voids 1 Number of Bowel Movements Today 5 1 Patient Weight 11/03/24 23:59 Weight 71.5 kg
[2024-11-03 12:21] LABS: Glucose Point of Care 63 mg/dl (65-105)
[2024-11-03] MEDS: PERFLUTREN LIPID MICROSPHERES 1.5 ML VIAL DILUTED TO 10 ML TOTAL VOLUME IV PUSH (14:00)
--- NOTE | 2024-11-03 15:19 | IVDEFINITY ---
Prior to administration of IV Definity the patient was educated on the risks and benefits of the imaging enhancing agent including potential adverse side effects. The patient verbalized understanding. Allergies were verified. No exclusion criteria were identified and at least one of the following inclusion criteria were met: 1) physician request, 2) patient technically difficult to image (per the [place] [employer] guidelines of two or more segments not discernable within the apical view), or 3) questionable left ventricular function. ?
[2024-11-03 17:12] LABS: Glucose Point of Care 84 mg/dl (65-105)
[2024-11-03] MEDS: ACETAMINOPHEN 325 MG TABLET 650 MG PO (18:16)
--- NOTE | 2024-11-03 18:26 | P.PNPL_ITS ---
Progress Note: A&P Assessment and Plan (1) Pleural effusion: Code(s): J90 - Pleural effusion, not elsewhere classified Status: Acute Assessment and Plan: She had more than 400 ml of yellow fluid removed by thoracentesis from left pleural space 10/31, with a low wbc 167 and non-specific differential; remainder of the chemistries are pending, no pH to review. Fluid color is yellow, and the low number WBC is a benign finding. This does not appear to represent a pleural space infection. This appears to be a transudative pleural effusion. Not short of breath and no symptoms to suggest pneumonia. She has no history of lung infections. It is possible that this is cardiac related with her atrial fib which is new in August 2024, not on AC due to GI blood losses. She has a large heart, has had a transcutaneous aortic valve replacement a year ago, echo shows hyperdynamic LV and biatrial enlargement. Differential diagnosis of a transudative effusion includes 3 common conditions including CHF, cirrhosis and nephrosis, and some less common conditions, cancer, pneumonia and PE. The cytology is pending on the pleural fluid. Normal white count and no fever. She does not have any oxygen requirement and did not have any pleuritic chest discomfort so I think that is unlikely she had a pulmonary embolus leading to the pleural effusion. She may have diastolic dysfunction. Defer to cardiology. She is not on anticoagulation due to her chronic anemia and problems with GI bleeding. She does not have cirrhosis clinically, she does not have nephrosis. This transudative left pleural effusion may be due to diastolic dysfunction. Her TSH was 8.43, elevated, Oct 28. This suggests that hypothyroidism may be a factor as this can cause transudative pleural effusion. Subjective Date/time seen: 11/03/24 18:26 Interval history: 11/03/24; Patient is stable, on room air, denies feeling sort of breath. Saturation is 94%. 11/02/24; She had an abdominal x-ray today showing Multiple loops of gas-filled but not frankly dilated small bowel likely within the large left-sided ventral hernia similar as seen on prior CT. Opacities at the left lower lung zone consistent with persistent small left pleural effusion and associated atelectasis or pneumonia. She has a tremendous ventral hernia which I did not appreciate until I saw her in bed leaning to the left, with the abdomen taking up a large amount of real estate. She is on room air with saturation is 91-93%, she does not have a cough, she denies shortness of breath. She has no fever. 10/31/24 new consult; Shannan Seals is a 78 year old female admitted by ambulance from [facility] Oct 26 due to progressive weakness for 3 days, black stools and she takes oral iron. She felt like her anemia was worse. 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 She is managed by Dr Schaffer, gets Procrit every few weeks if hemoglobin is < 10 g/dL. She had GI bleeding with angiodysplasia cauterized Jun 2024. Her H/H on admission was 8.3/27%, no transfusion this admission. She has a moderate sized left pleural effusion. Today Oct 31 she had a thoracentesis with 400 + ml yellow fluid removed, WBC on the pleural fluid was 167, normal is < 1000. Differential showed 34% neutrophils, 39% lymphocytes, normal. Gram stain showed WBC however no microorganisms. There is no pH; the chemistries are pending, and micro is pending. She has a history of a bloody pericardial effusion that was tapped 03/06/2019. Dr. Garay's nephrology note shows that she had a positive KIM 1:80, negative double-stranded DNA. I do not see any additional collagen vascular studies. 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 She does not have known lung disease. She says taht she did not have any pneumonia symptoms prior to this admission, no cough, sputum, wheezing, sinus congestion, diarrhea, and she had no sick contacts. Swabs for viral pathogens were negative, influenza A/B, RSV and SARS-CoV2. PMH : atrial fibrillation Aug 2024; TAVR October 2023 for severe aortic stenosis; Chart indicates CHF, patient does not tell me she has this. CKD stage IV, MGUS and anemia requiring transfusions and Procrit, DM, HTN. DATA * 10/31/24 WBC 8.4, hemoglobin 8.4, hematocrit 29.3%, platelets [id number] differential shows 78% neutrophils. Sodium 137, potassium 4.7, chloride 120, HC03 is 11, BUN 54, creatinine 2.6. * 10/31/24; CXR FINDINGS Decreased left-sided pleural effusion when compared with previous examination. The left lung is fully inflated. The right hemithorax is clear. Prosthetic valve in the aortic position. Calcifications of the mitral annulus. The cardiomediastinal silhouette is enlarged, unchanged. IMPRESSION: No pneumothorax following left-sided thoracentesis, as detailed above. * 11/08/23 PET Scan: No evidence of malignancy. 2. Small pleural effusions. 3. Chronic large pericardial effusion. 4. Large ventral hernia containing small bowel and large bowel and small volume of ascites. * 10/29/24 UA: pH 5.5, 1+ protein, non hemolyzed sample, 3-5 RBCs, trace leukocyte Esterace, * 04/09/24; bone marrow biopsy - * 07/25/2021 KIM (+), 1:80, negative double-stranded DNA, ESR 14, C3-1 35, C4 25, CH 50 greater than 6 Review of Systems Review of Systems: All systems reviewed & are unremarkable except as noted in HPI and below Exam Narrative: GEN: Alert, oriented, not in distress. She is on room air, saturation is 94%. HEENT: pupils are equal, EOMI, symmetrical face; oral membranes moist, no redness or exudate NECK: Trachea is midline CHEST: Equal air entry, symmetric excursion, decreased breath sounds in left base, right side is clear CV: irregular S1S2 no m/g/r ABD : (+) bowel sounds, large ventral hernia Extremities : no clubbing, cyanosis, or edema. She has cool extremities. Fingers and toes have small scattered dried ulcers with mottling of toes. PSYCH: normal thought and speech, gait is not tested. Objective Data Vital Signs Vital Signs: Vital Signs - 24 hr 11/02/24 20:00 11/02/24 20:00 11/02/24 20:51 Temperature 36.5 C Pulse Rate 95 92 Respiratory Rate 17 Blood Pressure 116/62 Pulse Oximetry 93 Oxygen Delivery Room Air 11/02/24 20:55 11/02/24 21:00 11/03/24 00:00 Temperature 36.5 C 36.5 C Pulse Rate 106 H 92 98 Respiratory Rate 17 17 Blood Pressure 122/84 116/62 Pulse Oximetry 94 93 Oxygen Delivery 11/03/24 04:00 11/03/24 05:09 11/03/24 09:49 Temperature 36.7 C Pulse Rate 109 H 86 93 Respiratory Rate 17 Blood Pressure 107/51 L Pulse Oximetry 95 Oxygen Delivery 11/03/24 09:50 11/03/24 09:50 11/03/24 09:50 Temperature Pulse Rate 93 93 Respiratory Rate 17 Blood Pressure Pulse Oximetry 95 95 Oxygen Delivery Room Air 11/03/24 16:26 Temperature 36.5 C Pulse Rate 85 Respiratory Rate 16 Blood Pressure 117/63 Pulse Oximetry 94 Oxygen Delivery Intake/Output Intake/Output: Intake & Output 10/31/24 11/01/24 11/02/24 11/03/24 23:59 23:59 23:59 23:59 Intake Total 630 1250 450 120 Output Total 450 200 400 Balance 180 1250 250 -280 Meds/Results Medications: Active Medications Generic Name Dose Route Start Last Admin Trade Name Freq PRN Reason Stop Dose Admin Acetaminophen 650 mg 10/28/24 17:41 11/03/24 18:16 Acetaminophen 325 Mg Tablet PO 650 mg Q4H PRN Administration Mild Pain (1-3) or Fever Atorvastatin Calcium 10 mg 10/29/24 21:00 11/02/24 21:25 Atorvastatin 10 Mg Tablet PO 10 mg QHS SHAKA Administration Calcitriol 0.25 mcg 10/28/24 21:55 Calcitriol 0.25 Mcg Capsule PO MoWeFr PRN AFTER DIALYSIS Cyanocobalamin 5,000 mcg 10/29/24 09:00 11/03/24 09:55 Cyanocobalamin 1,000 Mcg Tablet PO 5,000 mcg MoWeFr SHAKA Administration Dextrose 12.5 gm 10/29/24 10:22 11/02/24 07:01 Dextrose 50% 25 Gm/50 Ml Syringe IV PUSH 12.5 gm PRN PRN Administration Hypoglycemia Protocol Ferrous Sulfate 325 mg 10/29/24 21:00 11/03/24 05:47 Ferrous Sulfate [address] PO 325 mg BID@0600,2100 SHAKA Administration Furosemide 20 mg 11/02/24 17:00 11/03/24 18:17 Furosemide 20 Mg Tablet PO 20 mg BID SHAKA Administration Glucagon 1 mg 10/29/24 10:22 Glucagon For Inj 1 Mg Vial IM PRN PRN Hypoglycemia Protocol Glucose 15 gm 10/29/24 10:22 11/03/24 06:11 Glucose Oral Gel 15 Gm Of Glucse In 37.5 Gm Tube PO 15 gm PRN PRN Administration Hypoglycemia Protocol Dextrose 1,000 mls @ 100 mls/hr 10/29/24 10:22 Dextrose 5% 1,000 Ml IVPB PRN PRN Hypoglycemia Protocol Iron Sucrose 100 mg/ Sodium 55 mls @ 220 mls/hr 11/03/24 09:00 11/03/24 09:51 Chloride IVPB 220 mls/hr DAILY SHAKA Administration Lactobacillus Acidophilus 1 tablet 10/29/24 09:00 11/03/24 09:48 Acidophilus/Bulgaricus Chewable Tablet BY MOUTH 1 tablet DAILY SHAKA Administration Loratadine 10 mg 10/28/24 21:56 Loratadine 10 Mg Tablet PO DAILY PRN SEASONAL ALLERGIES Metoprolol Succinate 25 mg 11/04/24 09:00 Metoprolol Succinate Ext Rel 25 Mg Tabcr PO QAM SHAKA Metoprolol Succinate 100 mg 11/04/24 09:00 Metoprolol Succinate Ext Rel 100 Mg Tabcr PO QAM SHAKA Metoprolol Tartrate 2.5 mg 11/03/24 15:34 Metoprolol Tartrate Inj 5 Mg/5 Ml Vial IV PUSH Q2H PRN Tachycardia Ondansetron HCl 4 mg 10/28/24 17:41 11/01/24 08:52 Ondansetron Inj 4 Mg/2 Ml Vial IV PUSH 4 mg Q4H PRN Administration Nausea Pantoprazole Sodium 40 mg 10/29/24 21:00 11/03/24 09:48 Pantoprazole 40 Mg Tablet PO 40 mg Q12HR SHAKA Administration Potassium Chloride 20 meq 10/29/24 09:00 11/03/24 09:50 Potassium Chloride 20 Meq Er Tablet PO 20 meq DAILY SHAKA Administration Sodium Bicarbonate 650 mg 10/29/24 09:00 11/03/24 18:17 Sodium Bicarbonate Tab 650 Mg Tablet PO 650 mg BID SHAKA Administration Vitamin D 2,000 units 10/29/24 09:00 11/03/24 09:48 Cholecalciferol 1,000 Units Tablet PO 2,000 units DAILY SHAKA Administration Radiology Results: ITS Impressions Abdomen/Pelvis CT 10/28/24 16:58 IMPRESSION: Diffuse anasarca. Detection of active GI hemorrhage is limited without intravenous contrast. Large nonobstructing ventral hernia Large left-sided pleural effusion. Small right-sided pleural effusion. Chest X-Ray 10/31/24 14:28 IMPRESSION: No pneumothorax following left-sided thoracentesis, as detailed above. Thoracentesis Ultrasound 10/31/24 14:31 IMPRESSION: 1. Successful ultrasound-guided thoracentesis yielding 450 mL of yellow fluid. Abdomen X-Ray 11/02/24 12:23 IMPRESSION: 1. Multiple loops of gas-filled but not frankly dilated small bowel likely within the large left-sided ventral hernia similar as seen on prior CT. 2. Opacities at the left lower lung zone consistent with persistent small left pleural effusion and associated atelectasis or pneumonia. Renal Ultrasound 11/03/24 14:46 IMPRESSION: 1. Right kidney not visualized due to the patient's body habitus. Note that the right kidney demonstrated normal size without hydronephrosis on the recent CT. 2. 1.7 cm mass in the left kidney. The differential diagnosis includes normal renal parenchyma, renal cell carcinoma, and hemorrhagic cyst. Abdomen MRI without and with contrast is recommended. 3. Right pleural effusion. Labs Labs: Laboratory Results - last 24 hr 10/31/24 11/02/24 11/02/24 14:20 18:03 23:29 WBC RBC Hgb Hct MCV MCH MCHC RDW Plt Count MPV Immature Gran % (Auto) Neut % (Auto) Lymph % (Auto) [place] % (Auto) Eos % (Auto) Baso % (Auto) Lymph # (Auto) [place] # (Auto) Eos # (Auto) Baso # (Auto) Abs Immat Gran (auto) Absolute Neuts (auto) Absolute Nucleated RBC Nucleated RBC % Platelet Estimate % Immature Plt Fraction Hypochromasia Anisocytosis Macrocytosis Schistocytes Sodium Potassium Chloride Carbon Dioxide Anion Gap BUN Creatinine Estim Creat Clear Calc Estimated GFR Glucose POC Capillary Glucose 97 65 Calcium Total Bilirubin AST ALT Alkaline Phosphatase NT-Pro-B Natriuret Pep Total Protein Albumin Pleural RBC < 2000 11/03/24 11/03/24 11/03/24 05:34 05:59 06:36 WBC 8.9 RBC 2.43 L Hgb 7.9 L Hct 26.3 L MCV 108.2 H MCH 32.5 MCHC 30.0 L RDW 22.3 H Plt Count 67 L MPV 13.4 H Immature Gran % (Auto) 0.7 H Neut % (Auto) 85.3 H Lymph % (Auto) 5.2 L [place] % (Auto) 8.3 Eos % (Auto) 0.4 Baso % (Auto) 0.1 L Lymph # (Auto) 0.46 L [place] # (Auto) 0.7 H Eos # (Auto) 0.0 Baso # (Auto) 0.0 Abs Immat Gran (auto) 0.06 H Absolute Neuts (auto) 7.6 H Absolute Nucleated RBC 0.100 H Nucleated RBC % 1.1 H Platelet Estimate Decreased % Immature Plt Fraction 13.2 H Hypochromasia 1+ Anisocytosis 1+ Macrocytosis 2+ Schistocytes None seen Sodium 139 Potassium 4.4 Chloride 116 H Carbon Dioxide 13 L Anion Gap 10 BUN 53 H Creatinine 2.70 H Estim Creat Clear Calc 15 Estimated GFR 17 L Glucose 71 POC Capillary Glucose 49 L* 67 Calcium 7.7 L Total Bilirubin 2.3 H AST 33 ALT 18 Alkaline Phosphatase 69 NT-Pro-B Natriuret Pep > 87046 H Total Protein 5.0 L Albumin 2.8 L Pleural RBC 11/03/24 11/03/24 11/03/24 06:43 12:17 16:56 WBC RBC Hgb Hct MCV MCH MCHC RDW Plt Count MPV Immature Gran % (Auto) Neut % (Auto) Lymph % (Auto) [place] % (Auto) Eos % (Auto) Baso % (Auto) Lymph # (Auto) [place] # (Auto) Eos # (Auto) Baso # (Auto) Abs Immat Gran (auto) Absolute Neuts (auto) Absolute Nucleated RBC Nucleated RBC % Platelet Estimate % Immature Plt Fraction Hypochromasia Anisocytosis Macrocytosis Schistocytes Sodium Potassium Chloride Carbon Dioxide Anion Gap BUN Creatinine Estim Creat Clear Calc Estimated GFR Glucose POC Capillary Glucose 88 63 L 84 Calcium Total Bilirubin AST ALT Alkaline Phosphatase NT-Pro-B Natriuret Pep Total Protein Albumin Pleural RBC
[2024-11-03] MEDS: ATORVASTATIN 10 MG TABLET PO (20:42)
[2024-11-03] MEDS: ONDANSETRON INJ 4 MG/2 ML VIAL IV PUSH (21:13)
--- NOTE | 2024-11-03 22:26 | PM.EVENT ---
Event Note Event Note Event Note: Patient complaining of nausea and vomiting after Zofran Reglan added, gentle IV hydration and KUB
[2024-11-03] MEDS: SODIUM CHLORIDE 0.9% IV 1,000 ML 75 ML IV CONT (23:04)
[2024-11-03] MEDS: METOCLOPRAMIDE HCL INJ 10 MG/2 ML VIAL 5 MG IV PUSH (23:04)
[2024-11-03 23:54] LABS: Add Urine Microscopic? YES; Appearance Urine Cloudy (Clear); Bacteria Urine 1+ /hpf; Bilirubin Urine Negative (Negative); Blood Urine 3+ (Negative); Color Urine Yellow (Yellow); Glucose Urine UA Negative (Negative); Ketones Urine Negative (Negative); Leukocyte Esterase Ur Trace LEU/UL (Negative); Nitrate Urine Negative (Negative); Protein Urine Trace mg/dL (Negative); RBC Urine 21-50 /hpf (0-2); Specific Grav Ur 1.009 (1.001-1.035); Squamous Epithelial Cell Urine Few /hpf (Few); WBC Urine 0-5 /hpf (0-3)
[2024-11-03 23:58] LABS: Creatinine Urine 21.8 mg/dL; Total Protein Urine Random 26 mg/dL; Urea Random Urine 165 MG/DL
[2024-11-03 23:59] LABS: Creatinine Urine 21.8 mg/dL; Total Protein Urine Random 25 mg/dL; Ur Ttl Prot Creatinine Ratio 1.15 mg/mg (0-0.20)
[2024-11-04] VITALS (29 sets, daily range): BP systolic 86–142; BP diastolic 50–87; PULSE 68–96; RESP 15–20; TEMP 35.5–36.6; O2SAT 90–100
[2024-11-04] LABS: Sodium Urine Random 100 meq/L
[2024-11-04] MEDS: DEXTROSE 50% 25 GM/50 ML SYRINGE IV PUSH ×3 (00:23→16:55)
[2024-11-04 00:34] LABS: Eosinophil Urine None Seen % (None Seen); Urine Eos QC 2nd Tech Confirmed
[2024-11-04 00:40] LABS: Glucose Point of Care 46 mg/dl (65-105)
[2024-11-04] MEDS: GLUCOSE ORAL GEL 15 GM OF GLUCSE IN 37.5 GM TUBE PO (01:13)
[2024-11-04 01:21] LABS: Glucose Point of Care 46 mg/dl (65-105)
[2024-11-04 01:49] LABS: Glucose Point of Care 83 mg/dl (65-105)
[2024-11-04] MEDS: GLUCAGON FOR INJ 1 MG VIAL IM (02:00)
[2024-11-04] MEDS: DEXTROSE 10% 500 ML 50 ML IV CONT ×3 (02:09→23:46)
--- NOTE | 2024-11-04 03:27 | ECG_ITS ---
Test Date: 2024-11-04 03:43:46 Measurements Intervals [place] Rate: 76 P: 0 MI: 0 QRS: 250 QRSD: 97 T: 69 QT: 362 QTc: 408 Interpretive Statements ATRIAL FIBRILLATION LOW QRS VOLTAGE IN EXTREMITY LEADS [QRS DEFLECTION < 0.5 mV IN LIMB LEADS] ANTEROLATERAL MYOCARDIAL INFARCTION , OF INDETERMINATE AGE [40+ ms Q WAVE IN I/aVL/V3-V6] Compared to ECG 08/13/2024 20:49:53 Low QRS voltage now present Myocardial infarct finding now present Left-axis deviation no longer present Electronically Signed On 11-04-2024 22:51:16 [employer] by Yolanda Villareal M.D.
[2024-11-04 04:40] LABS: Glucose Point of Care 132 mg/dl (65-105)
--- NOTE | 2024-11-04 05:07 | PC.NURSE ---
This patient, Shannan Kwong [place], was received from [ [id number]] on 11/04/24 at 0444. Patient/family oriented to unit policies and routines
[2024-11-04 05:38] LABS: Hematocrit 25.7 % (37.0-47.0); Hemoglobin 7.9 g/dL (12.0-15.0); Immature Platelet Fraction Pct 14.3 % (0.9-11.2); Mean Corpuscular HGB Conc 30.7 g/dl (32-36); Mean Corpuscular Hemoglobin 32.8 pg (26-34); Mean Corpuscular Volume 106.6 fl (80-100); Mean Platelet Volume 12.9 fl (7.4-10.4); Platelet Count Result 59 k/mm3 (150-375); Red Blood Count 2.41 M/mm3 (4.2-5.4); Red Cell Distribution Width 22.3 % (11.5-14.5); White Blood Count 7.9 K/mm3 (4.5-10.0)
[2024-11-04 05:45] LABS: Glucose Point of Care 117 mg/dl (65-105)
[2024-11-04 05:52] LABS: Anion Gap 6 mmol/L (4-12); Blood Urea Nitrogen 56 mg/dL (7-17); Calcium 7.9 mg/dL (8.4-10.2); Carbon Dioxide 18 mmol/L (22-30); Chloride 115 mmol/L (98-107); Estimated CRCL calculation 14 ml/min; Estimated Glomerular Filt Rate 16; Glucose 109 mg/dL (65-110); Potassium 4.9 mmol/L (3.4-5.0); Sodium 139 mmol/L (137-145)
[2024-11-04 05:59] LABS: Creatine Kinase 146 U/L (30-135)
[2024-11-04 06:06] LABS: Troponin I 0.062 ng/mL (0.000-0.034)
[2024-11-04 08:06] LABS: Glucose Point of Care 168 mg/dl (65-105)
--- NOTE | 2024-11-04 09:00 | P.PNIM_ITS ---
Progress Note: A&P Assessment and Plan (1) Weakness: Code(s): R53.1 - Weakness Status: Acute Assessment and Plan: Anna increasingly weak over the past few days and reports that she has no energy similar to when her hemoglobin was low in the past. Per chart review, patient receives blood transfusions every few weeks and has a transfusion in Oct 30. - WBC count hwas elevated however she does not give a history to suggest underlying infection. WBC has returned to normal. - UA unremarkable - CT abdomen/pelvis: Diffuse anasarca. Detection of active GI hemorrhage is limited without intravenous contrast. Large nonobstructing ventral hernia Large left-sided pleural effusion. Small right-sided pleural effusion. - patient will need PT/OT evals (2) Heme positive stool: Code(s): R19.5 - Other fecal abnormalities Status: Acute Assessment and Plan: Anna increasingly weak over the past few days and reports that she has no energy similar to when her hemoglobin was low in the past. Per chart review, patient receives blood transfusions every few weeks and has a transfusion in Oct 30. Endorses dark stools but is on iron supplementation. Extensive outpatient evaluation for occult GI bleeding including upper and lower endoscopies and capsule endoscopy which she reports did not show any source of bleeding. - H/H 8.5/28.1 on am labs, continue to trend - Heme occult positive - CT abdomen/pelvis: Diffuse anasarca. Detection of active GI hemorrhage is limited without intravenous contrast. Large nonobstructing ventral hernia Large left-sided pleural effusion. Small right-sided pleural effusion. - GI consulted Protonix BID EGD performed on 10/[address] Olguin No esophagitis or varices. Mod erosive gastrictis with erythematous, edematous, erosive, and petechiae changes, No mucosal bleeding. No duodenal ulcers or masses, no signs of recent bleeding. (3) Chronic anemia: Code(s): D64.9 - Anemia, unspecified Status: Inactive Assessment and Plan: Follows heme/onc at [facility], last seen 10/01/24. - H/H 7.9/25.6 on am labs, continue to trend - Iron panel: iron 88, TIBC 203, % sat 43, ferritin 239 - B12 >1000 and folate 7.2 - Heme occult positive - CT abdomen/pelvis: Diffuse anasarca. Detection of active GI hemorrhage is limited without intravenous contrast. Large nonobstructing ventral hernia Large left-sided pleural effusion. Small right-sided pleural effusion. - GI consulted see above (4) Pleural effusion: Code(s): J90 - Pleural effusion, not elsewhere classified Status: Acute Assessment and Plan: Left pleural effusion has been present since at least December as seen on CXR 12/29/23 and she seems asymptomatic with that. 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 - Asymptomatic, remains on room air - Ddx included CHF, cirrhosis, nephrosis, hypothyroidism (t4 WNL on 11/01), and/or malignancy - CT abdomen/pelvis: Large left-sided pleural effusion. Small right-sided pleural effusion. - Echo 08/14/24: LVEF > 70% with severe concentric LV hypertrophy and bilateral dilation - Started on lasix 20 mg BID, monitor creatinine - S/p thoracentesis yielding 400 ml yellow fluid on 10/31 - pulmonology consulted, appreciate recommendation fluid appears transudative, ddx included CHF, cirrhosis, nephrosis, and/or hypothyroidism (t4 WNL on 11/01) (5) Chronic kidney disease, stage 4 (severe): Code(s): N18.4 - Chronic kidney disease, stage 4 (severe) Status: Acute Assessment and Plan: BUN/Cr 55/2.6 on admission, appears to be around baseline. Last seen nephrology, Dr. Garay on 09/02/24. Etiology of CKD likely DM and HTN. - BUN/Cr 56/2.8 on am labs - Patient started on lasix 20 mg BID for CHF - Decreased urine output, bladder scan ordered - Avoid nephrotoxic medications - Renally dose medications - Monitor I/O - Renal US 1. Right kidney not visualized due to the patient's body habitus. Note that the right kidney demonstrated normal size without hydronephrosis on the recent CT. 2. 1.7 cm mass in the left kidney. The differential diagnosis includes normal renal parenchyma, renal cell carcinoma, and hemorrhagic cyst. Abdomen MRI without and with contrast is recommended. 3. Right pleural effusion. - Nephrology consulted, appreciate recommendations - MRI ordered, awaiting read (6) Hypoglycemia: Code(s): E16.2 - Hypoglycemia, unspecified Status: Acute Assessment and Plan: Patient was noted to have asymptomatic hypoglycemia into the 30s. She was given D5 push and this resolved. Hypoglycemia likely secondary to patient being NPO since admission and had not had anything to eat since Sunday. - Hypoglycemia protocol - Monitor Patient was noted to be hypoglycemia overnight, remained asymptomatic and transferred to IMU. Started on dextrose drip. Glucose remains stable. Monitor. (7) Atrial fibrillation: Code(s): I48.91 - Unspecified atrial fibrillation Status: Acute Assessment and Plan: Chronic, continue home medications. Last seen by cardiology Sameera Becerra [employer] I PAR[employer]OFESSIONAL on 09/10/24 - metoprolol 125 mg daily - no anticoagulation due to patients history of GI bleeding and anemia (refer to cardiology note on 09/10) - monitor - Cardiology consulted, appreciate recommendations metoprolol dose increased to 125 mg daily 11/04: Heart rate well controlled on current dose of metoprolol. Continue to monitor. (8) Ventral hernia: Code(s): K43.9 - Ventral hernia without obstruction or gangrene Status: Acute Assessment and Plan: Potentially playing a role in patients early satiety and abdominal discomfort. - CT abdomen/pelvis: Large nonobstructing ventral hernia extending to the left of midline containing the majority of patient's large and small bowel. - 11/04: Patient continues to have poor appetite and nausea/vomiting with meals. Will order MRI to rule out new forming obstruction. MRI obtained, pending read. (9) MGUS (monoclonal gammopathy of unknown significance): Code(s): D47.2 - Monoclonal gammopathy Status: Acute Assessment and Plan: MGUS with bone marrow biopsy in April [address]24. [address]. Schaffer, last seen 10/01/24. - Patient endorsing increased fatigue, weakness and appetite loss concerning for possible myeloma. - Heme/onc consulted (10) Peripheral arterial disease: Code(s): I73.9 - Peripheral vascular disease, unspecified Status: Acute Assessment and Plan: Patient appears to have poor circulation to the extremities as the bottom of her feet are purple with poorly healing bilateral heel wounds. - MATTHEW: Right brachial systolic blood pressure: 115 mmHg Left brachial systolic blood pressure: 132 mmHg Right ankle systolic blood pressure: CNO. Left ankle systolic blood pressure: CNO Highly suggestive severe occlusive disease. Clinical correlation and further evaluation advised. - Follow up outpatient (11) Hypertension: Qualifiers: Hypertension type: unspecified Qualified Code(s): I10 - Essential (primary) hypertension Code(s): I10 - Essential (primary) hypertension Status: Inactive Assessment and Plan: Chronic, continue home medication - metoprolol 125 mg daily - monitor (12) Protein calorie malnutrition: Qualifiers: Protein-calorie malnutrition severity: moderate Qualified Code(s): E44.0 - Moderate protein-calorie malnutrition Code(s): E46 - Unspecified protein-calorie malnutrition Status: Acute Assessment and Plan: Supplements per nutrition recommendations Time Spent With Patient Time with patient: Greater than 35 minutes Subjective Date/time seen: 11/04/24 09:00 Interval history: 78-year-old female with history of atrial fibrillation, congestive heart failure, chronic kidney disease, occult GI bleeding, anemia, hypertension, and other comorbidities who presented to the emergency department via EMS from [facility] for evaluation of weakness. Overnight patient was transferred to the IMU reportedly for hypoglycemia per day team RN. Attempted to give patient juice and gel however she vomited immediately. She was started on dextrose drip and sugars have since been stable. Patient remains asymptomatic. Patient is pleasant lying in bed with family at bedside. She continues to endorse nausea/vomiting with any intake. She denies abdominal pain. A renal US was obtained which showed a renal mass, MRI ordered to further evaluate which will also allow for reevaluation of the hernia. Patient states that she thinks she was told in the past that she has kidney cancer but is unsure. She has no other complaints denying chest pain, shortness of breath, and palpitations. Patient was speaking to her daughter stating that she told varghese that he can take her on her birthday if he would like. Attempted to discuss this with the patient and she stated that she is just tired and knows her time is coming. Returned to patients room to discuss code status and she stated she wanted time to think about it and discuss with family. Review of Systems Review of Systems: All systems reviewed & are unremarkable except as noted in HPI and below Exam Narrative: AF HR 84 RR 20 SPO2 92 2L NC BP 122/74 General: female in no acute respiratory distress who is nontoxic appearing, lying semi recumbent in bed. HEENT: Normocephalic. Atraumatic. Extraocular movement intact. Sclera clear and anicteric. No facial asymmetry. Chest: Lungs are clear to auscultation bilaterally. No wheezes or crackles. CV: Heart was regular rate with irregularly irregular rhythm. S1-S2. No murmurs, gallops, or rubs. Abd: Abdomen was soft. Nontender. Nondistended. Positive bowel sounds. Large ventral hernia hanging to the left. Ext: No clubbing, cyanosis, or edema. 2+ DP pulses bilaterally. Neuro: Patient is alert. Cranial nerves 2-12 are intact. Speech is clear. Objective Data Vital Signs Vital Signs: Vital Signs - 24 hr 11/03/24 09:49 11/03/24 09:50 11/03/24 09:50 Temperature Pulse Rate 93 93 Respiratory Rate 17 Blood Pressure Pulse Oximetry 95 95 Oxygen Delivery Room Air 11/03/24 09:50 11/03/24 12:00 11/03/24 16:26 Temperature 97.7 F Pulse Rate 93 89 85 Respiratory Rate 16 Blood Pressure 117/63 Pulse Oximetry 94 Oxygen Delivery 11/03/24 20:00 11/03/24 20:00 11/03/24 20:38 Temperature 97.7 F Pulse Rate 97 84 Respiratory Rate 18 Blood Pressure 121/68 Pulse Oximetry 95 Oxygen Delivery Room Air 11/04/24 00:00 11/04/24 04:00 11/04/24 04:59 Temperature 97.7 F Pulse Rate 96 79 87 Respiratory Rate 16 Blood Pressure 130/86 Pulse Oximetry 100 Oxygen Delivery 11/04/24 07:30 Temperature 97.4 F L Pulse Rate 85 Respiratory Rate 18 Blood Pressure 114/75 Pulse Oximetry 98 Oxygen Delivery Intake/Output Intake/Output: Intake & Output 11/01/24 11/02/24 11/03/24 11/04/24 23:59 23:59 23:59 23:59 Intake Total 1250 450 320 Output Total 200 401 200 Balance 1250 250 -81 -200 Meds/Results Medications: Active Medications Generic Name Dose Route Start Last Admin Trade Name Freq PRN Reason Stop Dose Admin Acetaminophen 650 mg 10/28/24 17:41 11/03/24 18:16 Acetaminophen 325 Mg Tablet PO 650 mg Q4H PRN Administration Mild Pain (1-3) or Fever Atorvastatin Calcium 10 mg 10/29/24 21:00 11/03/24 20:42 Atorvastatin 10 Mg Tablet PO 10 mg QHS SHAKA Administration Calcitriol 0.25 mcg 10/28/24 21:55 Calcitriol 0.25 Mcg Capsule PO MoWeFr PRN AFTER DIALYSIS Cyanocobalamin 5,000 mcg 10/29/24 09:00 11/03/24 09:55 Cyanocobalamin 1,000 Mcg Tablet PO 5,000 mcg MoWeFr SHAKA Administration Dextrose 12.5 gm 10/29/24 10:22 11/04/24 01:03 Dextrose 50% 25 Gm/50 Ml Syringe IV PUSH 12.5 gm PRN PRN Administration Hypoglycemia Protocol Ferrous Sulfate 325 mg 10/29/24 21:00 11/04/24 05:27 Ferrous Sulfate [address] PO Not Given BID@0600,2100 SHAKA Furosemide 20 mg 11/02/24 17:00 11/03/24 18:17 Furosemide 20 Mg Tablet PO 20 mg BID SHAKA Administration Glucagon 1 mg 10/29/24 10:22 11/04/24 02:00 Glucagon For Inj 1 Mg Vial IM 1 mg PRN PRN Administration Hypoglycemia Protocol Glucose 15 gm 10/29/24 10:22 11/04/24 01:13 Glucose Oral Gel 15 Gm Of Glucse In 37.5 Gm Tube PO 15 gm PRN PRN Administration Hypoglycemia Protocol Dextrose 1,000 mls @ 100 mls/hr 10/29/24 10:22 Dextrose 5% 1,000 Ml IVPB PRN PRN Hypoglycemia Protocol Iron Sucrose 100 mg/ Sodium 55 mls @ 220 mls/hr 11/03/24 09:00 11/03/24 09:51 Chloride IVPB 220 mls/hr DAILY SHAKA Administration Sodium Chloride 1,000 mls @ 75 mls/hr 11/03/24 22:25 11/03/24 23:04 Normal Saline Iv IV CONT 75 mls/hr .[id number] SHAKA Administration Dextrose 500 mls @ 50 mls/hr 11/04/24 02:00 11/04/24 02:09 Dextrose 10% IV CONT 50 mls/hr .Q10H SHAKA Administration Lactobacillus Acidophilus 1 tablet 10/29/24 09:00 11/03/24 09:48 Acidophilus/Bulgaricus Chewable Tablet BY MOUTH 1 tablet DAILY SHAKA Administration Loratadine 10 mg 10/28/24 21:56 Loratadine 10 Mg Tablet PO DAILY PRN SEASONAL ALLERGIES Metoclopramide HCl 5 mg 11/03/24 22:25 11/03/24 23:04 Metoclopramide Hcl Inj 10 Mg/2 Ml Vial IV PUSH 5 mg Q6HR PRN Administration Vomiting Metoprolol Succinate 25 mg 11/04/24 09:00 Metoprolol Succinate Ext Rel 25 Mg Tabcr PO QAM SHAKA Metoprolol Succinate 100 mg 11/04/24 09:00 Metoprolol Succinate Ext Rel 100 Mg Tabcr PO QAM SHAKA Metoprolol Tartrate 2.5 mg 11/03/24 15:34 Metoprolol Tartrate Inj 5 Mg/5 Ml Vial IV PUSH Q2H PRN Tachycardia Ondansetron HCl 4 mg 10/28/24 17:41 11/03/24 21:13 Ondansetron Inj 4 Mg/2 Ml Vial IV PUSH 4 mg Q4H PRN Administration Nausea Pantoprazole Sodium 40 mg 10/29/24 21:00 11/03/24 20:42 Pantoprazole 40 Mg Tablet PO 40 mg Q12HR SHAKA Administration Potassium Chloride 20 meq 10/29/24 09:00 11/03/24 09:50 Potassium Chloride 20 Meq Er Tablet PO 20 meq DAILY SHAKA Administration Sodium Bicarbonate 650 mg 10/29/24 09:00 11/03/24 18:17 Sodium Bicarbonate Tab 650 Mg Tablet PO 650 mg BID SHAKA Administration Vitamin D 2,000 units 10/29/24 09:00 11/03/24 09:48 Cholecalciferol 1,000 Units Tablet PO 2,000 units DAILY SHAKA Administration Radiology Results: ITS Impressions Abdomen/Pelvis CT 10/28/24 16:58 IMPRESSION: Diffuse anasarca. Detection of active GI hemorrhage is limited without intravenous contrast. Large nonobstructing ventral hernia Large left-sided pleural effusion. Small right-sided pleural effusion. Chest X-Ray 10/31/24 14:28 IMPRESSION: No pneumothorax following left-sided thoracentesis, as detailed above. Thoracentesis Ultrasound 10/31/24 14:31 IMPRESSION: 1. Successful ultrasound-guided thoracentesis yielding 450 mL of yellow fluid. Renal Ultrasound 11/03/24 14:46 IMPRESSION: 1. Right kidney not visualized due to the patient's body habitus. Note that the right kidney demonstrated normal size without hydronephrosis on the recent CT. 2. 1.7 cm mass in the left kidney. The differential diagnosis includes normal renal parenchyma, renal cell carcinoma, and hemorrhagic cyst. Abdomen MRI wi thout and with contrast is recommended. 3. Right pleural effusion. Ankle Brachial Index 11/03/24 21:57 IMPRESSION: Highly suggestive severe occlusive disease. Clinical correlation and further evaluation advised. Abdomen X-Ray 11/03/24 23:01 IMPRESSION: Slightly dilated small bowel loops. Follow-up advised. Labs Labs: Laboratory Results - last 24 hr 11/03/24 11/03/24 11/03/24 12:17 16:56 23:39 WBC RBC Hgb Hct MCV MCH MCHC RDW Plt Count MPV % Immature Plt Fraction Sodium Potassium Chloride Carbon Dioxide Anion Gap BUN Creatinine Estim Creat Clear Calc Estimated GFR Glucose POC Capillary Glucose 63 L 84 Calcium Total Creatine Kinase Troponin I Urine Color Yellow Urine Appearance Cloudy H Urine pH 5.0 Ur Specific [place] 1.009 Urine Protein Trace Urine Glucose (UA) Negative Urine Ketones Negative Ur Blood (Man) 3+ H Urine Nitrate Negative Urine Bilirubin Negative Urine Urobilinogen 1.0 Leukocyte Esterase Rfl Trace H Urine RBC 21-50 H Urine WBC 0-5 Ur Squamous Epith Cells Few Urine Bacteria 1+ H Urine Casts 3-5 Urine Eosinophils None seen U Random Total Protein 26 Ur Random Sodium Ur Random Urea Urine Creatinine Protein/Creat Ratio 2 11/03/24 11/03/24 11/04/24 23:39 23:39 00:20 WBC RBC Hgb Hct MCV MCH MCHC RDW Plt Count MPV % Immature Plt Fraction Sodium Potassium Chloride Carbon Dioxide Anion Gap BUN Creatinine Estim Creat Clear Calc Estimated GFR Glucose POC Capillary Glucose 46 L* Calcium Total Creatine Kinase Troponin I Urine Color Urine Appearance Urine pH Ur Specific [place] Urine Protein Urine Glucose (UA) Urine Ketones Ur Blood (Man) Urine Nitrate Urine Bilirubin Urine Urobilinogen Leukocyte Esterase Rfl Urine RBC Urine WBC Ur Squamous Epith Cells Urine Bacteria Urine Casts Urine Eosinophils U Random Total Protein 25 Ur Random Sodium 100 Ur Random Urea 165 Urine Creatinine 21.8 21.8 Protein/Creat Ratio 2 1.15 H 11/04/24 11/04/24 11/04/24 00:54 01:46 03:00 WBC RBC Hgb Hct MCV MCH MCHC RDW Plt Count MPV % Immature Plt Fraction Sodium Potassium Chloride Carbon Dioxide Anion Gap BUN Creatinine Estim Creat Clear Calc Estimated GFR Glucose POC Capillary Glucose 46 L* 83 132 H Calcium Total Creatine Kinase Troponin I Urine Color Urine Appearance Urine pH Ur Specific [place] Urine Protein Urine Glucose (UA) Urine Ketones Ur Blood (Man) Urine Nitrate Urine Bilirubin Urine Urobilinogen Leukocyte Esterase Rfl Urine RBC Urine WBC Ur Squamous Epith Cells Urine Bacteria Urine Casts Urine Eosinophils U Random Total Protein Ur Random Sodium Ur Random Urea Urine Creatinine Protein/Creat Ratio 2 11/04/24 11/04/24 11/04/24 04:41 05:30 07:42 WBC 7.9 RBC 2.41 L Hgb 7.9 L Hct 25.7 L MCV 106.6 H MCH 32.8 MCHC 30.7 L RDW 22.3 H Plt Count 59 L MPV 12.9 H % Immature Plt Fraction 14.3 H Sodium 139 Potassium 4.9 Chloride 115 H Carbon Dioxide 18 L Anion Gap 6 BUN 56 H Creatinine 2.80 H Estim Creat Clear Calc 14 Estimated GFR 16 L Glucose 109 POC Capillary Glucose 117 H 168 H Calcium 7.9 L Total Creatine Kinase 146 H Troponin I 0.062 H* Urine Color Urine Appearance Urine pH Ur Specific [place] Urine Protein Urine Glucose (UA) Urine Ketones Ur Blood (Man) Urine Nitrate Urine Bilirubin Urine Urobilinogen Leukocyte Esterase Rfl Urine RBC Urine WBC Ur Squamous Epith Cells Urine Bacteria Urine Casts Urine Eosinophils U Random Total Protein Ur Random Sodium Ur Random Urea Urine Creatinine Protein/Creat Ratio 2 Quality VTE Prophylaxis VTE prophylaxis: mechanical ordered
[2024-11-04] MEDS: METOPROLOL SUCCINATE EXT REL 100 MG TABCR PO (09:20)
[2024-11-04] MEDS: METOPROLOL SUCCINATE EXT REL 25 MG TABCR PO (09:20)
[2024-11-04] MEDS: FUROSEMIDE 20 MG TABLET PO ×2 (09:20→16:46)
[2024-11-04] MEDS: POTASSIUM CHLORIDE 20 MEQ ER TABLET PO (09:26)
[2024-11-04] MEDS: CHOLECALCIFEROL 1,000 UNITS TABLET 2000 UNITS PO (09:26)
[2024-11-04] MEDS: PANTOPRAZOLE 40 MG TABLET PO ×2 (09:26→21:38)
[2024-11-04] MEDS: ACIDOPHILUS/BULGARICUS CHEWABLE TABLET 1 TABLET BY MOUTH (09:26)
[2024-11-04] MEDS: IRON SUCROSE COMPLEX 100 MG in SODIUM CHLORIDE 0.9% IV 50 ML 220 MG IVPB (09:35)
--- NOTE | 2024-11-04 09:45 | PM.PNNEP ---
Subjective Date/time seen: 11/04/24 09:45 Interval history: Follow-up for acute kidney injury/acute renal failure on chronic kidney disease. Objective Data Vital Signs Vital Signs: Vital Signs Temp Pulse Resp BP Pulse Ox O2 Del Method 11/04/24 08:00 94 18 98 Room Air 11/04/24 07:30 97.4 F L 85 18 114/75 98 11/04/24 05:00 96.3 F L 94 20 123/74 95 11/04/24 04:59 97.7 F 87 16 130/86 100 11/04/24 04:00 79 11/04/24 00:00 96 11/03/24 20:38 97.7 F 84 18 121/68 95 11/03/24 20:00 97 11/03/24 20:00 Room Air 11/03/24 16:26 97.7 F 85 16 117/63 94 Intake/Output Intake/Output: Intake & Output 11/01/24 11/02/24 11/03/24 11/04/24 23:59 23:59 23:59 23:59 Intake Total 1250 450 375 555 Output Total 200 401 300 Balance 1250 250 -26 255 Meds/Results Medications: Active Medications Generic Name Dose Route Start Last Admin Trade Name Freq PRN Reason Stop Dose Admin Acetaminophen 650 mg 10/28/24 17:41 11/03/24 18:16 Acetaminophen 325 Mg Tablet PO 650 mg Q4H PRN Administration Mild Pain (1-3) or Fever Atorvastatin Calcium 10 mg 10/29/24 21:00 11/03/24 20:42 Atorvastatin 10 Mg Tablet PO 10 mg QHS SHAKA Administration Calcitriol 0.25 mcg 10/28/24 21:55 Calcitriol 0.25 Mcg Capsule PO MoWeFr PRN AFTER DIALYSIS Cyanocobalamin 5,000 mcg 10/29/24 09:00 11/03/24 09:55 Cyanocobalamin 1,000 Mcg Tablet PO 5,000 mcg MoWeFr SHAKA Administration Dextrose 12.5 gm 10/29/24 10:22 11/04/24 01:03 Dextrose 50% 25 Gm/50 Ml Syringe IV PUSH 12.5 gm PRN PRN Administration Hypoglycemia Protocol Ferrous Sulfate 325 mg 10/29/24 21:00 11/04/24 05:27 Ferrous Sulfate [address] PO Not Given BID@0600,2100 SHAKA Furosemide 20 mg 11/02/24 17:00 11/04/24 09:20 Furosemide 20 Mg Tablet PO 20 mg BID SHAKA Administration Glucagon 1 mg 10/29/24 10:22 11/04/24 02:00 Glucagon For Inj 1 Mg Vial IM 1 mg PRN PRN Administration Hypoglycemia Protocol Glucose 15 gm 10/29/24 10:22 11/04/24 01:13 Glucose Oral Gel 15 Gm Of Glucse In 37.5 Gm Tube PO 15 gm PRN PRN Administration Hypoglycemia Protocol Dextrose 1,000 mls @ 100 mls/hr 10/29/24 10:22 Dextrose 5% 1,000 Ml IVPB PRN PRN Hypoglycemia Protocol Iron Sucrose 100 mg/ Sodium 55 mls @ 220 mls/hr 11/03/24 09:00 11/04/24 09:52 Chloride IVPB Infused DAILY SHAKA Infusion Dextrose 500 mls @ 50 mls/hr 11/04/24 02:00 11/04/24 12:53 Dextrose 10% IV CONT 50 mls/hr .Q10H SHAKA Administration Lactobacillus Acidophilus 1 tablet 10/29/24 09:00 11/04/24 09:26 Acidophilus/Bulgaricus Chewable Tablet BY MOUTH 1 tablet DAILY SHAKA Administration Loratadine 10 mg 10/28/24 21:56 Loratadine 10 Mg Tablet PO DAILY PRN SEASONAL ALLERGIES Metoclopramide HCl 5 mg 11/03/24 22:25 11/03/24 23:04 Metoclopramide Hcl Inj 10 Mg/2 Ml Vial IV PUSH 5 mg Q6HR PRN Administration Vomiting Metoprolol Succinate 25 mg 11/04/24 09:00 11/04/24 09:20 Metoprolol Succinate Ext Rel 25 Mg Tabcr PO 25 mg QAM SHAKA Administration Metoprolol Succinate 100 mg 11/04/24 09:00 11/04/24 09:20 Metoprolol Succinate Ext Rel 100 Mg Tabcr PO 100 mg QAM SHAKA Administration Metoprolol Tartrate 2.5 mg 11/03/24 15:34 Metoprolol Tartrate Inj 5 Mg/5 Ml Vial IV PUSH Q2H PRN Tachycardia Ondansetron HCl 4 mg 10/28/24 17:41 11/03/24 21:13 Ondansetron Inj 4 Mg/2 Ml Vial IV PUSH 4 mg Q4H PRN Administration Nausea Pantoprazole Sodium 40 mg 10/29/24 21:00 11/04/24 09:26 Pantoprazole 40 Mg Tablet PO 40 mg Q12HR SHAKA Administration Potassium Chloride 20 meq 10/29/24 09:00 11/04/24 09:26 Potassium Chloride 20 Meq Er Tablet PO 20 meq DAILY SHAKA Administration Sodium Bicarbonate 650 mg 10/29/24 09:00 11/04/24 09:52 Sodium Bicarbonate Tab 650 Mg Tablet PO Not Given BID SHAKA Vitamin D 2,000 units 10/29/24 09:00 11/04/24 09:26 Cholecalciferol 1,000 Units Tablet PO 2,000 units DAILY SHAKA Administration Radiology Results: ITS Impressions Abdomen/Pelvis CT 10/28/24 16:58 IMPRESSION: Diffuse anasarca. Detection of active GI hemorrhage is limited without intravenous contrast. Large nonobstructing ventral hernia Large left-sided pleural effusion. Small right-sided pleural effusion. Chest X-Ray 10/31/24 14:28 IMPRESSION: No pneumothorax following left-sided thoracentesis, as detailed above. Thoracentesis Ultrasound 10/31/24 14:31 IMPRESSION: 1. Successful ultrasound-guided thoracentesis yielding 450 mL of yellow fluid. Renal Ultrasound 11/03/24 14:46 IMPRESSION: 1. Right kidney not visualized due to the patient's body habitus. Note that the right kidney demonstrated normal size without hydronephrosis on the recent CT. 2. 1.7 cm mass in the left kidney. The differential diagnosis includes normal renal parenchyma, renal cell carcinoma, and hemorrhagic cyst. Abdomen MRI without and with contrast is recommended. 3. Right pleural effusion. Ankle Brachial Index 11/03/24 21:57 IMPRESSION: Highly suggestive severe occlusive disease. Clinical correlation and further evaluation advised. Abdomen X-Ray 11/03/24 23:01 IMPRESSION: Slightly dilated small bowel loops. Follow-up advised. Labs Labs: Laboratory Tests 11/04/24 05:30 11/04/24 05:30 Laboratory Tests 11/04/24 05:30 11/04/24 05:30 Microbiology 10/31/24 14:20 Pleural Fluid Fungal Culture - Preliminary
[2024-11-04 10:25] LABS: Glucose Point of Care 71 mg/dl (65-105)
--- NOTE | 2024-11-04 11:41 | PCOTNOTE ---
Patient refused treatment this session. Patient reports I just can't. Patients family encouraged patient but patient continued to refuse.
[2024-11-04 12:13] LABS: Glucose Point of Care 132 mg/dl (65-105)
--- NOTE | 2024-11-04 13:02 | PCPTNOTE ---
Patient refused treatment this session. Educated patient on the importance and benefits of working with PT. Patient continued to refuse.
--- NOTE | 2024-11-04 14:15 | PC.NURSE ---
Pt to MRI with RN
--- NOTE | 2024-11-04 15:13 | PC.NURSE ---
Pt returned from MRI with no issues noted
[2024-11-04] MEDS: ACETAMINOPHEN 325 MG TABLET 650 MG PO ×2 (16:46→21:36)
[2024-11-04 16:59] LABS: Glucose Point of Care 58 mg/dl (65-105)
[2024-11-04 18:12] LABS: Glucose Point of Care 205 mg/dl (65-105)
[2024-11-04 18:43] LABS: Glucose Point of Care 235 mg/dl (65-105)
[2024-11-04 20:45] LABS: Glucose Point of Care 161 mg/dl (65-105)
[2024-11-04] MEDS: FERROUS SULFATE 325 MG TABLET DR PO (21:38)
[2024-11-04] MEDS: ATORVASTATIN 10 MG TABLET PO (21:38)
[2024-11-04 22:17] LABS: Glucose Point of Care 130 mg/dl (65-105)
[2024-11-05] VITALS (24 sets, daily range): BP systolic 75–124; BP diastolic 47–90; PULSE 12–122; RESP 18–24; TEMP 34.9–36.6; O2SAT 89–98
--- NOTE | 2024-11-05 | ECHO_ITS ---
Patient Info Name: Shannan Seals Age: 78 years : 1945 Gender: Female Accession #: $[id number]$ Ht: 62 in Wt: 152 lbs BSA: 1.76 m2 HR: 70 bpm BP: 118 / 61 mmHg Technical Quality: Good Exam Date: 11/05/2024 1:22 PM Exam Location: Echo Lab Exam Room: [facility] Patient Status: Inpatient Admit Date: 10/28/2024 Plate Maker: Tiffanie Mix RDCS Referring Physician: Christiano MC; Exam Type: CA echo doppler color flow Study Info Complete two-dimensional, color flow and Doppler transthoracic echocardiogram is performed. Summary 1. Limited echo to assess pericardial effusion. 2. There is moderate pericardial effusion anteriorly. Infero-posteriorly, the pericardial/pleural effusion are difficult to differentiate. There is no change in the inf-post effusion compared to echo in 08/2024. MItral inflow velocities not suggestive odf tamponade physiology. Tricuspid inflow velocities not done. 3. Left ventricular chamber dimension is normal. 4. Left ventricular systolic function is normal, estimated at 60-65%. 5. There is moderate-severe concentric increased left ventricular wall thickness. 6. Left ventricular septal wall motion is normal. 7. The left ventricular diastolic function is normal. 8. Right ventricular chamber dimension is normal. 9. Right ventricular systolic function is reduced. 10. Left atrial chamber dimension is enlarged. 11. Right atrial chamber dimension is enlarged. 12. The bioprosthetic aortic valve is not well visualized. it appears to be structurally and functionally normal. 13. There is moderate to severe tricuspid valve regurgitation. 14. There is mild to moderate mitral valve regurgitation. 15. Mild pulmonary hypertension, estimated pulmonary arterial systolic pressure is 51 mmHg. Recommendations * Consider CT chest to differentiate between pleural and pericardial effusion. * Consider further evaluation to r/o restrictive cardiomyopathy; most likely amyloid. Left Ventricle Left ventricular chamber dimension is normal. Left ventricular systolic function is normal, estimated at 60-65%. There is moderate-severe concentric increased left ventricular wall thickness. Left ventricular septal wall motion is normal. The left ventricular diastolic function is normal. Right Ventricle Right ventricular chamber dimension is normal. Right ventricular systolic function is reduced. Left Atria Left atrial chamber dimension is enlarged. Right Atria Right atrial chamber dimension is enlarged. Aortic Valve There is no aortic valve sclerosis. There is no aortic valve regurgitation. The bioprosthetic aortic valve is not well visualized. it appears to be structurally and functionally normal. Pulmonic Valve The pulmonic valve is normal. There is no pulmonic valve stenosis. There is no pulmonic regurgitation. Mitral Valve The mitral valve has normal leaflets. There is no mitral valve stenosis. There is mild to moderate mitral valve regurgitation. Tricuspid Valve The tricuspid valve leaflets are normal. There is no significant tricuspid valve stenosis. There is moderate to severe tricuspid valve regurgitation. Mild pulmonary hypertension, estimated pulmonary arterial systolic pressure is 51 mmHg. Pericardium/Pleural There is moderate pericardial effusion anteriorly. Infero-posteriorly, the pericardial/pleural effusion are difficult to differentiate. There is no change in the inf-post effusion compared to echo in 08/2024. MItral inflow velocities not suggestive odf tamponade physiology. Tricuspid inflow velocities not done. Inferior Vena Cava Dilated inferior vena cava with >50% collapse upon inspiration consistent with elevated right atrial pressure, 15 mmHg. Aorta The aortic root size at the sinus of Valsalva is normal. The prox ascending aorta size is normal. Left Ventricular Outflow Tract Name Value Normal LVOT Doppler LVOT Peak Velocity 76 cm/s LVOT Peak Gradient 2 mmHg LVOT Mean Gradient 1 mmHg LVOT VTI 14 cm LVOT VTI/AV VTI Ratio 0.5 Mitral Valve Name Value Normal MV Annular TDI MV Septal e' Velocity 1.6 cm/s >=8.0 MV Lateral e' Velocity 2.9 cm/s >=10.0 MV e' Average 2.28 Tricuspid Valve Name Value Normal TV Regurgitation Doppler TR Peak Velocity 301 cm/s TR Peak Gradient 36 mmHg Estimated PAP/RSVP RA Pressure 15 mmHg <=5 PA Systolic Pressure 51 mmHg <36 RV Systolic Pressure 51 mmHg <36 TV Annular TDI TV Lateral Emani s' Velocity 3.7 cm/s 9.5-18.7 Aortic Valve Name Value Normal AV Doppler AV Peak Velocity 171 cm/s AV Peak Gradient 12 mmHg AV Mean Gradient 7 mmHg AV VTI 27 cm AV V1/V2 Ratio 0.45 Ventricles Name Value Normal LV Dimensions 2D/MM IVS Diastolic Thickness (2D) 1.2 cm 0.6-1.0 LVID Diastole (2D) 3.9 cm 3.8-5.2 LVIW Diastolic Thickness (2D) 1.4 cm 0.6-0.9 LV Mass (2D Cubed) 182.63 g 67.00-162.00 LV Mass Index (2D Cubed) 104 g/m2 43-95 Relative Wall Thickness (2D) 0.71 Atria Name Value Normal LA Dimensions LA Volume (4C A-L) 148 ml RA Dimensions RA Area (4C) 24.8 cm2 <=18.0 Report Signatures
[2024-11-05 01:06] LABS: Glucose Point of Care 128 mg/dl (65-105)
[2024-11-05 02:24] LABS: Glucose Point of Care 120 mg/dl (65-105)
[2024-11-05 04:01] LABS: Glucose Point of Care 118 mg/dl (65-105)
[2024-11-05 05:22] LABS: Basophils Percent Auto 0.1 % (0.2-1.2); Eosinophils Percent Auto 0.3 % (0-4.4); Hemoglobin 7.6 g/dL (12.0-15.0); Immature Granulocyte Absolute 0.04 K/mm3 (0.00-0.031); Immature Granulocyte Percent A 0.5 % (0-0.5); Immature Platelet Fraction Pct 15.9 % (0.9-11.2); Lymphocytes Absolute Auto 0.25 K/mm3 (0.9-3.2); Lymphocytes Percent Auto 2.9 % (18.3-44.2); Mean Corpuscular HGB Conc 30.4 g/dl (32-36); Mean Corpuscular Hemoglobin 32.9 pg (26-34); Mean Corpuscular Volume 108.2 fl (80-100); Monocytes Absolute Auto 0.6 K/mm3 (0.1-0.6); Monocytes Percent Auto 7.2 % (2.6-8.5); Neutrophils Absolute Auto 7.7 K/mm3 (1.3-6.7); Nucleated Red Blood Cells Perc 2.7 % (0.0-0.2); Platelet Count Result 62 k/mm3 (150-375); Red Blood Count 2.31 M/mm3 (4.2-5.4); Red Cell Distribution Width 21.6 % (11.5-14.5); White Blood Count 8.6 K/mm3 (4.5-10.0)
[2024-11-05 05:37] LABS: Alanine Aminotransferase 18 U/L (6-35); Albumin Level 2.4 g/dL (3.5-5.1); Alkaline Phosphatase 54 U/L (38-126); Anion Gap 7 mmol/L (4-12); Aspartate Amino Transferase 34 U/L (14-36); Bilirubin,Total 2.6 mg/dL (0.2-1.3); Blood Urea Nitrogen 57 mg/dL (7-17); Calcium 7.7 mg/dL (8.4-10.2); Carbon Dioxide 16 mmol/L (22-30); Chloride 113 mmol/L (98-107); Estimated CRCL calculation 13 ml/min; Estimated Glomerular Filt Rate 15; Glucose 107 mg/dL (65-110); Magnesium 1.1 mg/dL (1.6-2.3); Phosphorus 3.3 mg/dL (2.5-4.5); Potassium 4.2 mmol/L (3.4-5.0); Sodium 136 mmol/L (137-145)
[2024-11-05 05:45] LABS: Anisocytosis 1+; Hypochromasia 1+; Platelet Estimate Decreased (Adequate); Schistocytes None Seen; Target Cells 1+
[2024-11-05] MEDS: FERROUS SULFATE 325 MG TABLET DR PO (05:59)
[2024-11-05] MEDS: DEXTROSE 50% 25 GM/50 ML SYRINGE IV PUSH (08:06)
[2024-11-05 08:09] LABS: Glucose Point of Care 46 mg/dl (65-105)
[2024-11-05 08:35] LABS: Glucose Point of Care 193 mg/dl (65-105)
[2024-11-05] MEDS: POTASSIUM CHLORIDE 20 MEQ ER TABLET PO (08:35)
[2024-11-05] MEDS: SODIUM BICARBONATE TAB 650 MG TABLET PO (08:35)
[2024-11-05] MEDS: ACIDOPHILUS/BULGARICUS CHEWABLE TABLET 1 TABLET BY MOUTH (08:35)
[2024-11-05] MEDS: CHOLECALCIFEROL 1,000 UNITS TABLET 2000 UNITS PO (08:35)
[2024-11-05] MEDS: PANTOPRAZOLE 40 MG TABLET PO (08:35)
[2024-11-05] MEDS: METOPROLOL SUCCINATE EXT REL 100 MG TABCR PO (08:36)
[2024-11-05] MEDS: METOPROLOL SUCCINATE EXT REL 25 MG TABCR PO (08:36)
[2024-11-05] MEDS: FUROSEMIDE 20 MG TABLET PO ×2 (08:36→17:08)
[2024-11-05] MEDS: CYANOCOBALAMIN 1,000 MCG TABLET 5000 MCG PO (08:49)
--- NOTE | 2024-11-05 09:45 | PM.PNNEP ---
Subjective Date/time seen: 11/05/24 09:45 Interval history: Follow-up for acute kidney injury/acute renal failure on chronic kidney disease. Sleepy and fatigued when seen but family and patient attribute this to inability to sleep well overnight; not issues with hypoglycemia this morning; results of abdominal MRI yesterday afternoon noted as well; family at bedside and we discussed her complex situation. Objective Data Vital Signs Vital Signs: Vital Signs Temp Pulse Resp BP Pulse Ox O2 Del Method 11/05/24 08:36 86 11/05/24 08:00 97.3 F L 91 18 118/90 89 L 11/05/24 06:00 89 11/05/24 04:00 94 Room Air 11/05/24 04:00 81 11/05/24 04:00 97.7 F 11/05/24 03:14 97.7 F 85 20 98/64 L 98 11/05/24 02:30 97.6 F 11/05/24 02:00 75 11/05/24 02:00 97.4 F L 11/05/24 01:30 97.8 F 11/05/24 01:00 97.0 F L 11/05/24 00:55 68 11/05/24 00:30 97.1 F L 11/05/24 00:00 75 11/05/24 00:00 96.9 F L 11/05/24 00:00 93 Room Air 11/04/24 23:30 96.8 F L 11/04/24 23:00 78 18 91/50 L 93 11/04/24 23:00 96.7 F L 11/04/24 22:00 82 11/04/24 21:00 97.0 F L 11/04/24 20:19 97.8 F 11/04/24 20:17 97.8 F 78 118/78 90 11/04/24 20:00 90 Room Air 11/04/24 20:00 74 11/04/24 19:50 97.6 F 78 16 106/63 96 11/04/24 19:49 97.6 F 11/04/24 18:46 96.4 F L 72 16 122/71 94 11/04/24 18:46 96.4 F L 11/04/24 18:16 96.9 F L 70 16 120/87 96 11/04/24 18:16 96.9 F L 11/04/24 18:01 96.9 F L 68 16 86/58 L 97 11/04/24 18:01 96.9 F L 11/04/24 17:46 96.6 F L 80 16 110/78 96 11/04/24 17:46 96.6 F L Intake/Output Intake/Output: Intake & Output 11/02/24 11/03/24 11/04/24 11/05/24 23:59 23:59 23:59 23:59 Intake Total 372 356 3427 560 Output Total 200 401 375 Balance 250 -26 680 560 Meds/Results Medications: Active Medications Generic Name Dose Route Start Last Admin Trade Name Freq PRN Reason Stop Dose Admin Acetaminophen 650 mg 10/28/24 17:41 11/04/24 21:36 Acetaminophen 325 Mg Tablet PO 650 mg Q4H PRN Administration Mild Pain (1-3) or Fever Atorvastatin Calcium 10 mg 10/29/24 21:00 11/04/24 21:38 Atorvastatin 10 Mg Tablet PO 10 mg QHS SHAKA Administration Calcitriol 0.25 mcg 10/28/24 21:55 Calcitriol 0.25 Mcg Capsule PO MoWeFr PRN AFTER DIALYSIS Cyanocobalamin 5,000 mcg 10/29/24 09:00 11/05/24 08:49 Cyanocobalamin 1,000 Mcg Tablet PO 5,000 mcg MoWeFr SHAKA Administration Dextrose 12.5 gm 10/29/24 10:22 11/05/24 08:06 Dextrose 50% 25 Gm/50 Ml Syringe IV PUSH 12.5 gm PRN PRN Administration Hypoglycemia Protocol Ferrous Sulfate 325 mg 10/29/24 21:00 11/05/24 05:59 Ferrous Sulfate [address] PO 325 mg BID@0600,2100 SHAKA Administration Furosemide 20 mg 11/02/24 17:00 11/05/24 17:08 Furosemide 20 Mg Tablet PO 20 mg BID SHAKA Administration Glucagon 1 mg 10/29/24 10:22 11/04/24 02:00 Glucagon For Inj 1 Mg Vial IM 1 mg PRN PRN Administration Hypoglycemia Protocol Glucose 15 gm 10/29/24 10:22 11/04/24 01:13 Glucose Oral Gel 15 Gm Of Glucse In 37.5 Gm Tube PO 15 gm PRN PRN Administration Hypoglycemia Protocol Guaifenesin 200 mg 11/05/24 12:39 Guaifenesin 200 Mg/10 Ml Udc PO Q4H PRN Cough Dextrose 1,000 mls @ 100 mls/hr 10/29/24 10:22 Dextrose 5% 1,000 Ml IVPB PRN PRN Hypoglycemia Protocol Iron Sucrose 100 mg/ Sodium 55 mls @ 220 mls/hr 11/03/24 09:00 11/05/24 10:16 Chloride IVPB 220 mls/hr DAILY SHAKA Administration Dextrose 500 mls @ 50 mls/hr 11/04/24 02:00 11/05/24 10:15 Dextrose 10% IV CONT 50 mls/hr .Q10H SHAKA Administration Lactobacillus Acidophilus 1 tablet 10/29/24 09:00 11/05/24 08:35 Acidophilus/Bulgaricus Chewable Tablet BY MOUTH 1 tablet DAILY SHAKA Administration Loratadine 10 mg 10/28/24 21:56 Loratadine 10 Mg Tablet PO DAILY PRN SEASONAL ALLERGIES Metoclopramide HCl 5 mg 11/03/24 22:25 11/03/24 23:04 Metoclopramide Hcl Inj 10 Mg/2 Ml Vial IV PUSH 5 mg Q6HR PRN Administration Vomiting Metoprolol Succinate 25 mg 11/04/24 09:00 11/05/24 08:36 Metoprolol Succinate Ext Rel 25 Mg Tabcr PO 25 mg QAM SHAKA Administration Metoprolol Succinate 100 mg 11/04/24 09:00 11/05/24 08:36 Metoprolol Succinate Ext Rel 100 Mg Tabcr PO 100 mg QAM SHAKA Administration Metoprolol Tartrate 2.5 mg 11/03/24 15:34 Metoprolol Tartrate Inj 5 Mg/5 Ml Vial IV PUSH Q2H PRN Tachycardia Ondansetron HCl 4 mg 10/28/24 17:41 11/03/24 21:13 Ondansetron Inj 4 Mg/2 Ml Vial IV PUSH 4 mg Q4H PRN Administration Nausea Pantoprazole Sodium 40 mg 10/29/24 21:00 11/05/24 08:35 Pantoprazole 40 Mg Tablet PO 40 mg Q12HR SHAKA Administration Perflutren Lipid Microsphere 0 ml 11/05/24 10:47 Perflutren Lipid Microspheres 1.5 Ml Vial Diluted To 10 Ml Total Volume IV PUSH 11/08/24 10:47 ONCE PRN adequate visualization Protocol Potassium Chloride 20 meq 10/29/24 09:00 11/05/24 08:35 Potassium Chloride 20 Meq Er Tablet PO 20 meq DAILY SHAKA Administration Sodium Bicarbonate 650 mg 10/29/24 09:00 11/05/24 08:35 Sodium Bicarbonate Tab 650 Mg Tablet PO 650 mg BID SHAKA Administration Vitamin D 2,000 units 10/29/24 09:00 11/05/24 08:35 Cholecalciferol 1,000 Units Tablet PO 2,000 units DAILY SHAKA Administration Radiology Results: ITS Impressions Abdomen/Pelvis CT 10/28/24 16:58 IMPRESSION: Diffuse anasarca. Detection of active GI hemorrhage is limited without intravenous contrast. Large nonobstructing ventral hernia Large left-sided pleural effusion. Small right-sided pleural effusion. Chest X-Ray 10/31/24 14:28 IMPRESSION: No pneumothorax following left-sided thoracentesis, as detailed above. Thoracentesis Ultrasound 10/31/24 14:31 IMPRESSION: 1. Successful ultrasound-guided thoracentesis yielding 450 mL of yellow fluid. Renal Ultrasound 11/03/24 14:46 IMPRESSION: 1. Right kidney not visualized due to the patient's body habitus. Note that the right kidney demonstrated normal size without hydronephrosis on the recent CT. 2. 1.7 cm mass in the left kidney. The differential diagnosis includes normal renal parenchyma, renal cell carcinoma, and hemorrhagic cyst. Abdomen MRI without and with contrast is recommended. 3. Right pleural effusion. Ankle Brachial Index 11/03/24 21:57 IMPRESSION: Highly suggestive severe occlusive disease. Clinical correlation and further evaluation advised. Abdomen X-Ray 11/03/24 23:01 IMPRESSION: Slightly dilated small bowel loops. Follow-up advised. Abdomen MRI 11/05/24 09:53 IMPRESSION: 1. Multiple bilateral renal cysts the largest 1.5 cm hepatic cyst at the upper pole the left kidney which appears to correspond to the lesion of concern on prior CT. 2. New mild left hydroureteronephrosis which could be related to obstruction from one of the stones previously seen at the left kidney. 3. Anasarca with large pericardial effusion, small bilateral pleural effusions, small amount of ascites and diffuse body wall, mesenteric and retroperitoneal edema. 4. Cardiomegaly. 5. Large left ventral hernia containing ascites and nonobstructed small bowel. 6. Indeterminate 1.4 cm T2 hyperintense and sclerotic lesion at the medial right iliac crest which raises concern for metastatic disease. Labs Labs: Laboratory Tests 11/05/24 04:55 11/05/24 04:55 Calcium 7.7 L Phosphorus 3.3 Magnesium 1.1 L Total Bilirubin 2.6 H AST 34 ALT 18 Alkaline Phosphatase 54 Total Protein 5.0 L Albumin 2.4 L Microbiology 10/31/24 14:20 Pleural Fluid Anaerobic Culture - Preliminary 10/31/24 14:20 Pleural Fluid Aerobic Culture - Final 10/31/24 14:20 Other Aerobic Culture - Final
[2024-11-05] MEDS: DEXTROSE 10% 500 ML 50 ML IV CONT (10:15)
[2024-11-05] MEDS: IRON SUCROSE COMPLEX 100 MG in SODIUM CHLORIDE 0.9% IV 50 ML 220 MG IVPB (10:16)
--- NOTE | 2024-11-05 11:08 | PM.IMPN ---
Progress Note: A&P Assessment and Plan (1) Weakness: Code(s): R53.1 - Weakness Status: Acute Assessment and Plan: [place] increasingly weak over the past few days and reports that she has no energy similar to when her hemoglobin was low in the past. Per chart review, patient receives blood transfusions every few weeks and has a transfusion in Oct 30. - WBC count hwas elevated however she does not give a history to suggest underlying infection. WBC has returned to normal. - UA unremarkable - CT abdomen/pelvis: Diffuse anasarca. Detection of active GI hemorrhage is limited without intravenous contrast. Large nonobstructing ventral hernia Large left-sided pleural effusion. Small right-sided pleural effusion. - patient will need PT/OT evals (2) Heme positive stool: Code(s): R19.5 - Other fecal abnormalities Status: Acute Assessment and Plan: [place] increasingly weak over the past few days and reports that she has no energy similar to when her hemoglobin was low in the past. Per chart review, patient receives blood transfusions every few weeks and has a transfusion in Oct 30. Endorses dark stools but is on iron supplementation. Extensive outpatient evaluation for occult GI bleeding including upper and lower endoscopies and capsule endoscopy which she reports did not show any source of bleeding. - H/H 8.5/28.1 on am labs, continue to trend - Heme occult positive - CT abdomen/pelvis: Diffuse anasarca. Detection of active GI hemorrhage is limited without intravenous contrast. Large nonobstructing ventral hernia Large left-sided pleural effusion. Small right-sided pleural effusion. - GI consulted Protonix BID EGD performed on 10/[address] Olguin No esophagitis or varices. Mod erosive gastrictis with erythematous, edematous, erosive, and petechiae changes, No mucosal bleeding. No duodenal ulcers or masses, no signs of recent bleeding. -Stool positive for occult blood today. Nurse notifying GI. Repeat CBC at 17:00 and 00:00. (3) Chronic anemia: Code(s): D64.9 - Anemia, unspecified Status: Inactive Assessment and Plan: Follows heme/onc at [facility], last seen 10/01/24. - H/H 7.6/25.0 on am labs, continue to trend - Iron panel: iron 88, TIBC 203, % sat 43, ferritin 239 - B12 >1000 and folate 7.2 - Heme occult positive - CT abdomen/pelvis: Diffuse anasarca. Detection of active GI hemorrhage is limited without intravenous contrast. Large nonobstructing ventral hernia Large left-sided pleural effusion. Small right-sided pleural effusion. - GI consulted - Stool positive for occult blood today. Nurse notifying GI. Repeat CBC at 17:00 and 00:00. see above (4) Pleural effusion: Code(s): J90 - Pleural effusion, not elsewhere classified Status: Acute Assessment and Plan: Left pleural effusion has been present since at least December as seen on CXR 12/29/23 and she seems asymptomatic with that. 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 - Asymptomatic, remains on room air - Ddx included CHF, cirrhosis, nephrosis, hypothyroidism (t4 WNL on 11/01), and/or malignancy - CT abdomen/pelvis: Large left-sided pleural effusion. Small right-sided pleural effusion. - Echo 08/14/24: LVEF > 70% with severe concentric LV hypertrophy and bilateral dilation - Started on lasix 20 mg BID, monitor creatinine - S/p thoracentesis yielding 400 ml yellow fluid on 10/31 - pulmonology consulted, appreciate recommendation fluid appears transudative, ddx included CHF, cirrhosis, nephrosis, and/or hypothyroidism (t4 WNL on 11/01) (5) Chronic kidney disease, stage 4 (severe): Code(s): N18.4 - Chronic kidney disease, stage 4 (severe) Status: Acute Assessment and Plan: BUN/Cr 55/2.6 on admission, appears to be around baseline. Last seen nephrology, Dr. Garay on 09/02/24. Etiology of CKD likely DM and HTN. - BUN/Cr 56/2.8 on am labs - Patient started on lasix 20 mg BID for CHF - Decreased urine output, bladder scan ordered - Avoid nephrotoxic medications - Renally dose medications - Monitor I/O - Renal US 1. Right kidney not visualized due to the patient's body habitus. Note that the right kidney demonstrated normal size without hydronephrosis on the recent CT. 2. 1.7 cm mass in the left kidney. The differential diagnosis includes normal renal parenchyma, renal cell carcinoma, and hemorrhagic cyst. Abdomen MRI without and with contrast is recommended. 3. Right pleural effusion. - Nephrology consulted, appreciate recommendations - MRI abdomen without contrast on 11/04/24 showed: IMPRESSION: 1. Multiple bilateral renal cysts the largest 1.5 cm hepatic cyst at the upper pole the left kidney which appears to correspond to the lesion of concern on prior CT. 2. New mild left hydroureteronephrosis which could be related to obstruction from one of the stones previously seen at the left kidney. 3. Anasarca with large pericardial effusion, small bilateral pleural effusions, small amount of ascites and diffuse body wall, mesenteric and retroperitoneal edema. 4. Cardiomegaly. 5. Large left ventral hernia containing ascites and nonobstructed small bowel. 6. Indeterminate 1.4 cm T2 hyperintense and sclerotic lesion at the medial right iliac crest which raises concern for metastatic disease. -Oncology consulted for left kidney mass. (6) Hypoglycemia: Code(s): E16.2 - Hypoglycemia, unspecified Status: Acute Assessment and Plan: Patient was noted to have asymptomatic hypoglycemia with blood sugar of 46. She was given D50 push and ate breatkfast, this resolved. - Hypoglycemia protocol - Monitor Patient was noted to be hypoglycemia overnight, remained asymptomatic and transferred to IMU. Started on dextrose drip. Glucose remains stable. Monitor. (7) Atrial fibrillation: Code(s): I48.91 - Unspecified atrial fibrillation Status: Acute Assessment and Plan: Chronic, continue home medications. Last seen by cardiology Sameera Becerra NP on 09/10/24 - metoprolol 125 mg daily - no anticoagulation due to patients history of GI bleeding and anemia (refer to cardiology note on 09/10) - monitor - Cardiology consulted, appreciate recommendations metoprolol dose increased to 125 mg daily 11/04: Heart rate well controlled on current dose of metoprolol. Continue to monitor. (8) Ventral hernia: Code(s): K43.9 - Ventral hernia without obstruction or gangrene Status: Acute Assessment and Plan: Potentially playing a role in patients early satiety and abdominal discomfort. - CT abdomen/pelvis: Large nonobstructing ventral hernia extending to the left of midline containing the majority of patient's large and small bowel. - 11/04: Patient continues to have poor appetite and nausea/vomiting with meals. MRI ordered to rule out new forming obstruction. MRI abdomen without contrast on 11/04/24 showed: IMPRESSION: 1. Multiple bilateral renal cysts the largest 1.5 cm hepatic cyst at the upper pole the left kidney which appears to correspond to the lesion of concern on prior CT. 2. New mild left hydroureteronephrosis which could be related to obstruction from one of the stones previously seen at the left kidney. 3. Anasarca with large pericardial effusion, small bilateral pleural effusions, small amount of ascites and diffuse body wall, mesenteric and retroperitoneal edema. 4. Cardiomegaly. 5. Large left ventral hernia containing ascites and nonobstructed small bowel. 6. Indeterminate 1.4 cm T2 hyperintense and sclerotic lesion at the medial right iliac crest which raises concern for metastatic disease. (9) MGUS (monoclonal gammopathy of unknown significance): Code(s): D47.2 - Monoclonal gammopathy Status: Acute Assessment and Plan: MGUS with bone marrow biopsy in April [address]24. Follow[address] Dr. Schaffer, last seen 10/01/24. - Patient endorsing increased fatigue, weakness and appetite loss concerning for possible myeloma. - Heme/onc consulted (10) Peripheral arterial disease: Code(s): I73.9 - Peripheral vascular disease, unspecified Status: Acute Assessment and Plan: Patient appears to have poor circulation to the extremities as the bottom of her feet are purple with poorly healing bilateral heel wounds. - MATTHEW: Right brachial systolic blood pressure: 115 mmHg Left brachial systolic blood pressure: 132 mmHg Right ankle systolic blood pressure: CNO. Left ankle systolic blood pressure: CNO Highly suggestive severe occlusive disease. Clinical correlation and further evaluation advised. - Follow up outpatient (11) Hypertension: Qualifiers: Hypertension type: unspecified Qualified Code(s): I10 - Essential (primary) hypertension Code(s): I10 - Essential (primary) hypertension Status: Inactive Assessment and Plan: Chronic, continue home medication - metoprolol 125 mg PO daily - monitor (12) Protein calorie malnutrition: Qualifiers: Protein-calorie malnutrition severity: moderate Qualified Code(s): E44.0 - Moderate protein-calorie malnutrition Code(s): E46 - Unspecified protein-calorie malnutrition Status: Acute Assessment and Plan: -Supplements per nutrition recommendations (13) Pericardial effusion: Code(s): I31.39 - Other pericardial effusion (noninflammatory) Status: Acute Assessment and Plan: -MRI abdomen without contrast on 11/04/24 showed: IMPRESSION: 1. Multiple bilateral renal cysts the largest 1.5 cm hepatic cyst at the upper pole the left kidney which appears to correspond to the lesion of concern on prior CT. 2. New mild left hydroureteronephrosis which could be related to obstruction from one of the stones previously seen at the left kidney. 3. Anasarca with large pericardial effusion, small bilateral pleural effusions, small amount of ascites and diffuse body wall, mesenteric and retroperitoneal edema. 4. Cardiomegaly. 5. Large left ventral hernia containing ascites and nonobstructed small bowel. 6. Indeterminate 1.4 cm T2 hyperintense and sclerotic lesion at the medial right iliac crest which raises concern for metastatic disease. -consult cardiology. (14) Hypomagnesemia: Code(s): E83.42 - Hypomagnesemia Status: Acute Assessment and Plan: - magnesium 1.1. - Magnesium Sulfate 2 gm IVPB x 1 given. - Repeat magnesium Subjective Date/time seen: 11/05/24 11:08 Interval history: Patient lying in bed. Patient reports that she was up alot last night and is tired. Family at bedside. Patient reports pain in bilateral feet is a 6 , constant, and aching. Patient denies chest pain, palpitations, headache, or dizziness. Patient reported to have a blood sugar of 46 this morning. Review of Systems Review of Systems: All systems reviewed & are unremarkable except as noted in HPI and below Exam Const: General: no acute distress and uncomfortable Eyes: Sclera: sclerae normal Resp: Effort & Inspection: normal respiratory effort Other: Slightly diminished. Coarse cough. GI: GI Palp: Yes Soft to palpation Auscultation: normal bowel sounds Other: Large ventral hernia hanging to the left. Neuro: Speech: normal speech Other: Drowsy Extrem: General: no pedal edema Psych: Affect: normal affect Objective Data Vital Signs Vital Signs: Vital Signs - 24 hr 11/04/24 12:00 11/04/24 12:00 11/04/24 12:05 Temperature 96.3 F L Pulse Rate 94 81 94 Respiratory Rate 20 20 Blood Pressure 123/74 Pulse Oximetry 95 94 Oxygen Delivery Room Air 11/04/24 12:07 11/04/24 12:08 11/04/24 14:00 Temperature 96.3 F L Pulse Rate 94 87 Respiratory Rate 20 Blood Pressure 123/74 142/87 H Pulse Oximetry 95 Oxygen Delivery 11/04/24 15:49 11/04/24 16:00 11/04/24 16:00 Temperature 96.3 F L Pulse Rate 84 84 88 Respiratory Rate 20 20 Blood Pressure 122/74 Pulse Oximetry 92 92 Oxygen Delivery Room Air 11/04/24 17:24 11/04/24 17:24 11/04/24 17:46 Temperature 95.9 F L 96.6 F L Pulse Rate 78 Respiratory Rate 15 Blood Pressure 135/84 Pulse Oximetry 98 Oxygen Delivery 11/04/24 17:46 11/04/24 18:01 11/04/24 18:01 Temperature 96.6 F L 96.9 F L 96.9 F L Pulse Rate 80 68 Respiratory Rate 16 16 Blood Pressure 110/78 86/58 L Pulse Oximetry 96 97 Oxygen Delivery 11/04/24 18:16 11/04/24 18:16 11/04/24 18:46 Temperature 96.9 F L 96.9 F L 96.4 F L Pulse Rate 70 Respiratory Rate 16 Blood Pressure 120/87 Pulse Oximetry 96 Oxygen Delivery 11/04/24 18:46 11/04/24 19:49 11/04/24 19:50 Temperature 96.4 F L 97.6 F 97.6 F Pulse Rate 72 78 Respiratory Rate 16 16 Blood Pressure 122/71 106/63 Pulse Oximetry 94 96 Oxygen Delivery 11/04/24 20:00 11/04/24 20:00 11/04/24 20:17 Temperature 97.8 F Pulse Rate 74 78 Respiratory Rate Blood Pressure 118/78 Pulse Oximetry 90 90 Oxygen Delivery Room Air 11/04/24 20:19 11/04/24 21:00 11/04/24 22:00 Temperature 97.8 F 97.0 F L Pulse Rate 82 Respiratory Rate Blood Pressure Pulse Oximetry Oxygen Delivery 11/04/24 23:00 11/04/24 23:00 11/04/24 23:30 Temperature 96.7 F L 96.8 F L Pulse Rate 78 Respiratory Rate 18 Blood Pressure 91/50 L Pulse Oximetry 93 Oxygen Delivery 11/05/24 00:00 11/05/24 00:00 11/05/24 00:00 Temperature 96.9 F L Pulse Rate 75 Respiratory Rate Blood Pressure Pulse Oximetry 93 Oxygen Delivery Room Air 11/05/24 00:30 11/05/24 00:55 11/05/24 01:00 Temperature 97.1 F L 97.0 F L Pulse Rate 68 Respiratory Rate Blood Pressure Pulse Oximetry Oxygen Delivery 11/05/24 01:30 11/05/24 02:00 11/05/24 02:00 Temperature 97.8 F 97.4 F L Pulse Rate 75 Respiratory Rate Blood Pressure Pulse Oximetry Oxygen Delivery 11/05/24 02:30 11/05/24 03:14 11/05/24 04:00 Temperature 97.6 F 97.7 F 97.7 F Pulse Rate 85 Respiratory Rate 20 Blood Pressure 98/64 L Pulse Oximetry 98 Oxygen Delivery 11/05/24 04:00 11/05/24 04:00 11/05/24 06:00 Temperature Pulse Rate 81 89 Respiratory Rate Blood Pressure Pulse Oximetry 94 Oxygen Delivery Room Air 11/05/24 08:00 11/05/24 08:36 11/05/24 08:36 Temperature 97.3 F L Pulse Rate 91 86 97 Respiratory Rate 18 Blood Pressure 118/90 Pulse Oximetry 89 L Oxygen Delivery Intake/Output Intake/Output: Intake & Output 11/02/24 11/03/24 11/04/24 11/05/24 23:59 23:59 23:59 23:59 Intake Total 175 073 3386 500 Output Total 200 401 375 Balance 250 -26 680 500 Meds/Results Medications: Active Medications Generic Name Dose Route Start Last Admin Trade Name Freq PRN Reason Stop Dose Admin Acetaminophen 650 mg 10/28/24 17:41 11/04/24 21:36 Acetaminophen 325 Mg Tablet PO 650 mg Q4H PRN Administration Mild Pain (1-3) or Fever Atorvastatin Calcium 10 mg 10/29/24 21:00 11/04/24 21:38 Atorvastatin 10 Mg Tablet PO 10 mg QHS SHAKA Administration Calcitriol 0.25 mcg 10/28/24 21:55 Calcitriol 0.25 Mcg Capsule PO MoWeFr PRN AFTER DIALYSIS Cyanocobalamin 5,000 mcg 10/29/24 09:00 11/05/24 08:49 Cyanocobalamin 1,000 Mcg Tablet PO 5,000 mcg MoWeFr SHAKA Administration Dextrose 12.5 gm 10/29/24 10:22 11/05/24 08:06 Dextrose 50% 25 Gm/50 Ml Syringe IV PUSH 12.5 gm PRN PRN Administration Hypoglycemia Protocol Ferrous Sulfate 325 mg 10/29/24 21:00 11/05/24 05:59 Ferrous Sulfate [address] PO 325 mg BID@0600,2100 SHAKA Administration Furosemide 20 mg 11/02/24 17:00 11/05/24 08:36 Furosemide 20 Mg Tablet PO 20 mg BID SHAKA Administration Glucagon 1 mg 10/29/24 10:22 11/04/24 02:00 Glucagon For Inj 1 Mg Vial IM 1 mg PRN PRN Administration Hypoglycemia Protocol Glucose 15 gm 10/29/24 10:22 11/04/24 01:13 Glucose Oral Gel 15 Gm Of Glucse In 37.5 Gm Tube PO 15 gm PRN PRN Administration Hypoglycemia Protocol Dextrose 1,000 mls @ 100 mls/hr 10/29/24 10:22 Dextrose 5% 1,000 Ml IVPB PRN PRN Hypoglycemia Protocol Iron Sucrose 100 mg/ Sodium 55 mls @ 220 mls/hr 11/03/24 09:00 11/05/24 10:16 Chloride IVPB 220 mls/hr DAILY SHAKA Administration Dextrose 500 mls @ 50 mls/hr 11/04/24 02:00 11/05/24 10:15 Dextrose 10% IV CONT 50 mls/hr .Q10H SHAKA Administration Lactobacillus Acidophilus 1 tablet 10/29/24 09:00 11/05/24 08:35 Acidophilus/Bulgaricus Chewable Tablet BY MOUTH 1 tablet DAILY SHAKA Administration Loratadine 10 mg 10/28/24 21:56 Loratadine 10 Mg Tablet PO DAILY PRN SEASONAL ALLERGIES Metoclopramide HCl 5 mg 11/03/24 22:25 11/03/24 23:04 Metoclopramide Hcl Inj 10 Mg/2 Ml Vial IV PUSH 5 mg Q6HR PRN Administration Vomiting Metoprolol Succinate 25 mg 11/04/24 09:00 11/05/24 08:36 Metoprolol Succinate Ext Rel 25 Mg Tabcr PO 25 mg QAM SHAKA Administration Metoprolol Succinate 100 mg 11/04/24 09:00 11/05/24 08:36 Metoprolol Succinate Ext Rel 100 Mg Tabcr PO 100 mg QAM SHAKA Administration Metoprolol Tartrate 2.5 mg 11/03/24 15:34 Metoprolol Tartrate Inj 5 Mg/5 Ml Vial IV PUSH Q2H PRN Tachycardia Ondansetron HCl 4 mg 10/28/24 17:41 11/03/24 21:13 Ondansetron Inj 4 Mg/2 Ml Vial IV PUSH 4 mg Q4H PRN Administration Nausea Pantoprazole Sodium 40 mg 10/29/24 21:00 11/05/24 08:35 Pantoprazole 40 Mg Tablet PO 40 mg Q12HR SHAKA Administration Perflutren Lipid Microsphere 0 ml 11/05/24 10:47 Perflutren Lipid Microspheres 1.5 Ml Vial Diluted To 10 Ml Total Volume IV PUSH 11/08/24 10:47 ONCE PRN adequate visualization Protocol Potassium Chloride 20 meq 10/29/24 09:00 11/05/24 08:35 Potassium Chloride 20 Meq Er Tablet PO 20 meq DAILY SHAKA Administration Sodium Bicarbonate 650 mg 10/29/24 09:00 11/05/24 08:35 Sodium Bicarbonate Tab 650 Mg Tablet PO 650 mg BID SHAKA Administration Vitamin D 2,000 units 10/29/24 09:00 11/05/24 08:35 Cholecalciferol 1,000 Units Tablet PO 2,000 units DAILY SHAKA Administration Radiology Results: ITS Impressions Abdomen/Pelvis CT 10/28/24 16:58 IMPRESSION: Diffuse anasarca. Detection of active GI hemorrhage is limited without intravenous contrast. Large nonobstructing ventral hernia Large left-sided pleural effusion. Small right-sided pleural effusion. Chest X-Ray 10/31/24 14:28 IMPRESSION: No pneumothorax following left-sided thoracentesis, as detailed above. Thoracentesis Ultrasound 10/31/24 14:31 IMPRESSION: 1. Successful ultrasound-guided thoracentesis yielding 450 mL of yellow fluid. Renal Ultrasound 11/03/24 14:46 IMPRESSION: 1. Right kidney not visualized due to the patient's body habitus. Note that the right kidney demonstrated normal size without hydronephrosis on the recent CT. 2. 1.7 cm mass in the left kidney. The differential diagnosis includes normal renal parenchyma, renal cell carcinoma, and hemorrhagic cyst. Abdomen MRI without and with contrast is recommended. 3. Right pleural effusion. Ankle Brachial Index 11/03/24 21:57 IMPRESSION: Highly suggestive severe occlusive disease. Clinical correlation and further evaluation advised. Abdomen X-Ray 11/03/24 23:01 IMPRESSION: Slightly dilated small bowel loops. Follow-up advised. Abdomen MRI 11/05/24 09:53 IMPRESSION: 1. Multiple bilateral renal cysts the largest 1.5 cm hepatic cyst at the upper pole the left kidney which appears to correspond to the lesion of concern on prior CT. 2. New mild left hydroureteronephrosis which could be related to obstruction from one of the stones previously seen at the left kidney. 3. Anasarca with large pericardial effusion, small bilateral pleural effusions, small amount of ascites and diffuse body wall, mesenteric and retroperitoneal edema. 4. Cardiomegaly. 5. Large left ventral hernia containing ascites and nonobstructed small bowel. 6. Indeterminate 1.4 cm T2 hyperintense and sclerotic lesion at the medial right iliac crest which raises concern for metastatic disease. Labs Labs: Laboratory Results - last 24 hr 11/04/24 11/04/24 11/04/24 12:01 16:43 17:19 WBC RBC Hgb Hct MCV MCH MCHC RDW Plt Count MPV Immature Gran % (Auto) Neut % (Auto) Lymph % (Auto) [place] % (Auto) Eos % (Auto) Baso % (Auto) Lymph # (Auto) [place] # (Auto) Eos # (Auto) Baso # (Auto) Abs Immat Gran (auto) Absolute Neuts (auto) Absolute Nucleated RBC Nucleated RBC % Platelet Estimate % Immature Plt Fraction Hypochromasia Anisocytosis Target Cells Schistocytes Sodium Potassium Chloride Carbon Dioxide Anion Gap BUN Creatinine Estim Creat Clear Calc Estimated GFR Glucose POC Capillary Glucose 132 H 58 L* 235 H Calcium Phosphorus Magnesium Total Bilirubin AST ALT Alkaline Phosphatase Total Protein Albumin 11/04/24 11/04/24 11/04/24 17:49 20:16 22:15 WBC RBC Hgb Hct MCV MCH MCHC RDW Plt Count MPV Immature Gran % (Auto) Neut % (Auto) Lymph % (Auto) [place] % (Auto) Eos % (Auto) Baso % (Auto) Lymph # (Auto) [place] # (Auto) Eos # (Auto) Baso # (Auto) Abs Immat Gran (auto) Absolute Neuts (auto) Absolute Nucleated RBC Nucleated RBC % Platelet Estimate % Immature Plt Fraction Hypochromasia Anisocytosis Target Cells Schistocytes Sodium Potassium Chloride Carbon Dioxide Anion Gap BUN Creatinine Estim Creat Clear Calc Estimated GFR Glucose POC Capillary Glucose 205 H 161 H 130 H Calcium Phosphorus Magnesium Total Bilirubin AST ALT Alkaline Phosphatase Total Protein Albumin 11/05/24 11/05/24 11/05/24 01:02 02:21 03:55 WBC RBC Hgb Hct MCV MCH MCHC RDW Plt Count MPV Immature Gran % (Auto) Neut % (Auto) Lymph % (Auto) [place] % (Auto) Eos % (Auto) Baso % (Auto) Lymph # (Auto) [place] # (Auto) Eos # (Auto) Baso # (Auto) Abs Immat Gran (auto) Absolute Neuts (auto) Absolute Nucleated RBC Nucleated RBC % Platelet Estimate % Immature Plt Fraction Hypochromasia Anisocytosis Target Cells Schistocytes Sodium Potassium Chloride Carbon Dioxide Anion Gap BUN Creatinine Estim Creat Clear Calc Estimated GFR Glucose POC Capillary Glucose 128 H 120 H 118 H Calcium Phosphorus Magnesium Total Bilirubin AST ALT Alkaline Phosphatase Total Protein Albumin 11/05/24 11/05/24 11/05/24 04:55 07:53 08:32 WBC 8.6 RBC 2.31 L Hgb 7.6 L Hct 25.0 L MCV 108.2 H MCH 32.9 MCHC 30.4 L RDW 21.6 H Plt Count 62 L MPV 14.0 H Immature Gran % (Auto) 0.5 Neut % (Auto) 89.0 H Lymph % (Auto) 2.9 L [place] % (Auto) 7.2 Eos % (Auto) 0.3 Baso % (Auto) 0.1 L Lymph # (Auto) 0.25 L [place] # (Auto) 0.6 Eos # (Auto) 0.0 Baso # (Auto) 0.0 Abs Immat Gran (auto) 0.04 H Absolute Neuts (auto) 7.7 H Absolute Nucleated RBC 0.230 H Nucleated RBC % 2.7 H Platelet Estimate Decreased % Immature Plt Fraction 15.9 H Hypochromasia 1+ Anisocytosis 1+ Target Cells 1+ Schistocytes None seen Sodium 136 L Potassium 4.2 Chloride 113 H Carbon Dioxide 16 L Anion Gap 7 BUN 57 H Creatinine 3.00 H Estim Creat Clear Calc 13 Estimated GFR 15 L Glucose 107 POC Capillary Glucose 46 L* 193 H Calcium 7.7 L Phosphorus 3.3 Magnesium 1.1 L Total Bilirubin 2.6 H AST 34 ALT 18 Alkaline Phosphatase 54 Total Protein 5.0 L Albumin 2.4 L Quality VTE Prophylaxis VTE prophylaxis: mechanical ordered
[2024-11-05 11:16] LABS: Glucose Point of Care 145 mg/dl (65-105)
[2024-11-05 12:12] LABS: Glucose Point of Care 102 mg/dl (65-105)
[2024-11-05] MEDS: MAGNESIUM SULF 2 GM/WATER 50ML 2 GM/50 ML BAG IVPB (12:50)
--- NOTE | 2024-11-05 13:26 | WPDCN ---
HPI Data of Consult Date/Time: 11/05/24 13:26 Requesting Physician: Bibiana Cobb PA-C Primary Care Provider: Eh Vega MD Consult Narrative Narrative: Shannan Seals is a 78 year old female Review of Systems Review of Systems: This is a 78 y/o lady with a background of cirrhosis of the liver admitted eit generalized weakness, bilateral pleural effusion (L>R) and anasarca. She has had GI bleeding investigated at an outside hospital with no specific findings to explain her blood loss. She has had a blood transfusion requirement. Her last transfusion about one month ago. She is on oral iron with normal iron stores and iron saturation of 43% with normal B12 andfolate blood levels. She also has a monoclonal gammopathy and is followed by Dr. Schaffer. There is a right iliac crest sclerotic lesion on imaging. [facility] Past Medical History Medical History Hypoglycemia Anasarca Acute on chronic anemia Chronic kidney disease, stage 4 (severe) Overactive bladder Kidney stone Chronic anemia Monoclonal gammopathy of unknown significance Chronic low back pain Seasonal allergies Vitamin D deficiency Osteoporosis Skin cancer Idiopathic pericarditis GERD without esophagitis Type 2 diabetes mellitus without complication, without long-term current use of insulin hemoglobin A1c: 5.4(10/26) << 5.2(10/25) << 5.7(05/25) << 5.7(10/24) << 5.9(04/24) << 6.3(08/23) << 6.0(02/21) << 6.2(05/22) << 6.6(10/21) << 6.8(11/21) << 7.9(04/20). 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 Code status: Full code. Smoking status: Never smoker Second hand tobacco smoke exposure: No Alcohol intake: never Substance use: never Substance use type: does not use Do You Feel Safe in your Home?: Yes Lack of Transportation: No Lack of Food: Never True Current Housing: I Have Housing Concerned About Future Housing: No Difficulty Paying Gas/Electric Bills: No Difficulty Paying for Meds: No Currently Unemployed: No Education: High School Diploma/GED Difficulty w/ Childcare or Family Care: No Living arrangements: with family Occupation/Education: retired Spiritual care concerns: No Agree to blood products: Yes Meds Home Medications and Allergies Home Medications ?Medication ?Instructions ?Recorded ?Confirmed ?Type Lactobacillus acidophilus 10 10 cell PO DAILY 04/07/20 10/28/24 History billion cell capsule cetirizine 10 mg tablet 10 mg PO DAILY PRN SEASONAL 10/13/20 10/28/24 History ALLERGIES ferrous sulfate 325 mg (65 mg 325 mg PO BID 10/11/21 10/28/24 History iron) tablet (Feosol) mecobalamin (vitamin B12) 5,000 5,000 mcg PO 3XW 04/19/23 10/28/24 History mcg disintegrating tablet calcitriol 0.25 mcg capsule 0.25 mcg PO 3XW #45 caps 04/10/24 10/28/24 Rx atorvastatin 10 mg tablet 10 mg PO QHS #90 tabs 08/04/24 10/28/24 Rx cholecalciferol (vitamin D3) 50 50 mcg PO DAILY 08/06/24 10/28/24 History mcg (2,000 unit) capsule potassium chloride 20 mEq 20 meq PO DAILY 08/13/24 10/28/24 History tablet,extended release(part/cryst) metoprolol succinate 100 mg 100 mg PO QAM #30 tabs 08/15/24 10/28/24 Rx tablet,extended release 24 hr (Toprol XL) sodium bicarbonate 650 mg tablet 650 mg PO BID #60 tabs 09/02/24 10/28/24 Rx fenofibrate 160 mg tablet 160 mg PO DAILY #90 tabs 10/20/24 10/28/24 Rx Allergies Allergy/AdvReac Type Severity Reaction Status Date / Time No Known Allergies Allergy Verified 10/16/24 12:11 Vital Signs Vital Signs - 24 hr 11/04/24 14:00 11/04/24 15:49 11/04/24 16:00 Temperature 35.7 C L Pulse Rate 87 84 84 Respiratory Rate 20 20 Blood Pressure 122/74 Pulse Oximetry 92 92 Oxygen Delivery Room Air 11/04/24 16:00 11/04/24 17:24 11/04/24 17:24 Temperature 35.5 C L Pulse Rate 88 78 Respiratory Rate 15 Blood Pressure 135/84 Pulse Oximetry 98 Oxygen Delivery 11/04/24 17:46 11/04/24 17:46 11/04/24 18:01 Temperature 35.9 C L 35.9 C L 36.1 C L Pulse Rate 80 Respiratory Rate 16 Blood Pressure 110/78 Pulse Oximetry 96 Oxygen Delivery 11/04/24 18:01 11/04/24 18:16 11/04/24 18:16 Temperature 36.1 C L 36.1 C L 36.1 C L Pulse Rate 68 70 Respiratory Rate 16 16 Blood Pressure 86/58 L 120/87 Pulse Oximetry 97 96 Oxygen Delivery 11/04/24 18:46 11/04/24 18:46 11/04/24 19:49 Temperature 35.8 C L 35.8 C L 36.4 C Pulse Rate 72 Respiratory Rate 16 Blood Pressure 122/71 Pulse Oximetry 94 Oxygen Delivery 11/04/24 19:50 11/04/24 20:00 11/04/24 20:00 Temperature 36.4 C Pulse Rate 78 74 Respiratory Rate 16 Blood Pressure 106/63 Pulse Oximetry 96 90 Oxygen Delivery Room Air 11/04/24 20:17 11/04/24 20:19 11/04/24 21:00 Temperature 36.6 C 36.6 C 36.1 C L Pulse Rate 78 Respiratory Rate Blood Pressure 118/78 Pulse Oximetry 90 Oxygen Delivery 11/04/24 22:00 11/04/24 23:00 11/04/24 23:00 Temperature 35.9 C L Pulse Rate 82 78 Respiratory Rate 18 Blood Pressure 91/50 L Pulse Oximetry 93 Oxygen Delivery 11/04/24 23:30 11/05/24 00:00 11/05/24 00:00 Temperature 36.0 C L 36.1 C L Pulse Rate Respiratory Rate Blood Pressure Pulse Oximetry 93 Oxygen Delivery Room Air 11/05/24 00:00 11/05/24 00:30 11/05/24 00:55 Temperature 36.2 C L Pulse Rate 75 68 Respiratory Rate Blood Pressure Pulse Oximetry Oxygen Delivery 11/05/24 01:00 11/05/24 01:30 11/05/24 02:00 Temperature 36.1 C L 36.6 C 36.3 C L Pulse Rate Respiratory Rate Blood Pressure Pulse Oximetry Oxygen Delivery 11/05/24 02:00 11/05/24 02:30 11/05/24 03:14 Temperature 36.4 C 36.5 C Pulse Rate 75 85 Respiratory Rate 20 Blood Pressure 98/64 L Pulse Oximetry 98 Oxygen Delivery 11/05/24 04:00 11/05/24 04:00 11/05/24 04:00 Temperature 36.5 C Pulse Rate 81 Respiratory Rate Blood Pressure Pulse Oximetry 94 Oxygen Delivery Room Air 11/05/24 06:00 11/05/24 08:00 11/05/24 08:36 Temperature 36.3 C L Pulse Rate 89 91 86 Respiratory Rate 18 Blood Pressure 118/90 Pulse Oximetry 89 L Oxygen Delivery 11/05/24 08:36 11/05/24 12:00 Temperature 36.3 C L Pulse Rate 97 76 Respiratory Rate 22 H Blood Pressure 118/61 Pulse Oximetry 91 Oxygen Delivery Results Labs 11/05/24 04:55 11/05/24 04:55 Labs: Short CBC 11/05/24 Range/Units 04:55 WBC 8.6 (4.5-10.0) K/mm3 Hgb 7.6 L (12.0-15.0) g/dL Hct 25.0 L (37.0-47.0) % Plt Count 62 L (150-375) k/mm3 BMP 11/05/24 04:55 Sodium 136 L Potassium 4.2 Chloride 113 H Carbon Dioxide 16 L BUN 57 H Creatinine 3.00 H Glucose 107 Calcium 7.7 L Liver Function 11/05/24 Range/Units 04:55 Total Bilirubin 2.6 H (0.2-1.3) mg/dL AST 34 (14-36) U/L ALT 18 (6-35) U/L Alkaline Phosphatase 54 (38-126) U/L Albumin 2.4 L (3.5-5.1) g/dL Attestation Supervising Provider Attestation Assessment: This is a terminally ill 78 y/o female with cirrhosis, CHF, Anemia of chronic GI bleeding unspecified A/V malformations are a consideration. A rigorous GI evaluation is not possible in her present functonal (ECOG 4) state. Further evaluation of the isolated right iliac sclerotic lesion is similarly to invasive in her condition. Plan: I met and talked to her family at her bedside on . They all seemed to understand that she is terminally ill. From a hematology perspective she is a candidate for supportive care only--DNR/hospice care.
[2024-11-05 15:18] LABS: Glucose Point of Care 87 mg/dl (65-105)
[2024-11-05] MEDS: FUROSEMIDE INJ 40 MG/4 ML VIAL IV PUSH (15:43)
[2024-11-05 15:56] LABS: IFOB Positive Control Positive; Immunochemical Fecal Occult Bl Positive (N)
--- NOTE | 2024-11-05 17:13 | P.PNPL_ITS ---
Progress Note: A&P Assessment and Plan (1) Pleural effusion: Code(s): J90 - Pleural effusion, not elsewhere classified Status: Acute Assessment and Plan: She had more than 400 ml of yellow fluid removed by thoracentesis from left pleural space 10/31, with a low wbc 167 and non-specific differential; remainder of the chemistries are pending, no pH to review. Negative cytology for cancer from pleural fluid analysis. fluid was yellow, and the low number WBC is a benign finding. This does not appear to represent a pleural space infection. This appears to be a transudative pleural effusion. Was not short of breath and no symptoms to suggest pneumonia. She has no history of lung infections. She has a large heart, has had a transcutaneous aortic valve replacement a year ago, echo shows hyperdynamic LV and biatrial enlargement. Normal white count and no fever. She does not have any oxygen requirement and did not have any pleuritic chest discomfort so I think that is unlikely she had a pulmonary embolus leading to the pleural effusion. Events noted. She is not stable, needs central access. Dr Doyle's evaluation noted, he states that she is terminally ill from hematology standpoint, MGUS, anemia, sclerotic Right iliac crest lesion. I will sign off. Plan non billable Subjective Date/time seen: 11/05/24 17:13 Interval history: 11/05/2024; Low body temp, blood pressure yesterday; required a RIJ central line this evening for access. H/H is lower today, 6.4 g/dL and 20.2%. She has required transfusions in the past for anemia, and has cryptic GI blood loss. Her chronic renal failure has taken a more acute turn, BUN 58, creat 3.10. Still remains on room air, saturation is 89% to 92%. Cytology on pleural fluid is negative; - Left pleural fluid, cytology and cell block: - Proteinaceous fluid with rare lymphocytes - Negative for malignancy 11/03/24; Patient is stable, on room air, denies feeling sort of breath. Saturation is 94%. 11/02/24; She had an abdominal x-ray today showing Multiple loops of gas-filled but not frankly dilated small bowel likely within the large left-sided ventral hernia similar as seen on prior CT. Opacities at the left lower lung zone consistent with persistent small left pleural effusion and associated atelectasis or pneumonia. She has a tremendous ventral hernia which I did not appreciate until I saw her in bed leaning to the left, with the abdomen taking up a large amount of real estate. She is on room air with saturation is 91-93%, she does not have a cough, she denies shortness of breath. She has no fever. 10/31/24 new consult; Shannan Seals is a 78 year old female admitted by ambulance from [facility] Oct 26 due to progressive weakness for 3 days, black stools and she takes oral iron. She felt like her anemia was worse. 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 She is managed by Dr Schaffer, gets Procrit every few weeks if hemoglobin is < 10 g/dL. She had GI bleeding with angiodysplasia cauterized Jun 2024. Her H/H on admission was 8.3/27%, no transfusion this admission. She has a moderate sized left pleural effusion. Today Oct 31 she had a thoracentesis with 400 + ml yellow fluid removed, WBC on the pleural fluid was 167, normal is < 1000. Differential showed 34% neutrophils, 39% lymphocytes, normal. Gram stain showed WBC however no microorganisms. There is no pH; the chemistries are pending, and micro is pending. She has a history of a bloody pericardial effusion that was tapped 03/06/2019. Dr. Garay's nephrology note shows that she had a positive KIM 1:80, negative double-stranded DNA. I do not see any additional collagen vascular studies. 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 She does not have known lung disease. She says taht she did not have any pneumonia symptoms prior to this admission, no cough, sputum, wheezing, sinus congestion, diarrhea, and she had no sick contacts. Swabs for viral pathogens were negative, influenza A/B, RSV and SARS-CoV2. PMH : atrial fibrillation Aug 2024; TAVR October 2023 for severe aortic stenosis; Chart indicates CHF, patient does not tell me she has this. CKD stage IV, MGUS and anemia requiring transfusions and Procrit, DM, HTN. DATA * 11/05/24; CXR post RIJ TLC - new RIJ line, left pleural effusion and atelectasis * 10/31/24 WBC 8.4, hemoglobin 8.4, hematocrit 29.3%, platelets [id number] differential shows 78% neutrophils. Sodium 137, potassium 4.7, chloride 120, HC03 is 11, BUN 54, creatinine 2.6. * 10/31/24; CXR FINDINGS Decreased left-sided pleural effusion when compared with previous examination. The left lung is fully inflated. The right hemithorax is clear. Prosthetic valve in the aortic position. Calcifications of the mitral annulus. The cardiomediastinal silhouette is enlarged, unchanged. IMPRESSION: No pneumothorax following left-sided thoracentesis, as detailed above. * 11/08/23 PET Scan: No evidence of malignancy. 2. Small pleural effusions. 3. Chronic large pericardial effusion. 4. Large ventral hernia containing small bowel and large bowel and small volume of ascites. * 10/29/24 UA: pH 5.5, 1+ protein, non hemolyzed sample, 3-5 RBCs, trace leukocyte Esterace, * 04/09/24; bone marrow biopsy - * 07/25/2021 KIM (+), 1:80, negative double-stranded DNA, ESR 14, C3-1 35, C4 25, CH 50 greater than 6 Review of Systems 2 Review of Systems: All systems reviewed & are unremarkable except as noted in HPI and below Exam 2 Narrative: Family at bedside. Patient is wearing nasal cannula O2. She is resting. I did not examine her with a stethoscope. Objective Data Vital Signs Vital Signs: Vital Signs - 24 hr 11/04/24 17:24 11/04/24 17:24 11/04/24 17:46 Temperature 35.5 C L 35.9 C L Pulse Rate 78 Respiratory Rate 15 Blood Pressure 135/84 Pulse Oximetry 98 Oxygen Delivery 11/04/24 17:46 11/04/24 18:01 11/04/24 18:01 Temperature 35.9 C L 36.1 C L 36.1 C L Pulse Rate 80 68 Respiratory Rate 16 16 Blood Pressure 110/78 86/58 L Pulse Oximetry 96 97 Oxygen Delivery 11/04/24 18:16 11/04/24 18:16 11/04/24 18:46 Temperature 36.1 C L 36.1 C L 35.8 C L Pulse Rate 70 Respiratory Rate 16 Blood Pressure 120/87 Pulse Oximetry 96 Oxygen Delivery 11/04/24 18:46 11/04/24 19:49 11/04/24 19:50 Temperature 35.8 C L 36.4 C 36.4 C Pulse Rate 72 78 Respiratory Rate 16 16 Blood Pressure 122/71 106/63 Pulse Oximetry 94 96 Oxygen Delivery 11/04/24 20:00 11/04/24 20:00 11/04/24 20:17 Temperature 36.6 C Pulse Rate 74 78 Respiratory Rate Blood Pressure 118/78 Pulse Oximetry 90 90 Oxygen Delivery Room Air 11/04/24 20:19 11/04/24 21:00 11/04/24 22:00 Temperature 36.6 C 36.1 C L Pulse Rate 82 Respiratory Rate Blood Pressure Pulse Oximetry Oxygen Delivery 11/04/24 23:00 11/04/24 23:00 11/04/24 23:30 Temperature 35.9 C L 36.0 C L Pulse Rate 78 Respiratory Rate 18 Blood Pressure 91/50 L Pulse Oximetry 93 Oxygen Delivery 11/05/24 00:00 11/05/24 00:00 11/05/24 00:00 Temperature 36.1 C L Pulse Rate 75 Respiratory Rate Blood Pressure Pulse Oximetry 93 Oxygen Delivery Room Air 11/05/24 00:30 11/05/24 00:55 11/05/24 01:00 Temperature 36.2 C L 36.1 C L Pulse Rate 68 Respiratory Rate Blood Pressure Pulse Oximetry Oxygen Delivery 11/05/24 01:30 11/05/24 02:00 11/05/24 02:00 Temperature 36.6 C 36.3 C L Pulse Rate 75 Respiratory Rate Blood Pressure Pulse Oximetry Oxygen Delivery 11/05/24 02:30 11/05/24 03:14 11/05/24 04:00 Temperature 36.4 C 36.5 C 36.5 C Pulse Rate 85 Respiratory Rate 20 Blood Pressure 98/64 L Pulse Oximetry 98 Oxygen Delivery 11/05/24 04:00 11/05/24 04:00 11/05/24 06:00 Temperature Pulse Rate 81 89 Respiratory Rate Blood Pressure Pulse Oximetry 94 Oxygen Delivery Room Air 11/05/24 08:00 11/05/24 08:36 11/05/24 08:36 Temperature 36.3 C L Pulse Rate 91 86 97 Respiratory Rate 18 Blood Pressure 118/90 Pulse Oximetry 89 L Oxygen Delivery 11/05/24 12:00 Temperature 36.3 C L Pulse Rate 76 Respiratory Rate 22 H Blood Pressure 118/61 Pulse Oximetry 91 Oxygen Delivery Intake/Output Intake/Output: Intake & Output 11/02/24 11/03/24 11/04/24 11/05/24 23:59 23:59 23:59 23:59 Intake Total 237 072 9317 560 Output Total 200 401 375 Balance 250 -26 680 560 Meds/Results Medications: Active Medications Generic Name Dose Route Start Last Admin Trade Name Freq PRN Reason Stop Dose Admin Acetaminophen 650 mg 10/28/24 17:41 11/04/24 21:36 Acetaminophen 325 Mg Tablet PO 650 mg Q4H PRN Administration Mild Pain (1-3) or Fever Atorvastatin Calcium 10 mg 10/29/24 21:00 11/04/24 21:38 Atorvastatin 10 Mg Tablet PO 10 mg QHS SHAKA Administration Calcitriol 0.25 mcg 10/28/24 21:55 Calcitriol 0.25 Mcg Capsule PO MoWeFr PRN AFTER DIALYSIS Cyanocobalamin 5,000 mcg 10/29/24 09:00 11/05/24 08:49 Cyanocobalamin 1,000 Mcg Tablet PO 5,000 mcg MoWeFr SHAKA Administration Dextrose 12.5 gm 10/29/24 10:22 11/05/24 08:06 Dextrose 50% 25 Gm/50 Ml Syringe IV PUSH 12.5 gm PRN PRN Administration Hypoglycemia Protocol Ferrous Sulfate 325 mg 10/29/24 21:00 11/05/24 05:59 Ferrous Sulfate [address] PO 325 mg BID@0600,2100 SHAKA Administration Furosemide 20 mg 11/02/24 17:00 11/05/24 17:08 Furosemide 20 Mg Tablet PO 20 mg BID SHAKA Administration Glucagon 1 mg 10/29/24 10:22 11/04/24 02:00 Glucagon For Inj 1 Mg Vial IM 1 mg PRN PRN Administration Hypoglycemia Protocol Glucose 15 gm 10/29/24 10:22 11/04/24 01:13 Glucose Oral Gel 15 Gm Of Glucse In 37.5 Gm Tube PO 15 gm PRN PRN Administration Hypoglycemia Protocol Guaifenesin 200 mg 11/05/24 12:39 Guaifenesin 200 Mg/10 Ml Udc PO Q4H PRN Cough Dextrose 1,000 mls @ 100 mls/hr 10/29/24 10:22 Dextrose 5% 1,000 Ml IVPB PRN PRN Hypoglycemia Protocol Iron Sucrose 100 mg/ Sodium 55 mls @ 220 mls/hr 11/03/24 09:00 11/05/24 10:16 Chloride IVPB 220 mls/hr DAILY SHAKA Administration Dextrose 500 mls @ 50 mls/hr 11/04/24 02:00 11/05/24 10:15 Dextrose 10% IV CONT 50 mls/hr .Q10H SHAKA Administration Lactobacillus Acidophilus 1 tablet 10/29/24 09:00 11/05/24 08:35 Acidophilus/Bulgaricus Chewable Tablet BY MOUTH 1 tablet DAILY SHAKA Administration Loratadine 10 mg 10/28/24 21:56 Loratadine 10 Mg Tablet PO DAILY PRN SEASONAL ALLERGIES Metoclopramide HCl 5 mg 11/03/24 22:25 11/03/24 23:04 Metoclopramide Hcl Inj 10 Mg/2 Ml Vial IV PUSH 5 mg Q6HR PRN Administration Vomiting Metoprolol Succinate 25 mg 11/04/24 09:00 11/05/24 08:36 Metoprolol Succinate Ext Rel 25 Mg Tabcr PO 25 mg QAM SHAKA Administration Metoprolol Succinate 100 mg 11/04/24 09:00 11/05/24 08:36 Metoprolol Succinate Ext Rel 100 Mg Tabcr PO 100 mg QAM SHAKA Administration Metoprolol Tartrate 2.5 mg 11/03/24 15:34 Metoprolol Tartrate Inj 5 Mg/5 Ml Vial IV PUSH Q2H PRN Tachycardia Ondansetron HCl 4 mg 10/28/24 17:41 11/03/24 21:13 Ondansetron Inj 4 Mg/2 Ml Vial IV PUSH 4 mg Q4H PRN Administration Nausea Pantoprazole Sodium 40 mg 10/29/24 21:00 11/05/24 08:35 Pantoprazole 40 Mg Tablet PO 40 mg Q12HR SHAKA Administration Perflutren Lipid Microsphere 0 ml 11/05/24 10:47 Perflutren Lipid Microspheres 1.5 Ml Vial Diluted To 10 Ml Total Volume IV PUSH 11/08/24 10:47 ONCE PRN adequate visualization Protocol Potassium Chloride 20 meq 10/29/24 09:00 11/05/24 08:35 Potassium Chloride 20 Meq Er Tablet PO 20 meq DAILY SHAKA Administration Sodium Bicarbonate 650 mg 10/29/24 09:00 11/05/24 08:35 Sodium Bicarbonate Tab 650 Mg Tablet PO 650 mg BID SHAKA Administration Vitamin D 2,000 units 10/29/24 09:00 11/05/24 08:35 Cholecalciferol 1,000 Units Tablet PO 2,000 units DAILY SHAKA Administration Radiology Results: ITS Impressions Abdomen/Pelvis CT 10/28/24 16:58 IMPRESSION: Diffuse anasarca. Detection of active GI hemorrhage is limited without intravenous contrast. Large nonobstructing ventral hernia Large left-sided pleural effusion. Small right-sided pleural effusion. Chest X-Ray 10/31/24 14:28 IMPRESSION: No pneumothorax following left-sided thoracentesis, as detailed above. Thoracentesis Ultrasound 10/31/24 14:31 IMPRESSION: 1. Successful ultrasound-guided thoracentesis yielding 450 mL of yellow fluid. Renal Ultrasound 11/03/24 14:46 IMPRESSION: 1. Right kidney not visualized due to the patient's body habitus. Note that the right kidney demonstrated normal size without hydronephrosis on the recent CT. 2. 1.7 cm mass in the left kidney. The differential diagnosis includes normal renal parenchyma, renal cell carcinoma, and hemorrhagic cyst. Abdomen MRI without and with contrast is recommended. 3. Right pleural effusion. Ankle Brachial Index 11/03/24 21:57 IMPRESSION: Highly suggestive severe occlusive disease. Clinical correlation and further evaluation advised. Abdomen X-Ray 11/03/24 23:01 IMPRESSION: Slightly dilated small bowel loops. Follow-up advised. Abdomen MRI 11/05/24 09:53 IMPRESSION: 1. Multiple bilateral renal cysts the largest 1.5 cm hepatic cyst at the upper pole the left kidney which appears to correspond to the lesion of concern on prior CT. 2. New mild left hydroureteronephrosis which could be related to obstruction from one of the stones previously seen at the left kidney. 3. Anasarca with large pericardial effusion, small bilateral pleural effusions, small amount of ascites and diffuse body wall, mesenteric and retroperitoneal edema. 4. Cardiomegaly. 5. Large left ventral hernia containing ascites and nonobstructed small bowel. 6. Indeterminate 1.4 cm T2 hyperintense and sclerotic lesion at the medial right iliac crest which raises concern for metastatic disease. Labs Labs: Laboratory Results - last 24 hr 11/04/24 11/04/24 11/04/24 17:19 17:49 20:16 WBC RBC Hgb Hct MCV MCH MCHC RDW Plt Count MPV Immature Gran % (Auto) Neut % (Auto) Lymph % (Auto) [place] % (Auto) Eos % (Auto) Baso % (Auto) Lymph # (Auto) [place] # (Auto) Eos # (Auto) Baso # (Auto) Abs Immat Gran (auto) Absolute Neuts (auto) Absolute Nucleated RBC Nucleated RBC % Platelet Estimate % Immature Plt Fraction Hypochromasia Anisocytosis Target Cells Schistocytes Sodium Potassium Chloride Carbon Dioxide Anion Gap BUN Creatinine Estim Creat Clear Calc Estimated GFR Glucose POC Capillary Glucose 235 H 205 H 161 H Calcium Phosphorus Magnesium Total Bilirubin AST ALT Alkaline Phosphatase Total Protein Albumin Stl Occult Blood (IFOB) 11/04/24 11/05/24 11/05/24 22:15 01:02 02:21 WBC RBC Hgb Hct MCV MCH MCHC RDW Plt Count MPV Immature Gran % (Auto) Neut % (Auto) Lymph % (Auto) [place] % (Auto) Eos % (Auto) Baso % (Auto) Lymph # (Auto) [place] # (Auto) Eos # (Auto) Baso # (Auto) Abs Immat Gran (auto) Absolute Neuts (auto) Absolute Nucleated RBC Nucleated RBC % Platelet Estimate % Immature Plt Fraction Hypochromasia Anisocytosis Target Cells Schistocytes Sodium Potassium Chloride Carbon Dioxide Anion Gap BUN Creatinine Estim Creat Clear Calc Estimated GFR Glucose POC Capillary Glucose 130 H 128 H 120 H Calcium Phosphorus Magnesium Total Bilirubin AST ALT Alkaline Phosphatase Total Protein Albumin Stl Occult Blood (IFOB) 11/05/24 11/05/24 11/05/24 03:55 04:55 07:53 WBC 8.6 RBC 2.31 L Hgb 7.6 L Hct 25.0 L MCV 108.2 H MCH 32.9 MCHC 30.4 L RDW 21.6 H Plt Count 62 L MPV 14.0 H Immature Gran % (Auto) 0.5 Neut % (Auto) 89.0 H Lymph % (Auto) 2.9 L [place] % (Auto) 7.2 Eos % (Auto) 0.3 Baso % (Auto) 0.1 L Lymph # (Auto) 0.25 L [place] # (Auto) 0.6 Eos # (Auto) 0.0 Baso # (Auto) 0.0 Abs Immat Gran (auto) 0.04 H Absolute Neuts (auto) 7.7 H Absolute Nucleated RBC 0.230 H Nucleated RBC % 2.7 H Platelet Estimate Decreased % Immature Plt Fraction 15.9 H Hypochromasia 1+ Anisocytosis 1+ Target Cells 1+ Schistocytes None seen Sodium 136 L Potassium 4.2 Chloride 113 H Carbon Dioxide 16 L Anion Gap 7 BUN 57 H Creatinine 3.00 H Estim Creat Clear Calc 13 Estimated GFR 15 L Glucose 107 POC Capillary Glucose 118 H 46 L* Calcium 7.7 L Phosphorus 3.3 Magnesium 1.1 L Total Bilirubin 2.6 H AST 34 ALT 18 Alkaline Phosphatase 54 Total Protein 5.0 L Albumin 2.4 L Stl Occult Blood (IFOB) 11/05/24 11/05/24 11/05/24 08:32 10:15 12:08 WBC RBC Hgb Hct MCV MCH MCHC RDW Plt Count MPV Immature Gran % (Auto) Neut % (Auto) Lymph % (Auto) [place] % (Auto) Eos % (Auto) Baso % (Auto) Lymph # (Auto) [place] # (Auto) Eos # (Auto) Baso # (Auto) Abs Immat Gran (auto) Absolute Neuts (auto) Absolute Nucleated RBC Nucleated RBC % Platelet Estimate % Immature Plt Fraction Hypochromasia Anisocytosis Target Cells Schistocytes Sodium Potassium Chloride Carbon Dioxide Anion Gap BUN Creatinine Estim Creat Clear Calc Estimated GFR Glucose POC Capillary Glucose 193 H 145 H 102 Calcium Phosphorus Magnesium Total Bilirubin AST ALT Alkaline Phosphatase Total Protein Albumin Stl Occult Blood (IFOB) 11/05/24 11/05/24 14:24 15:02 WBC RBC Hgb Hct MCV MCH MCHC RDW Plt Count MPV Immature Gran % (Auto) Neut % (Auto) Lymph % (Auto) [place] % (Auto) Eos % (Auto) Baso % (Auto) Lymph # (Auto) [place] # (Auto) Eos # (Auto) Baso # (Auto) Abs Immat Gran (auto) Absolute Neuts (auto) Absolute Nucleated RBC Nucleated RBC % Platelet Estimate % Immature Plt Fraction Hypochromasia Anisocytosis Target Cells Schistocytes Sodium Potassium Chloride Carbon Dioxide Anion Gap BUN Creatinine Estim Creat Clear Calc Estimated GFR Glucose POC Capillary Glucose 87 Calcium Phosphorus Magnesium Total Bilirubin AST ALT Alkaline Phosphatase Total Protein Albumin Stl Occult Blood (IFOB) Positive H D
[2024-11-05 18:05] LABS: Glucose Point of Care 68 mg/dl (65-105)
[2024-11-05 18:05] LABS: Glucose Point of Care 84 mg/dl (65-105)
[2024-11-05 19:18] LABS: Magnesium 1.1 mg/dL (1.6-2.3)
--- NOTE | 2024-11-05 20:09 | ECG_ITS ---
Test Date: 2024-11-05 20:38:04 Measurements Intervals [place] Rate: 102 P: 0 AR: 0 QRS: -72 QRSD: 105 T: 113 QT: 354 QTc: 462 Interpretive Statements ATRIAL FIBRILLATION WITH RAPID VENTRICULAR RESPONSE MARKED LEFT AXIS DEVIATION [QRS AXIS < -30] LOW QRS VOLTAGE IN EXTREMITY LEADS [QRS DEFLECTION < 0.5 mV IN LIMB LEADS] POSSIBLE ANTERIOR MYOCARDIAL INFARCTION [30 ms Q WAVE IN V3/V4, OR R < 0.2 mV IN V4], OF INDETERMINATE AGE INFERIOR INFARCT, AGE INDETERMINATE Compared to ECG 11/04/2024 03:43:46 Left-axis deviation now present Myocardial infarct finding still present Electronically Signed On 11-10-2024 10:25:28 [employer] by Estuardo Wright M.D.
[2024-11-05 20:13] LABS: Basophils Percent Auto 0.1 % (0.2-1.2); Immature Granulocyte Absolute 0.04 K/mm3 (0.00-0.031); Immature Granulocyte Percent A 0.4 % (0-0.5); Immature Platelet Fraction Pct 18.3 % (0.9-11.2); Lymphocytes Absolute Auto 0.19 K/mm3 (0.9-3.2); Lymphocytes Percent Auto 2.1 % (18.3-44.2); Mean Corpuscular HGB Conc 31.7 g/dl (32-36); Mean Corpuscular Volume 104.1 fl (80-100); Mean Platelet Volume 14.1 fl (7.4-10.4); Monocytes Absolute Auto 0.6 K/mm3 (0.1-0.6); Monocytes Percent Auto 6.8 % (2.6-8.5); Neutrophils Absolute Auto 8.4 K/mm3 (1.3-6.7); Neutrophils Percent Auto 90.6 % (45.5-73.1); Nucleated Red Blood Cells Perc 3.6 % (0.0-0.2); Platelet Count Result 55 k/mm3 (150-375); Red Blood Count 1.94 M/mm3 (4.2-5.4); Red Cell Distribution Width 21.4 % (11.5-14.5); White Blood Count 9.2 K/mm3 (4.5-10.0)
[2024-11-05 20:19] LABS: Hematocrit 20.2 % (37.0-47.0); Hemoglobin 6.4 g/dL (12.0-15.0)
[2024-11-05 20:28] LABS: INR 1.9; Prothrombin Time 22.3 Seconds (11.1-14.7)
[2024-11-05 20:29] LABS: Partial Thromboplastin Time 60.3 Seconds (22.3-36.8)
[2024-11-05 20:33] LABS: Anisocytosis 1+; Burr Cells 1+; Hypochromasia 1+; Microcytosis 1+ (NORMAL); Platelet Estimate Decreased (Adequate); Stomatocytes 1+
[2024-11-05 20:34] LABS: Schistocytes Rare
[2024-11-05 20:43] LABS: Add Urine Microscopic? YES; Appearance Urine Clear (Clear); Bacteria Urine None Seen /hpf; Bilirubin Urine Negative (Negative); Blood Urine 1+ (Negative); Color Urine Yellow (Yellow); Glucose Urine UA Negative (Negative); Ketones Urine Negative (Negative); Leukocyte Esterase Ur Negative LEU/UL (Negative); Nitrate Urine Negative (Negative); Non Pathogenic Casts 0-2; Protein Urine Negative (Negative); RBC Urine 0-2 /hpf (0-2); Specific Grav Ur 1.009 (1.001-1.035); Squamous Epithelial Cell Urine None Seen /hpf (Few); Urobilinogen Urine 0.2 mg/dL (<2.0); WBC Urine 0-5 /hpf (0-3)
[2024-11-05 20:43] LABS: Alanine Aminotransferase 18 U/L (6-35); Albumin Level 2.2 g/dL (3.5-5.1); Alkaline Phosphatase 55 U/L (38-126); Anion Gap 5 mmol/L (4-12); Aspartate Amino Transferase 32 U/L (14-36); Bilirubin,Total 2.4 mg/dL (0.2-1.3); Blood Urea Nitrogen 58 mg/dL (7-17); Calcium 7.5 mg/dL (8.4-10.2); Carbon Dioxide 14 mmol/L (22-30); Chloride 112 mmol/L (98-107); Estimated CRCL calculation 13 ml/min; Estimated Glomerular Filt Rate 15; Glucose 95 mg/dL (65-110); Lactic Acid Reflex 1.2 mmol/L (0.7-2.0); Phosphorus 3.7 mg/dL (2.5-4.5); Potassium 4.7 mmol/L (3.4-5.0); Procalcitonin 1.5 ng/mL; Sodium 131 mmol/L (137-145)
[2024-11-05 20:44] LABS: Ammonia 130 umol/L (9-30)
--- NOTE | 2024-11-05 20:46 | P.PCNBEDED_ITS ---
Procedures Central Line Placement Right IJ: Central Line Date: 11/05/24 Central Line Time: 20:25 Discussed w/ the patient/family/POA,the placement of a central venous catheter, including its clinical necessity/indication & associated potential risks, benifits and alternatives.: Yes The patient/family/POA understand(s) and acknowledge(s) the need to proceed with central venous catheter insertion as an important element of the patient's clinical management.: Yes Consent: I have discussed with the patient and/or surrogate, the non-emergent placement of a central venous catheter, including its clinical necessity/indication and associated potential risks and complications. The patient and/or surrogate understand(s) and acknowledge(s) the need to proceed with central venous catheter insertion as an important element of the patient's clinical management. Patient Position: supine Patient placed on monitor/pulse ox: Yes Provider Prep: mask, sterile gown, sterile gloves, Max. sterile barrier precautions, cap and hand hygiene with conventional soap/water or alcohol based hand rub Central line prep: 2% Chlorhexidine scrub and sterile full body sheet applied Local anesthesia used: lidocaine 1% Amount of anesthesia used (ml): 3 Sterile US Technique with sterile gel/sterile probe covers: Yes Central line lumen inserted: triple Taiwanese: 7 Length (cm): 16 Post Procedure: sutured in place, good blood return, all ports aspirated, flushed, capped, transparent dressing and aseptic technique maintained throughout procedure Post procedure x-ray: tip of catheter in good position and no pneumothorax seen Patient tolerated procedure: well Complications: none
[2024-11-05 21:04] LABS: CRP 8.2 mg/dL (<1.0); Troponin I 0.058 ng/mL (0.000-0.034)
--- NOTE | 2024-11-05 22:21 | PM.EVENT ---
Event Note Event Note Event Note: I was called urgently to the bedside at 1915 on 11/05/24 after patient had episode of hypotension hypothermia altered mental status. She was being attended to by nursing staff and Dr. Orellana. Patient has complicated past medical history and appears to be in fluid overload status with ascites due to renal dysfunction. She has an obstructed kidney possibly from a ureteral stone? Additionally she was found to have GI bleed. After prolonged discussion with family central line was placed by ED attending Dr. Cruz in order to obtain labs and have IV access for medications. Family was inclined to make patient comfort measures pending the outcome of blood work. One blood work returns showing increasingly times as well as decreasing hemoglobin hematocrit, mildly worsening renal function mildly worsening sodium I had another discussion with family. Patient was somewhat confused but able to communicate with the daughter about who she wanted as pall bearers for her . Family in agreement with transitioning patient to comfort measures with case management consult for possible hospice. Further life-prolonging measures and non comfort based medications were discontinued. Comfort measures order set was instituted and patient was downgraded to med/surg status.
[2024-11-05 22:24] LABS: Glucose Point of Care < 20 mg/dl (65-105)
--- NOTE | 2024-11-05 22:35 | PC.NURSE ---
At approximately 1915, Pt.'s breathing changed. We had a difficult time getting temperature. Raj sanchez applied. BP low. Dr Orellana and CATHERINE Wang at bedside. Labs, EKG, CXR, [place], Central line, were ordered. Family notified. Code status changed.
[2024-11-05] MEDS: MORPHINE SULFATE (*CRX) 2 MG/ML INJ IV PUSH (22:58)
[2024-11-06] VITALS: PULSE 101; RESP 20; O2SAT 91
[2024-11-06] MEDS: LORazepam INJ (*CRX) 2 MG/ML VIAL IV PUSH ×3 (00:36→16:07)
--- NOTE | 2024-11-06 02:08 | PC.NURSE ---
This patient, Shannan Seals, was transferred to room 255 on 11/06/24 at 0140 for comfort measure focused care. Personal belongings sent with patient. Report given to HERNÁN Amezcua. Appropriate documentation sent with patient. Family at Pt's bedside and aware of transfer.
--- NOTE | 2024-11-06 02:10 | PC.NURSE ---
This patient, Shannan Kwong [place], was received from [facility] on 11/06/24 at 0210. Patient/family oriented to unit policies and routines
[2024-11-06] MEDS: MORPHINE SULFATE (*CRX) 2 MG/ML INJ IV PUSH (02:15)
--- NOTE | 2024-11-06 09:30 | PCNFU ---
Nutrition Follow-Up Complete: Moderate protein calorie malnutrition related to inadequate energy intake and altered GI issues as evidenced by poor po intake for greater than 1 month, a -7% wt loss x 2 months, and NFPE findings for moderate subcutaneous fat loss (cheeks) and moderate muscle wasting (temples). Goal:PO intake 75% Pt not meeting goal. Pt current nutrition is Regular, Ensure compact BID. Nutrition recommendation: Encourage po intake, comfort measures per family Last recorded weight is 69.4 kg. Bowel Motility: +BM 11/05 Labs Reviewed: Hgb:6.4, HCT:20.2, Alb:2.2, NA:131, BUN:58, Cr:3.1 Meds Noted: morphine Skin: WNL Additional Notes: Pt continues on a regular diet, intake is poor. Pt is now on comfort measures and possible hospice consult with care coordination. Encourage po intake of meals and supplements as needed. Monitor intake, wt, labs. Follow up in 7 days.
--- NOTE | 2024-11-06 09:49 | P.PNIM_ITS ---
Progress Note: A&P Assessment and Plan (1) Weakness: Code(s): R53.1 - Weakness Status: Acute Assessment and Plan: Virgil increasingly weak over the past few days and reports that she has no energy similar to when her hemoglobin was low in the past. Per chart review, patient receives blood transfusions every few weeks and has a transfusion in Oct 30. - WBC count hwas elevated however she does not give a history to suggest underlying infection. WBC has returned to normal. - UA unremarkable - CT abdomen/pelvis: Diffuse anasarca. Detection of active GI hemorrhage is limited without intravenous contrast. Large nonobstructing ventral hernia Large left-sided pleural effusion. Small right-sided pleural effusion. - Patient made comfort measures on 11/05/24 and hospice consult. (2) Heme positive stool: Code(s): R19.5 - Other fecal abnormalities Status: Acute Assessment and Plan: Virgil increasingly weak over the past few days and reports that she has no energy similar to when her hemoglobin was low in the past. Per chart review, patient receives blood transfusions every few weeks and has a transfusion in Oct 30. Endorses dark stools but is on iron supplementation. Extensive outpatient evaluation for occult GI bleeding including upper and lower endoscopies and capsule endoscopy which she reports did not show any source of bleeding. - H/H 8.5/28.1 on am labs, continue to trend - Heme occult positive - CT abdomen/pelvis: Diffuse anasarca. Detection of active GI hemorrhage is limited without intravenous contrast. Large nonobstructing ventral hernia Large left-sided pleural effusion. Small right-sided pleural effusion. - GI consulted Protonix BID EGD performed on 10/[address] Olguin No esophagitis or varices. Mod erosive gastritis with erythematous, edematous, erosive, and petechiae changes, No mucosal bleeding. No duodenal ulcers or masses, no signs of recent bleeding. -Stool positive for occult blood yesterday. H&H: 6.4/20.2. -Patient made comfort measures on 11/05/24 with hospice consult. (3) Chronic anemia: Code(s): D64.9 - Anemia, unspecified Status: Inactive Assessment and Plan: Follows heme/onc at [facility], last seen 10/01/24. - H/H 7.6/25.0 on am labs, continue to trend - Iron panel: iron 88, TIBC 203, % sat 43, ferritin 239 - B12 >1000 and folate 7.2 - Heme occult positive - CT abdomen/pelvis: Diffuse anasarca. Detection of active GI hemorrhage is limited without intravenous contrast. Large nonobstructing ventral hernia Large left-sided pleural effusion. Small right-sided pleural effusion. - GI consulted - Stool positive for occult blood yesterday. H&H: 6.4/20.2. - Patient made comfort measures on 11/05/24 with hospice consult. (4) Pleural effusion: Code(s): J90 - Pleural effusion, not elsewhere classified Status: Acute Assessment and Plan: Left pleural effusion has been present since at least December as seen on CXR 12/29/23 and she seems asymptomatic with that. 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 - Asymptomatic, remains on room air - Ddx included CHF, cirrhosis, nephrosis, hypothyroidism (t4 WNL on 11/01), and/or malignancy - CT abdomen/pelvis: Large left-sided pleural effusion. Small right-sided pleural effusion. - Echo 08/14/24: LVEF > 70% with severe concentric LV hypertrophy and bilateral dilation - Started on lasix 20 mg BID, monitor creatinine - S/p thoracentesis yielding 400 ml yellow fluid on 10/31 - pulmonology consulted, appreciate recommendation fluid appears transudative, ddx included CHF, cirrhosis, nephrosis, and/or hypothyroidism (t4 WNL on 11/01) -Patient made comfort measures on 11/05/24 with hospice consult. (5) Chronic kidney disease, stage 4 (severe): Code(s): N18.4 - Chronic kidney disease, stage 4 (severe) Status: Acute Assessment and Plan: BUN/Cr 55/2.6 on admission, appears to be around baseline. Last seen nephrology, Dr. Garay on 09/02/24. Etiology of CKD likely DM and HTN. - BUN/Cr 58/3.10 on am labs - Patient started on lasix 20 mg BID for CHF - Decreased urine output, bladder scan ordered - Avoid nephrotoxic medications - Renally dose medications - Monitor I/O - Renal US 1. Right kidney not visualized due to the patient's body habitus. Note that the right kidney demonstrated normal size without hydronephrosis on the recent CT. 2. 1.7 cm mass in the left kidney. The differential diagnosis includes normal renal parenchyma, renal cell carcinoma, and hemorrhagic cyst. Abdomen MRI without and with contrast is recommended. 3. Right pleural effusion. - Nephrology consulted, appreciate recommendations - MRI abdomen without contrast on 11/04/24 showed: IMPRESSION: 1. Multiple bilateral renal cysts the largest 1.5 cm hepatic cyst at the upper pole the left kidney which appears to correspond to the lesion of concern on prior CT. 2. New mild left hydroureteronephrosis which could be related to obstruction from one of the stones previously seen at the left kidney. 3. Anasarca with large pericardial effusion, small bilateral pleural effusions, small amount of ascites and diffuse body wall, mesenteric and retroperitoneal edema. 4. Cardiomegaly. 5. Large left ventral hernia containing ascites and nonobstructed small bowel. 6. Indeterminate 1.4 cm T2 hyperintense and sclerotic lesion at the medial right iliac crest which raises concern for metastatic disease. -Oncology consulted for left kidney mass. -Patient made comfort measures on 11/05/24 with hospice consult. (6) Hypoglycemia: Code(s): E16.2 - Hypoglycemia, unspecified Status: Acute Assessment and Plan: Patient was noted to have asymptomatic hypoglycemia with blood sugar of 46. She was given D50 push and ate breatkfast, this resolved. - Hypoglycemia protocol - Monitor Patient was noted to be hypoglycemia overnight, remained asymptomatic and transferred to IMU. Started on dextrose drip. Glucose remains stable. Monitor. (7) Atrial fibrillation: Code(s): I48.91 - Unspecified atrial fibrillation Status: Acute Assessment and Plan: Chronic, continue home medications. Last seen by cardiology Sameera Becerra NP on 09/10/24 - metoprolol 125 mg daily - no anticoagulation due to patients history of GI bleeding and anemia (refer to cardiology note on 09/10) - monitor - Cardiology consulted, appreciate recommendations metoprolol dose increased to 125 mg daily 11/04: Heart rate well controlled on current dose of metoprolol. Continue to monitor. (8) Ventral hernia: Code(s): K43.9 - Ventral hernia without obstruction or gangrene Status: Acute Assessment and Plan: Potentially playing a role in patients early satiety and abdominal discomfort. - CT abdomen/pelvis: Large nonobstructing ventral hernia extending to the left of midline containing the majority of patient's large and small bowel. - 11/04: Patient continues to have poor appetite and nausea/vomiting with meals. MRI ordered to rule out new forming obstruction. MRI abdomen without contrast on 11/04/24 showed: IMPRESSION: 1. Multiple bilateral renal cysts the largest 1.5 cm hepatic cyst at the upper pole the left kidney which appears to correspond to the lesion of concern on prior CT. 2. New mild left hydroureteronephrosis which could be related to obstruction from one of the stones previously seen at the left kidney. 3. Anasarca with large pericardial effusion, small bilateral pleural effusions, small amount of ascites and diffuse body wall, mesenteric and retroperitoneal edema. 4. Cardiomegaly. 5. Large left ventral hernia containing ascites and nonobstructed small bowel. 6. Indeterminate 1.4 cm T2 hyperintense and sclerotic lesion at the medial right iliac crest which raises concern for metastatic disease. (9) MGUS (monoclonal gammopathy of unknown significance): Code(s): D47.2 - Monoclonal gammopathy Status: Acute Assessment and Plan: MGUS with bone marrow biopsy in April [address]24. [address] Dr. Schaffer, last seen 10/01/24. - Patient endorsing increased fatigue, weakness and appetite loss concerning for possible myeloma. - Heme/onc consulted (10) Peripheral arterial disease: Code(s): I73.9 - Peripheral vascular disease, unspecified Status: Acute Assessment and Plan: Patient appears to have poor circulation to the extremities as the bottom of her feet are purple with poorly healing bilateral heel wounds. - MATTHEW: Right brachial systolic blood pressure: 115 mmHg Left brachial systolic blood pressure: 132 mmHg Right ankle systolic blood pressure: CNO. Left ankle systolic blood pressure: CNO Highly suggestive severe occlusive disease. Clinical correlation and further evaluation advised. - Follow up outpatient (11) Hypertension: Qualifiers: Hypertension type: unspecified Qualified Code(s): I10 - Essential (primary) hypertension Code(s): I10 - Essential (primary) hypertension Status: Inactive Assessment and Plan: Chronic, continue home medication - metoprolol 125 mg PO daily - monitor (12) Protein calorie malnutrition: Qualifiers: Protein-calorie malnutrition severity: moderate Qualified Code(s): E44.0 - Moderate protein-calorie malnutrition Code(s): E46 - Unspecified protein-calorie malnutrition Status: Acute Assessment and Plan: -Supplements per nutrition recommendations (13) Pericardial effusion: Code(s): I31.39 - Other pericardial effusion (noninflammatory) Status: Acute Assessment and Plan: -MRI abdomen without contrast on 11/04/24 showed: IMPRESSION: 1. Multiple bilateral renal cysts the largest 1.5 cm hepatic cyst at the upper pole the left kidney which appears to correspond to the lesion of concern on prior CT. 2. New mild left hydroureteronephrosis which could be related to obstruction from one of the stones previously seen at the left kidney. 3. Anasarca with large pericardial effusion, small bilateral pleural effusions, small amount of ascites and diffuse body wall, mesenteric and retroperitoneal edema. 4. Cardiomegaly. 5. Large left ventral hernia containing ascites and nonobstructed small bowel. 6. Indeterminate 1.4 cm T2 hyperintense and sclerotic lesion at the medial right iliac crest which raises concern for metastatic disease. -consult cardiology. -Patient received Lasix 40 mg IVP x1 yesterday. - Patient made comfort measures on 11/05/24 with hospice consult. (14) Hypomagnesemia: Code(s): E83.42 - Hypomagnesemia Status: Acute Assessment and Plan: - magnesium 1.1. - Repeat magnesium - Patient made comfort measures on 11/05/24 with hospice consult. Subjective Date/time seen: 11/06/24 09:49 Interval history: Family at bedside. Patient has been made comfort measures and hospice referral. Patient is resting comfortably. Review of Systems Review of Systems: All systems reviewed & are unremarkable except as noted in HPI and below Exam Const: General: comfortable and no acute distress Resp: Auscultation: diminished lung sounds Other: slightly coarse. Cardio: Rate: regular rate Rhythm: regular rhythm GI: GI Palp: Yes Soft to palpation Auscultation: normal bowel sounds Other: Large ventral hernia hanging to the left. Skin: Other: Mottling to the bilateral LE to her thighs. Objective Data Vital Signs Vital Signs: Vital Signs - 24 hr 11/05/24 10:00 11/05/24 12:00 11/05/24 12:00 Temperature 97.4 F L Pulse Rate 93 76 Respiratory Rate 22 H Blood Pressure 118/61 Pulse Oximetry 91 Oxygen Delivery Room Air Oxygen Flow Rate 11/05/24 12:00 11/05/24 14:00 11/05/24 16:00 Temperature 96.6 F L Pulse Rate 92 97 93 Respiratory Rate 24 H Blood Pressure 124/76 Pulse Oximetry 93 Oxygen Delivery Oxygen Flow Rate 11/05/24 16:00 11/05/24 16:00 11/05/24 18:00 Temperature Pulse Rate 89 93 Respiratory Rate Blood Pressure Pulse Oximetry Oxygen Delivery Room Air Oxygen Flow Rate 11/05/24 19:10 11/05/24 19:20 11/05/24 19:26 Temperature Pulse Rate 97 122 H 85 Respiratory Rate 18 Blood Pressure 75/60 L 122/75 Pulse Oximetry 92 Oxygen Delivery Nasal Cannula Oxygen Flow Rate 5 11/05/24 19:30 11/05/24 19:34 11/05/24 20:00 Temperature 96.3 F L 94.8 F L Pulse Rate 97 100 94 Respiratory Rate 18 Blood Pressure 110/66 120/47 L Pulse Oximetry 92 Oxygen Delivery Oxygen Flow Rate 11/05/24 22:00 11/05/24 22:00 11/06/24 00:00 Temperature 95.2 F L Pulse Rate 95 12 L 101 H Respiratory Rate 20 Blood Pressure 102/60 Pulse Oximetry Oxygen Delivery Oxygen Flow Rate 11/06/24 00:00 Temperature Pulse Rate 101 H Respiratory Rate 20 Blood Pressure Pulse Oximetry 91 Oxygen Delivery Nasal Cannula Oxygen Flow Rate 2 Intake/Output Intake/Output: Intake & Output 11/03/24 11/04/24 11/05/24 11/06/24 23:59 23:59 23:59 23:59 Intake Total 375 1055 1225.8 Output Total 401 375 150 Balance -26 680 1075.8 Meds/Results Medications: Active Medications Generic Name Dose Route Start Last Admin Trade Name Freq PRN Reason Stop Dose Admin Acetaminophen 650 mg 10/28/24 17:41 11/04/24 21:36 Acetaminophen 325 Mg Tablet PO 650 mg Q4H PRN Administration Mild Pain (1-3) or Fever Atropine Sulfate 1 - 2 drop 11/05/24 22:20 Atropine Sulfate 1% Ophth Soln 5 Ml Bottle SUBLINGUAL Q4H PRN Secretions Lorazepam 2 mg 11/05/24 22:20 11/06/24 06:32 Lorazepam Inj (*Crx) 2 Mg/Ml Vial IV PUSH 2 mg Q2H PRN Administration Anxiety/Comfort Metoclopramide HCl 5 mg 11/03/24 22:25 11/03/24 23:04 Metoclopramide Hcl Inj 10 Mg/2 Ml Vial IV PUSH 5 mg Q6HR PRN Administration Vomiting Morphine Sulfate 2 mg 11/05/24 22:20 11/06/24 02:15 Morphine Sulfate (*Crx) 2 Mg/Ml Inj IV PUSH 2 mg Q30M PRN Administration COMFORT Ondansetron HCl 4 mg 10/28/24 17:41 11/03/24 21:13 Ondansetron Inj 4 Mg/2 Ml Vial IV PUSH 4 mg Q4H PRN Administration Nausea Radiology Results: ITS Impressions Abdomen/Pelvis CT 10/28/24 16:58 IMPRESSION: Diffuse anasarca. Detection of active GI hemorrhage is limited without intravenous contrast. Large nonobstructing ventral hernia Large left-sided pleural effusion. Small right-sided pleural effusion. Thoracentesis Ultrasound 10/31/24 14:31 IMPRESSION: 1. Successful ultrasound-guided thoracentesis yielding 450 mL of yellow fluid. Renal Ultrasound 11/03/24 14:46 IMPRESSION: 1. Right kidney not visualized due to the patient's body habitus. Note that the right kidney demonstrated normal size without hydronephrosis on the recent CT. 2. 1.7 cm mass in the left kidney. The differential diagnosis includes normal renal parenchyma, renal cell carcinoma, and hemorrhagic cyst. Abdomen MRI without and with contrast is recommended. 3. Right pleural effusion. Ankle Brachial Index 11/03/24 21:57 IMPRESSION: Highly suggestive severe occlusive disease. Clinical correlation and further evaluation advised. Abdomen X-Ray 11/03/24 23:01 IMPRESSION: Slightly dilated small bowel loops. Follow-up advised. Abdomen MRI 11/05/24 09:53 IMPRESSION: 1. Multiple bilateral renal cysts the largest 1.5 cm hepatic cyst at the upper pole the left kidney which appears to correspond to the lesion of concern on prior CT. 2. New mild left hydroureteronephrosis which could be related to obstruction from one of the stones previously seen at the left kidney. 3. Anasarca with large pericardial effusion, small bilateral pleural effusions, small amount of ascites and diffuse body wall, mesenteric and retroperitoneal edema. 4. Cardiomegaly. 5. Large left ventral hernia containing ascites and nonobstructed small bowel. 6. Indeterminate 1.4 cm T2 hyperintense and sclerotic lesion at the medial right iliac crest which raises concern for metastatic disease. Skeletal Survey 11/06/24 07:44 IMPRESSION: 1. Bone lesion of right ilium not visualized. 2. 9 mm nonaggressive lytic lesion in the cortex of left tibial diaphysis, probably benign. 3. Soft tissue gas in left forearm. 4. Dystrophic calcifications versus foreign bodies in right forearm. 5. Small right and moderate-sized left pleural effusions. 6. Airspace opacities at the lung bases, consistent with atelectasis versus pneumonia. Labs Labs: Laboratory Results - last 24 hr 11/05/24 11/05/24 11/05/24 04:49 10:15 12:08 WBC RBC Hgb Hct MCV MCH MCHC RDW Plt Count MPV Immature Gran % (Auto) Neut % (Auto) Lymph % (Auto) [place] % (Auto) Eos % (Auto) Baso % (Auto) Lymph # (Auto) [place] # (Auto) Eos # (Auto) Baso # (Auto) Abs Immat Gran (auto) Absolute Neuts (auto) Absolute Nucleated RBC Nucleated RBC % Platelet Estimate % Immature Plt Fraction Hypochromasia Anisocytosis Microcytosis Stomatocytes [place] Cells Schistocytes PT INR APTT Sodium Potassium Chloride Carbon Dioxide Anion Gap BUN Creatinine Estim Creat Clear Calc Estimated GFR Glucose POC Capillary Glucose 145 H 102 Lactic Acid Calcium Phosphorus Magnesium 1.1 L Total Bilirubin AST ALT Alkaline Phosphatase Ammonia Troponin I C-Reactive Protein Total Protein Albumin Procalcitonin Urine Color Urine Appearance Urine pH Ur Specific [place] Urine Protein Urine Glucose (UA) Urine Ketones Ur Blood (Man) Urine Nitrate Urine Bilirubin Urine Urobilinogen Leukocyte Esterase Rfl Urine RBC Urine WBC Ur Squamous Epith Cells Urine Bacteria Urine Casts Stl Occult Blood (IFOB) 11/05/24 11/05/24 11/05/24 14:24 15:02 17:01 WBC RBC Hgb Hct MCV MCH MCHC RDW Plt Count MPV Immature Gran % (Auto) Neut % (Auto) Lymph % (Auto) [place] % (Auto) Eos % (Auto) Baso % (Auto) Lymph # (Auto) [place] # (Auto) Eos # (Auto) Baso # (Auto) Abs Immat Gran (auto) Absolute Neuts (auto) Absolute Nucleated RBC Nucleated RBC % Platelet Estimate % Immature Plt Fraction Hypochromasia Anisocytosis Microcytosis Stomatocytes [place] Cells Schistocytes PT INR APTT Sodium Potassium Chloride Carbon Dioxide Anion Gap BUN Creatinine Estim Creat Clear Calc Estimated GFR Glucose POC Capillary Glucose 87 84 Lactic Acid Calcium Phosphorus Magnesium Total Bilirubin AST ALT Alkaline Phosphatase Ammonia Troponin I C-Reactive Protein Total Protein Albumin Procalcitonin Urine Color Urine Appearance Urine pH Ur Specific [place] Urine Protein Urine Glucose (UA) Urine Ketones Ur Blood (Man) Urine Nitrate Urine Bilirubin Urine Urobilinogen Leukocyte Esterase Rfl Urine RBC Urine WBC Ur Squamous Epith Cells Urine Bacteria Urine Casts Stl Occult Blood (IFOB) Positive H D 11/05/24 11/05/24 11/05/24 17:58 19:40 19:58 WBC 9.2 RBC 1.94 L Hgb 6.4 L* Hct 20.2 L* MCV 104.1 H MCH 33.0 MCHC 31.7 L RDW 21.4 H Plt Count 55 L MPV 14.1 H Immature Gran % (Auto) 0.4 Neut % (Auto) 90.6 H Lymph % (Auto) 2.1 L [place] % (Auto) 6.8 Eos % (Auto) 0.0 Baso % (Auto) 0.1 L Lymph # (Auto) 0.19 L [place] # (Auto) 0.6 Eos # (Auto) 0.0 Baso # (Auto) 0.0 Abs Immat Gran (auto) 0.04 H Absolute Neuts (auto) 8.4 H Absolute Nucleated RBC 0.330 H Nucleated RBC % 3.6 H Platelet Estimate Decreased % Immature Plt Fraction 18.3 H Hypochromasia 1+ Anisocytosis 1+ Microcytosis 1+ Stomatocytes 1+ [place] Cells 1+ Schistocytes Rare PT 22.3 H INR 1.9 APTT 60.3 H Sodium 131 L Potassium 4.7 Chloride 112 H Carbon Dioxide 14 L Anion Gap 5 BUN 58 H Creatinine 3.10 H Estim Creat Clear Calc 13 Estimated GFR 15 L Glucose 95 POC Capillary Glucose 68 Lactic Acid 1.2 Calcium 7.5 L Phosphorus 3.7 Magnesium Total Bilirubin 2.4 H AST 32 ALT 18 Alkaline Phosphatase 55 Ammonia 130 H Troponin I 0.058 H* C-Reactive Protein 8.2 H Total Protein 4.0 L Albumin 2.2 L Procalcitonin 1.5 Urine Color Yellow Urine Appearance Clear Urine pH 5.0 Ur Specific [place] 1.009 Urine Protein Negative Urine Glucose (UA) Negative Urine Ketones Negative Ur Blood (Man) 1+ H Urine Nitrate Negative Urine Bilirubin Negative Urine Urobilinogen 0.2 Leukocyte Esterase Rfl Negative Urine RBC 0-2 Urine WBC 0-5 Ur Squamous Epith Cells None seen Urine Bacteria None seen Urine Casts 0-2 Stl Occult Blood (IFOB) 11/05/24 22:21 WBC RBC Hgb Hct MCV MCH MCHC RDW Plt Count MPV Immature Gran % (Auto) Neut % (Auto) Lymph % (Auto) [place] % (Auto) Eos % (Auto) Baso % (Auto) Lymph # (Auto) [place] # (Auto) Eos # (Auto) Baso # (Auto) Abs Immat Gran (auto) Absolute Neuts (auto) Absolute Nucleated RBC Nucleated RBC % Platelet Estimate % Immature Plt Fraction Hypochromasia Anisocytosis Microcytosis Stomatocytes [place] Cells Schistocytes PT INR APTT Sodium Potassium Chloride Carbon Dioxide Anion Gap BUN Creatinine Estim Creat Clear Calc Estimated GFR Glucose POC Capillary Glucose < 20 L* Lactic Acid Calcium Phosphorus Magnesium Total Bilirubin AST ALT Alkaline Phosphatase Ammonia Troponin I C-Reactive Protein Total Protein Albumin Procalcitonin Urine Color Urine Appearance Urine pH Ur Specific [place] Urine Protein Urine Glucose (UA) Urine Ketones Ur Blood (Man) Urine Nitrate Urine Bilirubin Urine Urobilinogen Leukocyte Esterase Rfl Urine RBC Urine WBC Ur Squamous Epith Cells Urine Bacteria Urine Casts Stl Occult Blood (IFOB)
[2024-11-06 15:53] VITALS: PULSE 88; RESP 28; TEMP 36.4
[2024-11-06 20:12] LABS: Glucose Pleural Fluid 82 mg/dL; LDH Pleural Fluid 41 U/L; Total Protein Pleural Fluid <3.0 g/dL
--- NOTE | 2024-11-08 07:17 | PM.DS ---
DS: Admitting Diagnosis Discharge Date 11/06/24 Admitting Diagnosis Patient DS: Discharge Diagnosis Discharge Diagnosis (1) Acute exacerbation of CHF (congestive heart failure): Code(s): I50.9 - Heart failure, unspecified Status: Acute (2) MGUS (monoclonal gammopathy of unknown significance): Code(s): D47.2 - Monoclonal gammopathy Status: Acute (3) Heme positive stool: Code(s): R19.5 - Other fecal abnormalities Status: Acute (4) Acute on chronic anemia: Code(s): D64.9 - Anemia, unspecified Status: Acute (5) Pericardial effusion: Code(s): I31.39 - Other pericardial effusion (noninflammatory) Status: Acute (6) Chronic kidney disease, stage 4 (severe): Code(s): N18.4 - Chronic kidney disease, stage 4 (severe) Status: Acute (7) Atrial fibrillation: Code(s): I48.91 - Unspecified atrial fibrillation Status: Acute (8) Type 2 diabetes mellitus without complication, without long-term current use of insulin: Code(s): E11.9 - Type 2 diabetes mellitus without complications Status: Acute (9) Hypoglycemia: Code(s): E16.2 - Hypoglycemia, unspecified Status: Acute (10) Weakness: Code(s): R53.1 - Weakness Status: Acute (11) Pleural effusion: Code(s): J90 - Pleural effusion, not elsewhere classified Status: Acute (12) Hypomagnesemia: Code(s): E83.42 - Hypomagnesemia Status: Acute DS: Summary Hospital Course Hospital Course: Patient made comfort measures and transitioned to hospice. Time Spent with Patient Time attestation: Total time spent providing and/or coordinating discharge services: DS: Data Data Completed and Pending Completed studies during hospitalization: Pending at discharge 10/31/24 14:32 Cytology [PTH] Routine Labs on day of discharge: Preliminary micro results at discharge 11/05/24 19:58 Blood Culture - Preliminary Blood Staphylococcus aureus 11/05/24 19:58 Blood Culture - Preliminary Blood Staphylococcus aureus 10/31/24 14:20 Fungal Culture - Preliminary Pleural Fluid Discharge Plan Discharge Attending physician on discharge: Rush Orellana Consulting providers: Lul Metz; Muriel Tabor; Marichuy Fairbanks; Katie Doyle; Sameera Becerra; Princess Kay; Bibiana Cobb; Janes Richardson; Morenita Hannah; Glenn Philippe; Hope Mcghee; Yulisa Pretty; Yolanda Villareal; Hu Be Discharging Clinician: Joana Paulino Patient Disposition: Hospice - Medical Facility Patient Language: Armenian Stand Alone Forms: General Discharge Information Discharge Medications: Discontinued cholecalciferol (vitamin D3) 50 mcg (2,000 unit) Capsule 50 mcg PO DAILY mecobalamin (vitamin B12) 5,000 mcg tablet,disintegrating 5,000 mcg PO 3XW Rx Instructions: m,w,f sodium bicarbonate 650 mg tablet 650 mg PO BID Qty: 60 8RF Rx Instructions: take on full stomach, on meals different from iron Lactobacillus acidophilus 10 billion cell capsule 10 cell PO DAILY cetirizine 10 mg tablet 10 mg PO DAILY PRN (Reason: SEASONAL ALLERGIES) ferrous sulfate [Feosol] 325 mg (65 mg iron) tablet 325 mg PO BID potassium chloride 20 mEq tablet,ER particles/crystals 20 meq PO DAILY metoprolol succinate [Toprol XL] 100 mg Tablet Extended Release 24 Hr 100 mg PO QAM Qty: 30 0RF calcitriol 0.25 mcg capsule 0.25 mcg PO 3XW Qty: 45 3RF Rx Instructions: administer after dialysis on dialysis days atorvastatin 10 mg tablet 10 mg PO QHS Qty: 90 1RF fenofibrate 160 mg tablet 160 mg PO DAILY Qty: 90 1RF Date of admission: 10/28/24 17:41 Primary Care Provider: Joceline Vega Admitting Provider: Marva Franco Attending physician on admission: Joana Paulino Condition: Guarded Prognosis
== END 2024-11-06 16:15 | disposition hospice, inpatient (51) | DRG 378 ==
LOC: ANHED 18:59 → ANH2MED 19:07 → ANHIMU 11-04 05:00 → ANH2MED 11-07 09:40
PROVIDERS: Hospitalist; Internal Medicine; Internal Medicine Critical Care Medicine; Internal Medicine Gastroenterology; Internal Medicine Nephrology; Physician Assistant; Student in an Organized Health Care Education/Training Program; Admitting Provider Internal Medicine; Emergency Provider Student in an Organized Health Care Education/Training Program; PCP Family Medicine; Visit Provider Nurse Practitioner Family
PROC: 0DJ08ZZ Inspection of Upper Intestinal Tract, Via Natural or Artificial Opening Endoscopic (ICD-10-PCS; principal; 2024-10-29 11:00)
DX: K92.2 Gastrointestinal hemorrhage, unspecified (principal); E44.0 Moderate protein-calorie malnutrition; I13.0 Hypertensive heart and chronic kidney disease with heart failure and stage 1 through stage 4 chronic kidney disease, or unspecified chronic kidney disease; I48.20 Chronic atrial fibrillation, unspecified; J90 Pleural effusion, not elsewhere classified; N17.9 Acute kidney failure, unspecified; N18.4 Chronic kidney disease, stage 4 (severe); D50.0 Iron deficiency anemia secondary to blood loss (chronic); D47.2 Monoclonal gammopathy; I50.9 Heart failure, unspecified; I73.00 Raynaud's syndrome without gangrene; I95.9 Hypotension, unspecified; E87.70 Fluid overload, unspecified; R60.1 Generalized edema; D63.1 Anemia in chronic kidney disease; D64.9 Anemia, unspecified; E87.6 Hypokalemia; E83.42 Hypomagnesemia; E11.649 Type 2 diabetes mellitus with hypoglycemia without coma; E11.22 Type 2 diabetes mellitus with diabetic chronic kidney disease; E78.5 Hyperlipidemia, unspecified; E53.8 Deficiency of other specified B group vitamins; Z20.822 Contact with and (suspected) exposure to COVID-19; K29.60 Other gastritis without bleeding; K21.9 Gastro-esophageal reflux disease without esophagitis; N32.81 Overactive bladder; L71.9 Rosacea, unspecified; K43.9 Ventral hernia without obstruction or gangrene; M81.0 Age-related osteoporosis without current pathological fracture; M54.50 Low back pain, unspecified; G89.29 Other chronic pain; Z95.2 Presence of prosthetic heart valve
CPT/HCPCS: 32555; 36415; 71045; 74018; 74176; 74181; 76775; 77075; 80048; 80053; 81001; 81050; 82140; 82274; 82550; 82570; 82607; 82728; 82746; 82945; 82948; 83540; 83550; 83605; 83615; 83735; 83880; 84100; 84134; 84145; 84156; 84157; 84300; 84439; 84443; 84480; 84484; 84540; 85014; 85018; 85025; 85027; 85046; 85055; 85610; 85730; 85999; 86140; 86850; 86900; 86901; 87040; 87070; 87075; 87102; 87181; 87205; 87206; 87636; 88108; 88305; 89051; 93005; 93306; 93308; 93922; 96361; 96374; 97163; 97165; 97530; 99285; A9270; C1751; C8924; J1610; J1756; J1940; J2003; J2060; J2270; J2371; J2405; J2470; J2704; J2765; J3475; J7030; J7040; P9047; Q9957

== ENCOUNTER 2024-11-06 16:18 | HOS | payer OTHER, MEDICARE, SELFPAY ==
--- NOTE | 2024-11-06 19:21 | P.HP_ITS ---
H&P: HPI History of Present Illness Date/Time: 11/06/24 19:21 Chief Complaint: Uncontrolled dyspnea and restlessness Narrative: 78 y/o f with hx of MGUS, transfusion-dependent anemia, diastolic CHF, s/p TAVR 2022, CKD stage 4, DM2 presented to [place] ED 10/28 with weakness and was found to have Hgb of 8.6 but afib with RVR and acute on chronic CHF with pleural effusion. She was treated with IV furosemide and on 10/31/24 underwent thoracentesis with removal of 400 mL of fluid that was c/w transudate. Her creatinine worsened from 2.5 to 3.1 during this time. She continued to have anasarca, which was chronic. She became more dyspneic and restless. A central line was placed 11/05/24. Pulmonology and hematology agreed that her condition was terminal. Cardiology stated that CHF was optimally managed given her renal insufficiency. Mrs. Seals and her spouse opted for comfort care only. She was admitted to inpatient hospice service on 11/06/2024 due to dyspnea and restlessness. After a dose of IV lorazepam and initiation of continuous IV hydromorphone at 0.25 mg/hr, she was much more comfortable. Review of Systems Review of Systems: ROS unobtainable: Yes unobtainable due to medical condition PMFSH Past Medical History Medical History Type 2 diabetes mellitus without complication, without long-term current use of insulin hemoglobin A1c: 5.4(10/26) << 5.2(10/25) << 5.7(05/25) << 5.7(10/24) << 5.9(04/24) << 6.3(08/23) << 6.0(02/21) << 6.2(05/22) << 6.6(10/21) << 6.8(11/21) << 7.9(04/20). 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/2019) History of transcatheter aortic valve replacement (TAVR) (10/2023) History of repair of right rotator cuff (11/2020) History of cataract surgery (2020) History of cardiac catheterization History of tubal ligation History of tonsillectomy History of cholecystectomy (01/2010) History of total abdominal hysterectomy and bilateral salpingo-oophorectomy (01/2010) Family History Family History Mother Hypertension Diabetes mellitus Cerebrovascular accident Heart disease Social History Social History (Updated 11/06/24 @ 19:27 by Ramu Gil MD) Social History: Surrogate medical decision maker: Samuel Seals, spouse. Code status: DNR Smoking status: Never smoker Second hand tobacco smoke exposure: No Alcohol intake: never Substance use: never Substance use type: does not use Do You Feel Safe in your Home?: Yes Lack of Transportation: No Lack of Food: Never True Current Housing: I Have Housing Concerned About Future Housing: No Difficulty Paying Gas/Electric Bills: No Difficulty Paying for Meds: No Currently Unemployed: No Education: High School Diploma/GED Difficulty w/ Childcare or Family Care: No Living arrangements: with family Occupation/Education: retired Spiritual care concerns: No Agree to blood products: Yes Meds Home Medications and Allergies Home Medications ?Medication ?Instructions ?Recorded ?Confirmed ?Type Lactobacillus acidophilus 10 10 cell PO DAILY 04/07/20 10/28/24 History billion cell capsule cetirizine 10 mg tablet 10 mg PO DAILY PRN SEASONAL 10/13/20 10/28/24 History ALLERGIES ferrous sulfate 325 mg (65 mg 325 mg PO BID 10/11/21 10/28/24 History iron) tablet (Feosol) mecobalamin (vitamin B12) 5,000 5,000 mcg PO 3XW 04/19/23 10/28/24 History mcg disintegrating tablet calcitriol 0.25 mcg capsule 0.25 mcg PO 3XW #45 caps 04/10/24 10/28/24 Rx atorvastatin 10 mg tablet 10 mg PO QHS #90 tabs 08/04/24 10/28/24 Rx cholecalciferol (vitamin D3) 50 50 mcg PO DAILY 08/06/24 10/28/24 History mcg (2,000 unit) capsule potassium chloride 20 mEq 20 meq PO DAILY 08/13/24 10/28/24 History tablet,extended release(part/cryst) metoprolol succinate 100 mg 100 mg PO QAM #30 tabs 08/15/24 10/28/24 Rx tablet,extended release 24 hr (Toprol XL) sodium bicarbonate 650 mg tablet 650 mg PO BID #60 tabs 09/02/24 10/28/24 Rx fenofibrate 160 mg tablet 160 mg PO DAILY #90 tabs 10/20/24 10/28/24 Rx Allergies Allergy/AdvReac Type Severity Reaction Status Date / Time No Known Allergies Allergy Verified 10/16/24 12:11 Exam Narrative: prior to my exam Assessment and Plan Assessment and plan (1) Hospice care: Code(s): Z51.5 - Encounter for palliative care Status: Acute Assessment and Plan: * Meets inpatient hospice criteria due to requiring continuous IV hydromorphone and prn IV benzodiazepines to control dyspnea and restlessness * PRN palliative regimen ordered (2) Acute exacerbation of CHF (congestive heart failure): Code(s): I50.9 - Heart failure, unspecified Status: Acute (3) Acute respiratory failure with hypoxemia: Code(s): J96.01 - Acute respiratory failure with hypoxia Status: Acute (4) Atrial fibrillation: Code(s): I48.91 - Unspecified atrial fibrillation Status: Acute (5) Protein calorie malnutrition: Qualifiers: Protein-calorie malnutrition severity: moderate Qualified Code(s): E44.0 - Moderate protein-calorie malnutrition Code(s): E46 - Unspecified protein-calorie malnutrition Status: Acute (6) Chronic kidney disease, stage 4 (severe): Code(s): N18.4 - Chronic kidney disease, stage 4 (severe) Status: Acute (7) Anemia in CKD (chronic kidney disease): Code(s): N18.9 - Chronic kidney disease, unspecified; D63.1 - Anemia in chronic kidney disease Status: Acute (8) MGUS (monoclonal gammopathy of unknown significance): Code(s): D47.2 - Monoclonal gammopathy Status: Acute (9) Heme positive stool: Code(s): R19.5 - Other fecal abnormalities Status: Acute (10) Pleural effusion: Code(s): J90 - Pleural effusion, not elsewhere classified Status: Acute (11) Type 2 diabetes mellitus without complication, without long-term current use of insulin: Code(s): E11.9 - Type 2 diabetes mellitus without complications Status: Acute
--- NOTE | 2024-11-06 19:33 | P.DN_ITS ---
Discharge Summary Date and Time Date of : 11/06/24 Time of : 16:32 Provider Pronounced By: 2 RNs Name of First RN That Pronounced: Mulu Kent RN Name of Second RN That Pronounced: Declan Rodriguez RN Probable Cause of Probable Cause of : Acute on chronic diastolic congestive heart failure with underlying MGUS with re fractory anemia Summary Hospital Course: Admitted to inpatient hospice service due to uncontrolled dyspnea and restlessn ess. Medications were titrated to comfort. Mrs. Seals peacefully. Additional Data Confirmation of as documented by pronouncing clinician: Palpable Pulses, Response to Stimuli, Heart Tones and Breath Sounds Name of Provider Notified: Dr. Gil Time Provider Notified: 16:36 Provider Requests Autopsy: No Household Appliance Repairer Notified: Yes Date [facility] Notified of : 11/06/24 Time [facility] Notified of : 16:39
--- NOTE | 2024-11-07 09:59 | PM.DDS ---
Discharge Summary Date and Time Date of : 11/06/24 Time of : 16:32 Provider Pronounced By: 2 RNs Name of First RN That Pronounced: Mulu Kent RN Name of Second RN That Pronounced: Declan Rodriguez RN Additional Data Confirmation of as documented by pronouncing clinician: Palpable Pulses, Response to Stimuli, Heart Tones and Breath Sounds Family: at bedside Name of Provider Notified: Dr. Gil Time Provider Notified: 16:36 Provider Requests Autopsy: No Mower Operator Notified: Yes Date [facility] Notified of : 11/06/24 Time [facility] Notified of : 16:39
== END 2024-11-06 16:32 | disposition expired | DRG 951 ==
LOC: ANH2MED 16:21
PROVIDERS: Admitting Provider Internal Medicine; PCP Family Medicine; Visit Provider Internal Medicine
DX: Z51.5 Encounter for palliative care (principal); I50.33 Acute on chronic diastolic (congestive) heart failure; N18.4 Chronic kidney disease, stage 4 (severe); I13.0 Hypertensive heart and chronic kidney disease with heart failure and stage 1 through stage 4 chronic kidney disease, or unspecified chronic kidney disease; D47.2 Monoclonal gammopathy; E11.22 Type 2 diabetes mellitus with diabetic chronic kidney disease; D64.9 Anemia, unspecified; Z95.2 Presence of prosthetic heart valve